=== PATIENT | male | born 1935 | race Caucasian/White ===

== ENCOUNTER 2017-05-25 14:15 | Outpatient (RCR) | payer MEDICARE, SELFPAY ==
[2017-04-05 12:20] VITALS: BMI 47.9
--- NOTE | 2017-05-25 09:14 | PCM.CR.ITP ---
Exercise - Initial Assessment - Stages of Change Stages of Change:: Action - Exercise Prescription Mode:: Treadmill, Airdyne, NuStep Angina with exercise?: No Target Heart Rate:: 98-112 - Hypertension Do any of the following apply?: Yes, Medication - Intervention Home Exercise/Activity Goal:: Moderate Exercise 30 min/day x 5 days/wk - Education Goals:: Warm-up, RPE EYAL Scale, S/S, Safe Exercise, Self-Monitoring - Exercise Program Goals Exercise Program Goals: Aerobic Activity >30 min Exercise - 30-day Assessment - Visit Date of Eval: 05/25/17 Session #:: 7 - Patient expressed only wanting to do 15 sessions of CR. - Stages of Change Stages of Change:: Action - Exercise Prescription Mode:: Treadmill, Airdyne, NuStep Frequency (x/week): 3 Duration:: 30 METs - Progression: 0.5-1 MET as tolerated: 3.5 Target Heart Rate:: 100-112 - Hypertension Resting Blood Pressure:: 180/80 - Report sent to physician. Peak Exercise Blood Pressure:: 200/80 Medication Changes:: No - Pending physician evaluation of elevated resting BPs - Intervention Home Exercise/Activity Goal:: Sitting Time <3 hrs/day - Education Goals:: Warm-up, RPE EYAL Scale, S/S, Safe Exercise, Self-Monitoring - Exercise Program Goals Exercise Program Goals: Aerobic Activity >30 min, B/P <140/90 Exercise - Final/Discharge - Hypertension Do any of the following apply?: Yes, Medication Nutrition - Initial Assessment - Program Goals Nutrition Program Goals: LDL <70. Total Cholesterol <200. HDL >45. Triglycerides <150. HgbA1C <7%. BMI <25 - Stages of Change Stages of Change:: Action - Diabetes Diabetes:: No Non-Insulin Dependent?: No Do you monitor your blood sugar at home?: No - Weight Management Body Fat %:: 22 Total Score:: 1 - Intervention Referral to dietitian:: No Referral to Diabetic Clinic:: No - Education Gave educational materials for:: Healthy eating Nutrition - 30-Day Assessment - Program Goals Nutrition Program Goals: LDL <70. Total Cholesterol <200. HDL >45. Triglycerides <150. HgbA1C <7%. BMI <25 - Visit Date of Eval: 05/25/17 - session # 7 - Stages of Change Stages of Change:: Action - Lipids Has the patient seen the dietitian?: No - Diabetes Diabetes:: No Insulin: No Non-Insulin Dependent?: No - Intervention Referral to dietitian:: No Referral to Diabetic Clinic:: No - Education Attended class for:: Healthy eating Nutrition - 60-Day Assessment - Program Goals Nutrition Program Goals: LDL <70. Total Cholesterol <200. HDL >45. Triglycerides <150. HgbA1C <7%. BMI <25 - Diabetes Diabetes:: No Insulin: No Non-Insulin Dependent?: No - Intervention Referral to dietitian:: No Referral to Diabetic Clinic:: No - Education Attended class for:: Healthy eating Nutrition - 90-Day Assessment - Program Goals Nutrition Program Goals: LDL <70. Total Cholesterol <200. HDL >45. Triglycerides <150. HgbA1C <7%. BMI <25 - Diabetes Diabetes:: No Insulin: No Non-Insulin Dependent?: No - Intervention Referral to dietitian:: No Referral to Diabetic Clinic:: No - Education Attended class for:: Healthy eating Nutrition - Final Assessment - Program Goals Nutrition Program Goals: LDL <70. Total Cholesterol <200. HDL >45. Triglycerides <150. HgbA1C <7%. BMI <25 - Diabetes Diabetes:: No Insulin: No Non-Insulin Dependent?: No - Weight Management Body Fat %:: 22 Total Score:: 1 - Intervention Referral to dietitian:: No Referral to Diabetic Clinic:: No Tobacco - Initial Assessment - Program Goals Tobacco Program Goals: Complete smoking cessation. Attend education classes. Improve Knowledge Test score - Stage of Change Stages of Change:: Action - Learning Barriers Learning Barriers: Vision, Ready to Learn Total Score:: 10 - Family Support Do you have family support?: Yes - Tobacco Use Tobacco Use: Non-smoker How long ago did you quit using tobacco products?: Greater than or equal to 6 months ago Do you use smokeless tobacco?: No - Intervention Smoking Cessation Referral:: No Individual Education/Counseling:: No Education Schedule Given:: Yes - Education Gave educational material for:: Coronary artery disease, Risk factors, Sexuality, Medical compliance, Cardiac A&P, Angina signs & symptoms Tobacco - 30-Day Assessment - Program Goals Tobacco Program Goals: Complete smoking cessation. Attend education classes. Improve Knowledge Test score - Stage of Change Stages of Change:: Action - Learning Barriers Learning Barriers: Participates in education - Family Support Do you have family support?: Yes - Tobacco Use Tobacco Use: Non-smoker Do you use smokeless tobacco?: No - Intervention Smoking Cessation Referral:: No Individual Education/Counseling:: No Education Schedule Given:: Yes - Education Attended class for:: Coronary artery disease, Risk factors, Sexuality, Medical compliance, Cardiac A&P, Angina signs & symptoms Tobacco - 60-Day Assessment - Program Goals Tobacco Program Goals: Complete smoking cessation. Attend education classes. Improve Knowledge Test score - Family Support Do you have family support?: Yes - Tobacco Use Do you use smokeless tobacco?: No - Intervention Smoking Cessation Referral:: No Individual Education/Counseling:: No Education Schedule Given:: Yes - Education Attended class for:: Coronary artery disease, Risk factors, Sexuality, Medical compliance, Cardiac A&P, Angina signs & symptoms Tobacco - 90-Day Assessment - Program Goals Tobacco Program Goals: Complete smoking cessation. Attend education classes. Improve Knowledge Test score - Family Support Do you have family support?: Yes - Tobacco Use Do you use smokeless tobacco?: No - Intervention Smoking Cessation Referral:: No Individual Education/Counseling:: No Education Schedule Given:: Yes - Education Attended class for:: Coronary artery disease, Risk factors, Sexuality, Medical compliance, Cardiac A&P, Angina signs & symptoms Tobacco - Final Assessment - Program Goals Tobacco Program Goals: Complete smoking cessation. Attend education classes. Improve Knowledge Test score - Learning Barriers Cardiac Knowledge Test Score:: 10 - Family Support Do you have family support?: Yes - Tobacco Use Do you use smokeless tobacco?: No - Intervention Smoking Cessation Referral:: No Individual Education/Counseling:: No Education Schedule Given:: Yes Psychosocial - Initial Assess - Target Goals Target Goals: Assess presence or absence of depression. Using a valid screening tool, maximizes coping skills. Positive support system - Stages of Change Stages of Change:: Action - Psychosocial Test Tool Used:: HANDS Depression Questionnaire Self-Efficacy Score:: 9 - Intervention PS - Interventions: Yes Attend Stress Management Classes, No Referral to Mental Health, No Referral to [facility] Case Management, No Referral to Physician, No Uses Stress Management Skills - Education Gave educational materials for:: Coping techniques, Signs & symptoms of depression, Stress management, Relaxation techniques - Patient/Program Goal Preventative Medication(s):: Aspirin, BEBE inhibitor, Clopidogrel, Beta margie, Statin/lipid - Assistive Devices Assistive Devices:: None Fall Risk Assessed:: Yes Psychosocial - 30-Day Assess - Target Goals Target Goals: Assess presence or absence of depression. Using a valid screening tool, maximizes coping skills. Positive support system - Stages of Change Stages of Change:: Action - Psychosocial Test Tool Used:: HANDS Depression Questionnaire Self-Efficacy Score:: 9 - Intervention PS - Interventions: Yes Attend Stress Management Classes, Yes Uses Stress Management Skills, No Referral to Mental Health, No Referral to [facility] Case Management, No Referral to Physician - Education Attended classes for:: Coping techniques, Signs & symptoms of depression, Stress management, Relaxation techniques - Patient/Program Goal Preventative Medication(s):: Aspirin, BEBE inhibitor, Clopidogrel, Beta margie, Statin/lipid - Assistive Devices Assistive Devices:: None Fall Risk Assessed:: Yes Psychosocial - 60-Day Assess - Target Goals Target Goals: Assess presence or absence of depression. Using a valid screening tool, maximizes coping skills. Positive support system - Psychosocial Test Tool Used:: HANDS Depression Questionnaire Self-Efficacy Score:: 9 - Education Attended classes for:: Coping techniques, Signs & symptoms of depression, Stress management, Relaxation techniques - Patient/Program Goal Preventative Medication(s):: Aspirin, BEBE inhibitor, Clopidogrel, Beta margie, Statin/lipid - Assistive Devices Assistive Devices:: None Fall Risk Assessed:: Yes Psychosocial - 90-Day Assess - Target Goals Target Goals: Assess presence or absence of depression. Using a valid screening tool, maximizes coping skills. Positive support system - Psychosocial Test Tool Used:: HANDS Depression Questionnaire Self-Efficacy Score:: 9 - Education Attended classes for:: Coping techniques, Signs & symptoms of depression, Stress management, Relaxation techniques - Patient/Program Goal Preventative Medication(s):: Aspirin, BEBE inhibitor, Clopidogrel, Beta margie, Statin/lipid - Assistive Devices Assistive Devices:: None Fall Risk Assessed:: Yes Psychosocial - Final Assessmen - Target Goals Target Goals: Assess presence or absence of depression. Using a valid screening tool, maximizes coping skills. Positive support system - Psychosocial Test Tool Used:: HANDS Depression Questionnaire Self-Efficacy Score:: 9 - Patient/Program Goal Preventative Medication(s):: Aspirin, BEBE inhibitor, Clopidogrel, Beta margie, Statin/lipid - Assistive Devices Assistive Devices:: None Fall Risk Assessed:: Yes Patient Health Questionnaire 30-Day Re-eval Assessment 1. Little interest or pleasure in doing things: Not at all 2. Feeling down, depressed, or hopeless: Not at all 3. Trouble falling or staying asleep, or sleeping too much: Not at all 4. Feeling tired or having little energy: Not at all 5. Poor appetite or overeating: Not at all 6. Feeling bad about yourself -- or that you are a failure or have let yourself or your family down: Not at all 7. Trouble concentrating on things, such as reading the newspaper or watching television: Not at all 8. Moving or speaking so slowly that other people could have noticed. Or the opposite - being so fidgety or restless that you have been moving around a lot more than usual: Not at all 9. Thoughts that you would be better off , or of hurting yourself in some way: Not at all Total Score: 0 Self-Efficacy 30-Day Re-eval Assessment We would like to know how confident you are in doing certain activities. Please select your confidence level for:: Select your confidence level for the following using the scale 1-10 where 1 is not at all confident and 10 is totally confident. Your score is the average of all 6 responses. Fatigue: How confident are you that you can keep the fatigue caused by your disease from interfering with the things you want to do? Select Number: 9 Physical Discomfort or Pain: How confident are you that you can keep the physical discomfort or pain of your disease from interfering with the things you want to do? Select Number: 9 Emotional Distress: How confident are you that you can keep the emotional distress caused by your disease from interfering with the things you want to do? Select Number: 10 Other Symptoms or Health Problems: How confident are you that you can keep other symptoms or health problems from interfering with the things you want to do? Select Number: 9 Different Tasks and Activities: How confident are you that you can do the different tasks and activities needed to manage your health condition so as to reduce your need to see a doctor? Select Number: 10 Medication: How confident are you that you can do things other than just taking medication to reduce how much your illness affects your everyday life? Select Number: 10 Total Score:: 9 Cardiac Rehabilitation Goals - Cardiac Rehab Goals Cardiac Rehabilitation Goals: 1. Maintain the individual as the primary focus of care. 2. To improve the patient's quality of life. 3. Identification of cardiac risk factors and provide cardiac risk factor management. 4. Enhance the psychosocial status of the patient. 5. Reconditioning enough to allow the patient to resume customary activities. 6. Control symptoms of cardiac disease - Scale Scale for measuring improvement of personal goals: Enter appropriate number in Comments. 2 = Unchanged. 3 = Slightly Better. 4 = Moderate Improvement. 5 = Met my Goal 30-Day Re-eval Assessment Personal Goals: 30-day Re-assessment: Improve management of stress and emotions - slight improvement, Participate in home exercise program - improvement, Improve muscle strength and endurance - improvement, Improve diet and eating habits (eat healthier) - slight improvement, Control risk factors (learn risk factor modification) - ongoing process of lifestyle change
[2017-05-25 09:20] VITALS: BP 180/80; BP 200/80
== END 2017-05-25 23:59 ==
LOC: CR 14:15
PROVIDERS: Family Provider Family Medicine; PCP Family Medicine; Visit Provider Internal Medicine Cardiovascular Disease
DX: I25.10 Atherosclerotic heart disease of native coronary artery without angina pectoris (principal); Z95.5 Presence of coronary angioplasty implant and graft
CPT/HCPCS: 93798

== ENCOUNTER 2017-06-10 14:15 | Outpatient (RCR) | payer MEDICARE, SELFPAY ==
[2017-04-05 12:20] VITALS: BMI 47.9
[2017-04-06 10:00] VITALS: BP 116/70
[2017-05-04 13:13] VITALS: BP 190/90; BMI 21.2
[2017-05-26 01:01] VITALS: BP 180/80; BP 200/80
== END 2017-06-10 14:37 | disposition home or self-care (01) ==
LOC: CR 14:15
PROVIDERS: Family Provider Family Medicine; PCP Family Medicine; Visit Provider Internal Medicine Cardiovascular Disease
DX: I25.10 Atherosclerotic heart disease of native coronary artery without angina pectoris (principal); Z95.5 Presence of coronary angioplasty implant and graft
CPT/HCPCS: 93798

== ENCOUNTER → 2018-08-10 07:47 | Outpatient (CLI) | payer MEDICARE, SELFPAY ==
[2017-04-05 12:20] VITALS: BMI 47.9
[2018-08-03 14:01] VITALS: BMI 21.2
[2018-08-10 10:01] LABS: AST(SGOT) 31 U/L (15-37); Alanine Aminotransfer ALT/SGPT 28 U/L (16-61); Alkaline Phosphatase 67 U/L (45-117); Bilirubin, Direct 0.17 mg/dL (0.00-0.30); Cholesterol 136 mg/dL (200); Globulin 3.7 g/dL (2.2-4.2); High Density Lipoprotein 38 mg/dL; Protein, Total 7.7 g/dL (6.4-8.2); Triglycerides 153 mg/dL; Very Low Density Lipoprotein 31 mg/dL (5-40)
== END ==
PROVIDERS: Family Provider Family Medicine; PCP Family Medicine; Referring Provider Internal Medicine Cardiovascular Disease; Visit Provider Internal Medicine Cardiovascular Disease
DX: E78.5 Hyperlipidemia, unspecified (principal); I25.10 Atherosclerotic heart disease of native coronary artery without angina pectoris
CPT/HCPCS: 36415; 80061; 80076

== ENCOUNTER → 2018-08-15 12:21 | Outpatient (CLI) | payer MEDICARE, SELFPAY ==
[2017-04-05 12:20] VITALS: BMI 47.9
[2018-08-03 14:01] VITALS: BMI 21.2
--- NOTE | 2018-08-15 12:23 | STE_ITS ---
Reason For Study: CAD Stress Results Protocol: Fito Protocol Maximum Predicted HR: 138 bpm Target HR: 117 bpm % Maximum Predicted HR: 80 % DurationHeart Rate Stage (mm:ss) (bpm) BP Comment Baseline 67 142/80No Chest Pain Fito Protocol Stage I 3:00 85 156/82No Chest Pain Fito Protocol Stage II 3:00 100 160/78No Chest Pain Fito Protocol Stage III 1:15 111 / Mild Left Sided Chest Pain Recovery 73 138/82No Chest Pain Stress Duration: 7:15 mm:ss Maximum Stress HR: 111 bpm METS: 10 Baseline Echocardiogram Findings The estimated ejection fraction is 65 %. Stress Echo Wall motion Data Resting WM Intermediate WM Stress WM Resting Wall Motion Wall Motion Stress No regional wall motion No regional wall motion abnormalities noted. abnormalities noted. EKG Data Normal intervals are noted. The patient exercised according to the regular Fito protocol for a total duration of 7:15. The maximum heart rate attained was 112 beats per minute. This was 81% of maximum predicted heart rate. The patient exercised into stage 3 of the Fito protocol. During stress, there were no ST or T wave changes noted to suggest ischemia. No arrhythmias noted. No clinical angina was noted. Interpretation Summary The estimated ejection fraction is 65 %. Normal, adequate, treadmill echocardiogram. Negative for ischemia by EKG and echocardiographic criteria. No anginal symptoms noted. No arrhythmias noted. Average exercise capacity for age. Appropriate blood pressure response to to exercise. Final LVEF of 75%. Test terminated due to attainment of target heart rate and fatigue. No complications. Ordering Physician: Federico Sewell Referring Physician: Juan Elias Performed By: Braden Clarke RCS
== END ==
PROVIDERS: Family Provider Family Medicine; PCP Family Medicine; Referring Provider Internal Medicine Cardiovascular Disease; Visit Provider Internal Medicine Cardiovascular Disease
DX: I25.10 Atherosclerotic heart disease of native coronary artery without angina pectoris (principal); Z95.1 Presence of aortocoronary bypass graft; Z95.5 Presence of coronary angioplasty implant and graft
CPT/HCPCS: 93017; 93350

== ENCOUNTER → 2019-10-17 | Outpatient (CLI) | payer MEDICARE, SELFPAY ==
[2017-04-05 12:20] VITALS: BMI 47.9
[2019-10-15 13:50] VITALS: BMI 20.5
[2019-10-17 09:47] LABS: AST(SGOT) 25 U/L (15-37); Alanine Aminotransfer ALT/SGPT 30 U/L (16-61); Albumin, Serum 3.8 g/dL (3.2-5.0); Alkaline Phosphatase 54 U/L (45-117); Bilirubin, Direct 0.13 mg/dL (0.00-0.30); Cholesterol 113 mg/dL (200); Globulin 3.3 g/dL (2.2-4.2); High Density Lipoprotein 42 mg/dL; Protein, Total 7.1 g/dL (6.4-8.2); Triglycerides 111 mg/dL; Very Low Density Lipoprotein 22 mg/dL (5-40)
== END | disposition home or self-care (01) ==
LOC: LAB 08:28
PROVIDERS: PCP Family Medicine; Referring Provider Internal Medicine Cardiovascular Disease; Visit Provider Internal Medicine Cardiovascular Disease
DX: E78.5 Hyperlipidemia, unspecified (principal); I25.10 Atherosclerotic heart disease of native coronary artery without angina pectoris
CPT/HCPCS: 36415; 80061; 80076

== ENCOUNTER 2020-05-30 15:19 | Outpatient (RCR) | payer MEDICARE, SELFPAY ==
[2017-04-05 12:20] VITALS: BMI 47.9
[2020-02-18 14:16] VITALS: BMI 19.8
== END 2020-05-30 23:59 ==
LOC: IMMUN 15:19
PROVIDERS: PCP Family Medicine; Visit Provider Family Medicine
DX: Z23 Encounter for immunization (principal)
CPT/HCPCS: 0011A; 0012A

== ENCOUNTER 2021-01-25 09:07 | Emergency (ER) | payer MEDICARE, SELFPAY ==
[2017-04-05 12:20] VITALS: BMI 47.9
--- NOTE | 2021-01-25 | RAD_ITS ---
STUDY: X-RAY CHEST REASON FOR EXAM: Male, 85 years old. Chest pain TECHNIQUE: Single AP portable view of the chest. COMPARISON: 04/08/2017. FINDINGS: No focal infiltrate is seen. There is no demonstrated pleural abnormality. Sternal cerclage wires and vascular clips are present from a prior sternotomy and coronary artery bypass graft procedure (CABG). Normal mediastinum and marybel. Normal visualized pulmonary arteries. There is atherosclerotic tortuosity of the aortic arch and descending thoracic aorta. Stable osseous structures. Normal visualized ribs, clavicles, and shoulders. Probable small hiatal hernia. RAD/Chest 1 View (Portable) IMPRESSION: No active pulmonary disease. Small hiatal hernia. Electronically Signed: Chapito Douglas MD at 10:15 EDT Tel , Service support ,
[2021-01-25 09:08] VITALS: PULSE 52; RESP 14; TEMP 36.4; O2SAT 97; BMI 21.2
[2021-01-25 09:11] VITALS: BP 160/67
[2021-01-25 09:15] VITALS: BP 160/67; BP 165/74; BP 172/72; PULSE 50; PULSE 52
--- NOTE | 2021-01-25 09:25 | EKG12_ITS ---
Test Reason : SYNCOPE Blood Pressure : / mmHG Vent. Rate : 051 BPM Atrial Rate : 051 BPM P-R Int : 188 ms QRS Dur : 088 ms QT Int : 448 ms P-R-T Axes : 029 042 078 degrees QTc Int : 412 ms Sinus bradycardia Otherwise normal ECG Confirmed by ROSA HALL, KARIS ([id number]), online editor JESSICA AGUILERA ([id number]) on 01/27/2021 8:00:40 AM Referred By: LETICIA Confirmed By:KARIS LEE MD
--- NOTE | 2021-01-25 09:25 | EX.ED.DYSGE1 ---
HPI History of Present Illness Chief Complaint: Syncope Informant: patient Narrative Narrative: Patient presents with a near syncopal episode at [facility]. He states he has been feeling fine recently. He felt fine this morning. He did eat some breakfast. He went to [facility]. He states he was wearing a very warm sweater. He was feeling warm throughout [facility]. His symptoms did not come on suddenly. He felt he should take his sweater off at some point. He states he started to get warmer and warmer and then he said people were standing around him. He must of been wobbling or moving. They laid him down on the pew. When EMS arrived, they stood him up and he felt a little bit wobbly but not as bad. He never had chest pain palpitations pressure nausea or vomiting. He has not had any black or bloody bowel movements. He is on Plavix. He has a history of heart disease with stents in and bypass in 2001. He has never had stroke. He has no recent travel surgery immobilization personal family history of DVT or PE. Patient exercises by walking about 3 miles every single day. He feels well doing this. He has not been having symptoms. He states his normal heart rate is about 50. That is not new or different. He feels really back to normal now. He thinks he just got too warm by wearing that sweater for almost an hour. [facility] Medical History (Updated 01/25/21 @ 09:[address] Dusty Reveles MD) Actinic keratitis Atherosclerosis of coronary artery of [place] heart without angina pectoris BPH (benign prostatic hyperplasia) Diverticulitis Encounter for long-term current use of high risk medication GI bleed Hyperlipidemia Hypersomnia, unspecified Hypertension Home Medications aspirin 81 mg tablet,delayed release 81 mg PO QDAY 03/30/17 [History Last Taken Unknown] multivitamin with folic acid 1 tab PO DAILY 04/04/17 [History Last Taken Unknown] clopidogrel 75 mg tablet 75 mg PO DAILY #90 tab 03/03/20 [Rx Last Taken Unknown] hydrochlorothiazide 12.5 mg capsule 12.5 mg PO DAILY #90 cap 03/04/20 [Rx Last Taken Unknown] atorvastatin 20 mg tablet 20 mg PO QHS #90 tab 03/26/20 [Rx Last Taken Unknown] ramipril 10 mg capsule 10 mg PO BID #180 cap 03/26/20 [Rx Last Taken Unknown] carvedilol 12.5 mg tablet 12.5 mg PO BID #180 tab 07/10/20 [Rx Last Taken Unknown] Allergy/AdvReac Type Severity Reaction Status Date / Time famotidine [From Pepcid] Allergy Unknown Verified 01/25/21 09:11 ranitidine Allergy Unknown Verified 01/25/21 09:11 Family History Father CAD (coronary artery disease) Sister CAD (coronary artery disease) Surgical History Cataract History of tonsillectomy Hx of appendectomy Hx of CABG (~03/29/02) S/P coronary artery stent placement (04/05/17) Social History Smoking Status: Never smoker alcohol intake: never substance use type: does not use caffeine: Yes Type: coffee and tea what type of physical activity do you participate in: walking, bicycling, weight training and other details: cardiac rehab frequency: daily duration: 30-45 minutes/day seatbelt use: always do you feel safe at home: Yes ROS ROS ED Constitutional Constitutional ED: Denies chills or fever(s) Eyes Eyes: Denies blurry vision, change in vision or diplopia ENT ENT ED: Denies rhinorrhea or sore throat Cardiovascular Cardiovascular: Denies chest pain, palpitations or racing heartbeat Respiratory/Chest Respiratory/Chest: Denies cough or dyspnea Gastrointestinal Gastrointestinal: Denies diarrhea, melena, nausea or vomiting Genitourinary Genitourinary ED: Denies dysuria or hematuria Musculoskeletal Musculoskeletal: Denies arthralgias or myalgias Integumentary Denies rash Neurologic Neurologic: Denies headache(s), paresthesias or weakness Endocrine Endocrinology: Denies polydipsia or polyuria Allergic/Immunologic Allergic/Immunologic ED: Denies urticaria EXAM Physical Exam Const Vital Signs: 01/25/21 09:08 01/25/21 09:11 01/25/21 09:13 Temperature 97.5 F L Temperature Source Oral Pulse Rate 52 L Pulse Rate [Lying] Pulse Rate [Sitting] Pulse Rate [Standing] Respiratory Rate 14 Respiratory Effort Normal Blood Pressure 160/67 H Blood Pressure [Lying] Blood Pressure [Sitting] Blood Pressure [Standing] Blood Pressure Mean 98 Blood Pressure Mean [Lying] Blood Pressure Mean [Sitting] Blood Pressure Mean [Standing] Pulse Ox 97 Oxygen Delivery Method Room Air 01/25/21 09:15 01/25/21 10:14 01/25/21 11:00 Temperature Temperature Source Pulse Rate 52 L 56 L Pulse Rate [Lying] 52 L Pulse Rate [Sitting] 50 L Pulse Rate [Standing] 50 L Respiratory Rate 14 14 Respiratory Effort Blood Pressure 173/68 H 169/75 H Blood Pressure [Lying] 160/67 H Blood Pressure [Sitting] 165/74 H Blood Pressure [Standing] 172/72 H Blood Pressure Mean 103 106 Blood Pressure Mean [Lying] 98 Blood Pressure Mean [Sitting] 104 Blood Pressure Mean [Standing] 105 Pulse Ox 98 98 Oxygen Delivery Method Room Air Room Air When I walk in the room, patient standing on the edge of the bed getting vitals taken. He is not orthostatic. His heart rate stays at about 55. His blood pressure is good. He feels back to normal now though. Positive well nourished and well developed General Appearance ED: well developed and NAD; Negative for pallor HEENT Reports moist mucous membranes Negative for trauma Eyes EOMs intact bilaterally General Eye ED: Negative for pale conjunctiva Neck No no JVD Chest Wall inspection of chest normal Cardio regular rhythm and no murmurs Rate: bradycardia GI normal to inspection, nondistended, normoactive bowel sounds and non-tender Palpation: soft Back/Spine no CVA tenderness Extremity normal to inspection Extremity Narrative: No cords or asymmetry. General Extremety ED: Negative for edema or tenderness General Extremity: Negative for edema Neuro oriented x3 Neuro Narrative: NIH is 0. Sensorium / Orientation: alert Psych mental status grossly normal Skin no rashes or lesions noted and no wounds Skin Narrative: No diaphoresis. General Skin Exam: Negative for jaundice or pallor MDM MDM MDM Narrative Medical decision making narrative: Patient's blood work shows no acute process. Electrolytes and troponin are negative. Glucose is minimally up at 125. Chest x-ray shows hiatal hernia but no acute process. Patient's been rechecked a couple times. His heart rate always stays about 55. He states this is normal. His blood pressure has been good. He is asymptomatic. His only complaint is that he needs to urinate. We will get him up and walk him again. As long as he feels good we will get him home. Lab Data Attestation: I reviewed the patient's lab results. Labs: Laboratory Results - last 24 hr 01/25/21 01/25/21 09:15 09:15 WBC 6.4 RBC 4.12 L Hgb 13.1 Hct 39.0 L MCV 94.7 H MCH 31.8 MCHC 33.6 RDW Std Deviation 42.5 RDW Coeff of Connie 12.2 Plt Count 197 MPV 10.0 Immature Gran % (Auto) 0.300 Neut % (Auto) 59.2 Lymph % (Auto) 27.5 [place] % (Auto) 8.2 Eos % (Auto) 4.5 Baso % (Auto) 0.3 Absolute Neuts (auto) 3.8 Absolute Lymphs (auto) 1.77 Nucleated RBC % 0 Sodium 139 Potassium 4.2 Chloride 105 Carbon Dioxide 29.0 Anion Gap 5 BUN 22 H Creatinine 1.06 Estim Creat Clear Calc 45.62 Est GFR (MDRD) Af Amer 85 Est GFR (MDRD) Non-Af 71 BUN/Creatinine Ratio 20.8 H Glucose 125 H Calcium 9.0 Magnesium 2.1 Troponin I High Sens 9 Radiography Diagnostic Testing: Radiology Impression Chest X-Ray 01/25/21 00:00 IMPRESSION: No active pulmonary disease. Small hiatal hernia. Electronically Signed: Chapito Douglas MD at 10:15 EDT Tel , Service support , EKG Initial EKG: Comments: EKG done for near syncope read by me shows sinus rhythm with bradycardic rate at 51. Patient swears this is normal for him. No ectopy. No acute ST elevation or depression consistent with infarct or ischemia. CT interval, QRS duration and QTc are all normal. Discharge Plan Triage Chief Complaint: Syncope ED Provider: Dusty Reveles Dx/Rx/DC Orders Clinical Impression: Near syncope Instructions: ED Near-Fainting, Uncertain Cause Prescriptions: No Action multivitamin with folic acid 1 TABLET tablet 1 tab PO DAILY RF: 0 aspirin [Adult Low Dose Aspirin] 81 mg tablet,delayed release (DR/EC) 81 mg PO QDAY RF: 0 clopidogrel 75 mg tablet 75 mg PO DAILY Qty: 90 RF: 3 hydrochlorothiazide 12.5 mg capsule 12.5 mg PO DAILY Qty: 90 RF: 3 atorvastatin 20 mg tablet 20 mg PO QHS Qty: 90 RF: 3 ramipril 10 mg capsule 10 mg PO BID Qty: 180 RF: 3 carvedilol 12.5 mg tablet 12.5 mg PO BID Qty: 180 RF: 3 Primary Care Provider: Juan Elias Referrals: Juan Elias MD [Primary Care Provider] - 1-2 Days if not improving Disposition Disposition: Home, Self Care
[2021-01-25 09:36] LABS: Absolute Lymphocyte Count 1.77 X10^3/uL (0.83-4.51); Absolute Neutrophil Count 3.8 X10^3/uL (2.0-7.7); Basophil# 0.02 X10^3/uL; Basophil% 0.3 % (0-1); Eosinophil# 0.29 X10^3/uL; Eosinophils% 4.5 % (0-5); Hemoglobin 13.1 g/dL (13.0-16.5); Lymphocyte # 1.77 X10^3/ul (0.83-4.51); Lymphocyte % 27.5 % (19-41); Mean Corp Hgb Conc 33.6 g/dL (32-36); Mean Corpuscular Hgb 31.8 pg (27.0-32.0); Mean Corpuscular Volume 94.7 fL (80-94); Monocyte# 0.53 X10^3/uL; Monocyte% 8.2 % (0-10); NRBC Flagged by Analyzer 0 % (0-5); Neutrophil # 3.81 X10^3/uL (2.7-7.7); Neutrophil % 59.2 % (47-70); Platelet Count 197 K/mm3 (150-450); RBC Distribution Width CV 12.2 % (11.6-14.6); RBC Distribution Width SD 42.5 fl (35.1-43.9); Red Blood Count 4.12 M/mm3 (4.6-6.2); White Blood Count 6.4 K/mm3 (4.4-11.0)
--- NOTE | 2021-01-25 09:44 | NURSING ---
Attempted to call report to [facility] ED; on hold 15min.
[2021-01-25 09:52] LABS: Anion Gap 5 (5-15); BUN 22 mg/dL (7-18); BUN/Creat Ratio 20.8 RATIO (10-20); Chloride 105 mmol/L (98-107); Creatinine, Serum 1.06 mg/dL (0.70-1.30); EST Glomerular Filtration Rate 71 mL/min (>60); Est Glom Filt Rate - Afr Amer 85 mL/min (>60); Estimated Creatinine Clearance 45.62 ml/min; Glucose 125 mg/dL (74-106); Magnesium 2.1 mg/dL (1.6-2.6); Potassium 4.2 mmol/L (3.5-5.1); Sodium Level 139 mmol/L (136-145); Troponin-I HS 9 pg/mL (3.0-78.0)
[2021-01-25 10:14] VITALS: BP 173/68; PULSE 52; RESP 14; O2SAT 98
[2021-01-25 11:00] VITALS: BP 169/75; PULSE 56; RESP 14; O2SAT 98
[2021-01-25 12:05] VITALS: BP 192/68; PULSE 52; RESP 16
== END 2021-01-25 12:18 | disposition home or self-care (01) ==
PROVIDERS: Emergency Provider Emergency Medicine; PCP Family Medicine
DX: R55 Syncope and collapse (principal); I25.10 Atherosclerotic heart disease of native coronary artery without angina pectoris; E78.5 Hyperlipidemia, unspecified; I10 Essential (primary) hypertension; Z79.82 Long term (current) use of aspirin; Z79.02 Long term (current) use of antithrombotics/antiplatelets; Z95.5 Presence of coronary angioplasty implant and graft; Z79.899 Other long term (current) drug therapy
CPT/HCPCS: 71045; 80048; 83735; 84484; 85025; 93005; 99285; A4216

== ENCOUNTER → 2021-01-26 13:42 | Outpatient (CLI) | payer MEDICARE, SELFPAY ==
[2017-04-05 12:20] VITALS: BMI 47.9
--- NOTE | 2021-01-26 13:44 | ECHOD_ITS ---
Reason For Study: ATHEROSCLEROTIC HEART DISEASE Procedure This was a 2D Doppler, Color Flow transthoracic echocardiogram. Exam performed in department. Left Ventricle Normal LV size. Left ventricular systolic function is normal. The estimated ejection fraction is 60 %. Stage 1 diastolic dysfunction. No regional wall motion abnormalities noted. Right Ventricle Normal RV size. Normal systolic function. Atria The left atrium is mildly enlarged. Normal right atrium. Mitral Valve Normal mitral valve. Tricuspid Valve Normal tricuspid valve. Mild (1+) tricuspid valve insufficiency. Pulmonary artery systolic pressure is 34 mmHg. Aortic Valve Trisinus/trileaflet aortic valve. Mild (1+) eccentric aortic valve insufficiency. Pulmonic Valve Normal pulmonic valve. Great Vessels Normal aortic root. The pulmonary artery is normal size. Normal inferior vena cava. Pericardium/Pleural No pericardial effusion. MMode/2D Measurements & Calculations LVIDd: 4.4 cm IVSd: 1.0 cm LVOT diam: 2.0 cm LVIDs: 2.6 cm LVPWd: 0.99 cm LVOT area: 3.2 cm2 RVDd: 3.6 cm FS: 39.6 % Ao root diam: 2.9 cm LAV(MOD-bp): 73.1 ml LA A4 area: 23.6 cm2 LAV(MOD-bp) Indexed: 43.1 ml/m2 LAV(MOD-sp2): 61.5 ml LAV(MOD-sp4): 79.0 ml LA dimension(2D): 4.4 cm RA A4 area: 19.5 cm2 Time Measurements MV dec time: 0.37 sec Doppler Measurements & Calculations MV E max king: 54.3 cm/sec Lat Peak E' King: 14.0 cm/sec Med Peak E' King: 7.9 cm/sec MV A max king: 81.0 cm/sec E/E' lat: 3.9 E/E' med: 6.9 MV E/A: 0.67 Ao V2 max: 173.4 cm/sec AI max king: 361.1 cm/sec LV V1 max: 150.3 cm/sec Ao max P.0 mmHg AI max P.2 mmHg LV V1 max P.0 mmHg Ao V2 mean: 116.3 cm/sec AI dec slope: 163.3 cm/sec2 LV V1 mean P.8 mmHg Ao mean P.9 mmHg AI P1/2t: 647.8 msec LV V1 mean: 91.4 cm/sec Ao V2 VTI: 36.9 cm LV V1 VTI: 31.4 cm JOSE LUIS(I,D): 2.7 cm2 JOSE LUIS(V,D): 2.7 cm2 SV(LVOT): 99.2 ml PA V2 max: 168.5 cm/sec TR max king: 264.7 cm/sec TR max P.0 mmHg ECHO/Echo Complete Interpretation Summary Normal LV size. Left ventricular systolic function is normal. The estimated ejection fraction is 60 %. Stage 1 diastolic dysfunction. Pulmonary artery systolic pressure is 34 mmHg. Ordering Physician: Lupis Robles Referring Physician: Juan Elias Performed By: Alize Aldana RDCS, RVT
== END ==
PROVIDERS: PCP Family Medicine; Referring Provider Physician Assistant Medical; Visit Provider Physician Assistant Medical
DX: R01.1 Cardiac murmur, unspecified (principal)
CPT/HCPCS: 93306

== ENCOUNTER 2021-06-11 09:42 | Outpatient (CLI) | payer MEDICARE, SELFPAY ==
[2017-04-05 12:20] VITALS: BMI 47.9
--- NOTE | 2021-06-11 09:51 | CDU_ITS ---
Reason For Study: stenosis Rt. Velocities/BP Lt. Velocities/BP Prox CCA 103.3/13.5 cm/sec. Prox CCA 101.4/16.8 cm/sec. Mid CCA 98.2/12.1 cm/sec. Mid CCA 89.3/15.7 cm/sec. Dist CCA 76.0/12.1 cm/sec. Dist CCA 79.4/16.8 cm/sec. Prox ICA 102.1/12.1 cm/sec. Prox ICA 144.8/27.9 cm/sec. Mid ICA 77.3/14.7 cm/sec. Mid ICA 93.7/20.6 cm/sec. Dist ICA 93.0/20.0 cm/sec. Dist ICA 112.0/20.6 cm/sec. Rt. ICA/CCA = 1.0. Lt. ICA/CCA = 1.6. Prox ECA 94.3/8.2 cm/sec. Prox ECA 148.5/17.0 cm/sec. Rt. Vert. 44.3/6.9 cm/sec. Lt. Vert. 62.6/15.2 cm/sec. Right Extracranial There is heterogeneous, irregular atherosclerotic plaque noted in the right common carotid artery. There is heterogeneous, irregular atherosclerotic plaque noted in the right internal carotid artery. There is heterogeneous, irregular atherosclerotic plaque noted in the right external carotid artery. Antegrade flow is noted in the right vertebral artery. Left Extracranial There is heterogeneous, irregular atherosclerotic plaque noted in the left common carotid artery. There is heterogeneous, irregular atherosclerotic plaque noted in the left internal carotid artery. There is heterogeneous, irregular atherosclerotic plaque noted in the left external carotid artery. Antegrade flow is noted in the left vertebral artery. Procedure Carotid Duplex 53025. This is a Carotid Duplex examination using B-mode, color flow and specral Doppler. The exam was diagnostic. Exam performed in department. VL/Carotid Duplex Ultrasound Interpretation Summary Mild (<50%) stenosis right extracranial internal carotid. Stenosis in the left internal carotid artery appears to be approximately 50%. Flow within the vertebral arteries is a ntegrade bilaterally. Ordering Physician: Jarek Patel Performed By: Kenroy Ibarra RVT
== END 2021-06-11 23:59 | disposition home or self-care (01) ==
LOC: CVS 09:48
PROVIDERS: PCP Family Medicine; Referring Provider Ophthalmology; Visit Provider Ophthalmology
DX: G45.3 Amaurosis fugax (principal)
CPT/HCPCS: 93880

== ENCOUNTER 2022-01-10 16:41 | Emergency (ER) | payer MEDICARE, SELFPAY ==
[2017-04-05 12:20] VITALS: BMI 47.9
[2022-01-10 16:41] VITALS: BP 202/122; PULSE 77; RESP 20; TEMP 37.1; O2SAT 98; BMI 20.5
--- NOTE | 2022-01-10 16:44 | EKG12_ITS ---
Test Reason : CP Blood Pressure : / mmHG Vent. Rate : 071 BPM Atrial Rate : 071 BPM P-R Int : 166 ms QRS Dur : 084 ms QT Int : 398 ms P-R-T Axes : 073 082 082 degrees QTc Int : 432 ms Normal sinus rhythm Nonspecific ST abnormality Abnormal ECG Confirmed by ROSA HALL, KARIS ([id number]), non linear editor JESSICA AGUILERA ([id number]) on 01/11/2022 10:53:48 AM Referred By: Confirmed By:KARIS LEE MD
--- NOTE | 2022-01-10 16:47 | RAD_ITS ---
STUDY: X-RAY CHEST REASON FOR EXAM: Male, 86 years old. chest pain TECHNIQUE: Single AP portable view of the chest. COMPARISON: 01/25/2021 FINDINGS: Status post median sternotomy. The lungs are clear and expanded. There is no demonstrated pleural abnormality. Normal size heart. Normal mediastinum and marybel. Normal visualized pulmonary arteries. Normal visualized aortic arch and descending thoracic aorta. Normal visualized thoracic spine. Normal visualized ribs, clavicles, and shoulders. There is no demonstrated abnormality of the visualized soft tissue structures of the upper abdomen. RAD/Chest 1 View (Portable) IMPRESSION: No active disease. Electronically Signed: Mihai Cuba MD at 17:01 EDT ,
[2022-01-10 17:02] LABS: Absolute Lymphocyte Count 1.06 X10^3/uL (0.83-4.51); Absolute Neutrophil Count 7.9 X10^3/uL (2.0-7.7); Basophil# 0.01 X10^3/uL; Basophil% 0.1 % (0-1); Eosinophil# 0.09 X10^3/uL; Eosinophils% 0.9 % (0-5); Hematocrit 41.4 % (40-54); Hemoglobin 13.8 g/dL (13.0-16.5); Lymphocyte # 1.06 X10^3/ul (0.83-4.51); Lymphocyte % 10.7 % (19-41); Mean Corp Hgb Conc 33.3 g/dL (32-36); Mean Corpuscular Hgb 32.2 pg (27.0-32.0); Mean Corpuscular Volume 96.5 fL (80-94); Mean Platelet Vol. 10.7 fl (6.2-12.0); Monocyte# 0.82 X10^3/uL; Monocyte% 8.3 % (0-10); NRBC Flagged by Analyzer 0 % (0-5); Neutrophil # 7.89 X10^3/uL (2.7-7.7); Neutrophil % 79.8 % (47-70); Platelet Count 148 K/mm3 (150-450); RBC Distribution Width CV 12.1 % (11.6-14.6); RBC Distribution Width SD 43.3 fl (35.1-43.9); Red Blood Count 4.29 M/mm3 (4.6-6.2); White Blood Count 9.9 K/mm3 (4.4-11.0)
[2022-01-10 17:05] VITALS: BP 201/79; PULSE 67; RESP 19; O2SAT 98
--- NOTE | 2022-01-10 17:15 | EDS_ITS ---
HPI <GERMAIN Rojo - Last Filed: 01/10/22 20:01> History of Present Illness Chief Complaint: Chest Pain Narrative Narrative: 86-year-old male with PMH of HTN, HLD, CABG in 2001, cardiac stent x1 in 2017 presents with chest pain. Since about 3 PM today he has had waxing waning midsternal chest pressure that started while sitting. There is no associated shortness of breath, nausea vomiting, or diaphoresis. No recent fever cough. He states he does not frequently get chest pain. Nothing seems to make it better or worse. He denies abdominal or back pain. PFSH <GERMAIN Rojo - Last Filed: 01/10/22 20:01> [facility] Medical History (Updated 01/10/22 @ 19:51 by GERMAIN Rojo) Actinic keratitis Atherosclerosis of coronary artery of [place] heart without angina pectoris BPH (benign prostatic hyperplasia) Diverticulitis Encounter for long-term current use of high risk medication GI bleed Hyperlipidemia Hypersomnia, unspecified Hypertension Home Medications aspirin 81 mg tablet,delayed release (Adult Low Dose Aspirin) 81 mg PO QDAY 03/30/17 [History Last Taken Unknown] multivitamin with folic acid 400 mcg tablet 1 tab PO DAILY #90 tabs 02/26/21 [Rx Last Taken Unknown] clopidogrel 75 mg tablet 75 mg PO DAILY #90 tabs 03/03/21 [Rx Last Taken Unknown] atorvastatin 20 mg tablet See Rx Instructions .Route .COMPLEX #90 tabs 03/23/21 [Rx Last Taken Unknown] ramipril 10 mg capsule See Rx Instructions .Route .COMPLEX #180 caps 03/24/21 [Rx Last Taken Unknown] carvedilol 12.5 mg tablet 12.5 mg PO BID #180 tabs 07/16/21 [Rx Last Taken Unknown] isosorbide mononitrate 30 mg tablet,extended release 24 hr 30 mg PO DAILY #90 tabs 12/16/21 [Rx Last Taken Unknown] Allergy/AdvReac Type Severity Reaction Status Date / Time famotidine [From Pepcid] Allergy Unknown Verified 01/10/22 17:06 ranitidine Allergy Unknown Verified 01/10/22 17:06 Family History Father CAD (coronary artery disease) Sister CAD (coronary artery disease) Surgical History Cataract History of tonsillectomy Hx of appendectomy Hx of CABG (~03/29/02) S/P coronary artery stent placement (04/05/17) Social History Smoking Status: Never smoker alcohol intake: never substance use type: does not use caffeine: Yes Type: coffee and tea what type of physical activity do you participate in: walking, bicycling, weight training and other details: cardiac rehab frequency: daily duration: 30-45 minutes/day seatbelt use: always do you feel safe at home: Yes ROS <GERMAIN Rojo - Last Filed: 01/10/22 20:01> ROS ED ROS Narrative Constitutional: Negative for fever, chills, malaise. Eyes: Negative for visual change. ENT: Negative for sore throat, ear pain, rhinorrhea. CVS: Positive for chest pain. Negative for palpitations, syncope. Respiratory: Negative for shortness of breath, cough, orthopnea. GI: Negative for abdominal pain, nausea, vomiting, diarrhea, constipation, melena, hematochezia. : Negative for dysuria, hematuria or frequency. Neuro: Negative for headache, motor/sensory dysfunction. Skin: Negative for rash, abscess, or wound. Musc: Negative for joint pain, swelling, trauma. Heme: Negative for easy bruising, bleeding, lymphadenopathy. EXAM <GERMAIN Rojo - Last Filed: 01/10/22 20:01> Physical Exam Narrative Exam Narrative: CONST: Patient sitting in no acute distress. EYES: Normal inspection. NECK: Normal inspection. RESP: No respiratory distress, CTAB. CVS: Regular rate and rhythm, no murmur, no gallop. ABD: Soft and nontender, no guarding or rebound, nondistended, no hepatosplenomegaly. SKIN: Color normal, no rash, warm, dry, intact. EXTREMITIES: Normal appearance, no calf tenderness, no pedal edema. NEURO: Oriented x4. PSYCH: Normal affect. Const Vital Signs: 01/10/22 16:41 01/10/22 17:03 01/10/22 17:05 Temperature 98.7 F Temperature Source Temporal Pulse Rate 77 Respiratory Rate 20 H Respiratory Effort Normal Non-Labored Respiratory Pattern Normal Blood Pressure 202/122 H Blood Pressure Mean 148 Pulse Ox 98 98 Oxygen Delivery Method Room Air Room Air 01/10/22 17:05 01/10/22 17:19 01/10/22 17:57 Temperature Temperature Source Pulse Rate 67 48 L Respiratory Rate 19 H 11 L Respiratory Effort Respiratory Pattern Blood Pressure 201/79 H 188/62 H 158/71 H Blood Pressure Mean 119 104 100 Pulse Ox 98 94 Oxygen Delivery Method Room Air Room Air 01/10/22 19:45 01/10/22 20:08 Temperature Temperature Source Pulse Rate 67 Respiratory Rate 18 Respiratory Effort Respiratory Pattern Blood Pressure 141/63 H 162/68 H Blood Pressure Mean 89 Pulse Ox 95 Oxygen Delivery Method Room Air <Dr. Buster Gore DO - Last Filed: 01/11/22 00:41> Physical Exam Const Vital Signs: 01/10/22 16:41 01/10/22 17:03 01/10/22 17:05 Temperature 98.7 F Temperature Source Temporal Pulse Rate 77 Respiratory Rate 20 H Respiratory Effort Normal Non-Labored Respiratory Pattern Normal Blood Pressure 202/122 H Blood Pressure Mean 148 Pulse Ox 98 98 Oxygen Delivery Method Room Air Room Air 01/10/22 17:05 01/10/22 17:19 01/10/22 17:57 Temperature Temperature Source Pulse Rate 67 48 L Respiratory Rate 19 H 11 L Respiratory Effort Respiratory Pattern Blood Pressure 201/79 H 188/62 H 158/71 H Blood Pressure Mean 119 104 100 Pulse Ox 98 94 Oxygen Delivery Method Room Air Room Air 01/10/22 19:45 01/10/22 20:08 Temperature Temperature Source Pulse Rate 67 Respiratory Rate 18 Respiratory Effort Respiratory Pattern Blood Pressure 141/63 H 162/68 H Blood Pressure Mean 89 Pulse Ox 95 Oxygen Delivery Method Room Air <GERMAIN Rojo - Last Filed: 01/10/22 20:01> Heart Score History: Slightly/Non-Suspicious ECG: Normal Age: >/= 65 years Risk Factors: >/= 3 Risk Factors or History of CAD Troponin: </= Normal Limit Score: 4 <Dr. Buster Gore DO - Last Filed: 01/11/22 00:41> Heart Score Score: 4 MDM <GERMAIN Rojo - Last Filed: 01/10/22 20:01> MDM MDM Narrative Medical decision making narrative: Patient was evaluated for chest pain. He appears well and nontoxic. Initially he was hypertensive but has come down to 146/71. He is on beta-blockers and his heart rate is running between 40-60s which is normal for him. EKG is normal sinus rhythm with nonspecific changes. There were some peaked T waves but potassium is within normal limits. Troponin x2 is within normal limits. Chest x-ray shows no acute process. On reevaluation he reports he still been having intermittent chest pains. He then relates that he has had worsening of his acid reflux over the last few days and started taking Nexium which he uses as needed. He was given a GI cocktail here with some improvement. I recommended continuing Nexium and following up with his PCP this week. Return to the ER if symptoms worsen. He was discharged in stable condition. Lab Data Attestation: I reviewed the patient's lab results. Labs: Laboratory Results - last 24 hr 01/10/22 01/10/22 01/10/22 16:55 16:55 18:47 WBC 9.9 RBC 4.29 L Hgb 13.8 Hct 41.4 MCV 96.5 H MCH 32.2 H MCHC 33.3 RDW Std Deviation 43.3 RDW Coeff of Connie 12.1 Plt Count 148 L MPV 10.7 Immature Gran % (Auto) 0.200 Neut % (Auto) 79.8 H Lymph % (Auto) 10.7 L [place] % (Auto) 8.3 Eos % (Auto) 0.9 Baso % (Auto) 0.1 Absolute Neuts (auto) 7.9 H Absolute Lymphs (auto) 1.06 Nucleated RBC % 0 Sodium 138 Potassium 4.5 Chloride 104 Carbon Dioxide 28.0 Anion Gap 6 BUN 20 H Creatinine 1.09 Estim Creat Clear Calc 42.13 Est GFR (MDRD) Af Amer 82 Est GFR (MDRD) Non-Af 68 BUN/Creatinine Ratio 18.3 Glucose 148 H Calcium 9.4 Troponin I High Sens 13 13 Radiography Diagnostic Testing: Clinical Impression(s) from Imaging Studies Chest X-Ray 01/10/22 16:47 IMPRESSION: No active disease. Electronically Signed: Mihai Cuba MD at 17:01 EDT , ED attending interpretation of 1 view chest shows normal heart size, no acute infiltrate, edema, or effusion. EKG Initial EKG: Attestation: I personally reviewed and interpreted this EKG as follows: Interpretation: Sinus Rhythm Comments: Normal sinus rhythm, normal intervals, no acute ischemia. 71 bpm <Dr. Buster Gore, DO - Last Filed: 01/11/22 00:41> [facility] Lab Data Labs: Laboratory Results - last 24 hr 01/10/22 01/10/22 01/10/22 16:55 16:55 18:47 WBC 9.9 RBC 4.29 L Hgb 13.8 Hct 41.4 MCV 96.5 H MCH 32.2 H MCHC 33.3 RDW Std Deviation 43.3 RDW Coeff of Connie 12.1 Plt Count 148 L MPV 10.7 Immature Gran % (Auto) 0.200 Neut % (Auto) 79.8 H Lymph % (Auto) 10.7 L [place] % (Auto) 8.3 Eos % (Auto) 0.9 Baso % (Auto) 0.1 Absolute Neuts (auto) 7.9 H Absolute Lymphs (auto) 1.06 Nucleated RBC % 0 Sodium 138 Potassium 4.5 Chloride 104 Carbon Dioxide 28.0 Anion Gap 6 BUN 20 H Creatinine 1.09 Estim Creat Clear Calc 42.13 Est GFR (MDRD) Af Amer 82 Est GFR (MDRD) Non-Af 68 BUN/Creatinine Ratio 18.3 Glucose 148 H Calcium 9.4 Troponin I High Sens 13 13 Radiography Diagnostic Testing: Clinical Impression(s) from Imaging Studies Chest X-Ray 01/10/22 16:47 IMPRESSION: No active disease. Electronically Signed: Mihai Cuba MD at 17:01 EDT , Treatment and Re-Evaluation Narrative: I have personally performed a face to face assessment of the patient and have reviewed the SUNIL Note. I performed a substantive portion of the visit including all aspects of the following. My watson findings include: History: Patient is an 86-year-old male who presents with chest pain that began today. Patient states it has been intermittent throughout the day. Patient states it is over the substernal area. Patient describes it as sharp. Patient states nothing makes it better and nothing makes it worse. Patient denies any nausea or vomiting. Patient states he did have some mild sweating initially but this resolved. Patient denies any shortness of breath. Patient denies any cough or fevers. Exam: Vital signs are stable. Patient is afebrile. Patient is in no acute distress. Oral mucosa is pink and moist. Neck is supple. Trachea is midline. There is no JVD. Heart was regular rate and rhythm. Lungs are clear and equal bilaterally. Abdomen is soft. Bowel sounds are normal. There is no tenderness. Cranial nerves II through XII are intact. There are no focal motor or sensory deficits. Medical Decision Making: EKG was obtained. On my interpretation, it shows a normal sinus rhythm. There are no acute ST or T wave changes noted. CBC was within normal limits. Basic metabolic profile was within normal limits. High- sensitivity troponin was normal. Patient was given a GI cocktail here. Patient felt better after this. Patient was advised that this is most likely from his gastroesophageal reflux disease. Patient was instructed to follow-up with his primary care physician in 5 to 7 days. Patient understood and was agreeable with the plan. All questions were answered. Discharge Plan Triage Chief Complaint: Chest Pain ED Midlevel Provider: Rosalee Gomez ED Provider: Buster Gore Dx/Rx/DC Orders Clinical Impression: Chest pain, History of gastroesophageal reflux (GERD) Instructions: ED Chest Pain, Uncertain Cause Prescriptions: No Action isosorbide mononitrate 30 mg tablet extended release 24 hr 30 mg PO DAILY Qty: 90 3RF aspirin [Adult Low Dose Aspirin] 81 mg tablet,delayed release (DR/EC) 81 mg PO QDAY multivitamin with folic acid 400 mcg tablet 1 tab PO DAILY Qty: 90 3RF clopidogrel 75 mg tablet 75 mg PO DAILY Qty: 90 3RF Rx Instructions: Take one tablet once a day atorvastatin 20 mg tablet See Rx Instructions .ROUTE .COMPLEX Qty: 90 3RF Dose Instruction: TAKE 1 TAB BY MOUTH DAILY AT BEDTIME Rx Instructions: TAKE 1 TAB BY MOUTH DAILY AT BEDTIME ramipril 10 mg capsule See Rx Instructions .ROUTE .COMPLEX Qty: 180 3RF Dose Instruction: TAKE 1 CAPSULE BY MOUTH TWICE A DAY Rx Instructions: TAKE 1 CAPSULE BY MOUTH TWICE A DAY carvedilol 12.5 mg tablet 12.5 mg PO BID Qty: 180 3RF Primary Care Provider: Juan Elias Referrals: Juan Elias MD [Primary Care Provider] - Activity Restrictions/Additional Instructions: Today the EKG and blood work looked normal with no signs of heart damage. Since you have a history of acid reflux this may be causing your pain. Continue Nexium. Avoid spicy or tomato-based foods. Follow-up with your primary care doctor this week. If your chest pain becomes worse return to the emergency room. Disposition Disposition: Home, Self Care Discharge Date/Time: 01/10/22 20:08
[2022-01-10 17:19] VITALS: BP 188/62
[2022-01-10 17:20] LABS: Anion Gap 6 (5-15); BUN 20 mg/dL (7-18); BUN/Creat Ratio 18.3 RATIO (10-20); Calcium,Total 9.4 mg/dL (8.5-10.1); Chloride 104 mmol/L (98-107); Creatinine, Serum 1.09 mg/dL (0.70-1.30); EST Glomerular Filtration Rate 68 mL/min (>60); Est Glom Filt Rate - Afr Amer 82 mL/min (>60); Estimated Creatinine Clearance 42.13 ml/min; Glucose 148 mg/dL (74-106); Potassium 4.5 mmol/L (3.5-5.1); Sodium Level 138 mmol/L (136-145); Troponin-I HS 13 pg/mL (3.0-78.0)
[2022-01-10 17:57] VITALS: BP 158/71; PULSE 48; RESP 11; O2SAT 94
[2022-01-10 19:24] LABS: Troponin-I HS 13 pg/mL (3.0-78.0)
[2022-01-10] MEDS: Mag Hydrox/Al Hydrox/Simeth 30 ML UDC PO (19:44)
[2022-01-10] MEDS: Acetaminophen 325 MG Tablet 650 MG PO (19:44)
[2022-01-10 19:45] VITALS: BP 141/63; PULSE 67; RESP 18; O2SAT 95
[2022-01-10 20:08] VITALS: BP 162/68
== END 2022-01-10 20:08 | disposition home or self-care (01) ==
PROVIDERS: Physician Assistant; Emergency Provider Emergency Medicine; PCP Family Medicine; Visit Provider Emergency Medicine
DX: R07.9 Chest pain, unspecified (principal); E78.5 Hyperlipidemia, unspecified; I25.10 Atherosclerotic heart disease of native coronary artery without angina pectoris; I10 Essential (primary) hypertension; Z95.1 Presence of aortocoronary bypass graft; Z95.5 Presence of coronary angioplasty implant and graft; Z79.82 Long term (current) use of aspirin; Z79.899 Other long term (current) drug therapy
CPT/HCPCS: 71045; 80048; 84484; 85025; 93005; 99284; A4216

== ENCOUNTER 2022-04-25 11:49 | Observation (INO) | payer MEDICARE, SELFPAY ==
[2017-04-05 12:20] VITALS: BMI 47.9
[2022-04-25] VITALS (14 sets, daily range): BP systolic 130–186; BP diastolic 51–75; PULSE 52–63; RESP 12–18; TEMP 35.6–36.6; O2SAT 94–99; BMI 21.5; BMI 19.8
--- NOTE | 2022-04-25 12:12 | CT_ITS ---
EXAM: CT HEAD WITHOUT INTRAVENOUS CONTRAST CLINICAL INDICATION: syncope, head injury TECHNIQUE: Multiple axial images were obtained of the head without intravenous contrast. This CT exam was performed using one or more of the following dose reduction techniques: automated exposure control, adjustment of the mA and/or kV according to patient size, and/or use of iterative reconstruction technique. This report was created using [employer] report generation technology. RADIATION DOSE: CTDIvol = 44.99 mGy, DLP = 796.11 mGy-cm COMPARISON: None. FINDINGS: BRAIN AND EXTRA-AXIAL SPACES: Unremarkable. No intra- or extra-axial hemorrhage. No evidence of acute infarct. No intracranial mass or mass effect. There is preservation of the multani/white matter interface. Posterior fossa structures are unremarkable. Ventricles are appropriate for age. No hydrocephalus. Basal cisterns are patent. BONES/JOINTS: Unremarkable. No discrete lytic or blastic abnormalities. VASCULATURE: Tubular calcifications in the cavernous segments of both internal carotid arteries and in the intradural segment of the left vertebral artery. SINUSES: Minimal mucosal thickening in the right maxillary sinus. MASTOID AIR CELLS: Unremarkable. Clear. ORBITS: Visualized globes, extraocular muscles, optic nerves and retrobulbar fat appear unremarkable. CT/Brain/Head without Contrast IMPRESSION: No acute findings in the head/brain. Electronically Signed: Isaac Mandel MD at 12:51 EST ,
--- NOTE | 2022-04-25 12:12 | EKG12_ITS ---
Test Reason : BRADYCARDIA Blood Pressure : / mmHG Vent. Rate : 055 BPM Atrial Rate : 055 BPM P-R Int : 160 ms QRS Dur : 082 ms QT Int : 460 ms P-R-T Axes : 026 057 082 degrees QTc Int : 440 ms Sinus bradycardia Otherwise normal ECG Confirmed by ERA HALL, CARA ([id number]), web editor JESSICA AGUILERA ([id number]) on 04/27/2022 1:11:25 PM Referred By: BEBA Confirmed By:CARA GIRARD MD
--- NOTE | 2022-04-25 12:18 | EDS_ITS ---
HPI History of Present Illness Chief Complaint: Syncope Detail of Chief Complaint: Syncope Informant: patient Narrative Narrative: Patient presents with a syncopal episode that occurred today while in restorationism. Patient states that he had been standing when he felt like he needed to go outside. Next thing he remembers he is on the ground and people around him. Patient denies chest pain or shortness of breath. He denies recent illness. Patient states that he had a similar episode about a year ago. Patient does have history of prior CABG and has a cardiac stent. Apparently EMS initially noted bradycardia with heart rate in the 30s and low blood pressure with a systolic of 78. Patient received 1 mg of atropine and heart rate went to the 50s. Patient states that he was very nauseated on the way to the hospital but that since has improved. He said no vomiting. He does not think he hurt himself when he fell. He denies neck pain. Prior similar symptoms: Yes [facility] Medical History (Updated 04/25/22 @ 12:[address] Silva Moura, DO) Actinic keratitis Atherosclerosis of coronary artery of [place] heart without angina pectoris BPH (benign prostatic hyperplasia) Diverticulitis Encounter for long-term current use of high risk medication GI bleed Hyperlipidemia Hypersomnia, unspecified Hypertension Home Medications aspirin 81 mg tablet,delayed release (Adult Low Dose Aspirin) 81 mg PO QDAY 03/30/17 [History Last Taken Unknown] multivitamin with folic acid 400 mcg tablet 1 tab PO DAILY #90 tabs 02/26/21 [Rx Last Taken Unknown] atorvastatin 20 mg tablet See Rx Instructions .Route .COMPLEX #90 tabs 03/23/21 [Rx Last Taken Unknown] ramipril 10 mg capsule See Rx Instructions .Route .COMPLEX #180 caps 03/24/21 [Rx Last Taken Unknown] carvedilol 12.5 mg tablet 12.5 mg PO BID #180 tabs 07/16/21 [Rx Last Taken Unknown] clopidogrel 75 mg tablet 75 mg PO DAILY #90 tabs 03/01/22 [Rx Last Taken Unknown] isosorbide mononitrate 30 mg tablet,extended release 24 hr See Rx Instructions .Route .COMPLEX #90 tabs 03/22/22 [Rx Last Taken Unknown] Allergy/AdvReac Type Severity Reaction Status Date / Time famotidine [From Pepcid] Allergy Unknown Verified 04/25/22 11:50 ranitidine Allergy Unknown Verified 04/25/22 11:50 Family History Father CAD (coronary artery disease) Sister CAD (coronary artery disease) Surgical History Cataract History of tonsillectomy Hx of appendectomy Hx of CABG (~03/29/02) S/P coronary artery stent placement (04/05/17) Social History Smoking Status: Never smoker alcohol intake: never substance use type: does not use caffeine: Yes Type: coffee and tea what type of physical activity do you participate in: walking, bicycling, weight training and other details: cardiac rehab frequency: daily duration: 30-45 minutes/day seatbelt use: always do you feel safe at home: Yes ROS ROS ED ROS Narrative Syncope Review of Systems ROS Unobtainable: other Constitutional Constitutional ED: Reports lethargy; Denies chills, fever(s), sweats or weight loss Eyes Eyes: Denies blurry vision, change in vision or diplopia ENT ENT ED: Denies rhinorrhea or sore throat Cardiovascular Cardiovascular: Denies chest pain, orthopnea or racing heartbeat Respiratory/Chest Respiratory/Chest: Denies cough, dyspnea, dyspnea on exertion, orthopnea or sputum Gastrointestinal Gastrointestinal: Denies abdominal pain, diarrhea, nausea or vomiting Genitourinary Genitourinary ED: Denies dysuria, hematuria or urinary frequency Musculoskeletal Musculoskeletal: Denies arthralgias, back pain, myalgias or neck pain Integumentary Denies abscess, Abrasions or rash Neurologic Neurologic: Denies headache(s) or weakness Psychiatric Psychiatric: Denies anxiety, depression or suicidal thoughts Endocrine Endocrinology: Denies polydipsia, polyphagia or polyuria Hematologic/Lymphatic Hematologic/Lymphatic: Denies easy bleeding, easy bruising or lymphadenopathy Allergic/Immunologic Allergic/Immunologic ED: Denies mouth swelling, tongue swelling or urticaria EXAM Physical Exam Const Vital Signs: 04/25/22 11:52 04/25/22 11:54 04/25/22 12:15 Temperature 96.1 F L Temperature Source Temporal Pulse Rate 54 L Pulse Rate [Lying] 53 L Pulse Rate [Sitting (for 1 minute prior to obtaining)] 58 L Pulse Rate [Standing (for 1 minute prior to obtaining)] 58 L Respiratory Rate 12 Respiratory Effort Normal Non-Labored Respiratory Pattern Normal Blood Pressure 146/59 H Blood Pressure [Lying] 175/70 H Blood Pressure [Sitting (for 1 minute prior to obtaining)] 180/65 H Blood Pressure [Standing (for 1 minute prior to obtaining)] 140/51 H Blood Pressure Mean 88 Blood Pressure Mean [Lying] 105 Blood Pressure Mean [Sitting (for 1 minute prior to obtaining)] 103 Blood Pressure Mean [Standing (for 1 minute prior to obtaining)] 80 Pulse Ox 98 Oxygen Delivery Method Room Air Positive well nourished and well developed General Appearance ED: well developed and NAD HEENT Reports TM's clear and moist mucous membranes normocephalic and atraumatic; Negative for trauma or tenderness Tympanic Membrane ED: Yes TM's clear Eyes PERRL and EOMs intact bilaterally General Eye ED: Negative for pale conjunctiva or scleral icterus Neck no lymphadenopathy, supple and no JVD General: Negative for tenderness Chest Wall inspection of chest normal and palpation of chest normal Chest: Negative for tenderness Resp normal respiratory effort and clear to auscultation bilaterally Effort and Inspection: Negative for respiratory distress or pain with movement Auscultation: Negative for rhonchi, wheezes or diminished lung sounds Cardio regular rate, regular rhythm, S1 normal heart sound, S2 normal heart sound and no murmurs Peripheral Pulses: pulses 2+ throughout GI normal to inspection, nondistended, normoactive bowel sounds, soft to palpation, non-tender, non-distended and no masses Back/Spine no CVA tenderness and no thoracic nor lumbar tenderness Extremity normal to inspection General Extremety ED: Negative for edema General Extremity: Negative for edema Neuro oriented x3, CN's II-XII intact bilaterally, no sensory deficits noted and gait normal Sensorium / Orientation: awake, alert, oriented to person, oriented to place and oriented to time Motor Exam: strength 5/5 throughout and strength abnormal Psych mental status grossly normal Skin no rashes or lesions noted and no wounds MDM MDM MDM Narrative Medical decision making narrative: IV line established on arrival. Patient placed on cardiac rehab nurse. Lab work-up unremarkable. Troponin was normal. EKG shows sinus bradycardia with a rate of 55 bpm otherwise no significant changes. Lab Data Attestation: I reviewed the patient's lab results. Labs: Laboratory Results - last 24 hr 04/25/22 04/25/22 11:55 11:55 WBC 6.3 RBC 4.29 L Hgb 13.4 Hct 40.5 MCV 94.4 H MCH 31.2 MCHC 33.1 RDW Std Deviation 44.8 H RDW Coeff of Connie 13.1 Plt Count 177 MPV 11.1 Immature Gran % (Auto) 0.200 Neut % (Auto) 62.7 Lymph % (Auto) 26.5 [place] % (Auto) 7.2 Eos % (Auto) 2.9 Baso % (Auto) 0.5 Absolute Neuts (auto) 3.9 Absolute Lymphs (auto) 1.66 Nucleated RBC % 0 Sodium 139 Potassium 4.2 Chloride 106 Carbon Dioxide 27.0 Anion Gap 6 BUN 19 H Creatinine 1.02 Estim Creat Clear Calc 47.28 Est GFR (MDRD) Af Amer 89 Est GFR (MDRD) Non-Af 74 BUN/Creatinine Ratio 18.6 Glucose 132 H Calcium 9.4 Troponin I High Sens 11 Radiography Chest X-Ray - ED: 1 View Diagnostic Testing: Clinical Impression(s) from Imaging Studies Brain CT 04/25/22 12:12 IMPRESSION: No acute findings in the head/brain. Electronically Signed: Isaac Mandel MD at 12:51 EST , Chest X-Ray 04/25/22 12:37 IMPRESSION: 1. No acute findings in the chest. 2. Small gastric hernia. 3. No interval change when compared to 01/10/2022. Electronically Signed: Isaac Mandel MD at 12:48 EST , 1 view chest x-ray obtained interpreted by myself as no acute disease process. Radiology felt there was a small gastric hernia otherwise no acute changes. EKG Initial EKG: Attestation: I personally reviewed and interpreted this EKG as follows: Comments: Sinus bradycardia with a rate of 55 bpm with no acute ST segment changes Discharge Plan Triage Chief Complaint: Syncope ED Provider: Silva Moura Dx/Rx/DC Orders Clinical Impression: Syncope, Bradycardia, History of coronary artery disease Prescriptions: No Action aspirin [Adult Low Dose Aspirin] 81 mg tablet,delayed release (DR/EC) 81 mg PO QDAY multivitamin with folic acid 400 mcg tablet 1 tab PO DAILY Qty: 90 3RF atorvastatin 20 mg tablet See Rx Instructions .ROUTE .COMPLEX Qty: 90 3RF Dose Instruction: TAKE 1 TAB BY MOUTH DAILY AT BEDTIME Rx Instructions: TAKE 1 TAB BY MOUTH DAILY AT BEDTIME ramipril 10 mg capsule See Rx Instructions .ROUTE .COMPLEX Qty: 180 3RF Dose Instruction: TAKE 1 CAPSULE BY MOUTH TWICE A DAY Rx Instructions: TAKE 1 CAPSULE BY MOUTH TWICE A DAY carvedilol 12.5 mg tablet 12.5 mg PO BID Qty: 180 3RF clopidogrel 75 mg tablet 75 mg PO DAILY Qty: 90 3RF Rx Instructions: Take one tablet once a day isosorbide mononitrate 30 mg tablet extended release 24 hr See Rx Instructions .ROUTE .COMPLEX Qty: 90 1RF Dose Instruction: TAKE 1 TABLET BY MOUTH EVERY DAY Rx Instructions: TAKE 1 TABLET BY MOUTH EVERY DAY Primary Care Provider: Jaun Elias Referrals: Juan Elias MD [Primary Care Provider] - Disposition Disposition: Acute Care Hospital [facility]
[2022-04-25 12:25] LABS: Absolute Lymphocyte Count 1.66 X10^3/uL (0.83-4.51); Absolute Neutrophil Count 3.9 X10^3/uL (2.0-7.7); Basophil# 0.03 X10^3/uL; Basophil% 0.5 % (0-1); Eosinophil# 0.18 X10^3/uL; Eosinophils% 2.9 % (0-5); Hematocrit 40.5 % (40-54); Hemoglobin 13.4 g/dL (13.0-16.5); Lymphocyte # 1.66 X10^3/ul (0.83-4.51); Lymphocyte % 26.5 % (19-41); Mean Corp Hgb Conc 33.1 g/dL (32-36); Mean Corpuscular Hgb 31.2 pg (27.0-32.0); Mean Corpuscular Volume 94.4 fL (80-94); Mean Platelet Vol. 11.1 fl (6.2-12.0); Monocyte# 0.45 X10^3/uL; Monocyte% 7.2 % (0-10); NRBC Flagged by Analyzer 0 % (0-5); Neutrophil # 3.93 X10^3/uL (2.7-7.7); Neutrophil % 62.7 % (47-70); Platelet Count 177 K/mm3 (150-450); RBC Distribution Width CV 13.1 % (11.6-14.6); RBC Distribution Width SD 44.8 fl (35.1-43.9); Red Blood Count 4.29 M/mm3 (4.6-6.2); White Blood Count 6.3 K/mm3 (4.4-11.0)
--- NOTE | 2022-04-25 12:37 | RAD_ITS ---
EXAM: XR CHEST, 1 VIEW CLINICAL INDICATION: Syncope. TECHNIQUE: Frontal view of the chest. This report was created using [email or web address] report generation technology. COMPARISON: 01/10/2022. FINDINGS: LUNGS AND PLEURAL SPACES: No suspicious infiltrates. No pneumothorax. No effusion. HEART: Intact sternal wires from CABG procedure. MEDIASTINUM: Central airways and mediastinal contour are unremarkable. BONES/JOINTS: Unremarkable. SOFT TISSUES: Unremarkable. UPPER ABDOMEN: Small gastric hernia. RAD/Chest 1 View (Portable) IMPRESSION: 1. No acute findings in the chest. 2. Small gastric hernia. 3. No interval change when compared to 01/10/2022. Electronically Signed: Isaac Mandel MD at 12:48 EST ,
[2022-04-25 12:43] LABS: Anion Gap 6 (5-15); BUN 19 mg/dL (7-18); BUN/Creat Ratio 18.6 RATIO (10-20); Calcium,Total 9.4 mg/dL (8.5-10.1); Chloride 106 mmol/L (98-107); Creatinine, Serum 1.02 mg/dL (0.70-1.30); EST Glomerular Filtration Rate 74 mL/min (>60); Est Glom Filt Rate - Afr Amer 89 mL/min (>60); Estimated Creatinine Clearance 47.28 ml/min; Glucose 132 mg/dL (74-106); Potassium 4.2 mmol/L (3.5-5.1); Sodium Level 139 mmol/L (136-145); Troponin-I HS 11 pg/mL (3.0-78.0)
[2022-04-25] MEDS: 0.9% Normal Saline 1,000 ML 150 ML IV (12:47)
--- NOTE | 2022-04-25 13:26 | HP.PCM.HOS_ITS ---
HPI - General General Date of Admission: 04/25/22 Date of Service: 04/25/22 Chief Complaint: Syncope/Bradycardia HPI Narrative JEANETTE TREJO, is a 86 M who presented to the emergency department at [facility] on 04/25/2022 after he had a syncopal episode at [facility]. Patient reported he had been standing for 2 to 3 minutes at [facility] at which time he started feeling a little bit hot and slightly abnormal and the next thing he knew he was surrounded by people lying on the ground. He did indicate that he thought himself he might try to walk outside and get some air prior to this happening but he did not make it to that point. Evidently when the squad arrived he was found to be bradycardic and hypotensive with a heart rate in the 30s and a pressure in the 60s. He was given atropine and brought to the emergency department. He reported that while he was in the squad he felt nauseated but once he got to the air that resolved. He had a similar episode prior approximately 2 to 3 years ago at which time a similar event happened to [facility] in the same circumstances. He was evaluated the emergency department at that time and discharged home. He is on carvedilol at baseline and states his heart rate typically runs low in the 50s anyway. He follows with cardiology as an outpatient. Vital signs at presentation showed a temperature of 96.1, heart rate was 54 and has been anywhere from 82-54 during his emergency department visit, blood pressure was 146/59, respiratory was 12, oxygen saturations were 98% on room air. Orthostatic vitals were obtained and were actually positive only from sitting to standing however the patient had no symptoms with this. His CBC was overall unremarkable. His chemistry panel was unremarkable other than a mildly elevated blood glucose at 132. His initial troponin was 11. His EKG shows sinus bradycardia with a heart rate of 54, normal intervals, and no ST-T wave changes consistent with acute ischemia. CT of his brain demonstrated no acute findings. Chest x-ray demonstrated a small hiatal hernia with no interval change from 01/10/2022. Emergency department requested we bring the patient in for observation with his bradycardia in the field to rule out any cardiac arrhythmia as a cause for syncopal episode. [facility] Medical History Actinic keratitis Atherosclerosis of coronary artery of [place] heart without angina pectoris BPH (benign prostatic hyperplasia) Diverticulitis Encounter for long-term current use of high risk medication GI bleed Hyperlipidemia Hypersomnia, unspecified Hypertension Home Medications aspirin 81 mg tablet,delayed release (Adult Low Dose Aspirin) 81 mg PO QDAY 03/30/17 [History Last Taken Unknown] multivitamin with folic acid 400 mcg tablet 1 tab PO DAILY #90 tabs 02/26/21 [Rx Last Taken Unknown] atorvastatin 20 mg tablet See Rx Instructions .Route .COMPLEX #90 tabs 03/23/21 [Rx Last Taken Unknown] ramipril 10 mg capsule See Rx Instructions .Route .COMPLEX #180 caps 03/24/21 [Rx Last Taken Unknown] carvedilol 12.5 mg tablet 12.5 mg PO BID #180 tabs 07/16/21 [Rx Last Taken Unknown] clopidogrel 75 mg tablet 75 mg PO DAILY #90 tabs 03/01/22 [Rx Last Taken Unknown] isosorbide mononitrate 30 mg tablet,extended release 24 hr See Rx Instructions .Route .COMPLEX #90 tabs 03/22/22 [Rx Last Taken Unknown] Allergy/AdvReac Type Severity Reaction Status Date / Time famotidine [From Pepcid] Allergy Unknown Verified 04/25/22 11:50 ranitidine Allergy Unknown Verified 04/25/22 11:50 Family History Father CAD (coronary artery disease) Sister CAD (coronary artery disease) Surgical History Cataract History of tonsillectomy Hx of appendectomy Hx of CABG (~03/29/02) S/P coronary artery stent placement (04/05/17) Social History Smoking Status: Never smoker alcohol intake: never substance use type: does not use caffeine: Yes Type: coffee and tea what type of physical activity do you participate in: walking, bicycling, weight training and other details: cardiac rehab frequency: daily duration: 30-45 minutes/day seatbelt use: always do you feel safe at home: Yes ROS Constitutional Constitutional: Denies anorexia, change in weight, chills, fatigue, fever(s), malaise, night sweats, weakness or other Eyes Eyes: Denies blurry vision, change in eye color, change in vision, discharge from eye(s), double vision, erythema, eye pain, loss of vision or other ENT HEENT: Denies abnormal hearing, dysphagia, ear pain, epistaxis, headache(s), hearing loss, nasal congestion, nasal discharge, post nasal drip, sinus pressure, sore throat or other Cardiovascular Cardiovascular: Denies chest pain, claudication, dyspnea on exertion, edema, lightheadedness, orthopnea, palpitations, paroxysmal nocturnal dyspnea, rapid heart rate, syncope or other Respiratory/Chest Respiratory/Chest: Denies cough, dyspnea, excessive phlegm production, hemoptysis, productive cough, shortness of breath at rest, shortness of breath with exertion, wheezing or other Gastrointestinal Gastrointestinal: Reports nausea; Denies abdominal pain, coffee ground emesis, constipation, diarrhea, dyspepsia, hematemesis, hematochezia, loose stools, melena, vomiting or other Genitourinary Genitourinary: Denies burning urination, difficulty urinating, dysuria, ezra turia, nocturia, urinary frequency, urinary hesitancy, urinary incontinence, urinary urgency or other Musculoskeletal Musculoskeletal: Reports joint stiffness; Denies arthralgias, back pain, joint pain, joint swelling, myalgias, neck pain or other Neurologic Neurologic: Reports syncope; Denies abnormal gait, abnormal speech, confusion, disequilibrium, dizziness, focal weakness, headache(s), numbness, paresthesias, seizure-like activity, seizures, tingling, tremor(s) or other Psychiatric Psychiatric: Denies anxiety, depression, homicidal ideation, suicidal ideation or other Endocrine Endocrinology: Denies change in body appearance, cold intolerance, excessive sweating, heat intolerance, polydipsia, polyuria or other Hematologic/Lymphatic Hematologic/Lymphatic: Denies anemia, easy bleeding, easy bruising, lymphadenopathy or other Allergic/Immunologic Allergic/Immunologic: Denies rhinitis, hives, eczemia, asthma or other Vital Signs Vital Signs Vital Signs: 04/25/22 11:52 04/25/22 11:54 04/25/22 12:15 Temperature 96.1 F L Temperature Source Temporal Pulse Rate 54 L Pulse Rate [Lying] 53 L Pulse Rate [Sitting (for 1 minute prior to obtaining)] 58 L Pulse Rate [Standing (for 1 minute prior to obtaining)] 58 L Respiratory Rate 12 Respiratory Effort Normal Non-Labored Respiratory Pattern Normal Blood Pressure 146/59 H Blood Pressure [Lying] 175/70 H Blood Pressure [Sitting (for 1 minute prior to obtaining)] 180/65 H Blood Pressure [Standing (for 1 minute prior to obtaining)] 140/51 H Blood Pressure Mean 88 Blood Pressure Mean [Lying] 105 Blood Pressure Mean [Sitting (for 1 minute prior to obtaining)] 103 Blood Pressure Mean [Standing (for 1 minute prior to obtaining)] 80 Pulse Ox 98 Oxygen Delivery Method Room Air Weight Weight: 64.3 kg Body Mass Index (BMI) 21.5 Physical Exam Const alert, oriented x3, no apparent distress, average body habitus, healthy appearing and well nourished Constitutional Narrative: Very pleasant elderly white male sitting up in bed, appears comfortable nontoxic General Appearance: cooperative HEENT normocephalic, head/scalp atraumatic and moist oral mucous membranes HEENT Narrative: Mild hearing impairment, dentition is good for age, Mallampati is 2 Eyes PERRL, EOMs intact bilaterally and conjunctivae normal Eyes Narrative: No scleral icterus Neck no lymphadenopathy, supple, no JVD and no carotid bruits Resp normal respiratory effort, no retractions and no use of accessory muscles Auscultation: Negative for crackles, rhonchi or wheezes Cardio regular rhythm, S1 normal heart sound, S2 normal heart sound, no murmurs, no rub, no gallops, no clicks and no JVD Cardio Narrative: Bradycardic GI normal to inspection, nondistended, normoactive bowel sounds, soft to palpation and non-tender Extremity no clubbing, cyanosis or edema Extremity Narrative: 2+ pedal pulses Skin no rashes or lesions noted, no wounds, skin turgor normal, no jaundice, no petechiae and no mottling Neuro oriented x3, CN's II-XII intact bilaterally, moves all extremities and no focal motor deficits Speech: speech normal Psych Psych Narrative: Affect is somewhat flat however eye contact is good and patient does not appear to be depressed Results Lab / Micro Data Result Diagrams: 04/25/22 11:55 04/25/22 11:55 Labs: Laboratory Results - last 24 hr 04/25/22 11:55: WBC 6.3, RBC 4.29 L, Hgb 13.4, Hct 40.5, MCV 94.4 H, MCH 31.2, MCHC 33.1, RDW Std Deviation 44.8 H, RDW Coeff of Connie 13.1, Plt Count 177, MPV 11.1, Immature Gran % (Auto) 0.200, Neut % (Auto) 62.7, Lymph % (Auto) 26.5, [place] % (Auto) 7.2, Eos % (Auto) 2.9, Baso % (Auto) 0.5, Absolute Neuts (auto) 3.9, Absolute Lymphs (auto) 1.66, Nucleated RBC % 0 04/25/22 11:55: Sodium 139, Potassium 4.2, Chloride 106, Carbon Dioxide 27.0, Anion Gap 6, BUN 19 H, Creatinine 1.02, Estim Creat Clear Calc 47.28, Est GFR (MDRD) Af Amer 89, Est GFR (MDRD) Non-Af 74, BUN/Creatinine Ratio 18.6, Glucose 132 H, Calcium 9.4, Troponin I High Sens [address] 04/25/22 12:12 IMPRESSION: No acute findings in the head/brain. Electronically Signed: Isaac Mandel MD at 12:51 EST , Chest X-Ray 04/25/22 12:37 IMPRESSION: 1. No acute findings in the chest. 2. Small gastric hernia. 3. No interval change when compared to 01/10/2022. Electronically Signed: Isaac Mandel MD at 12:48 EST , Assessment & Plan Assessment/Plan (1) Syncope: (2) Bradycardia: PLAN: Plan Syncope -Event occurred while standing at [facility] today -Fell on when outside and was found down -Similar event at [facility] 2 years ago at which time he presented to the ED and was discharged home -Upon EMS arrival was bradycardic and hypotensive -Suspect vasovagal event however will rule out other organic etiologies -Monitor on telemetry -CT head negative -Check echocardiogram--> last one was just over a year ago -Echo at that time showed an EF of 65% with stage I diastolic dysfunction and a right ventricular systolic pressure of 34 mmHg -Orthostatics were negative in the sense that the patient was not symptomatic however he did have a drop in his blood pressure from sitting to standing -Recommend compression hose as I suspect return is compromised with his age and comorbidities -Place KYRA hose -Cycle cardiac enzymes Bradycardia -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 per review of his heart rates previously and in the ER at this time -Was found to be bradycardic upon the arrival of EMS in the 30s -Suspect this was vasovagal he mediated -Monitor on telemetry -We will continue Coreg for now but if patient has any further bradycardia with heart rates that dropped below 45 would recommend either reduction or discontinuation -Check TSH CAD/HTN/HPL -CABG [place] to LAD and D1, SVG to lateral LCX 03/29/2002; PCI to Prox LAD 01/19/2002; PCI to LAD and D1 03/15/2002, PCI to RCA 03/2017 -Continue home aspirin -Continue home atorvastatin -Continue home carvedilol -Continue on Plavix -Continue home isosorbide mononitrate-continue home ramipril BPH -Patient is currently on no medication -Avoid Soriano if able History of cataracts -No current issues DVT prophylaxis -Lovenox 30 mg daily CODE STATUS -DNR CCA no intubation per discussion with the patient at the time of my evaluation in the emergency department Charges/Coding Visit Charges OBSV E&M: 94256 Observ/hosp same date L3
--- NOTE | 2022-04-25 13:33 | NURSING ---
123 OBS NENITA SYNCOPE, BRADYCARDIA
--- NOTE | 2022-04-25 14:04 | ECHOD_ITS ---
Reason For Study: Syncope Procedure This was a 2D Doppler, Color Flow transthoracic echocardiogram. The exam was of adequate technical quality. Exam performed portable in patient room. Left Ventricle Normal LV size. Apical false tendon noted. Left ventricular systolic function is normal. The estimated ejection fraction is 65 %. Stage 2 diastolic dysfunction. No regional wall motion abnormalities noted. Right Ventricle Normal RV size. Normal systolic function. Atria The left atrium is mildly enlarged. Normal right atrium. No doppler evidence for ASD. Mitral Valve There is no mitral annular calcification. Mild diffuse mitral valve thickening. Mild (1+) mitral valve insufficiency. Tricuspid Valve Normal tricuspid valve. Moderate (2+) eccentric tricuspid valve insufficiency. Right ventricular systolic pressure estimated to be 50 mmHg. Aortic Valve Trisinus/trileaflet aortic valve. Mild diffuse aortic valve thickening. Mild diffuse aortic valve calcification. Mild (1+) aortic valve insufficiency. Pulmonic Valve The pulmonic valve is not well visualized. Great Vessels Normal sized aortic root. Pericardium/Pleural No pericardial effusion. MMode/2D Measurements & Calculations LVIDd: 4.2 cm IVSd: 1.1 cm Ao root diam: 3.3 cm LVIDs: 2.5 cm LVPWd: 1.2 cm RVDd: 3.4 cm FS: 39.7 % LAV(MOD-bp): 48.4 ml LVAd ap4: 26.7 cm2 SV(MOD-sp4): 45.0 ml LAV(MOD-bp) Indexed: 28.4 ml/m2 LVLd ap4: 8.1 cm LAV(MOD-sp2): 53.6 ml EDV(MOD-sp4): 71.9 ml LAV(MOD-sp4): 41.1 ml EDV(sp4-el): 75.1 ml LVAs ap4: 14.7 cm2 LVLs ap4: 6.9 cm ESV(MOD-sp4): 26.9 ml ESV(sp4-el): 26.7 ml EF(MOD-sp4): 62.6 % EF(sp4-el): 64.4 % SV(sp4-el): 48.3 ml LA A4 area: 16.8 cm2 LA dimension(2D): 4.4 cm RA A4 area: 19.6 cm2 Time Measurements MV dec time: 0.18 sec Doppler Measurements & Calculations MV E max king: 81.1 cm/sec Lat Peak E' King: 11.2 cm/sec Med Peak E' King: 5.3 cm/sec MV A max king: 60.4 cm/sec E/E' lat: 7.2 E/E' med: 15.4 MV E/A: 1.3 Ao V2 max: 161.5 cm/sec AI max king: 377.4 cm/sec LV V1 max: 119.8 cm/sec Ao max P.4 mmHg AI max P.0 mmHg LV V1 max P.7 mmHg Ao V2 mean: 97.7 cm/sec Ao mean P.4 mmHg AI dec slope: 189.0 cm/sec2 Ao V2 VTI: 36.2 cm AI P1/2t: 584.8 msec PA V2 max: 157.1 cm/sec TR max king: 322.7 cm/sec TR max P.7 mmHg ECHO/Echo Complete Interpretation Summary Left ventricular systolic function is normal. The estimated ejection fraction is 65 %. Apical false tendon noted. The left atrium is mildly enlarged. Mild diffuse mitral valve thickening. Mild (1+) mitral valve insufficiency. Moderate (2+) eccentric tricuspid valve insufficiency. Mild diffuse aortic valve thickening. Mild diffuse aortic valve calcification. Right ventricular systolic pressure estimated to be 50 mmHg. Stage 2 diastolic dysfunction. Ordering Physician: Brandi Quijano Referring Physician: Juan Elias Performed By: Alessandra Stoner RDCS, RVT
--- NOTE | 2022-04-25 14:20 | NURSING ---
EMERGENCY DOCUMENTATION STARTED AT THIS TIME.
[2022-04-25 15:28] LABS: Troponin-I HS 10 pg/mL (3.0-78.0)
[2022-04-25] MEDS: hydrALAZINE 20 MG/ML Vial 10 MG IV (17:12)
[2022-04-25 19:02] LABS: Troponin-I HS 12 pg/mL (3.0-78.0)
[2022-04-25] MEDS: Atorvastatin Calcium 20 MG Tablet PO (21:04)
[2022-04-25] MEDS: Carvedilol 12.5 MG Tablet PO (21:04)
[2022-04-25] MEDS: Calcium Carbonate 500 MG Tablet PO (22:01)
[2022-04-26] VITALS (11 sets, daily range): BP systolic 156–184; BP diastolic 65–86; PULSE 55–75; RESP 16; TEMP 36.5–36.8; O2SAT 94–96
[2022-04-26] MEDS: Multivitamins,Therapeutic Tablet 1 TABLET PO (08:29)
[2022-04-26] MEDS: Aspirin E.C. 81 MG Tablet PO (08:29)
[2022-04-26 08:34] LABS: Absolute Lymphocyte Count 1.58 X10^3/uL (0.83-4.51); Absolute Neutrophil Count 6.8 X10^3/uL (2.0-7.7); Basophil# 0.02 X10^3/uL; Basophil% 0.2 % (0-1); Eosinophil# 0.07 X10^3/uL; Eosinophils% 0.8 % (0-5); Hematocrit 43.5 % (40-54); Hemoglobin 14.5 g/dL (13.0-16.5); Lymphocyte # 1.58 X10^3/ul (0.83-4.51); Lymphocyte % 17.4 % (19-41); Mean Corp Hgb Conc 33.3 g/dL (32-36); Mean Corpuscular Hgb 31.6 pg (27.0-32.0); Mean Corpuscular Volume 94.8 fL (80-94); Mean Platelet Vol. 10.7 fl (6.2-12.0); Monocyte# 0.62 X10^3/uL; Monocyte% 6.8 % (0-10); NRBC Flagged by Analyzer 0 % (0-5); Neutrophil # 6.79 X10^3/uL (2.7-7.7); Neutrophil % 74.6 % (47-70); Platelet Count 183 K/mm3 (150-450); RBC Distribution Width CV 13.3 % (11.6-14.6); RBC Distribution Width SD 46.3 fl (35.1-43.9); Red Blood Count 4.59 M/mm3 (4.6-6.2); White Blood Count 9.1 K/mm3 (4.4-11.0)
[2022-04-26 09:14] LABS: AST(SGOT) 25 U/L (15-37); Alanine Aminotransfer ALT/SGPT 23 U/L (16-61); Albumin, Serum 3.6 g/dL (3.2-5.0); Alkaline Phosphatase 53 U/L (45-117); Anion Gap 6 (5-15); BUN 18 mg/dL (7-18); BUN/Creat Ratio 19.4 RATIO (10-20); Calcium,Total 9.5 mg/dL (8.5-10.1); Chloride 107 mmol/L (98-107); Creatinine, Serum 0.93 mg/dL (0.70-1.30); EST Glomerular Filtration Rate 82 mL/min (>60); Est Glom Filt Rate - Afr Amer 99 mL/min (>60); Estimated Creatinine Clearance 47.74 ml/min; Globulin 3.7 g/dL (2.2-4.2); Glucose 104 mg/dL (74-106); Magnesium 2.1 mg/dL (1.6-2.6); Phosphorus 3.1 mg/dL (2.5-4.9); Potassium 3.9 mmol/L (3.5-5.1); Protein, Total 7.3 g/dL (6.4-8.2); Sodium Level 139 mmol/L (136-145)
[2022-04-26] MEDS: Clopidogrel Bisulfate 75 MG Tablet PO (09:52)
[2022-04-26] MEDS: Carvedilol 12.5 MG Tablet PO (09:52)
[2022-04-26] MEDS: Ramipril 10 MG Capsule PO (09:52)
[2022-04-26] MEDS: Isosorbide Mononitrate 30 MG Tablet PO (09:53)
[2022-04-26 10:15] LABS: Bacteria 0 SEEN /hpf (None Seen); Mucous, Urine 0 SEEN /hpf (<or=2+); Red Blood Cells-Urine 0 SEEN /hpf (0-5); Squamous Epithelial Cells - UA 0 SEEN /hpf (0-5); White Blood Cells 0 SEEN /hpf (0-5)
[2022-04-26 10:16] LABS: Glucose, Dipstick Normal (Normal); Ketone-Dipstick Negative (Negative); Leukocyte Esterase-Dipstick Negative /ul (Negative); Nitrite-Dipstick Negative (Negative); Occult Blood-Urine Negative /ul (Negative); Protein-Dipstick Negative (Negative); Urine Bilirubin Dipstick Negative (Negative); Urine Urobilinogen Normal (Normal)
[2022-04-26 10:33] LABS: Color, Urine Yellow (Yellow); Urine Clarity Clear (Clear)
--- NOTE | 2022-04-26 17:37 | PCM.CONS.C ---
Assessment & Plan Assessment/Plan (1) Syncope: PLAN: The patient experienced a syncopal event. Based upon the patient's description of his previous syncopal events there would be concern as to whether these events are vasovagal mediated/neurocardiogenic mediated with a combination of cardioinhibitory and vasodepressive events. At the present time the patient is being monitored for any obvious cardiac dysrhythmias that would explain his event. There has been concern about his underlying bradycardia and whether this is a contributing factor. His cardiac enzymes have been negative. His ECG is demonstrated no acute changes. His echocardiogram is as noted. His previous noninvasive and invasive studies are noted. At the present time from a cardiac standpoint, based upon the concerns of bradycardia, it would be reasonable to consider decreasing his carvedilol dose and following his heart rate and rhythm and blood pressure. This would be decreasing his dose from 12.5 mg p.o. twice daily to 6.25 mg p.o. twice daily. The patient may also require an outpatient 30-day ambulatory event monitor and attempt to correlate symptoms with his underlying rate and rhythm. (2) Bradycardia: PLAN: The patient was noted to be bradycardic. Again its unclear as to whether this was the sole contributing factor to his event or a coincidental finding and his event being related to a nonrate limiting/rhythm related event such as a vasovagal event noted above. At the present time based upon the concerns of the underlying bradycardia it would be recommended that he decrease his beta-margie dose from carvedilol to 12.5 mg p.o. twice daily to 6.25 mg p.o. twice daily. Again he will continue to be monitored in the hospital. As an outpatient he can undergo evaluation with a 30-day outpatient ambulatory event monitor. (3) Atherosclerosis of coronary artery of [place] heart without angina pectoris: QUALIFIERS: Coronary Disease-Associated Artery/Lesion type: [place] artery Qualified Code(s): I25.10 - Atherosclerotic heart disease of [place] coronary artery without angina pectoris; I25.10 - Atherosclerotic heart disease of [place] coronary artery without angina pectoris; I25.10 - Atherosclerotic heart disease of [place] coronary artery without angina pectoris PLAN: The patient has a history of underlying CAD. He is undergone revascularization therapy in the past. At the moment he appears to be without acute coronary syndrome symptoms. His cardiac enzymes are negative. His ECG is demonstrated no acute changes. He will continue to be monitored. He will continue medical management with agent such as aspirin, clopidogrel/Plavix, isosorbide mononitrate, beta-blockers with adjusted dose, BEBE inhibitor's with his Altace, and lipid-lowering therapy with his atorvastatin. It does not appear at the moment he requires additional noninvasive or invasive valuation of his CAD status. (4) S/P coronary artery stent placement: PLAN: The patient has undergone PCI. His most recent PCI is as noted. He will continue to be monitored. He will continue medical therapy as noted above. (5) Hx of CABG: PLAN: The patient's official CABG report is unavailable for review. However based upon cardiovascular visit notes it appears he received a CARRINGTON to the LAD/diagonal branch and an SVG to the lateral circumflex. At the moment he is without acute coronary syndrome symptoms. He will continue medical management and follow-up. (6) Hyperlipidemia: QUALIFIERS: Hyperlipidemia type: mixed hyperlipidemia Qualified Code(s): E78.2 - Mixed hyperlipidemia; E78.2 - Mixed hyperlipidemia; E78.2 - Mixed hyperlipidemia PLAN: He should continue risk factor modification medical therapy with his atorvastatin therapy. His current dose is 20 mg p.o. daily. (7) Hypertension: QUALIFIERS: Hypertension type: essential hypertension Qualified Code(s): I10 - Essential (primary) hypertension; I10 - Essential (primary) hypertension; I10 - Essential (primary) hypertension PLAN: His blood pressure will need to be monitored. If his blood pressure requires additional medical management then consideration will be given to doing this with nonrate limiting medications. (8) Pulmonary HTN: PLAN: It is noted that the patient has had a previous echocardiogram performed on 01-26-2021. At that time his estimated RV systolic pressure was 34 mmHg. His current echocardiogram suggests his estimated RV systolic pressure be somewhat higher. He appears to be without any acute cardiopulmonary symptoms at this time or evidence of cor pulmonale and right heart failure. There has been no report of any any pulmonary related issues either in the way of a primary pulmonary disease process or secondary process such as a thromboembolic disease process that would explain the patient's symptoms and/or objective findings. This may be something that requires continued future outpatient monitoring and reassessment as deemed appropriate. Addt'l Comments The patient's case was discussed and reviewed with the patient and Dr. Vargas. Comment: Time spent in the patient's evaluation and care: 60 minutes. HPI Consult Data Date of Consult: 04/26/22 HPI Narrative HPI Narrative: JEANETTE TREJO, is a 86 year old white male who presents for cardiovascular consultation based upon concerns of sinus bradycardia and syncope superimposed upon a history of underlying CAD, PCI, CABG, hyperlipidemia, hypertension, diverticulosis/diverticulitis, and a gastrointestinal bleeding process. He states that he was in latter-day yesterday, he was standing for period of time, became lightheaded, felt as if he needed to leave latter-day, go outside, get some fresh air, and subsequently found himself on the floor surrounded by other members of the cheondoism. He notes the EMS was contacted. He states after they arrived he was told his heart rate was low and his blood pressure was low. He states he was given medication (atropine) to assist with his heart rate. He was then brought to the [facility] for further evaluation and care. He does not recall having any associated nausea, emesis, or diaphoresis. He does not recall any obvious palpitations. He states since being at the hospital he has felt as if he has returned to his normal self. He comments that he had a previous episode similar to this. This also occurred in latter-day. He states at that time he was wearing a sweater and felt warm and became diaphoretic. He lost consciousness then as well. At that time he states he was evaluated in the emergency department and released home for continued outpatient follow-up. He states he remains active. He lifts light weights at least 3 times per week. He states he walks 2 to 3 miles a day. He states that he feels good doing these activities. He is not complaining of ongoing symptoms at this time of angina pectoris and there is been no evidence of acute CHF or pulmonary edema. His evaluation has demonstrated negative troponin I levels. His ECG demonstrated sinus rhythm/sinus bradycardia. There were no acute ECG changes. A chest x-ray was performed. It was reviewed. It appeared to demonstrate good inspiratory effort and post open heart surgery changes with sternotomy wires. There did not appear to be any acute cardiovascular abnormalities. He has remained on cardiac telemetry. He has been noted to have sinus rhythm/sinus bradycardia. [facility] Medical History (Updated 04/26/22 @ 17:[address] Eron Tubbs MD) Actinic keratitis Atherosclerosis of coronary artery of [place] heart without angina pectoris BPH (benign prostatic hyperplasia) Diverticulitis Encounter for long-term current use of high risk medication GI bleed Hyperlipidemia Hypersomnia, unspecified Hypertension Home Medications aspirin 81 mg tablet,delayed release (Adult Low Dose Aspirin) 81 mg PO QDAY 03/30/17 [History Last Taken Unknown] multivitamin with folic acid 400 mcg tablet 1 tab PO DAILY #90 tabs 02/26/21 [Rx Last Taken Unknown] atorvastatin 20 mg tablet See Rx Instructions .Route .COMPLEX #90 tabs 03/23/21 [Rx Last Taken Unknown] ramipril 10 mg capsule See Rx Instructions .Route .COMPLEX #180 caps 03/24/21 [Rx Last Taken Unknown] carvedilol 12.5 mg tablet 12.5 mg PO BID #180 tabs 07/16/21 [Rx Last Taken Unknown] clopidogrel 75 mg tablet 75 mg PO DAILY #90 tabs 03/01/22 [Rx Last Taken Unknown] isosorbide mononitrate 30 mg tablet,extended release 24 hr See Rx Instructions .Route .COMPLEX #90 tabs 03/22/22 [Rx Last Taken Unknown] Allergy/AdvReac Type Severity Reaction Status Date / Time famotidine [From Pepcid] Allergy Unknown Verified 04/25/22 11:50 ranitidine Allergy Unknown Verified 04/25/22 11:50 Family History Father CAD (coronary artery disease) Sister CAD (coronary artery disease) Surgical History Cataract History of tonsillectomy Hx of appendectomy Hx of CABG (~03/29/02) S/P coronary artery stent placement (04/05/17) Social History Smoking Status: Never smoker alcohol intake: never substance use type: does not use caffeine: Yes Type: coffee and tea what type of physical activity do you participate in: walking, bicycling, weight training and other details: cardiac rehab frequency: daily duration: 30-45 minutes/day seatbelt use: always do you feel safe at home: Yes ROS Constitutional Constitutional: Reports as per HPI Eyes Eyes: Reports as per HPI ENT HEENT: Reports as per HPI Cardiovascular Cardiovascular: Reports lightheadedness and syncope Respiratory/Chest Respiratory/Chest: Reports as per HPI Gastrointestinal Gastrointestinal: Reports as per HPI Genitourinary Genitourinary: Reports as per HPI Musculoskeletal Musculoskeletal: Reports as per HPI Integumentary Integumentary: Reports as per HPI Neurologic Neurologic: Reports as per HPI Physical Exam Const alert, oriented x3 and no apparent distress Orientation / Consciousness: awake HEENT normocephalic, head/scalp atraumatic and hearing grossly normal bilaterally Eyes PERRL, EOMs intact bilaterally, conjunctivae normal and no scleral icterus Neck full ROM, supple and no JVD Carotids: normal carotid upstroke Chest Chest: midline sternotomy incision Resp normal respiratory effort and clear to auscultation bilaterally Cardio regular rhythm, S1 normal heart sound and S2 normal heart sound Rate: bradycardia GI normal to inspection, nondistended, normoactive bowel sounds Extremity no pedal edema Skin no rashes or lesions noted Psych mental status grossly normal Risk Stratification Risk Stratification Applicable: Yes Age >/= 65: Yes >/= 3 CAD Risk Factors (HTN, HLD, DM, family hx of CAD, or current smoker): Yes Aspirin Use in the Past 7 Days: Yes Severe Angina (>/= episodes in 24 hours): No EKG ST Changes >/= 0.5mm: No Positive Cardiac Marker: No HEBER Risk Stratification Score: 3 HEBER % Risk: 13% Risk Procedure Criteria Type of Procedure Procedure Type: Elective Elective Risks - COVID COVID Risk Discussion: The surgeon/proceduralist and patient have discussed in detail the risk of exposure to and/or potential harm posed by the COVID-19 virus with having a surgery/procedure at this time versus the risk of delaying the surgery/procedure. It is not possible to know either the risk of delaying the surgery or procedure or chance of getting an infection with perfect accuracy, but a joint decision was made between the patient and the surgeon/proceduralist to proceed at this time with the scheduled surgery/procedure as indicated on the consent form. Objective Data Vital Signs: Vital Signs Temp Pulse Resp BP Pulse Ox O2 Del Method 98.1 F 55 L 16 168/76 H 95 Room Air 04/26/22 14:00 04/26/22 16:00 04/26/22 14:00 04/26/22 14:00 04/26/22 14:00 04/26/22 14:00 Oxygen Delivery Method Room Air Weight: 130 lb 8 oz Body Mass Index (BMI) 19.8 Intake & Output: Intake and Output for Last 24 Hours 04/24/22 04/25/22 04/26/22 23:59 23:59 23:59 Intake Total 672.5 / 672.5 Balance 672.5 / 672.5 Lab / Micro Data Result Diagrams: 04/26/22 07:47 04/26/22 07:47 Labs: Laboratory Results - last 24 hr 04/25/22 18:00: Troponin I High Sens 12 04/26/22 07:47: WBC 9.1, RBC 4.59 L, Hgb 14.5, Hct 43.5, MCV 94.8 H, MCH 31.6, MCHC 33.3, RDW Std Deviation 46.3 H, RDW Coeff of Connie 13.3, Plt Count 183, MPV 10.7, Immature Gran % (Auto) 0.200, Neut % (Auto) 74.6 H, Lymph % (Auto) 17.4 L, [place] % (Auto) 6.8, Eos % (Auto) 0.8, Baso % (Auto) 0.2, Absolute Neuts (auto) 6.8, Absolute Lymphs (auto) 1.58, Nucleated RBC % 0 04/26/22 07:47: Sodium 139, Potassium 3.9, Chloride 107, Carbon Dioxide 26.0, Anion Gap 6, BUN 18, Creatinine 0.93, Estim Creat Clear Calc 47.74, Est GFR (MDRD) Af Amer 99, Est GFR (MDRD) Non-Af 82, BUN/Creatinine Ratio 19.4, Glucose 104, Calcium 9.5, Phosphorus 3.1, Magnesium 2.1, Total Bilirubin 0.90, AST 25, ALT 23, Alkaline Phosphatase 53, Total Protein 7.3, Albumin 3.6, Globulin 3.7, Albumin/Globulin Ratio 1.0, TSH 2.00 04/26/22 09:45: Urine Color Yellow, Urine Clarity Clear, Urine pH 7.0, Ur Specific [place] 1.010, Urine Protein Negative, Urine Glucose (UA) Normal, Urine Ketones Negative, Urine Occult Blood Negative, Urine Nitrite Negative, Urine Bilirubin Negative, Urine Urobilinogen Normal, Ur Leukocyte Esterase Negative, Urine RBC 0 SEEN, Urine WBC 0 SEEN, Ur Squamous Epith Cells 0 SEEN, Urine Bacteria 0 SEEN, Urine Mucus 0 SEEN Cardiology Labs/Tests 04/26/22 07:47: WBC 9.1, RBC 4.59 L, Hgb 14.5, Hct 43.5, MCV 94.8 H, MCH 31.6, MCHC 33.3, Plt Count 183, MPV 10.7, Immature Gran % (Auto) 0.200, Neut % (Auto) 74.6 H, Lymph % (Auto) 17.4 L, [place] % (Auto) 6.8, Eos % (Auto) 0.8, Baso % (Auto) 0.2, Absolute Neuts (auto) 6.8, Nucleated RBC % 0 04/26/22 07:47: Sodium 139, Potassium 3.9, Chloride 107, Carbon Dioxide 26.0, Anion Gap 6, BUN 18, Creatinine 0.93, Est GFR (MDRD) Af Amer 99, Est GFR (MDRD) Non-Af 82, BUN/Creatinine Ratio 19.4, Glucose 104, Calcium 9.5, Phosphorus 3.1, Magnesium 2.1, Total Bilirubin 0.90 04/26/22 09:45: Urine Color Yellow, Urine Clarity Clear, Urine pH 7.0, Ur Specific [place] 1.010, Urine Protein Negative, Urine Glucose (UA) Normal, Urine Ketones Negative, Urine Occult Blood Negative, Urine Nitrite Negative, Urine Bilirubin Negative, Urine Urobilinogen Normal, Ur Leukocyte Esterase Negative, Urine RBC 0 SEEN, Urine WBC 0 SEEN Rhythm: Sinus bradycardia EKG: Sinus bradycardia ECHO: 04-26-2022 Interpretation Summary Left ventricular systolic function is normal. The estimated ejection fraction is 65 %. Apical false tendon noted. The left atrium is mildly enlarged. Mild diffuse mitral valve thickening. Mild (1+) mitral valve insufficiency. Moderate (2+) eccentric tricuspid valve insufficiency. Mild diffuse aortic valve thickening. Mild diffuse aortic valve calcification. Right ventricular systolic pressure estimated to be 50 mmHg. Stage 2 diastolic dysfunction. Stress Test: 08-15-2018 Stress echocardiogram: Interpretation Summary The estimated ejection fraction is 65 %. Normal, adequate, treadmill echocardiogram. Negative for ischemia by EKG and echocardiographic criteria. No anginal symptoms noted. No arrhythmias noted. Average exercise capacity for age. Appropriate blood pressure response to to exercise. Final LVEF of 75%. Test terminated due to attainment of target heart rate and fatigue. No complications. Cardiac Cath/PCI: 04-05-2017 Left ventricle: Normal with an LVEF 65% Left main: Mild luminal irregularities less than 30% LAD: Proximal: Occluded LCx: Occluded RCA: Proximal: Mild calcification-85% stenosis; mid RCA-mild luminal irregularities less than 30% CARRINGTON to the LAD patent SVG to the second OM patent PTCA/KOLTON to the proximal RCA: 2.5x18 Promus Synergy stent Open heart surgery: March: 2001: Per previous outpatient cardiovascular visit note: CARRINGTON to the LAD and diagonal #1 SVG to the lateral circumflex Radiography Diagnostic Testing: Radiology Impression Echocardiogram 04/25/22 14:04 Interpretation Summary Left ventricular systolic function is normal. The estimated ejection fraction is 65 %. Apical false tendon noted. The left atrium is mildly enlarged. Mild diffuse mitral valve thickening. Mild (1+) mitral valve insufficiency. Moderate (2+) eccentric tricuspid valve insufficiency. Mild diffuse aortic valve thickening. Mild diffuse aortic valve calcification. Right ventricular systolic pressure estimated to be 50 mmHg. Stage 2 diastolic dysfunction. Ordering Physician: Brandi Quijano Referring Physician: Juan Elias Performed By: Alessandra Stoner, CAROLINE, RVT
--- NOTE | 2022-04-26 17:53 | PCM.PN.HOSP ---
Subjective Subjective Follow-up on syncope/bradycardia: Patient was seen and examined. Denied any new complaints. Telemetry shows sinus bradycardia with heart rate between 48-60. 2D echo reviewed, EF of 70%, stage II diastolic dysfunction. Objective Data Objective Data Vital Signs: Vital Signs Temp Pulse Resp BP Pulse Ox O2 Del Method 98.1 F 55 L 16 168/76 H 95 Room Air 04/26/22 14:00 04/26/22 16:00 04/26/22 14:00 04/26/22 14:00 04/26/22 14:00 04/26/22 14:00 Oxygen Delivery Method Room Air Weight: 59.194 kg Body Mass Index (BMI) 19.8 Intake & Output: Intake and Output for Last 24 Hours 04/24/22 04/25/22 04/26/22 23:59 23:59 23:59 Intake Total 672.5 / 672.5 Balance 672.5 / 672.5 Lab / Micro Data Result Diagrams: 04/26/22 07:47 04/26/22 07:47 Labs: Laboratory Results - last 24 hr 04/25/22 18:00: Troponin I High Sens 12 04/26/22 07:47: WBC 9.1, RBC 4.59 L, Hgb 14.5, Hct 43.5, MCV 94.8 H, MCH 31.6, MCHC 33.3, RDW Std Deviation 46.3 H, RDW Coeff of Connie 13.3, Plt Count 183, MPV 10.7, Immature Gran % (Auto) 0.200, Neut % (Auto) 74.6 H, Lymph % (Auto) 17.4 L, [place] % (Auto) 6.8, Eos % (Auto) 0.8, Baso % (Auto) 0.2, Absolute Neuts (auto) 6.8, Absolute Lymphs (auto) 1.58, Nucleated RBC % 0 04/26/22 07:47: Sodium 139, Potassium 3.9, Chloride 107, Carbon Dioxide 26.0, Anion Gap 6, BUN 18, Creatinine 0.93, Estim Creat Clear Calc 47.74, Est GFR (MDRD) Af Amer 99, Est GFR (MDRD) Non-Af 82, BUN/Creatinine Ratio 19.4, Glucose 104, Calcium 9.5, Phosphorus 3.1, Magnesium 2.1, Total Bilirubin 0.90, AST 25, ALT 23, Alkaline Phosphatase 53, Total Protein 7.3, Albumin 3.6, Globulin 3.7, Albumin/Globulin Ratio 1.0, TSH 2.00 04/26/22 09:45: Urine Color Yellow, Urine Clarity Clear, Urine pH 7.0, Ur Specific [place] 1.010, Urine Protein Negative, Urine Glucose (UA) Normal, Urine Ketones Negative, Urine Occult Blood Negative, Urine Nitrite Negative, Urine Bilirubin Negative, Urine Urobilinogen Normal, Ur Leukocyte Esterase Negative, Urine RBC 0 SEEN, Urine WBC 0 SEEN, Ur Squamous Epith Cells 0 SEEN, Urine Bacteria 0 SEEN, Urine Mucus 0 SEEN Radiography Diagnostic Testing: Radiology Impression Echocardiogram 04/25/22 14:04 Interpretation Summary Left ventricular systolic function is normal. The estimated ejection fraction is 65 %. Apical false tendon noted. The left atrium is mildly enlarged. Mild diffuse mitral valve thickening. Mild (1+) mitral valve insufficiency. Moderate (2+) eccentric tricuspid valve insufficiency. Mild diffuse aortic valve thickening. Mild diffuse aortic valve calcification. Right ventricular systolic pressure estimated to be 50 mmHg. Stage 2 diastolic dysfunction. Ordering Physician: Brandi Quijano Referring Physician: Juan Elias Performed By: Alessandra Stoner, CAROLINE, RVT Physical Exam Narrative Physical exam: General: Alert, Oriented x3, Cooperative HEENT: Atraumatic Oral: Moist Mucosa Neck: Supple Lungs: Clear to auscultation Cardiovascular: HS I+II, regular, no murmurs Abdomen: Bowel Sounds Present, Soft, Non Tender Extremities: No edema Skin: No rashes, No breakdown Neurological: Grossly intact Psych/Mental Status: Appropriate Assessment & Plan Assessment/Plan (1) Syncope: (2) Bradycardia: PLAN: Plan 1. Syncope, likely vasovagal, no acute event on telemetry except for bradycardia Orthostatic vitals were negative on admission CT of the head was unremarkable, 2D echo with unremarkable 2. Bradycardia, likely related to beta-margie effect, decrease Coreg to 6.25 mg twice daily We will continue to trend 3. Hypertension, uncontrolled, increase ramipril to 20mg daily 4. CAD status post CABG/hyperlipidemia, continue on aspirin, statin, Coreg, Plavix, isosorbide 5. DVT prophylaxis?Lovenox SC Charges/Coding Visit Charges Inpatient E&M: 35044 Subs Hosp L2
[2022-04-26] MEDS: Atorvastatin Calcium 20 MG Tablet PO (23:25)
[2022-04-26] MEDS: Carvedilol 6.25 MG Tablet PO (23:27)
[2022-04-27] VITALS (8 sets, daily range): BP systolic 132–199; BP diastolic 68–87; PULSE 55–90; RESP 16–18; TEMP 36.3–36.8; O2SAT 93–97
[2022-04-27] MEDS: hydrALAZINE 20 MG/ML Vial 10 MG IV (06:05)
[2022-04-27 06:29] LABS: Absolute Lymphocyte Count 1.65 X10^3/uL (0.83-4.51); Absolute Neutrophil Count 6.6 X10^3/uL (2.0-7.7); Basophil# 0.03 X10^3/uL; Basophil% 0.3 % (0-1); Eosinophil# 0.17 X10^3/uL; Eosinophils% 1.9 % (0-5); Hematocrit 45.4 % (40-54); Lymphocyte # 1.65 X10^3/ul (0.83-4.51); Mean Corpuscular Hgb 31.3 pg (27.0-32.0); Mean Corpuscular Volume 94.6 fL (80-94); Mean Platelet Vol. 10.6 fl (6.2-12.0); Monocyte# 0.69 X10^3/uL; Monocyte% 7.5 % (0-10); NRBC Flagged by Analyzer 0 % (0-5); Platelet Count 183 K/mm3 (150-450); RBC Distribution Width CV 13.1 % (11.6-14.6); RBC Distribution Width SD 45.5 fl (35.1-43.9); White Blood Count 9.2 K/mm3 (4.4-11.0)
[2022-04-27 07:02] LABS: AST(SGOT) 30 U/L (15-37); Alanine Aminotransfer ALT/SGPT 25 U/L (16-61); Albumin, Serum 3.6 g/dL (3.2-5.0); Alkaline Phosphatase 55 U/L (45-117); Anion Gap 7 (5-15); BUN 21 mg/dL (7-18); BUN/Creat Ratio 23.9 RATIO (10-20); Calcium,Total 9.1 mg/dL (8.5-10.1); Chloride 104 mmol/L (98-107); Creatinine, Serum 0.88 mg/dL (0.70-1.30); EST Glomerular Filtration Rate 87 mL/min (>60); Est Glom Filt Rate - Afr Amer 106 mL/min (>60); Estimated Creatinine Clearance 50.45 ml/min; Globulin 3.7 g/dL (2.2-4.2); Glucose 101 mg/dL (74-106); Potassium 4.1 mmol/L (3.5-5.1); Protein, Total 7.3 g/dL (6.4-8.2); Sodium Level 136 mmol/L (136-145)
--- NOTE | 2022-04-27 08:57 | DCINST_ITS ---
Discharge Instructions Diet Discharge Diet: 2000 mg Sodium Diet Activity Discharge Activity: Return to Normal Activity Follow Up Care Test Results: Test results from this visit will be discussed in further detail at your follow- up appointment, if applicable. Discharge Plan Admission Admit Date/Time: 04/25/22 13:16 Primary Reason for Your Visit: Syncope Attending Provider: Jackie Vargas Primary Care Provider: Juan Elias Consulting Providers: Brandi Quijano ; Eron Tubbs Instructions Additional Instructions / Restrictions: Take note of changes to your medications. Follow-up with your primary care doctor within 1 week Follow-up with cardiology within 2 weeks Continue to keep yourself hydrated Discharge Orders/Prescriptions Prescriptions: New carvedilol 6.25 mg Tablet 6.25 mg PO BID 30 Days Qty: 60 0RF ramipril 10 mg Capsule 20 mg PO DAILY 30 Days Qty: 60 0RF Continued aspirin [Adult Low Dose Aspirin] 81 mg tablet,delayed release (DR/EC) 81 mg PO QDAY multivitamin with folic acid 400 mcg tablet 1 tab PO DAILY Qty: 90 3RF atorvastatin 20 mg tablet See Rx Instructions .ROUTE .COMPLEX Qty: 90 3RF Dose Instruction: TAKE 1 TAB BY MOUTH DAILY AT BEDTIME Rx Instructions: TAKE 1 TAB BY MOUTH DAILY AT BEDTIME clopidogrel 75 mg tablet 75 mg PO DAILY Qty: 90 3RF Rx Instructions: Take one tablet once a day isosorbide mononitrate 30 mg tablet extended release 24 hr See Rx Instructions .ROUTE .COMPLEX Qty: 90 1RF Dose Instruction: TAKE 1 TABLET BY MOUTH EVERY DAY Rx Instructions: TAKE 1 TABLET BY MOUTH EVERY DAY Discontinued ramipril 10 mg capsule See Rx Instructions .ROUTE .COMPLEX Qty: 180 3RF Dose Instruction: TAKE 1 CAPSULE BY MOUTH TWICE A DAY Rx Instructions: TAKE 1 CAPSULE BY MOUTH TWICE A DAY carvedilol 12.5 mg tablet 12.5 mg PO BID Qty: 180 3RF Referrals / Follow Up: Juan Elias MD [Primary Care Provider] - Disposition Disposition (needs filled in before D/C Order can be placed): Home, Self Care
--- NOTE | 2022-04-27 09:06 | PCM.DC.SUM ---
Providers Date of Admission: 04/25/22 Date of Discharge: 04/27/22 Primary Care Physician: Dr. Juan Elias MD Consultations 04/26/22 16:18 Consult: Cardiology Routine Consulting Provider: Eron Tubbs Reason for Consult: syncope, bradycrdia EMERGENT Consult: No MD Notified: Yes Date Notified: 04/26/22 Time Notified: 16:23 Method of Notification: Verbal Reason For Visit: SYNCOPE WITH BRADYCARDIA Diagnosis Discharge Diagnosis (1) Syncope: Status: Acute Code(s): R55 - Syncope and collapse (2) Bradycardia: Status: Acute Code(s): R00.1 - Bradycardia, unspecified Plan 1. Syncope, likely vasovagal 2. Bradycardia, likely related to beta-margie effect 3. Hypertension 4. CAD status post CABG 5. Hyperlipidemia Medications at Discharge Home Medications aspirin 81 mg tablet,delayed release (Adult Low Dose Aspirin) 81 mg PO QDAY 03/30/17 multivitamin with folic acid 400 mcg tablet 1 tab PO DAILY #90 tabs 02/26/21 atorvastatin 20 mg tablet See Rx Instructions .Route .COMPLEX #90 tabs 03/23/21 clopidogrel 75 mg tablet 75 mg PO DAILY #90 tabs 03/01/22 isosorbide mononitrate 30 mg tablet,extended release 24 hr See Rx Instructions .Route .COMPLEX #90 tabs 03/22/22 carvedilol 6.25 mg tablet 6.25 mg PO BID 30 days #60 tabs 04/27/22 ramipril 10 mg capsule 20 mg PO DAILY 30 days #60 caps 04/27/22 Hospital Course Operations None Procedures 2-D Echocardiogram Summary of Care Provided Minutes Spent on Discharge: 35 Hospital Course: 86-year-old male with past medical history of CAD status post CABG, tension who follows with cardiology in the outpatient comes in after syncopal episode [facility]. Yesterday that he was standing in a chair for 2 to 3 minutes when he started feeling rapid heart and he had a syncopal episode. The EMS was called and he was found to be bradycardic and hypotensive with heart rate in the 30s and blood pressures in the 60s. He did receive atropine. He admits to having a presyncopal episode 2 to 3 years ago. Patient was monitored on telemetry progressive care unit. His TSH was normal. He remains slightly bradycardic. Patient is on Coreg 12.5 mg twice daily. This was cut back to 6.25 mg twice daily. He did have elevated blood pressure. His ramipril was increased to 20 mg daily. There were no other events on telemetry. He is to follow-up with cardiology within a week. Physical Exam Narrative Physical exam: General: Alert, Oriented x3, Cooperative HEENT: Atraumatic Oral: Moist Mucosa Neck: Supple Lungs: Clear to auscultation Cardiovascular: HS I+II, regular, no murmurs Abdomen: Bowel Sounds Present, Soft, Non Tender Extremities: No edema Skin: No rashes, No breakdown Neurological: Grossly intact Psych/Mental Status: Appropriate Weight / BMI Weight Weight: 59.194 kg Body Mass Index (BMI) 19.8 ABG / Lab / Microbiology Data Result Diagrams: 04/27/22 06:18 04/27/22 06:18 Laboratory: Laboratory Results - last 24 hr 04/26/22 07:47: Sodium 139, Potassium 3.9, Chloride 107, Carbon Dioxide 26.0, Anion Gap 6, BUN 18, Creatinine 0.93, Estim Creat Clear Calc 47.74, Est GFR (MDRD) Af Amer 99, Est GFR (MDRD) Non-Af 82, BUN/Creatinine Ratio 19.4, Glucose 104, Calcium 9.5, Phosphorus 3.1, Magnesium 2.1, Total Bilirubin 0.90, AST 25, ALT 23, Alkaline Phosphatase 53, Total Protein 7.3, Albumin 3.6, Globulin 3.7, Albumin/Globulin Ratio 1.0, TSH 2.00 04/26/22 09:45: Urine Color Yellow, Urine Clarity Clear, Urine pH 7.0, Ur Specific [place] 1.010, Urine Protein Negative, Urine Glucose (UA) Normal, Urine Ketones Negative, Urine Occult Blood Negative, Urine Nitrite Negative, Urine Bilirubin Negative, Urine Urobilinogen Normal, Ur Leukocyte Esterase Negative, Urine RBC 0 SEEN, Urine WBC 0 SEEN, Ur Squamous Epith Cells 0 SEEN, Urine Bacteria 0 SEEN, Urine Mucus 0 SEEN 04/27/22 06:18: WBC 9.2, RBC 4.80, Hgb 15.0, Hct 45.4, MCV 94.6 H, MCH 31.3, MCHC 33.0, RDW Std Deviation 45.5 H, RDW Coeff of Connie 13.1, Plt Count 183, MPV 10.6, Immature Gran % (Auto) 0.300, Neut % (Auto) 72.0 H, Lymph % (Auto) 18.0 L, [place] % (Auto) 7.5, Eos % (Auto) 1.9, Baso % (Auto) 0.3, Absolute Neuts (auto) 6.6, Absolute Lymphs (auto) 1.65, Nucleated RBC % 0 04/27/22 06:18: Sodium 136, Potassium 4.1, Chloride 104, Carbon Dioxide 25.0, Anion Gap 7, BUN 21 H, Creatinine 0.88, Estim Creat Clear Calc 50.45, Est GFR (MDRD) Af Amer 106, Est GFR (MDRD) Non-Af 87, BUN/Creatinine Ratio 23.9 H, Glucose 101, Calcium 9.1, Total Bilirubin 0.90, AST 30, ALT 25, Alkaline Phosphatase 55, Total Protein 7.3, Albumin 3.6, Globulin 3.7, Albumin/Globulin Ratio 1.0 Radiography Diagnostic Testing: Radiology Impression Echocardiogram 04/25/22 14:04 Interpretation Summary Left ventricular systolic function is normal. The estimated ejection fraction is 65 %. Apical false tendon noted. The left atrium is mildly enlarged. Mild diffuse mitral valve thickening. Mild (1+) mitral valve insufficiency. Moderate (2+) eccentric tricuspid valve insufficiency. Mild diffuse aortic valve thickening. Mild diffuse aortic valve calcification. Right ventricular systolic pressure estimated to be 50 mmHg. Stage 2 diastolic dysfunction. Ordering Physician: Brandi Quijano Referring Physician: Juan Elias Performed By: Alessandra Stoner RDCS, RVT D/C Instructions Discharge Diet: 2000 mg Sodium Diet Meaningful Use Info Meaningful Use Diagnoses (Choose all that apply): None applicable Discharge Plan Admission Admit Date/Time: 04/25/22 13:16 Primary Reason for Your Visit: Syncope Attending Provider: [place] Primary Care Provider: Juan Elias Consulting Providers: Brandi Quijano ; Eron Tubbs Instructions Additional Instructions / Restrictions: Take note of changes to your medications. Follow-up with your primary care doctor within 1 week Follow-up with cardiology within 2 weeks Continue to keep yourself hydrated Discharge Orders/Prescriptions Prescriptions: New carvedilol 6.25 mg Tablet 6.25 mg PO BID 30 Days Qty: 60 0RF ramipril 10 mg Capsule 20 mg PO DAILY 30 Days Qty: 60 0RF Continued aspirin [Adult Low Dose Aspirin] 81 mg tablet,delayed release (DR/EC) 81 mg PO QDAY multivitamin with folic acid 400 mcg tablet 1 tab PO DAILY Qty: 90 3RF atorvastatin 20 mg tablet See Rx Instructions .ROUTE .COMPLEX Qty: 90 3RF Dose Instruction: TAKE 1 TAB BY MOUTH DAILY AT BEDTIME Rx Instructions: TAKE 1 TAB BY MOUTH DAILY AT BEDTIME clopidogrel 75 mg tablet 75 mg PO DAILY Qty: 90 3RF Rx Instructions: Take one tablet once a day isosorbide mononitrate 30 mg tablet extended release 24 hr See Rx Instructions .ROUTE .COMPLEX Qty: 90 1RF Dose Instruction: TAKE 1 TABLET BY MOUTH EVERY DAY Rx Instructions: TAKE 1 TABLET BY MOUTH EVERY DAY Discontinued ramipril 10 mg capsule See Rx Instructions .ROUTE .COMPLEX Qty: 180 3RF Dose Instruction: TAKE 1 CAPSULE BY MOUTH TWICE A DAY Rx Instructions: TAKE 1 CAPSULE BY MOUTH TWICE A DAY carvedilol 12.5 mg tablet 12.5 mg PO BID Qty: 180 3RF Referrals / Follow Up: Juan Elias MD [Primary Care Provider] - Lupis Robles PA [Med Staff - [facility] Practice [facility]] - 05/07/22 3:00 pm Disposition Disposition (needs filled in before D/C Order can be placed): Home, Self Care Charges/Coding Visit Charges Inpatient E&M: 92500 Disch Hosp >30min
[2022-04-27] MEDS: Ramipril 10 MG Capsule 20 MG PO (09:16)
[2022-04-27] MEDS: Multivitamins,Therapeutic Tablet 1 TABLET PO (09:16)
[2022-04-27] MEDS: Aspirin E.C. 81 MG Tablet PO (09:16)
[2022-04-27] MEDS: Clopidogrel Bisulfate 75 MG Tablet PO (09:17)
[2022-04-27] MEDS: Carvedilol 6.25 MG Tablet PO (09:17)
[2022-04-27] MEDS: Isosorbide Mononitrate 30 MG Tablet PO (09:17)
--- NOTE | 2022-04-27 09:30 | CASEMGMT ---
ARMANDO ACEVEDO in to complete RUSH with patient. ARMANDO ACEVEDO explained RUSH form to patient, patient voiced understanding. Patient signed RUSH form and filed in chart. Patient provided with copy of signed RUSH form. Patient had no further questions or concern at this time. Patient voices he feels safe to return home and denied needs at this time.
--- NOTE | 2022-04-27 09:58 | PHA.DC.MR ---
Pharmacy Service has performed discharge medication reconciliation for this patient. The patient's discharge medication list was reviewed for discrepancies and discrepancies were resolved. Home Medications aspirin 81 mg tablet,delayed release (Adult Low Dose Aspirin) 81 mg PO QDAY 03/30/17 multivitamin with folic acid 400 mcg tablet 1 tab PO DAILY #90 tabs 02/26/21 atorvastatin 20 mg tablet See Rx Instructions .Route .COMPLEX #90 tabs 03/23/21 clopidogrel 75 mg tablet 75 mg PO DAILY #90 tabs 03/01/22 isosorbide mononitrate 30 mg tablet,extended release 24 hr See Rx Instructions .Route .COMPLEX #90 tabs 03/22/22 carvedilol 6.25 mg tablet 6.25 mg PO BID 30 days #60 tabs 04/27/22 ramipril 10 mg capsule 20 mg PO DAILY 30 days #60 caps 04/27/22
== END 2022-04-27 08:56 | disposition home or self-care (01) ==
LOC: ED 12:57 → PCU 13:28
PROVIDERS: Admitting Provider Internal Medicine; Emergency Provider Emergency Medicine; PCP Family Medicine; Visit Provider Internal Medicine
DX: R55 Syncope and collapse (principal); I27.20 Pulmonary hypertension, unspecified; E78.2 Mixed hyperlipidemia; Z79.82 Long term (current) use of aspirin; I25.10 Atherosclerotic heart disease of native coronary artery without angina pectoris; I95.9 Hypotension, unspecified; I10 Essential (primary) hypertension; Z95.1 Presence of aortocoronary bypass graft; Z79.899 Other long term (current) drug therapy; Z79.02 Long term (current) use of antithrombotics/antiplatelets; R00.1 Bradycardia, unspecified; N40.0 Benign prostatic hyperplasia without lower urinary tract symptoms
CPT/HCPCS: 36415; 70450; 71045; 80048; 80053; 81001; 83735; 84100; 84443; 84484; 85025; 93005; 93306; 96361; 96374; 96376; 99221; 99252; 99285; G0378; G0463

== ENCOUNTER 2023-06-26 11:57 | Emergency (ER) | payer MEDICARE, SELFPAY ==
[2017-04-05 12:20] VITALS: BMI 47.9
[2023-06-26 11:57] VITALS: BP 230/88; PULSE 71; RESP 14; TEMP 36.2; O2SAT 99; BMI 18.9
[2023-06-26] MEDS: cloNIDine HCl 0.1 MG Tablet 0.100000000000000006 MG PO (12:24)
--- OUTSIDE RECORDS SUMMARY | 2023-06-26 12:24 | XMS RPT_ITS | CCD ---
Author Name Unknown Address [address] [facility] [address] [place] [address] Organization [facility] Care Team Providers Care Edge [employer] Name Role Phone ARMANDO Guerra, Jaci Mobley Unavailable UnavailPreethi Kaufman Unavailable Unavailable Preethi Cardona Unavailable Unavailable ARMANDO Guerra, Jaci Mobley Unavailable UnavailLuan Peterson MD Primary Care Provider [phone] Luan Mckeon MD Primary Care Provider Luan Mckeon MD Primary Care Provider LUAN MCKEON Referring Unavailable LUAN MCKEON Primary Care Unavailable LUAN MCKEON Referring Unavailable LUAN MCKEON Attending Unavailable LUAN MCKEON Primary Care Unavailable LUAN MCKEON Primary Care Unavailable LUAN MCKEON Referring Unavailable LUAN MCKEON Primary Care Unavailable LUAN MCKEON Primary Care Unavailable LUAN MCKEON Attending Unavailable LUAN MCKEON Primary Care Unavailable Allergies Allergy Classification Reported Allergen(s) Allergy Type Date of Onset Reaction(s) Facility (4 sources) famotidine Drug Allergy 03-07-2017 headaches [facility] Work Phone: (15 sources) raNITIdine; Translations: [RANITIDINE] Drug Allergy 12-30-2009 Intolerance [facility] Work Phone: (11 sources) Famotidine; Translations: [FAMOTIDINE] Drug Allergy 02-27-2015 Other: See Comments [facility] Work Phone: Medications Completed/Discontinued Medications Medication Drug Class(es) Dates Sig (Normalized) Sig (Original) aspirin 81 mg delayed release oral tablet (14 sources) Nonsteroidal Anti-inflammatory Drug Start: 03-07-2017 take 1 tablet by mouth once daily ASPIRIN EC 81 MG TBEC One tablet by mouth daily ASPIRIN [id number] Jaci Guerra RN Problems Active Problems Problem Classification Problem Date Documented Da te Episodic/Chronic Coronary atherosclerosis and other heart disease (19 sources) Atherosclerotic heart disease of [place] coronary artery without angina pectoris; Translations: [Lipid-rich atherosclerosis of coronary artery] Onset: 5 03-07-2017 Chronic Disorders of lipid metabolism (18 sources) Hyperlipidemia; Translations: [Mixed hyperlipidemia] Onset: 5 03-07-2017 Chronic Diverticulosis and diverticulitis (10 sources) Diverticulum of large intestine without hemorrhage; Translations: [Diverticulosis of large intestine without perforation or abscess without bleeding] Onset: 5 02-27-2015 Chronic Esophageal disorders (14 sources) Gastroesophageal reflux disease without esophagitis; Translations: [Gastro-esophageal reflux disease without esophagitis] Onset: 1 Chronic Essential hypertension (18 sources) Hypertensive disorder; Translations: [Essential hypertension] Onset: 6 03-07-2017 Chronic Hemorrhoids (10 sources) Hemorrhoids; Translations: [Unspecified hemorrhoids] 05-10-2019 Episodic Hyperplasia of prostate (11 sources) Benign prostatic hyperplasia; Translations: [Benign prostatic hyperplasia without lower urinary tract symptoms] Onset: 6 03-01-2018 Chronic Hypertension with complications and secondary hypertension (14 sources) Hypertensive heart disease; Translations: [Hypertensive heart disease without heart failure] Onset: 5 Chronic Immunizations and screening for infectious disease (1 source) Vaccination needed; Translations: [Encounter for immunization] 02-01-2023 Episodic Occlusion or stenosis of precerebral arteries (14 sources) Bilateral stenosis of carotid arteries; Translations: [Occlusion and stenosis of bilateral carotid arteries] Onset: 2 Chronic Other gastrointestinal disorders (11 sources) Irritable bowel syndrome; Translations: [Irritable bowel syndrome without diarrhea] Onset: 5 08-30-2014 Chronic Jeannie-; endo-; and myocarditis; cardiomyopathy (except that caused by tuberculosis or sexually transmitted disease) (5 sources) Heart valve disorder; Translations: [Endocarditis, valve unspecified] Onset: 3 01-06-2023 Chronic Pulmonary heart disease (1 source) Other secondary pulmonary hypertension; Translations: [Other secondary pulmonary hypertension] Onset: 7 03-24-2017 Chronic Unclassified (4 sources) Placement of stent in coronary artery ; Translations: [Presence of coronary angioplasty implant and graft] Onset: 7 03-07-2017 Unclassified (4 sources) Long-term drug therapy; Translations: [Other alf (current) drug therapy] Onset: 7 03-07-2017 Viral infection (1 source) Disease caused by 2019-nCoV; Translations: [COVID-19] Episodic Past or Other Problems Problem Classification Problem Date Documented Da te Episodic/Chronic Administrative/social admission (8 sources) Advance directive discussed with patient; Translations: [Other specified counseling] Onset: 3 Episodic Allergic reactions (10 sources) Eczema; Translations: [Dermatitis, unspecified] Onset: 0 03-02-2017 Episodic Complication of device; implant or graft (10 sources) Significant coronary bypass graft disease; Translations: [Other mechanical complication of coronary artery bypass graft, initial encounter] Onset: 5 08-30-2016 Episodic Coronary atherosclerosis and other heart disease (14 sources) Presence of aortocoronary bypass graft; Translations: [Stented coronary artery] Onset: 7 03-07-2017 Episodic Diabetes mellitus without complication (14 sources) Hyperglycemia; Translations: [Impaired fasting glucose] Onset: 6 Episodic Genitourinary symptoms and ill-defined conditions (10 sources) Proteinuria; Translations: [Proteinuria, unspecified] Onset: 6 08-30-2016 Episodic Other aftercare (12 sources) Patient encounter status; Translations: [Other alf (current) drug therapy] Onset: 0 Episodic Other aftercare (1 source) Other alf (current) drug therapy; Translations: [Medication management] Onset: 0 Episodic Other gastrointestinal disorders (10 sources) History of lower gastrointestinal bleed; Translations: [Personal history of other diseases of the digestive system] Onset: 3 05-10-2019 Episodic Other non-epithelial cancer of skin (10 sources) History of malignant neoplasm of skin; Translations: [Personal history of other malignant neoplasm of skin] Onset: 4 03-02-2017 Episodic Other skin disorders (10 sources) Actinic keratosis; Translations: [Actinic keratosis] Onset: 8 03-02-2017 Episodic Residual codes; unclassified (10 sources) Active living will ; Translations: [Other specified health status] Onset: 2 06-25-2021 Episodic Results Test Name Value Interpretation Reference Range Facil ity Vital Signs Date Time Vital Sign Value Performing Clinician Faci lity 01-06-2023 14:09-0400 Body weight 57.15 kg Luan Mckeon MD Work Phone: [facility] 01-06-2023 14:09-0400 Diastolic blood pressure 74 mm[Hg] Luan Mckeon MD Work Phone: [facility] 01-06-2023 14:09-0400 Heart rate 58 /min Luan Mckeon MD Work Phone: [facility] 01-06-2023 14:09-0400 Respiratory rate 16 /min Luan Mckeon MD Work Phone: [facility] 01-06-2023 14:09-0400 Systolic blood pressure 138 mm[Hg] Luan Mckeon MD Work Phone: [facility] 07-08-2022 13:14-0400 Diastolic blood pressure 64 mm[Hg] Luan Mckeon MD Work Phone: [facility] 07-08-2022 13:14-0400 Systolic blood pressure 127 mm[Hg] Luan Mckeon MD Work Phone: [facility] 07-08-2022 12:53-0400 Body height 167.6 cm Luan Mckeon MD Work Phone: [facility] 07-08-2022 12:53-0400 Body temperature 96.1 [degF] Luan Mckeon MD Work Phone: [facility] 07-08-2022 12:53-0400 Body weight 58.33 kg Luan Mckeon MD Work Phone: [facility] 07-08-2022 12:53-0400 Heart rate 64 /min Luan Mckeon MD Work Phone: [facility] 07-08-2022 12:53-0400 Respiratory rate 16 /min Luan Mckeon MD Work Phone: [facility] 01-01-2022 12:41-0400 Diastolic blood pressure 54 mm[Hg] Luan Mckeon MD Work Phone: [facility] 01-01-2022 12:41-0400 Systolic blood pressure 118 mm[Hg] Luan Mckeon MD Work Phone: [facility] 01-01-2022 12:13-0400 Body weight 58.06 kg Luan Mckeon MD Work Phone: [facility] 01-01-2022 12:13-0400 Heart rate 56 /min Luan Mckeon MD Work Phone: [facility] 01-01-2022 12:13-0400 Respiratory rate 14 /min Luan Mckeon MD Work Phone: [facility] 03-08-2017 12:53-0500 BMI (Body Mass Index) 21.13 kg/m2 [facility] Work Phone: 03-08-2017 12:53-0500 BP Diastolic 80 mm[Hg] Preethies Cardona [facility] Work Phone: 03-08-2017 12:53-0500 BP Systolic 190 mm[Hg] Preethi Cardona [facility] Work Phone: 03-08-2017 12:53-0500 Height 172.72 cm Preethi Cardona [facility] Work Phone: 03-08-2017 12:53-0500 Pulse (Heart Rate) 58 /min Preethi Cardona [facility] Work Phone: 03-08-2017 12:53-0500 Respiratory Rate 16 /min Preethies Cardona [facility] Work Phone: 03-08-2017 12:53-0500 Weight 63.05 kg Preethi Cardona [facility] Work Phone: Encounters Encounter Date Encounter Type Care Provider Facility Start: 03-02-2023 ambulatory Preethi Jones RN Work Phone: [facility] Start: 02-01-2023 End: 02-01-2023 ambulatory LUAN MCKEON Facility:[facility] Start: 02-01-2023 End: 02-01-2023 Nursing evaluation of patient and report [place] Nurse Work Phone: [facility] Procedures Date Procedure Procedure Detail Performing Clinician Start: 02-01-2023 Fuel ([email or web address])-Hachiko COVI D-19 VACCINE ( SEASON) AGE 12+ YR Luan Mckeon MD Work Phone: Start: 01-22-2023 INFLUENZA VACCINE, P RSV FREE, AGE 65+ YR, HIGH DOSE, QUADRIVALENT (FLUZONE HIGH-DOSE) Tal Tyler MD Work Phone: Start: 01-22-2022 INFLUENZA SEASONAL QUADRIVALENT HIGH DOSE AGE 65+ Luan Mckeon MD Work Phone: Start: 03-08-2017 End: 03-08-2017 DJN Federico Sewell MD Work Phone: Start: 03-08-2017 End: 03-08-2017 Ecg routine ecg w/least 12 lds w/i&r Federico Sewell MD Work Phone: Start: 03-08-2017 End: 03-24-2017 Echocardiography Federico Sewell MD Work Phone: Start: 03-08-2017 End: 03-08-2017 Follow Up Appt 6 months Federico Sewell MD Work Phone: Start: 07-15-2015 History of coronary artery bypass grafting S/P CABG x 3 Luan Mckeon MD Work Phone: Plan of Treatment Date Care Activity Detail Author Start: 01-03-2026 Diabetes Screening Diabetes Screenin g [facility] Start: 07-05-2025 DIABETES SCREEN DIABETES SCREEN [facility] Start: 12-29-2024 DIABETES SCREEN DIABETES SCREEN [facility] Start: 01-04-2024 Hepatitis B surface antibody level LDL Cholesterol [facility] Start: 07-09-2023 SHINGRIX VACCINE (1 of 2) SHINGRIX VACCINE (1 of 2) [facility] Immunizations Immunization Date Immunization Notes Care Provider David carrillo 02-01-2023 COVID-19 vaccine, ag e 12+ yr, season (PFIZER-BIONTECH) [place] [facility] Work Phone: [facility] Work Phone: 01-22-2023 influenza (HD-IIV4) vaccine, age 65+ yr, high dose, quadrivalent, PF (FLUZONE HIGH-DOSE) Immunization [place] Work Phone: [facility] 01-22-2022 influenza, high-dose , quadrivalent vaccine (FLUZONE HIGH DOSE QUADRIVALENT) [place] Nurse Work Phone: [facility] Work Phone: 01-22-2022 influenza virus vaccine, unspecified formulation Luan Mckeon MD Work Phone: [facility] 08-07-2021 COVID-19 vaccine, booster dose (MODERNA) Luan Mckeon MD Work Phone: [facility] 01-16-2021 influenza, high-dose , quadrivalent vaccine (FLUZONE HIGH DOSE QUADRIVALENT) Luan Mckeon MD Work Phone: [facility] Work Phone: 05-30-2020 COVID-19 vaccine, fu ll dose (MODERNA) Luan Mckeon MD Work Phone: [facility] Work Phone: 01-26-2020 influenza, high-dose , quadrivalent vaccine (FLUZONE HIGH DOSE QUADRIVALENT) Luan Mckeon MD Work Phone: [facility] 01-30-2019 influenza, high dose seasonal, preservative-free Luan Mckeon MD Work Phone: [facility] 01-13-2018 influenza, high dose seasonal, preservative-free Luan Mckeon MD Work Phone: [facility] Work Phone: 01-24-2017 influenza, high dose seasonal, preservative-free Luan Mckeon MD Work Phone: [facility] 01-16-2016 influenza, high dose seasonal, preservative-free Luan Mckeon MD Work Phone: [facility] 08-29-2015 pneumococcal polysaccharide vaccine, 23 valent Luan Mckeon MD Work Phone: [facility] 01-23-2015 influenza, high dose seasonal, preservative-free Luan Mckeon MD Work Phone: [facility] 08-30-2014 pneumococcal conjuga te vaccine, 13 valent Luan Mckeon MD Work Phone: [facility] Work Phone: 01-30-2014 influenza, seasonal, injectable Luan Mckeon MD Work Phone: [facility] 02-03-2013 influenza virus vaccine, unspecified formulation Luan Mckeon MD Work Phone: [facility] 03-04-2012 influenza virus vaccine, unspecified formulation Luan Mckeon MD Work Phone: [facility] 02-02-2011 influenza virus vaccine, unspecified formulation Luan Mckeon MD Work Phone: [facility] Work Phone: 02-13-2010 influenza virus vaccine, unspecified formulation Luan Mckeon MD Work Phone: [facility] Work Phone: 02-15-2008 influenza virus vaccine, unspecified formulation Luan Mckeon MD Work Phone: [facility] Work Phone: 02-21-2006 influenza virus vaccine, unspecified formulation Luan Mckeon MD Work Phone: [facility] Work Phone: 03-25-2002 pneumococcal polysaccharide vaccine, 23 valent Luan Mckeon MD Work Phone: [facility] Work Phone: Payers Date Payer Category Payer Medicare AETNA MEDICARE A ETNA MEDICARE PPO [id number] 2021-Present [phone] [address] [place] [address] PPO [id number] 2021 Medicare [id number] Social History Date Type Detail Facility [facility]: [facility] Work Phone: Start: 02-16-2011 Tobacco use and exposure Smoke less tobacco non-user [facility] Work Phone: Start: 01-01-2022 End: 01-06-2023 Alcohol intake Current drinker of alcohol (finding) [facility] Start: 11-13-2019 End: 03-03-2022 History SDOH Alcohol Frequency 1 [facility] Start: 11-09-2019 End: 11-13-2019 History SDOH Alcohol Std Drinks 98 [facility] Start: 02-05-2010 History SDOH Alcohol Comment rarely [facility] Start: 11-09-2019 End: 03-03-2022 History SDOH Social Connections Phone 4 [facility] Start: 11-09-2019 End: 03-03-2022 History SDOH Social Connections Get Together 2 [facility] Start: 11-09-2019 End: 03-03-2022 History SDOH Social Connections Living 3 [facility] Start: 11-09-2019 End: 03-03-2022 History SDOH Physical Activity DPW 7 [facility] Start: 11-09-2019 End: 03-03-2022 History SDOH Physical Activity MPS 5 [facility] Start: 11-09-2019 Education 17 [facility] Start: 1935 Sex Assigned At Male C [facility] Start: 12-22-2021 End: 01-01-2022 Exposure to SARS-CoV-2 (event) Not sure [facility] Start: 03-03-2022 History SDOH Alcohol Std Drinks 0 [facility] Start: 03-03-2022 History SDOH Physica l Activity MPS 6 [facility] Start: 03-03-2022 End: 01-06-2023 History of Social function [facility] Start: 03-03-2022 End: 01-06-2023 Social connection and isolation panel [facility] Do you belong to any clubs or organizations such as congregational groups, unions, fraternal or athletic groups, or school groups? Yes [facility] Are you now , , , , never or living with a partner? [facility] How often to you hav e a drink containing alcohol? Never [facility] How many standard dr inks containing alcohol do you have on a typical day? Patient does not drink [facility] Do you feel stress - tense, restless, nervous, or anxious, or unable to sleep at night because your mind is troubled all the time - these days [OSQ] Only a little [facility] (I/We) worried gus er (my/our) food would run out before (I/we) got money to buy more. Never true [facility] In the past 12 month s, was there a time when you were not able to pay the mortgage or rent on time? No [facility] Start: 01-24-2020 Gender identity Identifies as male gender (finding) [facility] Start: 01-24-2020 Sexual orientation Choose not to dis close [facility] Clinical Notes 05-05-2013 to 03-02-2023 Preethi Jones RN - 03/02/2023 10:53 AM Tereza Rogers LPN - 02/01/2023 12:25 PM EDTPatient Luan Muniz MD - 01/06/2023 2:06 PM Brandi London Ma - 12/30/2022 3:35 PM EDT Note Date & Type Note Facility 03-02-2023 Note Patient Outreach ([facility] JEANETTE TREJO JR. ([id number]) 1935 M Date Time Provider Department 03/02/23 PREETHI JONES [facility] During your visit today, we recorded the following information about you: Preethi Jones RN 03/02/2023 10:55 AM Signed [facility] NURSE - CHART REVIEW Provider [facility] Action Chart review 04/25-04/27/2022 ED/ADM chest pain, bradycardia, syncope [facility] identified by name and . Reason for Review: Payor request Patient Attributed To: QAE Payer: [place] Chart Review For: Utilization: ED Admission Total Patient High CostTotal Patient High Cost {HIGH COST:296071) Quality measure review Payor request for assistance Action Taken: No action needed Preethi Jones RN March 02, 2023 10:54 AM Allergies As of Date: 03/02/2023 Noted Allergy Reaction PEPCID (FAMOTIDINE) 02/27/2015 14 - Other: See Comments Comments: headache RANITIDINE 12/30/2009 5 - Intolerance Comments: fatigue Date Reviewed: 01/06/2023 Reviewed by: Luan Mckeon MD - Fully Assessed Prescriptions as of 03/02/2023 - isosorbide mononitrate ER (IMDUR) 30 mg 24 hr tablet Take 30 mg by mouth once daily. Take one tablet daily (per [facility]) - omeprazole (PRILOSEC) 20 mg capsule Take 1 capsule by mouth as needed. - ramipril (ALTACE) 10 mg capsule Take 20 mg by mouth once daily. - carvedilol (COREG) 6.25 mg tablet Take 6.25 mg by mouth twice daily with meals. - clopidogrel (PLAVIX) 75 mg tablet Take 75 mg by mouth once daily. - atorvastatin (LIPITOR) 20 mg tablet TAKE ONE TABLET BY MOUTH EVERY DAY - MULTIVITAMIN TAB Take one(1) tablet daily. - ASPIRIN 81 MG TAB Take one(1) tablet daily. Problem List As Of Date 03/02/2023 Noted Resolved Benign prostatic hyperplasia without lower urin*05/31/2005 Hemorrhoids [K64.9] Unspecified disease of sebaceous glands [L73.9] 03/07/2008 05/03/2013 Benign neoplasm of skin of other and unspecifie*03/07/2008 05/03/2013 SOLAR LENTIGINES///DYSCHROMIA OTHER [L81.9] 03/07/2008 05/03/2013 ACTINIC DAMAGE///CHR SOLAR SKIN DAMAGE NOS [L57*03/07/2008 05/03/2013 ACTINIC KERATOSES (Premalignant AK's) [L57.0] 03/07/2008 NEVUS BACK///BENIGN AIDA SKIN TRUNK [D23.5] 09/19/2008 05/03/2013 Neoplasm of Uncertain Behavior (NUB) of Skin of*03/03/2009 05/03/2013 Eczematous dermatitis [L30.9] 09/07/2009 Xerosis cutis [L85.3] 09/07/2009 08/30/2014 History of lower GI bleeding [Z87.19] 08/23/2012 Neoplasm of uncertain behavior(NUB) of skin rig*05/05/2013 10/29/2013 Hx of SCC skin cancer at [facility] [place] o*10/30/2013 Mixed hyperlipidemia [E78.2] 08/30/2014 IBS (irritable bowel syndrome) [K58.9] 08/30/2014 Coronary atherosclerosis due to lipid rich plaq*02/27/2015 Diverticulosis of large intestine without hemor*02/27/2015 Failed CABG (coronary artery bypass graft) [T82*03/05/2015 Hypertensive heart disease without heart failur*03/05/2015 Proteinuria [R80.9] 05/23/2015 Elevated fasting blood sugar [R73.01] 05/23/2015 S/P CABG x 3 [Z95.1] 07/15/2015 Essential hypertension with goal blood pressure*08/29/2015 Medicare annual wellness visit, subsequent [Z00*08/30/2016 Stented coronary artery [Z95.5] 04/07/2017 Medication management [Z79.899] 05/10/2019 GERD without esophagitis [K21.9] 12/16/2020 Bilateral carotid artery stenosis [I65.23] 06/18/[address] [Z78.9] 06/25/2021 Advance directive discussed with patient [Z71.8*07/08/2022 Valvular heart disease [I38] 01/06/2023 Encounter Status:Closed by PREETHI JONES on 03/02/23 [facility] 03-02-2023 Note HNO ID: [id number] Author: Preethi Jones RN Service: ? Author Type: Registered Nurse Type: Progress Notes Filed: 03/02/2023 10:55 AM Note Text: [facility] NURSE - CHART REVIEW Provider [facility] Action Chart review 04/25-04/27/2022 ED/ADM chest pain, bradycardia, syncope [facility] Pt identified by name and . Reason for Review: Payor request Patient Attributed To: QAE Payer: AETNA Chart Review For: Utilization: ED Admission Total Patient High CostTotal Patient High Cost {HIGH COST:601799) Quality measure review Payor request for assistance Action Taken: No action needed Preethi Jones RN March 02, 2023 10:54 AM [facility] 03-02-2023 History of Presen t illness Narrative [facility] NURSE - CHART REVIEW Provider [facility] Action Chart review 04/25-04/27/2022 ED/ADM chest pain, bradycardia, syncope [facility] Pt identified by name and . Reason for Review: Payor request Patient Attributed To: QAE Payer: AET[employer] Chart Review For: Utilization: ED Admission Total Patient High CostTotal Patient High Cost {HIGH COST:010723) Quality measure review Payor request for assistance Action Taken: No action needed Preethi Jones RN March 02, 2023 10:54 AM documented in this encounter [facility] 02-01-2023 Note HNO ID: [id number] Author: Tereza Talley LPN Service: ? Author Type: ? Type: Progress Notes Filed: 02/01/2023 12:27 PM Note Text: Patient presents for COVID vaccine. Denies any problems at this time. Tolerated injection well. Tereza Talley LPN [facility] 02-01-2023 History of Presen t illness Narrative Patient presents for COVID vaccine. Denies any problems at this time. Tolerated injection well. Tereza Talley LPN documented in this encounter [facility] 01-06-2023 Note HNO ID: [id number] Author: Luan Mckeon MD Service: ? Author Type: Physician Type: Progress Notes Filed: 01/06/2023 4:17 PM Note Text: Chief Complaint Patient presents with: F/U 6 months HPI Jeanette Trejo Jr. is a 87 year old male who presents here today for 6 month follow up. Patient with Hx of BPH, CAD, elevated fasting blood sugar, HTN, past Hx of CABG, IBS, hyperlipidemia as well as those reviewed and addressed below and in ROS. List of current specialists seen: [facility] 12/29/2022 and [facility] A1C 6.0 Home BP's 117/63 52 121/63 56 119/68 55 Patient has bene doing well. No new issues or concerns. Set to get his flu vaccine at the end of the month. Wants to get a COVID booster as well. No longer taking Coreg Past medical history, appointments, medications, allergies reviewed. Previous Medical History PAST MEDICAL HISTORY Diagnosis Date ACTINIC KERATOSES (Premalignant AK's) 03/07/2008 Advance directive discussed with patient 07/08/2022 Discussed 06/2022: Needs to bring in copies Benign prostatic hyperplasia without lower urinary tract symptoms 05/31/2005 Bilateral carotid artery stenosis 06/18/2021 US 05/2021: Rt <50%, Left at 50% Bilateral carotid artery stenosis 06/18/2021 Per Cardiology US 05/2021: Rt <50%, Left at 50% [facility] angioma 03/31/2012 Coronary atherosclerosis due to lipid rich plaque 02/27/[address] 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 Sewell Xerosis cutis 09/07/2009 Previous Surgical History PAST SURGICAL HISTORY Procedure Laterality Date 2D ECHO (EXEP) 03/23/2017 EF=65%, stage 1 diastolic Dysf, mild pulm HTN 2D ECHO (EXEP) 01/26/2021 EF=60%, mild diastoloic dysf ADENOIDECTOMY PRIMARY Adenoidectomy APPENDECTOMY 193 COLONOSCOPY FLX DX W/COLLJ SPEC WHEN PFRMD 2012 CORONARY ARTERY BYP W/VEIN AND ARTERY GRAFT 3 VEIN 03/2002 CABG, three grafts PAST SURGICAL HISTORY OF 04/2006 cataract surgery this year by Dr. Angel PAST SURGICAL HISTORY OF 12/2001 PTCA./Stent PAST SURGICAL HISTORY OF hemorrhoid STENT - CORONARY 04/05/[address] Sewell STRESS ECHO 08/15/2018 EF=65%, neg for ischemia TONSILLECTOMY PRIMARY/SECONDARY Tonsillectomy Family History FAMILY HISTORY Problem Relation Age of Onset Breast Cancer Mother age 74 Diabetes Mother Cancer Father age 72 of lung cancer, previous AL age 57 Coronary Artery Disease Father Diabetes Brother age 67 of DM, also history of prostate cancer Heart Sister Alive age 68, history of AL age 66 Patient Allergies ALLERGIES Allergen Reactions Pepcid [Famotidine] Other: See Comments headache Ranitidine Intolerance fatigue Current Medications Current Outpatient Medications on File Prior to Visit Medication Sig isosorbide mononitrate ER (IMDUR) 30 mg 24 hr tablet Take 30 mg by mouth once daily. Take one tablet daily (per [facility]) omeprazole (PRILOSEC) 20 mg capsule Take 1 capsule by mouth as needed. ramipril (ALTACE) 10 mg capsule Take 20 mg by mouth once daily. carvedilol (COREG) 6.25 mg tablet Take 6.25 mg by mouth twice daily with meals. clopidogrel (PLAVIX) 75 mg tablet Take 75 mg by mouth once daily. atorvastatin (LIPITOR) 20 mg tablet TAKE ONE TABLET BY MOUTH EVERY DAY MULTIVITAMIN TAB Take one(1) tablet daily. ASPIRIN 81 MG TAB Take one(1) tablet daily. carvedilol (COREG) 12.5 mg tablet Take 1 tablet by mouth twice daily. (Patient not taking: Reported on 07/08/2022) No current facility-administered medications on file prior to visit. Social History Social History Tobacco Use Smoking status: Never Smokeless tobacco: Never Substance Use Topics Alcohol use: Yes Comment: rarely Review of Symptoms REVIEW OF SYSTEMS GENERAL: No weight loss, malaise or fevers NECK: Negative for lumps, goiter, pain and significant neck swelling RESPIRATORY: Negative for cough, hemoptysis, wheezing, COPD, dyspnea or shortness of breath CARDIOVASCULAR: Negative for chest pain, leg swelling, hypertension, (more content not included)... [facility] 01-06-2023 Instructions Luan Mckeon MD - 01/06/2023 3:00 PM EDT Please get labs and urine test done on or after 06/24/2023 prior to your next visit. documented in this encounter [facility] 01-06-2023 History of Presen t illness Narrative Chief Complaint Patient presents with: F/U 6 months HPI Jeanette Trejo Jr. is a 87 year old male who presents here today for 6 month follow up. Patient with Hx of BPH, CAD, elevated fasting blood sugar, HTN, past Hx of CABG, IBS, hyperlipidemia as well as those reviewed and addressed below and in ROS. List of current specialists seen: [facility] 12/29/2022 and [facility] A1C 6.0 Home BP's 117/63 52 121/63 56 119/68 55 Patient has bene doing well. No new issues or concerns. Set to get his flu vaccine at the end of the month. Wants to get a COVID booster as well. No longer taking Coreg Past medical history, appointments, medications, allergies reviewed. Previous Medical History PAST MEDICAL HISTORY Diagnosis Date ACTINIC KERATOSES (Premalignant AK's) 03/07/2008 Advance directive discussed with patient 07/08/2022 Discussed 06/2022: Needs to bring in copies Benign prostatic hyperplasia without lower urinary tract symptoms 05/31/2005 Bilateral carotid artery stenosis 06/18/2021 US 05/2021: Rt <50%, Left at 50% Bilateral carotid artery stenosis 06/18/2021 Per Cardiology US 05/2021: Rt <50%, Left at 50% Weaver angioma 03/31/2012 Coronary atherosclerosis due to lipid rich plaque 02/27/[address] 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 Sewell Xerosis cutis 09/07/2009 Previous Surgical History PAST SURGICAL HISTORY Procedure Laterality Date 2D ECHO (EXEP) 03/23/2017 EF=65%, stage 1 diastolic Dysf, mild pulm HTN 2D ECHO (EXEP) 01/26/2021 EF=60%, mild diastoloic dysf ADENOIDECTOMY PRIMARY <AGE 12 Adenoidectomy APPENDECTOMY 1939 COLONOSCOPY FLX DX W/COLLJ SPEC WHEN PFRMD 2012 CORONARY ARTERY BYP W/VEIN & ARTERY GRAFT 3 VEIN 03/2002 CABG, three grafts PAST SURGICAL HISTORY OF 04/2006 cataract surgery this year by Dr. Angel PAST SURGICAL HISTORY OF 12/2001 PTCA./Stent PAST SURGICAL HISTORY OF hemorrhoid STENT - CORONARY 04/05/[address] Sewell STRESS ECHO 08/15/2018 EF=65%, neg for ischemia TONSILLECTOMY PRIMARY/SECONDARY <AGE 12 Tonsillectomy Family History FAMILY HISTORY Problem Relation Age of Onset Breast Cancer Mother age 74 Diabetes Mother Cancer Father age 72 of lung cancer, previous AL age 57 Coronary Artery Disease Father Diabetes Brother age 67 of DM, also history of prostate cancer Heart Sister Alive age 68, history of AL age 66 Patient Allergies ALLERGIES Allergen Reactions Pepcid [Famotidine] Other: See Comments headache Ranitidine Intolerance fatigue Current Medications Current Outpatient Medications on File Prior to Visit Medication Sig isosorbide mononitrate ER (IMDUR) 30 mg 24 hr tablet Take 30 mg by mouth once daily. Take one tablet daily (per [facility]) omeprazole (PRILOSEC) 20 mg capsule Take 1 capsule by mouth as needed. ramipril (ALTACE) 10 mg capsule Take 20 mg by mouth once daily. carvedilol (COREG) 6.25 mg tablet Take 6.25 mg by mouth twice daily with meals. clopidogrel (PLAVIX) 75 mg tablet Take 75 mg by mouth once daily. atorvastatin (LIPITOR) 20 mg tablet TAKE ONE TABLET BY MOUTH EVERY DAY MULTIVITAMIN TAB Take one(1) tablet daily. ASPIRIN 81 MG TAB Take one(1) tablet daily. carvedilol (COREG) 12.5 mg tablet Take 1 tablet by mouth twice daily. (Patient not taking: Reported on 07/08/2022) No current facility-administered medications on file prior to visit. Social History Social History Tobacco Use Smoking status: Never Smokeless tobacco: Never Substance Use Topics Alcohol use: Yes Comment: rarely Review of Symptoms REVIEW OF SYSTEMS GENERAL: No weight loss, malaise or fevers NECK: Negative for lumps, goiter, pain and significant neck swelling RESPIRATORY: Negative for cough, hemoptysis, wheezing, COPD, dyspnea or shortness of breath CARDIOVASCULAR: Negative for chest pain, leg swelling, hypertension, CHF or palpitations GI: No nausea, vomiting, or diarrhea and No heartburn or reflux symptoms : No history of dysuria, blood ENDOCRINE: Negative for cold or heat intolerance, polyuria, polydipsia and goiter NEURO: No history of headaches, syncope, paralysis, seizures or tremors and no dizziness. EXAM: BP 138/74 (BP Site: Left Arm, BP Position: Sitting, BP Cuff Size: Regular Adult) Pulse (!) 58 Resp 16 Wt 57.2 kg (126 lb) BMI 20.34 kg/m Last 5 Encounter Wt Readings: Date: Wt: 01/06/2023 57.2 kg (126 lb) 07/08/2022 58.3 kg (128 lb 9.6 oz) 01/01/2022 58.1 kg (128 lb) 06/25/2021 61.7 kg (136 lb) 12/16/2020 58.5 kg (129 lb) General Appearance: Well appearing, alert, in no acute distress, well-hydrated, well nourished.. Neck: Supple, no adenopathy; thyroid symmetric, normal size, no bruits. Lungs: Lungs clear to auscultation. No wheezing, rhonchi, rales.. Heart: RRR without gallop, or rubs. No ectopy. Soft 2/6 JOSE Abdomen: Normal abdominal exam, Abdomen soft, non-tender. Bowel sounds normal. No masses, organomegaly. Extremities: No deformities, edema, skin discoloration, Good capillary refill. . Peripheral Pulses: Normal. Neurologic: Gait normal. Sensation grossly intact.. Health Maintenance List Covid-19 Vaccine(6 - Moderna series) due on 06/05/2022 Influenza Vaccine(1) due on 12/24/2022 DTaP,Tdap,Td Vaccine(1 - Tdap) due on 07/09/2023 Shingrix Vaccine(1 of 2) due on 07/09/2023 LDL Cholesterol due on 01/04/2024 Diabetes Screening due on 01/03/2026 Advance Directive Discussion Completed Depression Assessment Completed Pneumococcal Vaccine: 65+ Completed Data reviewed Component Latest Ref Rng & Units 07/05/2022 01/03/2023 Total Cholesterol, Nonfasting <200 mg/dL 134 120 Triglycerides, Nonfasting <150 mg/dL 135 99 HDL Cholesterol, Nonfasting >39 mg/dL 45 38 (L) LDL Cholesterol, Nonfasting <100 mg/dL 62 62 Non HDL Cholesterol, Nonfasting <130 mg/dL 89 82 VLDL Cholesterol, Nonfasting <30 mg/dL 27 20 Total Chol/HDL Ratio, Nonfasting <5.10 mg/dL 2.98 3.16 LDL/HDL Ratio, Nonfasting <2.54 mg/dL 1.38 1.63 Hemoglobin A1C 4.3 - 5.6 % 6.0 (H) 6.0 (H) Estimated Average Glucose mg/dL 126 126 A/P ASSESSMENT/PLAN: 1. Essential hypertension with goal blood pressure less than 140/90 - ICD9: 401.9, ICD10: I10 (primary diagnosis) - Controlled - Continue current medications - Recommend home blood pressure monitoring, to bring results to next visit - Encouraged sodium restriction, DASH or Mediterranean diet - Recommend regular aerobic exercise 2. Hypertensive heart disease without heart failure - ICD9: 402.90, ICD10: I11.9 - Controlled - Continue current medications - Recommend home blood pressure monitoring, to bring results to next visit - Encouraged sodium restriction, DASH or Mediterranean diet - Recommend regular aerobic exercise - follows with cardio 3. Mixed hyperlipidemia - ICD9: 272.2, ICD10: E78.2 - Controlled - Continue current medications - Counseled on healthy diet and regular exercise 4. Elevated fasting blood sugar - ICD9: 790.21, ICD10: R73.01 - stable with diet. 5. Coronary atherosclerosis due to lipid rich plaque - ICD9: 414.3, ICD10: I25.10, I25.83 - clinically stable and monitored by cardio 6. GERD without esophagitis - ICD9: 530.81, ICD10: K21.9 - Continue treatment with Prilosec 20 mg QD 7. Bilateral carotid artery stenosis - ICD9: 433.10, 433.30, ICD10: I65.23 - cont current [place]. 8. Advance directive discussed with patient - ICD9: V65.49, ICD10: Z71.89 - patient brought in packets today 9. Valvular heart disease - ICD9: 424.90, ICD10: I38 - stable and monitored by cardio. F/u in 6 months extensive check CMP, lipid, UA, A1c, CBC, B12 and Mg prior. Luan Mckeon MD documented in this encounter [facility] 12-30-2022 Note HNO ID: [id number] Author: Brandi Ng Ma Service: ? Author Type: ? Type: Progress Notes Filed: 01/02/2023 1:34 PM Note Text: Scan on 12/29/2022 10:31 PM by Provider, ALFONZO Knapp: Consultation - Cardiology [facility] 12-30-2022 History of Presen t illness Narrative Scan on 12/29/2022 10:31 PM by Provider, Aria PAHerman: Consultation - Cardiology documented in this encounter [facility] 07-08-2022 Note HNO ID: [id number] Author: Luan Mckeon MD Service: ? Author Type: Physician Type: Progress Notes Filed: 07/08/2022 1:35 PM Note Text: Medicare Yearly Visit Medical B eligibilty date Not able to find Date of last exam 06/25/2021 PAST MEDICAL HISTORY PAST MEDICAL HISTORY Diagnosis Date ACTINIC KERATOSES (Premalignant AK's) 03/07/2008 Actinic skin damage 03/31/2012 Weaver angioma 03/31/2012 Coronary atherosclerosis of unspecified type of vessel, ely shoshone or graft 05/31/[address] Drew Diverticulosis of colon (without mention of hemorrhage) 05/31/2005 Dystrophia unguis mediana canaliformis 09/09/2011 HTN (hypertension) 08/30/2014 Hyperlipaemia 08/30/2014 Hyperplasia of prostate Hypertrophy of prostate without urinary obstruction and other lower urinary tract symptoms (LUTS) 05/31/2005 LGI bleed 08/23/2012 Nail dystrophy 09/09/2011 Unspecified hemorrhoids without mention of complication Hemorrhoids Xerosis cutis 09/07/2009 PAST SURGICAL HISTORY PAST SURGICAL HISTORY Procedure Laterality Date 2D ECHO (EXEP) 03/23/2017 EF=65%, stage 1 diastolic Dysf, mild pulm HTN APPENDECTOMY 193 CABG, ARTERY-VEIN, THREE 03/26 CABG, three grafts COLONOSCOP W/ OR W/O [facility] SPEC 2012 PAST SURGICAL HISTORY OF 05/01 cataract surgery this year by Dr. Angel PAST SURGICAL HISTORY OF 12/25 PTCA./Stent PAST SURGICAL HISTORY OF hemorrhoid REMOVAL ADENOIDS,PRIMARY,<12 Y/O Adenoidectomy REMOVAL OF TONSILS,<12 Y/O Tonsillectomy STENT - CORONARY 04/05/[address] Donato Bradshaw [Famotidine]; Ranitidine Medications reviewed: Yes FAMILY HISTORY FAMILY HISTORY Problem Relation Age of Onset Cancer Father age 72 of lung cancer, previous AL age 57 Diabetes Brother age 67 of DM, also history of prostate cancer Heart Sister Alive age 68, history of AL age 66 Breast Cancer Mother age 74 Coronary Artery Disease Father Diabetes Mother SOCIAL HISTORY: Social History Marital status: Spouse name: Mi Years of education: Number of children: 1 Occupational History Occupation Employer Comment [employer] Social History Main Topics Smoking status: Never Smoker Smokeless tobacco: Never Used Alcohol use: Yes Comment: rarely Jeanette works out regularly 7 times per week with walking and stationary bicycling. He watches his diet for sodium, low fat and low cholesterol all of the time. List of current specialists seen: [facility] and [facility] Planning discussed including patients advanced directive wishes: Yes I am willing to follow Jeanette's advanced directives. Depression screen Depression Screening 11/03/2018 06/03/2020 07/08/2022 07/08/2022 PHQ-2 Score 0 0 0 0 Depression screening tool completed and reviewed. Based on score and interview, patient is not at risk for depression. Screening tool discussed with patient, and I recommended no further intervention at this time. Functional Ability/Safety Screen 1. Was the patient's timed Up and Go test unsteady or longer than 30 seconds? No 2. Does the patient need help with the phone, transportation, shopping,preparing meals, housework, laundry, medications or managing money? No 3. Does your home have rugs in the hallway, lack of grab bars in the bathroom, lack of handrails on the stairs or have poor lighting? No Hearing Evaluation: normal PHYSICAL EXAM BP 144/88 Pulse 64 Temp (!) 35.6 ?C (96.1 ?F) (Left Tympanic) Resp 16 Ht 167.6 cm (5' 6 ) Wt 58.3 kg (128 lb 9.6 oz) BMI 20.76 kg/m? Alert and oriented X 3: YES Body mass index is 20.76 kg/m?. seeing optho See below ASSESSMENT/PLAN: 86 year old male The following prevention plan was discussed during the office visit and provided to the patient: See below Luan Mckeon Chief Complaint Patient presents with: Medicare Wellness Exam HPI Jeanette Trejo Jr. is a 86 year old male who presents here today for Above Complaints. and Chronic Medical Conditions.. Patient with Hx of BPH, CAD, elevated fasting blood sugar, HTN, past Hx of CABG, IBS, hyperlipidemia as well as those reviewed and addressed below and in ROS. Patient has been doing ok Had a [facility] related to a syncopal episode. He was in the hospital for 3 days with neg w/u and then had a halter monitor placed by cardio and wore for a month and it ws ok. He has not had another episode since. Past medical history, appointments, medications, allergies reviewed. Previous Medical History PAST MEDICAL HISTORY Diagnosis Date ACTINIC KERATOSES (Premalignant AK's) 03/07/2008 Benign prostatic hyperplasia without lower urinary tract symptoms 05/31/2005 Bilateral carotid artery stenosis 06/18/2021 US 05/2021: Rt <50%, Left at 50% Bilateral carotid artery stenosis 06/18/2021 Per Cardiology US 05/2021: Rt <50%, Left at 50% Weaver angioma 03/31/2012 Coronary athero (more content not included)... [facility] 07-08-2022 Instructions Luan Mckoen MD - 07/08/2022 1:10 PM EDT Please bring in copies of your power of estate attorney for health care and living will. Consider getting the shingrix vaccine for the prevention of shingles from a local pharmacy I would also advise getting a Tdap at the health dept to update your tetanus. Please get labs done on or after 12/24/2022 prior to your next visit. documented in this encounter [facility] 07-08-2022 History of Presen t illness Narrative Medicare Yearly Visit Medical B eligibilty date Not able to find Date of last exam 06/25/2021 PAST MEDICAL HISTORY PAST MEDICAL HISTORY Diagnosis Date ACTINIC KERATOSES (Premalignant AK's) 03/07/2008 Actinic skin damage 03/31/2012 Weaver angioma 03/31/2012 Coronary atherosclerosis of unspecified type of vessel, ely shoshone or graft 05/31/[address] Drew Diverticulosis of colon (without mention of hemorrhage) 05/31/2005 Dystrophia unguis mediana canaliformis 09/09/2011 HTN (hypertension) 08/30/2014 Hyperlipaemia 08/30/2014 Hyperplasia of prostate Hypertrophy of prostate without urinary obstruction and other lower urinary tract symptoms (LUTS) 05/31/2005 LGI bleed 08/23/2012 Nail dystrophy 09/09/2011 Unspecified hemorrhoids without mention of complication Hemorrhoids Xerosis cutis 09/07/2009 PAST SURGICAL HISTORY PAST SURGICAL HISTORY Procedure Laterality Date 2D ECHO (EXEP) 03/23/2017 EF=65%, stage 1 diastolic Dysf, mild pulm HTN APPENDECTOMY 193 CABG, ARTERY-VEIN, THREE 03/26 CABG, three grafts COLONOSCOP W/ OR W/O [facility] SPEC 2012 PAST SURGICAL HISTORY OF 05/01 cataract surgery this year by Dr. Angel PAST SURGICAL HISTORY OF 12/25 PTCA./Stent PAST SURGICAL HISTORY OF hemorrhoid REMOVAL ADENOIDS,PRIMARY,<12 Y/O Adenoidectomy REMOVAL OF TONSILS,<12 Y/O Tonsillectomy STENT - CORONARY 04/05/[address] Donato Bradshaw [Famotidine]; Ranitidine Medications reviewed: Yes FAMILY HISTORY FAMILY HISTORY Problem Relation Age of Onset Cancer Father age 72 of lung cancer, previous AL age 57 Diabetes Brother age 67 of DM, also history of prostate cancer Heart Sister Alive age 68, history of AL age 66 Breast Cancer Mother age 74 Coronary Artery Disease Father Diabetes Mother SOCIAL HISTORY: Social History Marital status: Spouse name: Mi Years of education: Number of children: 1 Occupational History Occupation Employer Comment [employer] Social History Main Topics Smoking status: Never Smoker Smokeless tobacco: Never Used Alcohol use: Yes Comment: rarely Jeanette works out regularly 7 times per week with walking and stationary bicycling. He watches his diet for sodium, low fat and low cholesterol all of the time. List of current specialists seen: [facility] and [facility] Planning discussed including patients advanced directive wishes: Yes I am willing to follow Jeanette's advanced directives. Depression screen Depression Screening 11/03/2018 06/03/2020 07/08/2022 07/08/2022 PHQ-2 Score 0 0 0 0 Depression screening tool completed and reviewed. Based on score and interview, patient is not at risk for depression. Screening tool discussed with patient, and I recommended no further intervention at this time. Functional Ability/Safety Screen 1. Was the patient's timed Up and Go test unsteady or longer than 30 seconds? No 2. Does the patient need help with the phone, transportation, shopping,preparing meals, housework, laundry, medications or managing money? No 3. Does your home have rugs in the hallway, lack of grab bars in the bathroom, lack of handrails on the stairs or have poor lighting? No Hearing Evaluation: normal PHYSICAL EXAM BP 144/88 Pulse 64 Temp (!) 35.6 C (96.1 F) (Left Tympanic) Resp 16 Ht 167.6 cm (5' 6 ) Wt 58.3 kg (128 lb 9.6 oz) BMI 20.76 kg/m Alert and oriented X 3: YES Body mass index is 20.76 kg/m . seeing optho See below ASSESSMENT/PLAN: 86 year old male The following prevention plan was discussed during the office visit and provided to the patient: See below Luan Mckeon Chief Complaint Patient presents with: Medicare Wellness Exam HPI Jeanette Sainzrejirhonda Ho is a 86 year old male who presents here today for Above Complaints. and Chronic Medical Conditions.. Patient with Hx of BPH, CAD, elevated fasting blood sugar, HTN, past Hx of CABG, IBS, hyperlipidemia as well as those reviewed and addressed below and in ROS. Patient has been doing ok [facility] to a syncopal episode. He was in the hospital for 3 days with neg w/u and then had a halter monitor placed by cardio and wore for a month and it ws ok. He has not had another episode since. Past medical history, appointments, medications, allergies reviewed. Previous Medical History PAST MEDICAL HISTORY Diagnosis Date ACTINIC KERATOSES (Premalignant AK's) 03/07/2008 Benign prostatic hyperplasia without lower urinary tract symptoms 05/31/2005 Bilateral carotid artery stenosis 06/18/2021 US 05/2021: Rt <50%, Left at 50% Bilateral carotid artery stenosis 06/18/2021 Per Cardiology US 05/2021: Rt <50%, Left at 50% Weaver angioma 03/31/2012 Coronary atherosclerosis due to lipid rich plaque 02/27/[address] 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 Sewell Xerosis cutis 09/07/2009 Previous Surgical History PAST SURGICAL HISTORY Procedure Laterality Date 2D ECHO (EXEP) 03/23/2017 EF=65%, stage 1 diastolic Dysf, mild pulm HTN 2D ECHO (EXEP) 01/26/2021 EF=60%, mild diastoloic dysf ADENOIDECTOMY PRIMARY <AGE 12 Adenoidectomy APPENDECTOMY 1939 COLONOSCOPY FLX DX W/COLLJ SPEC WHEN PFRMD 2012 CORONARY ARTERY BYP W/VEIN & ARTERY GRAFT 3 VEIN 03/2002 CABG, three grafts PAST SURGICAL HISTORY OF 04/2006 cataract surgery this year by Dr. Angel PAST SURGICAL HISTORY OF 12/2001 PTCA./Stent PAST SURGICAL HISTORY OF hemorrhoid STENT - CORONARY 04/05/[address] Sewell STRESS ECHO 08/15/2018 EF=65%, neg for ischemia TONSILLECTOMY PRIMARY/SECONDARY <AGE 12 Tonsillectomy Family History FAMILY HISTORY Problem Relation Age of Onset Breast Cancer Mother age 74 Diabetes Mother Cancer Father age 72 of lung cancer, previous AL age 57 Coronary Artery Disease Father Diabetes Brother age 67 of DM, also history of prostate cancer Heart Sister Alive age 68, history of AL age 66 Patient Allergies ALLERGIES Allergen Reactions Pepcid [Famotidine] Other: See Comments headache Ranitidine Intolerance fatigue Current Medications Current Outpatient Medications on File Prior to Visit Medication Sig isosorbide mononitrate ER (IMDUR) 30 mg 24 hr tablet Take 30 mg by mouth once daily. Take one tablet daily (per [facility]) omeprazole (PRILOSEC) 20 mg capsule Take 1 capsule by mouth as needed. ramipril (ALTACE) 10 mg capsule Take 20 mg by mouth once daily. carvedilol (COREG) 6.25 mg tablet Take 6.25 mg by mouth twice daily with meals. clopidogrel (PLAVIX) 75 mg tablet Take 75 mg by mouth once daily. atorvastatin (LIPITOR) 20 mg tablet TAKE ONE TABLET BY MOUTH EVERY DAY MULTIVITAMIN TAB Take one(1) tablet daily. ASPIRIN 81 MG TAB Take one(1) tablet daily. carvedilol (COREG) 12.5 mg tablet Take 1 tablet by mouth twice daily. (Patient not taking: Reported on 07/08/2022) No current facility-administered medications on file prior to visit. Social History Social History Tobacco Use Smoking status: Never Smokeless tobacco: Never Substance Use Topics Alcohol use: Yes Comment: rarely Review of Symptoms REVIEW OF SYSTEMS GENERAL: No weight loss, malaise or fevers HEENT: Negative for frequent or significant headaches, No changes in hearing or vision, no nose bleeds or other nasal problems NECK: Negative for lumps, goiter, pain and significant neck swelling RESPIRATORY: Negative for cough, hemoptysis, wheezing, COPD, dyspnea or shortness of breath CARDIOVASCULAR: Negative for chest pain, leg swelling, hypertension, CHF or palpitations GI: No nausea, vomiting, or diarrhea, No frequent heartburn or reflux symptoms, and no blood : No history of dysuria, blood MUSCULOSKELETAL: Negative for joint pain or swelling, back pain or muscle pain SKIN: Negative for lesions, rash, and itching PSYCH: Negative for sleep disturbance, mood disorder and recent psychosocial stressors HEMATOLOGY/LYMPHOLOGY: Negative for prolonged bleeding, bruising easily or swollen nodes ENDOCRINE: Negative for cold or heat intolerance, polyuria, polydipsia and goiter NEURO: No history of headaches, paralysis, seizures or tremors. See HPI EXAM: BP 144/88 Pulse 64 Temp (!) 35.6 C (96.1 F) (Left Tympanic) Resp 16 Ht 167.6 cm (5' 6 ) Wt 58.3 kg (128 lb 9.6 oz) BMI 20.76 kg/m BP 127/64 Pulse 64 Temp (!) 35.6 C (96.1 F) (Left Tympanic) Resp 16 Ht 167.6 cm (5' 6 ) Wt 58.3 kg (128 lb 9.6 oz) BMI 20.76 kg/m Last 5 Encounter Wt Readings: Date: Wt: 07/08/2022 58.3 kg (128 lb 9.6 oz) 01/01/2022 58.1 kg (128 lb) 06/25/2021 61.7 kg (136 lb) 12/16/2020 58.5 kg (129 lb) 06/05/2020 59.9 kg (132 lb) General Appearance: Well appearing, alert, in no acute distress, well-hydrated, well nourished. and Thin. Skin: Skin color, texture, turgor normal, no suspicious rashes or lesions. Head: Normocephalic, no masses, lesions, tenderness or abnormalities. Eyes: Anicteric sclera. Pupils are equally round and reactive to light. Extraocular movements are intact. . Ears: External ears, TM's normal, canals clear. Neck: Supple, no adenopathy; thyroid symmetric, normal size, no bruits. Lungs: Lungs clear to auscultation. No wheezing, rhonchi, rales.. Heart: RRR without murmur, gallop, or rubs. No ectopy. Abdomen: Normal abdominal exam, Abdomen soft, non-tender. Bowel sounds normal. No masses, organomegaly. Extremities: No deformities, edema, skin discoloration, Good capillary refill. . Musculoskeletal: Spine range of motion normal for age. Muscular strength intact, No joint swelling, deformity, or tenderness. Peripheral Pulses: Normal. Neurologic: Gait normal. Reflexes normal and symmetric. Sensation to light touch and crainal nerves 2-21 intact.. Health Maintenance List DTAP,TDAP,TD(1 - Tdap) Never done SHINGRIX VACCINE(1 of 2) Never done ADVANCE DIRECTIVE DISCUSSION Never done DEPRESSION ASSESSMENT Never done LDL CHOLESTEROL due on 07/06/2023 DIABETES SCREEN due on 07/05/2025 INFLUENZA Completed COVID-19 VACCINE Completed PNEUMOCOCCAL: 65+ Completed Data reviewed Component Latest Ref Rng & Units 06/17/2021 12/29/2021 07/05/2022 WBC 3.70 - 11.00 k/uL 6.13 7.10 RBC 4.20 - 6.00 m/uL 4.37 4.59 Hemoglobin 13.0 - 17.0 g/dL 14.2 14.6 Hematocrit 39.0 - 51.0 % 41.2 42.6 MCV 80.0 - 100.0 fL 94.3 92.8 MCH 26.0 - 34.0 pg 32.5 31.8 MCHC 30.5 - 36.0 g/dL 34.5 34.3 RDW-CV 11.5 - 15.0 % 12.3 12.6 Platelet Count 150 - 400 k/uL 179 161 MPV 9.0 - 12.7 fL 10.0 9.8 Neut% % 63.5 61.7 Abs Neut (ANC) 1.45 - 7.50 k/uL 3.88 4.38 Lymph% % 25.1 26.5 Abs Lymph 1.00 - 4.00 k/uL 1.54 1.88 [place]% % 8.0 8.2 Abs [place] <0.87 k/uL 0.49 0.58 Eosin% % 3.1 3.2 Abs Eosin <0.46 k/uL 0.19 0.23 Baso% % 0.3 0.3 Abs Baso <0.11 k/uL <0.03 <0.03 Immature Gran % % 0.1 IMMATURE GRANS (ABS) <0.10 k/uL <0.03 NRBC /100 WBC 0.0 Absolute nRBC <0.01 k/uL <0.01 <0.01 DTYPE Auto Nucleated Reds 0 /100 WBC 0.0 Diff Type Auto Diff Protein, Total 6.3 - 8.0 g/dL 6.6 6.9 Albumin 3.9 - 4.9 g/dL 4.1 4.5 Calcium 8.5 - 10.2 mg/dL 9.3 9.4 Bilirubin, Total 0.2 - 1.3 mg/dL 0.6 0.5 Alkaline Phosphatase 38 - 113 U/L 58 51 AST 14 - 40 U/L 30 26 Glucose 74 - 99 mg/dL 114 (H) 108 (H) BUN 9 - 24 mg/dL 27 (H) 15 Creatinine 0.73 - 1.22 mg/dL 1.10 0.99 Sodium 136 - 144 mmol/L 138 140 Potassium 3.7 - 5.1 mmol/L 4.2 4.3 Chloride 97 - 105 mmol/L 100 104 CO2 22 - 30 mmol/L 29 27 Anion Gap 9 - 18 mmol/L 9 9 ALT 10 - 54 U/L 19 14 eGFR- >60 eGFR-All Other Races . >60 eGFR >=60 mL/min/1.73m 74 Color Yellow Light Yellow Clarity Clear Clear Glucose, Urine Trace, Negative Negative Bilirubin, Urine Negative Negative Ketones, Urine Trace, Negative Negative Specific Sulphur, Ur 1.005 - 1.030 1.012 Hemoglobin/Blood,Ur Negative, Trace Negative pH, Urine 5.0 - 8.0 6.5 Protein, Urine Trace, Negative Trace Urobilinogen Negative Negative Nitrites Negative Negative Leukest Negative, 25 Tang/uL Negative WBC, Urine 0-5 /HPF 0-5 /HPF RBC, Urine 0-3 /HPF 0-3 /HPF Total Cholesterol, Nonfasting <200 mg/dL 136 108 134 Triglycerides, Nonfasting <150 mg/dL 159 (H) 104 135 HDL Cholesterol, Nonfasting >39 mg/dL 37 (L) 37 (L) 45 LDL Cholesterol, Nonfasting <100 mg/dL 67 50 62 Non HDL Cholesterol, Nonfasting <130 mg/dL 99 71 89 VLDL Cholesterol, Nonfasting <30 mg/dL 32 (H) 21 27 Total Chol/HDL Ratio, Nonfasting <5.10 mg/dL 3.68 2.92 2.98 LDL/HDL Ratio, Nonfasting <2.54 mg/dL 1.81 1.35 1.38 Hemoglobin A1C 4.3 - 5.6 % 6.1 (H) 5.5 6.0 (H) Estimated Average Glucose mg/dL 128 111 126 Magnesium 1.7 - 2.3 mg/dL 2.1 2.1 Vitamin B12 232 - 1,245 pg/mL 442 512 A/P ASSESSMENT/PLAN: 1. Medicare annual wellness visit, subsequent - ICD9: V70.0, ICD10: Z00.00 (primary diagnosis) - Counseled on healthy diet and regular exercise - Follow up for annual exam in one year 2. Essential hypertension with goal blood pressure less than 140/90 - ICD9: 401.9, ICD10: I10 - good control - Continue current medication(s) - Recommended regular aerobic exercise. - Recommend home blood pressure monitoring, to bring results in on next visit - Goal of BP <130/80 3. Mixed hyperlipidemia - ICD9: 272.2, ICD10: E78.2 - good control and - improved control - Encouraged following a low fat, low cholesterol diet. - Discussed the benefits of regular aerobic exercise and weight loss. - Encouraged following a low carbohydrate, healthy oil intake diet. - Continue current therapy. 4. Elevated fasting blood sugar - ICD9: 790.21, ICD10: R73.01 - improved with life style changes. 5. GERD without esophagitis - ICD9: 530.81, ICD10: K21.9 - Continue treatment with Prilosec 20 mg QD 6. Bilateral carotid artery stenosis - ICD9: 433.10, 433.30, ICD10: I65.23 - monitored per cardio 7. Coronary atherosclerosis due to lipid rich plaque - ICD9: 414.3, ICD10: I25.10, I25.83 - clinically stable no changes and cont f/u with cardio. 8. Hypertensive heart disease without heart failure - ICD9: 402.90, ICD10: I11.9 - good control - Continue current medication(s) - Recommended regular aerobic exercise. - Recommend home blood pressure monitoring, to bring results in on next visit - Goal of BP <130/80 9. Irritable bowel syndrome, unspecified type - ICD9: 564.1, ICD10: K58.9 - no active issues. 10. Benign prostatic hyperplasia without lower urinary tract symptoms - ICD9: 600.00, ICD10: N40.0 - clinically stable 11. Advance directive discussed with patient - ICD9: V65.49, ICD10: Z71.89 Patient to bring in copies. F/u in 6 months routine check Lipid and A1c prior. I spent a total of 40 minutes on the date of the service which included preparing to see the patient, [id number] patient care, completing clinical documentation, performing a medically appropriate examination, counseling and educating the patient/family/caregiver and ordering medications, tests, or procedures. Luan Mckeon MD documented in this encounter [facility] 03-03-2022 Instructions Ana Petersen APRN.[employer] R INSTRUCTOR - 03/03/2022 2:09 PM EST Beginning Home Isolation Isolation is used to separate people infected with SARS-CoV-2, the virus that causes COVID-19, from people who are not infected. People who are in isolation should stay home until it s safe for them to be around others. In the home, anyone sick or infected should separate themselves from others by staying in a specific sick room or area and using a separate bathroom (if available). Isolation or Quarantine: What's the difference? Quarantine keeps someone who might have been exposed to the virus away from others. Isolation keeps someone who is infected with the virus away from others, even in their home. Who needs to isolate People who have COVID-19 People who have symptoms of COVID-19 and are able to recover at home People who have no symptoms (are asymptomatic) but have tested positive for infection with SARS-CoV-2 Steps to take Stay home except to get medical care Monitor your symptoms. Stay in a separate room from other household members, if possible Use a separate bathroom, if possible Avoid contact with other members of the household and pets Don t share personal household items, like cups, towels, and utensils Wear a mask when around other people, if you are able to When to seek emergency medical attention Look for emergency warning signs* for COVID-19. If someone is showing any of these signs, seek emergency medical care immediately: Trouble breathing Persistent pain or pressure in the chest New confusion Inability to wake or stay awake Bluish lips or face *This list is not all possible symptoms. Please call your medical provider for any other symptoms that are severe or concerning to you. Call 911 or call ahead to your local emergency facility: Notify the asphalt paver operator that you are seeking care for someone who has or may have COVID-19. Ending Home Isolation - When you can be around others after you had or likely had COVID-19 When you can be around others after you had or likely had COVID-19 If You Test Positive for COVID-19 (Isolation) Everyone, regardless of vaccination status: Stay home for 5 days. Note: Day 0 is your first day of symptoms or the date of collection of a positive viral test if no symptoms. Day 1 is the first full day after symptoms developed or test specimen was collected. If you have no symptoms or your symptoms are resolving after 5 days, you can leave your house. Continue to wear a mask around others for 5 additional days. If you have a fever, continue to stay home until your fever resolves, even if it is longer than 5 days. If You Were Exposed to Someone with COVID-19 (Quarantine) If you: 1. Have been boosted OR 2. Completed the primary series of Pfizer or Moderna vaccine within the last 6 months OR 3. Completed the primary series of J&J vaccine within the last 2 months THEN: 1. Wear a mask around others for 10 days. 2. Test on day 5, if possible. If you develop symptoms get a test and stay home. If You Were Exposed to Someone with COVID-19 (Quarantine) If you: 1. Completed the primary series of Pfizer or Moderna vaccine over 6 months ago and are not boosted OR 2. Completed the primary series of J&J over 2 months ago and are not boosted OR 3. Are unvaccinated THEN: 1. Stay home for 5 days. After that continue to wear a mask around others for 5 additional days. 2. If you can't quarantine you must wear a mask for 10 days. 3. Test on day 5 if possible. If you develop symptoms get a test and stay home. I had COVID-19 or I tested positive for COVID-19 and I have a weakened immune system If you have a weakened immune system (immunocompromised) due to a health condition or medication, you might need to stay home and isolate longer than 10 days. Talk to your healthcare provider for more information. Your doctor may work with an infectious disease expert at your local health department to determine when you can be around others. documented in this encounter [facility] 03-03-2022 History of Presen t illness Narrative VIRTUAL VISIT PROGRESS NOTE This is a virtual visit using [employer] video visit. It required patient-provider interaction for the medical decision making as documented below. Patient could not get sound to work so he was contacted by phone and video was left on in MyChart video. Jeanette Trejo Jr. is a 86 year old male seen for Positive covid test at [facility]. Patient reports symptoms started Tuesday night with a cough and congestion and Tuesday patient had diarrhea which has resolved. Patient reports that symptoms have improved and that he generally does not feel ill. Patient went to [facility] 03/02/2022 and initial rapid was negative however they did a second test for send out which was positive. Denies fever, chills, shortness of breath, chest pain. HISTORY REVIEWED (electronic chart updated): PAST MEDICAL HISTORY Diagnosis Date ACTINIC KERATOSES (Premalignant AK's) 03/07/2008 Benign prostatic hyperplasia without lower urinary tract symptoms 05/31/2005 Bilateral carotid artery stenosis 06/18/2021 US 05/2021: Rt <50%, Left at 50% Bilateral carotid artery stenosis 06/18/2021 Per Cardiology US 05/2021: Rt <50%, Left at 50% Weaver angioma 03/31/2012 Coronary atherosclerosis due to lipid rich plaque 02/27/[address] 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 Sewell Xerosis cutis 09/07/2009 PAST SURGICAL HISTORY Procedure Laterality Date 2D ECHO (EXEP) 03/23/2017 EF=65%, stage 1 diastolic Dysf, mild pulm HTN 2D ECHO (EXEP) 01/26/2021 EF=60%, mild diastoloic dysf ADENOIDECTOMY PRIMARY <AGE 12 Adenoidectomy APPENDECTOMY 193 COLONOSCOPY FLX DX W/COLLJ SPEC WHEN PFRMD 2012 CORONARY ARTERY BYP W/VEIN & ARTERY GRAFT 3 VEIN 03/2002 CABG, three grafts PAST SURGICAL HISTORY OF 04/2006 cataract surgery this year by Dr. Angel PAST SURGICAL HISTORY OF 12/2001 PTCA./Stent PAST SURGICAL HISTORY OF hemorrhoid STENT - CORONARY 04/05/[address] Sewell STRESS ECHO 08/15/2018 EF=65%, neg for ischemia TONSILLECTOMY PRIMARY/SECONDARY <AGE 12 Tonsillectomy FAMILY HISTORY Problem Relation Age of Onset Breast Cancer Mother age 74 Diabetes Mother Cancer Father age 72 of lung cancer, previous AL age 57 Coronary Artery Disease Father Diabetes Brother age 67 of DM, also history of prostate cancer Heart Sister Alive age 68, history of AL age 66 Social History Tobacco Use Smoking status: Never Smokeless tobacco: Never Substance Use Topics Alcohol use: Yes Comment: rarely Current Outpatient Medications Medication Sig isosorbide mononitrate ER (IMDUR) 30 mg 24 hr tablet Take 30 mg by mouth once daily. Take one tablet daily (per [facility]) omeprazole (PRILOSEC) 20 mg capsule Take 1 capsule by mouth as needed. ramipril (ALTACE) 10 mg capsule Take 1 capsule by mouth twice daily. carvedilol (COREG) 12.5 mg tablet Take 12.5 mg by mouth twice daily with meals. clopidogrel (PLAVIX) 75 mg tablet Take 75 mg by mouth once daily. atorvastatin (LIPITOR) 20 mg tablet TAKE ONE TABLET BY MOUTH EVERY DAY MULTIVITAMIN TAB Take one(1) tablet daily. ASPIRIN 81 MG TAB Take one(1) tablet daily. No current facility-administered medications for this visit. ALLERGIES Allergen Reactions Pepcid [Famotidine] Other: See Comments headache Ranitidine Intolerance fatigue REVIEW OF SYSTEMS: See HPI PHYSICAL EXAMINATION: VIDEO EXAM: (if completed, performed via video enabled technology) GENERAL: alert and appropriate, in no distress, well-hydrated, well nourished, and happy, smiling, interactive NOSE: external nose normal without rhinorrhea OROPHARYNX: moist mucus membranes RESPIRATORY: breathing non-labored ASSESSMENT/PLAN: 1. COVID-19 - ICD9: 079.89, ICD10: U07.1 -Discussed with patient treatment options including paxlovid and monoclonal antibodies. Patient has multiple medication interactions with paxlovid and does not want to proceed at this time. -Discussed with patient that since he has minor symptoms which seem to improving he can continue with OTC symptom management. - Educated patient that it is important to let us know if symptom change or worsen so that other treatment options can be discussed, patient verbalized understanding. I spent a total of 20 minutes on the date of the service which included preparing to see the patient, [id number] patient care, completing clinical documentation, counseling and educating the patient/family/caregiver, and care coordination (not separately reported) Ana Petersen APRN.[employer]CHO[employer] R INSTRUCTOR documented in this encounter [facility] 01-01-2022 Instructions Luan Mckeon MD - 01/01/2022 12:46 PM EDT Please get labs and urine test done on or after 06/18/2022 prior to your next visit. documented in this encounter [facility] 01-01-2022 History of Presen t illness Narrative Chief Complaint Patient presents with: F/U 6 months HPI Jeanette Sainzmilind Lyons. is a 86 year old male who presents here today for 6 month follow up. Patient with Hx of BPH, CAD, elevated fasting blood sugar, HTN, past Hx of CABG, IBS, hyperlipidemia as well as those reviewed and addressed below and in ROS. Patient has been doing ok. No ER visits since last being in the office. Past medical history, appointments, medications, allergies reviewed. Previous Medical History PAST MEDICAL HISTORY Diagnosis Date ACTINIC KERATOSES (Premalignant AK's) 03/07/2008 Benign prostatic hyperplasia without lower urinary tract symptoms 05/31/2005 Bilateral carotid artery stenosis 06/18/2021 US 05/2021: Rt <50%, Left at 50% Bilateral carotid artery stenosis 06/18/2021 Per Cardiology US 05/2021: Rt <50%, Left at 50% Weaver angioma 03/31/2012 Coronary atherosclerosis due to lipid rich plaque 02/27/[address] 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 History of lower GI bleeding 08/23/2012 Hx of SCC skin cancer at R [place] area of R central face: bx'd 05/2013 and tx'd by [facility] 07/30/2013 10/30/2013 Hypertensive heart disease without heart failure 03/05/2015 IBS (irritable bowel syndrome) 08/30/[address] 06/25/2021 DPA: Valeria (Daughter) Mixed hyperlipidemia 08/30/2014 Proteinuria 05/23/2015 Repeat 01/2016 was neg S/P CABG x 3 07/15/2015 Seborrheic Keratoses 09/02/2008 Status post Mohs surgery for squamous cell carcinoma of skin 10/30/2013 Stented coronary artery 04/07/201703/2017, proximal RCA by Dr. Sewell Xerosis cutis 09/07/2009 Previous Surgical History PAST SURGICAL HISTORY Procedure Laterality Date 2D ECHO (EXEP) 03/23/2017 EF=65%, stage 1 diastolic Dysf, mild pulm HTN 2D ECHO (EXEP) 01/26/2021 EF=60%, mild diastoloic dysf ADENOIDECTOMY PRIMARY <AGE 12 Adenoidectomy APPENDECTOMY 1939 COLONOSCOPY FLX DX W/COLLJ SPEC WHEN PFRMD 2012 CORONARY ARTERY BYP W/VEIN & ARTERY GRAFT 3 VEIN 03/2002 CABG, three grafts PAST SURGICAL HISTORY OF 04/2006 cataract surgery this year by Dr. Angel PAST SURGICAL HISTORY OF 12/2001 PTCA./Stent PAST SURGICAL HISTORY OF hemorrhoid STENT - CORONARY 04/05/[address] Sewell STRESS ECHO 08/15/2018 EF=65%, neg for ischemia TONSILLECTOMY PRIMARY/SECONDARY <AGE 12 Tonsillectomy Family History FAMILY HISTORY Problem Relation Age of Onset Breast Cancer Mother age 74 Diabetes Mother Cancer Father age 72 of lung cancer, previous AL age 57 Coronary Artery Disease Father Diabetes Brother age 67 of DM, also history of prostate cancer Heart Sister Alive age 68, history of AL age 66 Patient Allergies ALLERGIES Allergen Reactions Pepcid [Famotidine] Other: See Comments headache Ranitidine Intolerance fatigue Current Medications Current Outpatient Medications on File Prior to Visit Medication Sig omeprazole (PRILOSEC) 20 mg capsule Take 1 capsule by mouth as needed. ramipril (ALTACE) 10 mg capsule Take 1 capsule by mouth twice daily. carvedilol (COREG) 12.5 mg tablet Take 12.5 mg by mouth twice daily with meals. clopidogrel (PLAVIX) 75 mg tablet Take 75 mg by mouth once daily. atorvastatin (LIPITOR) 20 mg tablet TAKE ONE TABLET BY MOUTH EVERY DAY MULTIVITAMIN TAB Take one(1) tablet daily. ASPIRIN 81 MG TAB Take one(1) tablet daily. isosorbide mononitrate ER (IMDUR) 30 mg 24 hr tablet Take 30 mg by mouth once daily. Take one tablet daily (per [facility]) Hydrochlorothiazide 12.5 mg capsule Take 1 capsule by mouth once daily. (Patient not taking: Reported on 01/01/2022) No current facility-administered medications on file prior to visit. Social History Social History Tobacco Use Smoking status: Never Smokeless tobacco: Never Substance Use Topics Alcohol use: Yes Comment: rarely Review of Symptoms REVIEW OF SYSTEMS GENERAL: No weight loss, malaise or fevers NECK: Negative for lumps, goiter, pain and significant neck swelling RESPIRATORY: Negative for cough, hemoptysis, wheezing, COPD, dyspnea or shortness of breath CARDIOVASCULAR: Negative for chest pain, leg swelling, hypertension, CHF or palpitations NEURO: No history of headaches, syncope, paralysis, seizures or tremors EXAM: BP 118/54 Pulse (!) 56 Resp 14 Wt 58.1 kg (128 lb) BMI 19.86 kg/m General Appearance: Well appearing, alert, in no acute distress, well-hydrated, well nourished.. Neck: Supple, no adenopathy; thyroid symmetric, normal size, no bruits. Lungs: Lungs clear to auscultation. No wheezing, rhonchi, rales.. Heart: RRR without murmur, gallop, or rubs. No ectopy. Abdomen: Normal abdominal exam, Abdomen soft, non-tender. Bowel sounds normal. No masses, organomegaly. Extremities: No deformities, edema, skin discoloration, Peripheral Pulses: Normal. Neurologic: Gait normal. Sensation to light touch intact.. Health Maintenance List ADVANCE DIRECTIVE DISCUSSION Never done INFLUENZA(1) due on 12/24/2021 DTAP,TDAP,TD(1 - Tdap) due on 06/25/2022 SHINGRIX VACCINE(1 of 2) due on 06/25/2022 LDL CHOLESTEROL due on 12/29/2022 DIABETES SCREEN due on 12/29/2024 COVID-19 VACCINE Completed PNEUMOCOCCAL: 65+ Completed Data reviewed A/P ASSESSMENT/PLAN: 1. Essential hypertension with goal blood pressure less than 140/90 - ICD9: 401.9, ICD10: I10 (primary diagnosis) - good control - Continue current medication(s) - Recommended regular aerobic exercise. - Recommend home blood pressure monitoring, to bring results in on next visit - Goal of BP <130/80 2. Mixed hyperlipidemia - ICD9: 272.2, ICD10: E78.2 - good control - Continue current medication. - Encouraged following a low fat, low cholesterol diet. - Discussed the benefits of regular aerobic exercise and weight loss. - Encouraged following a low carbohydrate, healthy oil intake diet. 3. Hypertensive heart disease without heart failure - ICD9: 402.90, ICD10: I11.9 - good control - Continue current medication(s) - Recommended regular aerobic exercise. - Recommend home blood pressure monitoring, to bring results in on next visit - Goal of BP <130/80 4. Coronary atherosclerosis due to lipid rich plaque - ICD9: 414.3, ICD10: I25.10, I25.83 - clinically stable no changes. Cont f/u with Cardio. 5. GERD without esophagitis - ICD9: 530.81, ICD10: K21.9 - Continue treatment with Prilosec 20 mg QD 6. Elevated fasting blood sugar - ICD9: 790.21, ICD10: R73.01 - improved with life style changes. 7. Bilateral carotid artery stenosis - ICD9: 433.10, 433.30, ICD10: I65.23 - cont current Tx. F/u 6 months extensive check CMP, Lipid, UA, A1c, B12, Mg and CBC prior Luan Mckeon MD documented in this encounter [facility] documented as of this encounter (statuses as of 01/03/2022) [facility] History of Past illness Narrative* Problem Noted Date Resolved Date 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 05/05/2013 10/29/2013 Xerosis cutis 09/07/2009 08/30/2014 Neoplasm of Uncertain Behavior (NUB) of Skin of Scalp 03/03/2009 05/03/2013 NEVUS BACK///BENIGN AIDA SKIN TRUNK 09/19/2008 05/03/2013 Unspecified disease of sebaceous glands 03/07/20 08 05/03/2013 Benign neoplasm of skin of o ther and unspecified parts of face 03/07/2008 05/03/2013 SOLAR LENTIGINES///DYSCHROMIA OTHER 03/07/2008 05/03/2013 ACTINIC DAMAGE///CHR SOLAR SKIN DAMAGE NOS 03/0705/03/2013 documented as of this encounter (statuses as of 01/12/2022) [facility] of Past illness Narrative* Problem Noted Date Resolved Date 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 05/05/2013 10/29/2013 Xerosis cutis 09/07/2009 08/30/2014 Neoplasm of Uncertain Behavior (NUB) of Skin of Scalp 03/03/2009 05/03/2013 NEVUS BACK///BENIGN AIDA SKIN TRUNK 09/19/2008 05/03/2013 Unspecified disease of sebaceous glands 03/07/20 08 05/03/2013 Benign neoplasm of skin of o ther and unspecified parts of face 03/07/2008 05/03/2013 SOLAR LENTIGINES///DYSCHROMIA OTHER 03/07/2008 05/03/2013 ACTINIC DAMAGE///CHR SOLAR SKIN DAMAGE NOS 03/0705/03/2013 documented as of this encounter (statuses as of 01/22/2022) [facility] of Past illness Narrative* Problem Noted Date Resolved Date 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 05/05/2013 10/29/2013 Xerosis cutis 09/07/2009 08/30/2014 Neoplasm of Uncertain Behavior (NUB) of Skin of Scalp 03/03/2009 05/03/2013 NEVUS BACK///BENIGN AIDA SKIN TRUNK 09/19/2008 05/03/2013 Unspecified disease of sebaceous glands 03/07/20 08 05/03/2013 Benign neoplasm of skin of o ther and unspecified parts of face 03/07/2008 05/03/2013 SOLAR LENTIGINES///DYSCHROMIA OTHER 03/07/2008 05/03/2013 ACTINIC DAMAGE///CHR SOLAR SKIN DAMAGE NOS 03/0705/03/2013 documented as of this encounter (statuses as of 03/03/2022) [facility] of Past illness Narrative* Problem Noted Date Resolved Date 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 05/05/2013 10/29/2013 Xerosis cutis 09/07/2009 08/30/2014 Neoplasm of Uncertain Behavior (NUB) of Skin of Scalp 03/03/2009 05/03/2013 NEVUS BACK///BENIGN AIDA SKIN TRUNK 09/19/2008 05/03/2013 Unspecified disease of sebaceous glands 03/07/20 08 05/03/2013 Benign neoplasm of skin of o ther and unspecified parts of face 03/07/2008 05/03/2013 SOLAR LENTIGINES///DYSCHROMIA OTHER 03/07/2008 05/03/2013 ACTINIC DAMAGE///CHR SOLAR SKIN DAMAGE NOS 03/0705/03/2013 documented as of this encounter (statuses as of 07/08/2022) [facility] of Past illness Narrative* Problem Noted Date Diagnosed Date Resolved Date 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 05/05/2013 0710/2013 Xerosis cutis 09/07/2009 08/30/2014 Neoplasm of Uncertain Behavi or (NUB) of Skin of Scalp 03/03/2009 05/03/2013 NEVUS BACK///BENIGN AIDA SKIN TRUNK 09/19/2008 05/03/2013 Unspecified disease of sebaceous glands 03/07/2008 05/03/2013 Benign neoplasm of skin of o ther and unspecified parts of face 03/07/2008 05/03/2013 SOLAR LENTIGINES///DYSCHROMIA OTHER 03/07/2008 05/03/2013 ACTINIC DAMAGE///CHR SOLAR SKIN DAMAGE NOS 03/07/2008 05/03/2013 documented as of this encounter (statuses as of 01/02/2023) [facility] of Past illness Narrative* Problem Noted Date Diagnosed Date Resolved Date 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 05/05/20130 10/2013 Xerosis cutis 09/07/2009 08/30/2014 Neoplasm of Uncertain Behavi or (NUB) of Skin of Scalp 03/03/2009 05/03/2013 NEVUS BACK///BENIGN AIDA SKIN TRUNK 09/19/2008 05/03/2013 Unspecified disease of sebaceous glands 03/07/2008 05/03/2013 Benign neoplasm of skin of o ther and unspecified parts of face 03/07/2008 05/03/2013 SOLAR LENTIGINES///DYSCHROMIA OTHER 03/07/2008 05/03/2013 ACTINIC DAMAGE///CHR SOLAR SKIN DAMAGE NOS 03/07/2008 05/03/2013 documented as of this encounter (statuses as of 01/07/2023) [facility] of Past illness Narrative* Problem Noted Date Diagnosed Date Resolved Date 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 05/05/20130 10/2013 Xerosis cutis 09/07/2009 08/30/2014 Neoplasm of Uncertain Behavi or (NUB) of Skin of Scalp 03/03/2009 05/03/2013 NEVUS BACK///BENIGN AIDA SKIN TRUNK 09/19/2008 05/03/2013 Unspecified disease of sebaceous glands 03/07/2008 05/03/2013 Benign neoplasm of skin of o ther and unspecified parts of face 03/07/2008 05/03/2013 SOLAR LENTIGINES///DYSCHROMIA OTHER 03/07/2008 05/03/2013 ACTINIC DAMAGE///CHR SOLAR SKIN DAMAGE NOS 03/07/2008 05/03/2013 documented as of this encounter (statuses as of 01/22/2023) [facility] of Past illness Narrative* Problem Noted Date Diagnosed Date Resolved Date 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 05/05/20130 10/2013 Xerosis cutis 09/07/2009 08/30/2014 Neoplasm of Uncertain Behavi or (NUB) of Skin of Scalp 03/03/2009 05/03/2013 NEVUS BACK///BENIGN AIDA SKIN TRUNK 09/19/2008 05/03/2013 Unspecified disease of sebaceous glands 03/07/2008 05/03/2013 Benign neoplasm of skin of o ther and unspecified parts of face 03/07/2008 05/03/2013 SOLAR LENTIGINES///DYSCHROMIA OTHER 03/07/2008 05/03/2013 ACTINIC DAMAGE///CHR SOLAR SKIN DAMAGE NOS 03/07/2008 05/03/2013 documented as of this encounter (statuses as of 02/01/2023) [facility] of Past illness Narrative* Problem Noted Date Diagnosed Date Resolved Date 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 05/05/20130 10/2013 Xerosis cutis 09/07/2009 08/30/2014 Neoplasm of Uncertain Behavi or (NUB) of Skin of Scalp 03/03/2009 05/03/2013 NEVUS BACK///BENIGN AIDA SKIN TRUNK 09/19/2008 05/03/2013 Unspecified disease of sebaceous glands 03/07/2008 05/03/2013 Benign neoplasm of skin of o ther and unspecified parts of face 03/07/2008 05/03/2013 SOLAR LENTIGINES///DYSCHROMIA OTHER 03/07/2008 05/03/2013 ACTINIC DAMAGE///CHR SOLAR SKIN DAMAGE NOS 03/07/2008 05/03/2013 documented as of this encounter (statuses as of 03/03/2023) [facility] Essential hypertension with goal blood pressure less than 140/90- Primary Mixed hyperlipidemia Hypertensive heart disease without heart failure Unspecified hypertensive heart disease without heart failure Coronary atherosclerosis due to lipid rich plaque GERD without esophagitis Esophageal reflux Elevated fasting blood sugar Impaired fasting glucose Bilateral carotid artery stenosis Occlusion and stenosis of carotid artery without mention of cerebral infarction Medication management Encounter for long-term (current) use of other medications [facility] [place] [facility] Diagnosis COVID-19- Primary documented in this encounter [facility] note* Diagnosis Medicare annual wellness visit, subsequent- Primary Routine general medical examination at a health care facility Essential hypertension with goal blood pressure less than 140/90 Mixed hyperlipidemia Elevated fasting blood sugar Impaired fasting glucose GERD without esophagitis Esophageal reflux Bilateral carotid artery stenosis Occlusion and stenosis of carotid artery without mention of cerebral infarction Coronary atherosclerosis due to lipid rich plaque Hypertensive heart disease without heart failure Unspecified hypertensive heart disease without heart failure Irritable bowel syndrome, unspecified type Benign prostatic hyperplasia without lower urinary tract symptoms Advance directive discussed with patient Other specified counseling documented in this encounter [facility] note* Diagnosis Essential hypertension with goal blood pressure less than 140/90- Primary Hypertensive heart disease without heart failure Unspecified hypertensive heart disease without heart failure Mixed hyperlipidemia Elevated fasting blood sugar Impaired fasting glucose Coronary atherosclerosis due to lipid rich plaque GERD without esophagitis Esophageal reflux Bilateral carotid artery stenosis Occlusion and stenosis of carotid artery without mention of cerebral infarction Advance directive discussed with patient Other specified counseling Valvular heart disease Endocarditis, valve unspecified, unspecified cause Medication management Encounter for long-term (current) use of other medications documented in this encounter [facility] note* Diagnosis Need for vaccination- Primary Need for prophylactic vaccination and inoculation against unspecified single disease documented in this encounter [facility] Advance Directives No Advanced Directives Records FoundDocuments on File Type Date Recorded Patient Insole Taper Expl anation Advance Directive(s) 01/11/2023 10:55 AM Summary Purpose Family History No Family History Records Found Additional Source Comments Source Comments (unrecognize d section and content) In the event this informatio n is protected by the Federal Confidentiality of Alcohol and Drug Abuse Patient Records regulations: The Federal rules restrict any use of the information to criminally investigate or prosecute any alcohol or drug abuse patient.[facility] the event this information is protected by the Federal Confidentiality of Alcohol and Drug Abuse Patient Records regulations: The Federal rules restrict any use of the information to criminally investigate or prosecute any alcohol or drug abuse patient.[facility] the event this information is protected by the Federal Confidentiality of Alcohol and Drug Abuse Patient Records regulations: The Federal rules restrict any use of the information to criminally investigate or prosecute any alcohol or drug abuse patient.[facility] the event this information is protected by the Federal Confidentiality of Alcohol and Drug Abuse Patient Records regulations: The Federal rules restrict any use of the information to criminally investigate or prosecute any alcohol or drug abuse patient.[facility] the event this information is protected by the Federal Confidentiality of Alcohol and Drug Abuse Patient Records regulations: The Federal rules restrict any use of the information to criminally investigate or prosecute any alcohol or drug abuse patient.[facility] the event this information is protected by the Federal Confidentiality of Alcohol and Drug Abuse Patient Records regulations: The Federal rules restrict any use of the information to criminally investigate or prosecute any alcohol or drug abuse patient.[facility] the event this information is protected by the Federal Confidentiality of Alcohol and Drug Abuse Patient Records regulations: The Federal rules restrict any use of the information to criminally investigate or prosecute any alcohol or drug abuse patient.[facility] the event this information is protected by the Federal Confidentiality of Alcohol and Drug Abuse Patient Records regulations: The Federal rules restrict any use of the information to criminally investigate or prosecute any alcohol or drug abuse patient.[facility] the event this information is protected by the Federal Confidentiality of Alcohol and Drug Abuse Patient Records regulations: The Federal rules restrict any use of the information to criminally investigate or prosecute any alcohol or drug abuse patient.[facility] the event this information is protected by the Federal Confidentiality of Alcohol and Drug Abuse Patient Records regulations: The Federal rules restrict any use of the information to criminally investigate or prosecute any alcohol or drug abuse patient.[facility] Reason for Visit (unrecogniz ed section and content) Reason Comments Cough Reason Comments Medicare Wellness Exam Reason Comments ext results Cardio OV Reason Comments Imm/Inj Care Teams (unrecognized sec tion and content) [employer] Relationship Specialty Start Date End Date Luan Mckeon MD [address] [place] [address] PCP - General Family Medicine 08/30/14 [employer] Relationship Specialty Start Date End Date Luan Mckeon MD [address] [place] [address] PCP - General Family Medicine 08/30/14 [employer] Relationship Specialty Start Date End Date Luan Mckeon MD [address] [place] [address] PCP - General Family Medicine 08/30/14 [employer] Relationship Specialty Start Date End Date Luan Mckeon MD [address] [place] [address] PCP - General Family Medicine 08/30/14 [employer] Relationship Specialty Start Date End Date Luan Mckeon MD [address] [place] [address] PCP - General Family Medicine 08/30/14 [employer] Relationship Specialty Start Date End Date Luan Mckeon MD [address] [place], [place] [address] PCP - General Family Medicine 08/30/14 [employer] Relationship Specialty Start Date End Date Luan Mckeon MD [address] [place], [place] [id number] PCP - General [facility] 08/30/14 [employer] Relationship Specialty Start Date End Date Luan Mckeon MD [address] [place], [place] [id number] PCP - General Family Medicine 08/30/14 (unrecognized sect ion and content) No Status Records Found INFORMATION SOURCE (unrecogn ized section and content) FOR RECORDS PERTAINING TO PATIENTS WHO ARE OR HAVE BEEN ENROLLED IN A CHEMICAL DEPENDENCY/SUBSTANCEABUSE PROGRAM, SOME INFORMATION MAY BE OMITTED. This clinical summary was aggregated from multiple sources. Caution should be exercised in using it in the provision of clinical care. This summary normalizes information from multiple sources, and as a consequence, information in this document may materially change the coding, format and clinical context of patient data. In addition, data may be omitted in some cases. CLINICAL DECISIONS SHOULD BE BASED ON THE PRIMARY CLINICAL RECORDS. [facility]. provides no warranty or guarantee of the accuracy or completeness of information in this document.
[2023-06-26 12:31] VITALS: BP 178/73
--- NOTE | 2023-06-26 12:37 | EX.ED.DYSGE1 ---
HPI History of Present Illness Chief Complaint: Hypertension Detail of Chief Complaint: Did not feel normal at [facility]anda[facility] this morning Informant: patient Onset/Context/Timing Onset: Weeks (Elevated blood pressure for the past 2 weeks) Context: Gradual Onset Timing: Continuous Quality: Elevated blood pressure and not feeling normal Location: Cardiovascular and generalized Current Severity: Mild Maximum Severity: Moderate Worsened by: Presumed due to elevated blood pressure Relieved by: Nothing Associated Symptoms Associated Symptoms: No other symptoms Narrative Narrative: Patient is an 87-year-old gentleman who presents because he does not feel well and had an elevated blood pressure. He had problems with his blood pressure last 2 weeks. He states his blood pressure prior to the past 2 weeks would run in the 130 range. He recently was started on amlodipine by the [facility] group. He discontinued this on Tuesday. He states he discontinue it because it is not helping. Patient denies headache, double vision, blurred vision or loss of vision. Patient denies ringing in ears or decreased hearing. Patient denies trouble with speech or swallowing. Patient denies numbness or tingling his arms or legs. Patient is not noted any weakness in his arms or legs. Patient states he had no difficulty walking. He denied chest discomfort of any type. He denies dyspnea, dyspnea on exertion, orthopnea or PND. He denies back pain. He denies abdominal pain. He denies dysuria, urgency or hematuria. He states he may have had slight increase in urination. He denies decreased urination. Prior similar symptoms: Yes Recent Illness/Hospitalization: Yes [facility] Medical History (Updated 06/26/23 @ 13:[address] Aman Barr MD) Actinic keratitis Atherosclerosis of coronary artery of [place] heart without angina pectoris BPH (benign prostatic hyperplasia) Diverticulitis Encounter for long-term current use of high risk medication GI bleed Hyperlipidemia Hypersomnia, unspecified Hypertension Home Medications aspirin 81 mg tablet,delayed release (Adult Low Dose Aspirin) 81 mg PO QDAY 03/30/17 [History Last Taken Unknown] multivitamin with folic acid 400 mcg tablet 1 tab PO DAILY #90 tabs 02/26/21 [Rx Last Taken Unknown] isosorbide mononitrate 30 mg tablet,extended release 24 hr See Rx Instructions .Route .COMPLEX #90 tabs 09/21/22 [Rx Last Taken Unknown] clopidogrel 75 mg tablet 75 mg PO DAILY #90 tabs 03/02/23 [Rx Last Taken Unknown] atorvastatin 20 mg tablet See Rx Instructions .Route .COMPLEX #90 tabs 06/01/23 [Rx Last Taken Unknown] carvedilol 6.25 mg tablet See Rx Instructions .Route .COMPLEX #180 tabs 06/02/23 [Rx Last Taken Unknown] amlodipine 2.5 mg tablet 2.5 mg PO QDAY #30 tabs 06/16/23 [Rx Last Taken Unknown] ramipril 10 mg capsule 20 mg (2 x 10 mg) PO DAILY 30 days #60 caps 06/17/23 [Rx Last Taken Unknown] clonidine 0.1 mg/24 hr weekly transdermal patch 1 patch transdermal QWEEK #4 ea 06/26/23 [Rx Last Taken Unknown] Allergy/AdvReac Type Severity Reaction Status Date / Time famotidine [From Pepcid] Allergy Unknown Verified 06/26/23 11:59 ranitidine Allergy Unknown Verified 06/26/23 11:59 Family History Father CAD (coronary artery disease) Sister CAD (coronary artery disease) Surgical History Cataract History of tonsillectomy Hx of appendectomy Hx of CABG (~03/29/02) S/P coronary artery stent placement (04/05/17) Social History Smoking Status: Never smoker alcohol intake: never substance use type: does not use caffeine: Yes Type: coffee and tea what type of physical activity do you participate in: walking, bicycling, weight training and other details: cardiac rehab frequency: daily duration: 30-45 minutes/day seatbelt use: always do you feel safe at home: Yes ROS ROS ED Constitutional Constitutional ED: Denies chills, fever(s), subjective or sweats Eyes Eyes: Denies blurry vision, change in vision or diplopia ENT ENT ED: Reports other Details: And further detailed HPI narrative ; Denies ear pain or sore throat Cardiovascular Cardiovascular: Denies chest pain, orthopnea, palpitations, paroxysmal nocturnal dyspnea or racing heartbeat Respiratory/Chest Respiratory/Chest: Denies cough, dyspnea, dyspnea on exertion, orthopnea or paroxysmal nocturnal dyspnea Gastrointestinal Gastrointestinal: Denies abdominal pain, nausea or vomiting Genitourinary Genitourinary ED: Reports urinary frequency; Denies dysuria or hematuria Musculoskeletal Musculoskeletal: Denies arthralgias, back pain, myalgias or neck pain Integumentary Denies rash Neurologic Neurologic: Denies headache(s), paresthesias or weakness Psychiatric Psychiatric: Denies anxiety Endocrine Endocrinology: Denies cold intolerance or heat intolerance Hematologic/Lymphatic Hematologic/Lymphatic: Reports systems reviewed and no addt'l complaints, except as documented EXAM Physical Exam Const Vital Signs: 06/26/23 11:57 06/26/23 12:31 06/26/23 13:12 Temperature 97.2 F L Temperature Source Temporal Pulse Rate 71 56 L Respiratory Rate 14 Blood Pressure 230/88 H 178/73 H 109/65 Blood Pressure Mean 135 108 79 Pulse Ox 99 Oxygen Delivery Method Room Air Positive well nourished and well developed General Appearance ED: well developed and NAD; Negative for cyanotic, diaphoretic or pallor HEENT Reports moist mucous membranes HEENT Narrative: Ears are normal. Nares are patent. Posterior pharynx is normal. Uvula is midline. There is no deviation of the tongue with protrusion. Eyes PERRL and EOMs intact bilaterally Eyes Narrative: There is no nystagmus. Funduscopic exam reveals normal cup-to-disc ratio. There is no papilledema noted. There appears to be AV nicking and copper wiring. Eye pupils were not dilated. General Eye ED: Negative for pale conjunctiva or scleral icterus Neck no lymphadenopathy, supple and no JVD Chest Wall inspection of chest normal and palpation of chest normal Resp normal respiratory effort and clear to auscultation bilaterally Cardio regular rate, regular rhythm, S1 normal heart sound, S2 normal heart sound and no murmurs GI normal to inspection, nondistended, normoactive bowel sounds, non-tender, non-distended and no masses; Negative for hepatosplenomegaly GI Narrative: There is no pulsatile or palpable mass. There is no abdominal bruit. Palpation: soft Back/Spine no CVA tenderness Extremity normal to inspection General Extremety ED: Negative for edema or tenderness General Extremity: Negative for edema Neuro oriented x3, CN's II-XII intact bilaterally and no sensory deficits noted Neuro Narrative: Gait was observed and normal. There is no dysmetria. Sensorium / Orientation: alert Motor Exam: strength 5/5 throughout Psych mental status grossly normal Skin no rashes or lesions noted, no wounds and No skin turgor normal General Skin Exam: Negative for jaundice or pallor MDM MDM MDM Narrative Medical decision making narrative: Patient with hypertension. Suspect this is due to noncompliance since he discontinued his amlodipine. Since he has not had recent blood work BMP and UA was obtained to determine if there are any evidence of endorgan dysfunction with a scar to the kidneys. And she is not having chest pain back pain EKG and cardiac markers were not obtained. Did review office notes from [facility]. Patient was started on amlodipine approximately 1 to 2 weeks ago. Patient was close treated with clonidine 0.1 mg/kg. Goal is a 15 to 20% reduction since he is asymptomatic and if his laboratory studies returned normal. History & Record Review Additional record(s) reviewed:: Prior outpatient record, Prior ED visit and Prior labs Lab Data Attestation: I reviewed the patient's lab results. Lab results narrative: Patient metabolic panel is unremarkable. Urine reveals mild proteinuria. Labs: Laboratory Results - last 24 hr 06/26/23 06/26/23 12:30 12:38 Sodium 139 Potassium 4.3 Chloride 108 H Carbon Dioxide 29.0 Anion Gap 2 L BUN 23 H Creatinine 1.03 Estim Creat Clear Calc 39.29 Est GFR (MDRD) Af Amer 88 Est GFR (MDRD) Non-Af 73 BUN/Creatinine Ratio 22.3 H Glucose 119 H Calcium 9.0 Urine Color Yellow Urine Clarity Clear Urine pH 7.0 Ur Specific [place] 1.005 Urine Protein 30 H Urine Glucose (UA) Normal Urine Ketones Negative Urine Occult Blood Negative Urine Nitrite Negative Urine Bilirubin Negative Urine Urobilinogen Normal Ur Leukocyte Esterase Negative Urine RBC 0 SEEN Urine WBC 0 SEEN Ur Squamous Epith Cells 0 SEEN Urine Bacteria 0 SEEN Urine Mucus 0 SEEN Treatment and Re-Evaluation :: Blood pressure has decreased markedly. Will place on low-dose of clonidine. He is to call the [facility] group for follow-up. He states his next scheduled appointment is January. Discharge Plan Triage Chief Complaint: Hypertension ED Provider: Aman Barr Dx/Rx/DC Orders Clinical Impression: Accelerated essential hypertension, History of coronary artery disease, Hyperlipidemia, Proteinuria Instructions: ED Hypertension, Established Prescriptions: New clonidine 0.1 mg/24 hr patch weekly 1 patch transdermal QWEEK Qty: 4 0RF No Action aspirin [Adult Low Dose Aspirin] 81 mg tablet,delayed release (DR/EC) 81 mg PO QDAY multivitamin with folic acid 400 mcg tablet 1 tab PO DAILY Qty: 90 3RF isosorbide mononitrate 30 mg tablet extended release 24 hr See Rx Instructions .ROUTE .COMPLEX Qty: 90 3RF Dose Instruction: TAKE 1 TABLET BY MOUTH EVERY DAY Rx Instructions: TAKE 1 TABLET BY MOUTH EVERY DAY clopidogrel 75 mg tablet 75 mg PO DAILY Qty: 90 3RF Rx Instructions: Take one tablet once a day atorvastatin 20 mg tablet See Rx Instructions .ROUTE .COMPLEX Qty: 90 3RF Dose Instruction: TAKE 1 TAB BY MOUTH DAILY AT BEDTIME Rx Instructions: TAKE 1 TAB BY MOUTH DAILY AT BEDTIME carvedilol 6.25 mg tablet See Rx Instructions .ROUTE .COMPLEX Qty: 180 3RF Dose Instruction: TAKE ONE TABLET BY MOUTH TWICE A DAY MUST ADMINISTER WITH A MEAL/FOOD Rx Instructions: TAKE ONE TABLET BY MOUTH TWICE A DAY MUST ADMINISTER WITH A MEAL/FOOD amlodipine 2.5 mg tablet 2.5 mg PO QDAY Qty: 30 6RF ramipril 10 mg capsule 20 mg PO DAILY 30 Days Qty: 60 12RF Primary Care Provider: Juan Elias Referrals: Britton Horan MD [Med Staff - Active Staff] - 1-2 Weeks (Patient presented because of blood pressure of 238/88. He was treated with clonidine 0.1 mg. He was given a prescription for clonidine.) Juan Elias MD [Primary Care Provider] - Disposition Disposition: Home, Self Care
[2023-06-26 12:46] LABS: Bacteria 0 SEEN /hpf (None Seen); Mucous, Urine 0 SEEN /hpf (<or=2+); Red Blood Cells-Urine 0 SEEN /hpf (0-5); Squamous Epithelial Cells - UA 0 SEEN /hpf (0-5); White Blood Cells 0 SEEN /hpf (0-5)
[2023-06-26 12:52] LABS: Anion Gap 2 (5-15); BUN 23 mg/dL (7-18); BUN/Creat Ratio 22.3 RATIO (10-20); Chloride 108 mmol/L (98-107); Creatinine, Serum 1.03 mg/dL (0.70-1.30); EST Glomerular Filtration Rate 73 mL/min (>60); Est Glom Filt Rate - Afr Amer 88 mL/min (>60); Estimated Creatinine Clearance 39.29 ml/min; Glucose 119 mg/dL (74-106); Potassium 4.3 mmol/L (3.5-5.1); Sodium Level 139 mmol/L (136-145)
[2023-06-26 12:53] LABS: Color, Urine Yellow (Yellow); Glucose, Dipstick Normal (Normal); Ketone-Dipstick Negative (Negative); Leukocyte Esterase-Dipstick Negative /ul (Negative); Nitrite-Dipstick Negative (Negative); Occult Blood-Urine Negative /ul (Negative); Protein-Dipstick 30 mg/dl (Negative); Specific Gravity, Urine 1.005 (1.002-1.030); Urine Bilirubin Dipstick Negative (Negative); Urine Clarity Clear (Clear); Urine Urobilinogen Normal (Normal)
[2023-06-26 13:12] VITALS: BP 109/65; PULSE 56
[2023-06-26 13:23] VITALS: BP 140/63; PULSE 60; RESP 15; TEMP 36.6; O2SAT 96
== END 2023-06-26 13:31 | disposition home or self-care (01) ==
PROVIDERS: Emergency Provider Emergency Medicine; PCP Family Medicine; Visit Provider Emergency Medicine
DX: I10 Essential (primary) hypertension (principal); I25.10 Atherosclerotic heart disease of native coronary artery without angina pectoris; E78.5 Hyperlipidemia, unspecified; R80.9 Proteinuria, unspecified; Z95.5 Presence of coronary angioplasty implant and graft
CPT/HCPCS: 80048; 81001; 99283

== ENCOUNTER 2023-07-02 02:16 | Emergency (ER) | payer MEDICARE, SELFPAY ==
[2017-04-05 12:20] VITALS: BMI 47.9
[2023-07-02 02:17] VITALS: BP 200/84; PULSE 72; RESP 16; TEMP 36.6; O2SAT 98; BMI 21.7
[2023-07-02 02:39] VITALS: BP 191/90; PULSE 62; RESP 14; O2SAT 97
[2023-07-02] MEDS: cloNIDine HCl 0.1 MG Tablet 0.100000000000000006 MG PO (02:39)
--- OUTSIDE RECORDS SUMMARY | 2023-07-02 03:06 | XMS RPT_ITS | CCD ---
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 Name Role Phone ARMANDO Guerra, Jaci Mobley Unavailable UnavailPreethi Kaufman Unavailable Unavailable Preethi Cardona Unavailable Unavailable ARMANDO Guerra, Jaci Mobley Unavailable UnavailLuan Peterson MD Primary Care Provider Luan Mckeon MD Primary Care Provider Luan Mckeon MD Primary Care Provider LUAN MCKEON Primary Care Unavailable LUAN MCKEON Referring Unavailable LUAN MCKEON Referring Unavailable LUAN MCKEON Primary Care Unavailable LUAN MCKEON Attending Unavailable LUAN MCKEON Referring Unavailable LUAN MCKEON Primary Care Unavailable LUAN MCKEON Primary Care Unavailable LUAN MCKEON Referring Unavailable LUAN MCKEON Primary Care Unavailable LUAN MCKEON Primary Care Unavailable LUAN MCKEON Primary Care Unavailable LUAN MCKEON Attending Unavailable Allergies Allergy Classification Reported Allergen(s) Allergy Type Date of Onset Reaction(s) Facility (4 sources) famotidine Drug Allergy 03-07-2017 headaches [facility] Work Phone: (15 sources) raNITIdine; Translations: [RANITIDINE] Drug Allergy 12-30-2009 Intolerance [facility] Work Phone: (11 sources) Famotidine; Translations: [FAMOTIDINE] Drug Allergy 02-27-2015 Other: See Comments [facility] Work Phone: Medications Completed/Discontinued Medications Medication Drug Class(es) Dates Sig (Normalized) Sig (Original) aspirin 81 mg delayed release oral tablet (14 sources) Nonsteroidal Anti-inflammatory Drug Start: 03-07-2017 take 1 tablet by mouth once daily ASPIRIN EC 81 MG TBEC One tablet by mouth daily ASPIRIN [id number] Jaci Guerra RN Problems Active Problems Problem Classification Problem Date Documented Da te Episodic/Chronic Coronary atherosclerosis and other heart disease (19 sources) Atherosclerotic heart disease of [place] coronary artery without angina pectoris; Translations: [Lipid-rich [...] (4 sources) Long-term drug therapy; Translations: [Other longterm (current) drug therapy] Onset: 7 03-07-2017 Viral [...] (12 sources) Patient encounter status; Translations: [Other longterm (current) drug therapy] Onset: 0 Episodic Other aftercare (1 source) Other roasterman (current) drug therapy; Translations: [Medication management] Onset: [...] 57.15 kg Luan Mckeon MD Work Phone: [facility] 01-06-2023 14:09-0400 Diastolic blood pressure 74 mm[Hg] Luan Mckeon MD Work Phone: [facility] 01-06-2023 14:09-0400 Heart rate 58 /min Luan Mckeon MD Work Phone: [facility] 01-06-2023 14:09-0400 Respiratory rate 16 /min Luan Mckeon MD Work Phone: [facility] 01-06-2023 14:09-0400 Systolic blood pressure 138 mm[Hg] Luan Mckeon MD Work Phone: [facility] 07-08-2022 13:14-0400 Diastolic blood pressure 64 mm[Hg] Luan Mckeon MD Work Phone: [facility] 07-08-2022 13:14-0400 Systolic blood pressure 127 mm[Hg] Luan Mckeon MD Work Phone: [facility] 07-08-2022 12:53-0400 Body height 167.6 cm Luan Mckeon MD Work Phone: [facility] 07-08-2022 12:53-0400 Body temperature 96.1 [degF] Luan Mckeon MD Work Phone: [facility] 07-08-2022 12:53-0400 Body weight 58.33 kg Luan Mckeon MD Work Phone: [facility] 07-08-2022 12:53-0400 Heart rate 64 /min Luan Mckeon MD Work Phone: [facility] 07-08-2022 12:53-0400 Respiratory rate 16 /min Luan Mckeon MD Work Phone: [facility] 01-01-2022 12:41-0400 Diastolic blood pressure 54 mm[Hg] Luan Mckeon MD Work Phone: [facility] 01-01-2022 12:41-0400 Systolic blood pressure 118 mm[Hg] Luan Mckeon MD Work Phone: [facility] 01-01-2022 12:13-0400 Body weight 58.06 kg Luan Mckeon MD Work Phone: [facility] 01-01-2022 12:13-0400 Heart rate 56 /min Luan Mckeon MD Work Phone: [facility] 01-01-2022 12:13-0400 Respiratory rate 14 /min Luan Mckeon MD Work Phone: [facility] 03-08-2017 12:53-0500 BMI (Body Mass Index) 21.13 kg/m2 [facility] Work Phone: 03-08-2017 12:53-0500 BP Diastolic 80 mm[Hg] [facility] Work Phone: 03-08-2017 12:53-0500 BP Systolic 190 mm[Hg] [facility]i Brendan [facility] Work Phone: 03-08-2017 12:53-0500 Height 172.72 cm Preethies Cardona [facility] Work Phone: 03-08-2017 12:53-0500 Pulse (Heart Rate) 58 /min [facility] Work Phone: 03-08-2017 12:53-0500 Respiratory Rate 16 /min [facility] Work Phone: 11-14-2017 12:53-0500 Weight 63.05 kg Preethi Cardona [facility] Work Phone: Encounters Encounter Date Encounter Type Care Provider Facility Start: 06-30-2023 End: 07-01-[address] [facility] Facility:[facility] Start: 03-02-2023 ambulatory Preethi Jones RN Work Phone: [employer] Start: 02-01-2023 End: 02-01-2023 ambulatory LUAN Wally MCKEON Facility:[facility] Start: 02-01-2023 End: 02-01-2023 Nursing evaluation of patient and report [place] Nurse Work Phone: [facility] [place] Procedures Date Procedure Procedure Detail Performing Clinician Start: 02-01-2023 [employer] COVI D-19 VACCINE ( SEASON) AGE 12+ [...] Start: 01-03-2026 Diabetes Screening Diabetes Screenin g [facility] Start: 07-05-2025 DIABETES SCREEN DIABETES SCREEN [facility] Start: 12-29-2024 DIABETES SCREEN DIABETES SCREEN [facility] Start: 01-04-2024 Hepatitis B surface antibody level LDL Cholesterol [facility] Start: 07-09-2023 SHINGRIX VACCINE (1 of 2) SHINGRIX VACCINE (1 of 2) [facility] Immunizations Immunization Date Immunization Notes Care Provider David carrillo 02-01-2023 COVID-19 vaccine, ag e 12+ yr, season ([employer]) [place] Nurse Work Phone: [facility] Work Phone: 01-22-2023 influenza (HD-IIV4) vaccine, age 65+ yr, high dose, quadrivalent, PF (FLUZONE HIGH-DOSE) Immunization [facility] Work Phone: [facility] 01-22-2022 influenza, high-dose , quadrivalent vaccine (FLUZONE HIGH DOSE QUADRIVALENT) [place] Nurse Work Phone: [facility] Work Phone: 01-22-2022 influenza virus vaccine, unspecified formulation Luan Mckeon MD Work Phone: [facility] 08-07-2021 COVID-19 vaccine, booster dose (MODERNA) Luan Mckeon MD Work Phone: [facility] 01-16-2021 influenza, high-dose , quadrivalent vaccine (FLUZONE HIGH DOSE QUADRIVALENT) Luan Mckeon MD Work Phone: [facility] Work Phone: 05-30-2020 COVID-19 vaccine, fu ll dose (MODERNA) Luan Mckeon MD Work Phone: [facility] Work Phone: 01-26-2020 influenza, high-dose , quadrivalent vaccine (FLUZONE HIGH DOSE QUADRIVALENT) Luan Mckeon MD Work Phone: [facility] 01-30-2019 influenza, high dose seasonal, preservative-free Luan Mckeon MD Work Phone: [facility] 01-13-2018 influenza, high dose seasonal, preservative-free Luan Mckeon MD Work Phone: [facility] Work Phone: 01-24-2017 influenza, high dose seasonal, preservative-free Luan Mckeon MD Work Phone: [facility] 01-16-2016 influenza, high dose seasonal, preservative-free Luan Mckeon MD Work Phone: [facility] 08-29-2015 pneumococcal polysaccharide vaccine, 23 valent Luan Mckeon MD Work Phone: [facility] 01-23-2015 influenza, high dose seasonal, preservative-free Luan Mckeon MD Work Phone: [facility] 08-30-2014 pneumococcal conjuga te vaccine, 13 valent Luan Mckeon MD Work Phone: [facility] Work Phone: 01-30-2014 influenza, seasonal, injectable Luan Mckeon MD Work Phone: [facility] 02-03-2013 influenza virus vaccine, unspecified formulation Luan Mckeon MD Work Phone: [facility] 03-04-2012 influenza virus vaccine, unspecified formulation Luan Mckeon MD Work Phone: [facility] 02-02-2011 influenza virus vaccine, unspecified formulation Luan Mckeon MD Work Phone: [facility] Work Phone: 02-13-2010 influenza virus vaccine, unspecified formulation Luan Mckeon MD Work Phone: [facility] Work Phone: 02-15-2008 influenza virus vaccine, unspecified formulation Luan Mckeon MD Work Phone: [facility] Work Phone: 02-21-2006 influenza virus vaccine, unspecified formulation Luan Mckeon MD Work Phone: [facility] Work Phone: 03-25-2002 pneumococcal polysaccharide vaccine, 23 valent Luan Mckeon MD Work Phone: [facility] Work Phone: Payers Date Payer Category Payer Medicare AETNA MEDICARE A ETNA MEDICARE PPO [id number] 2021-Present [phone] [address] [place] [address] PPO [id number] 2021 Medicare [id number] Social History Date Type Detail Facility Start: 02-16-2011 Tobacco smoking stat us [facility] Never smoked tobacco [facility] Work Phone: Start: 02-16-2011 Tobacco use and exposure Smoke less tobacco non-user [facility] Work Phone: Start: 01-01-2022 End: 01-06-2023 Alcohol intake Current drinker of alcohol (finding) [facility] Start: 11-13-2019 End: 03-03-2022 History SDOH Alcohol Frequency 1 [facility] Start: 11-09-2019 End: 11-13-2019 History SDOH Alcohol Std Drinks 98 [facility] Start: 02-05-2010 History SDOH Alcohol Comment rarely [facility] Start: 11-09-2019 End: 03-03-2022 History SDOH Social Connections Phone 4 [facility] Start: 11-09-2019 End: 03-03-2022 History SDOH Social Connections Get Together 2 [facility] Start: 11-09-2019 End: 03-03-2022 History SDOH Social Connections Living 3 [facility] Start: 11-09-2019 End: 03-03-2022 History SDOH Physical Activity DPW 7 [facility] Start: 11-09-2019 End: 03-03-2022 History SDOH Physical Activity MPS 5 [facility] Start: 11-09-2019 Education 17 [facility] Start: 1935 Sex Assigned At Male C [facility] Start: 12-22-2021 End: 01-01-2022 Exposure to SARS-CoV-2 (event) Not sure [facility] Start: 03-03-2022 History SDOH Alcohol Std Drinks 0 [facility] Start: 03-03-2022 History SDOH Physica l Activity MPS 6 [facility] Start: 03-03-2022 End: 01-06-2023 History of Social function [facility] Start: 03-03-2022 End: 01-06-2023 Social connection and isolation panel [facility] Do you belong to any clubs or organizations such as mormon groups, unions, fraternal or athletic groups, or school groups? Yes [facility] Are you now , , , , never or living with a partner? [facility] How often to you hav e a drink containing alcohol? Never [facility] How many standard dr inks containing alcohol do you have on a typical day? Patient does not drink [facility] Do you feel stress - tense, restless, nervous, or anxious, or unable to sleep at night because your mind is troubled all the time - these days [OSQ] Only a little [facility] (I/We) worried gus er (my/our) food would run out before (I/we) got money to buy more. Never true [facility] In the past 12 month s, was there a time when you were not able to pay the mortgage or rent on time? No [facility] Start: 01-24-2020 Gender identity Identifies as male gender (finding) [facility] Start: 01-24-2020 Sexual orientation Choose not to dis close [facility] Clinical Notes 05-05-2013 to 03-02-2023 Preethi Jones RN - 03/02/2023 10:53 AM Tereza Rogers LPN - 02/01/2023 12:25 PM EDTPatient Luan Muniz MD - 01/06/2023 2:06 PM Brandi London Ma - 12/30/2022 3:35 PM EDT Note Date & Type Note Facility 03-02-2023 Note Patient Outreach ([facility] [place] [place] JEANETTE TREJO ([id number]) 1935 M Date Time Provider Department 03/02/23 PREETHI JONES During your visit today, we recorded the following information about you: Preethi Jones RN 03/02/2023 10:55 AM Signed [facility] NURSE - CHART REVIEW Provider [facility] Action Chart review 04/25-04/27/2022 ED/ADM chest pain, bradycardia, syncope [facility] [place] Pt identified by name and . Reason for Review: Payor request Patient Attributed To: QAE Payer: AEMERRY Chart Review For: Utilization: ED Admission Total Patient High CostTotal Patient High Cost {HIGH COST:863151) Quality measure review Payor request for assistance [...] once daily. Take one tablet daily (per [facility]) - omeprazole (PRILOSEC) 20 mg [...] Hx of SCC skin cancer at [facility] area o*10/30/2013 Mixed hyperlipidemia [E78.2] 08/30/2014 IBS [...] Encounter Status:Closed by PREETHI JONES on 03/02/23 [facility] 03-02-2023 Note HNO ID: [id number] Author: Preethi Jones RN Service: ? Author Type: Registered Nurse Type: Progress Notes Filed: 03/02/2023 10:55 AM Note Text: [facility] - [facility]ART REVIEW Provider [facility] Action Chart review 04/25-04/27/2022 ED/ADM chest pain, bradycardia, syncope [facility] identified by name and . Reason for Review: Payor request Patient Attributed To: QAE Payer: AETNA Chart Review For: Utilization: ED Admission Total Patient High CostTotal Patient High Cost {HIGH COST:701785) Quality measure review Payor request for assistance Action Taken: No action needed Preethi Jones RN March 02, 2023 10:54 AM [facility] 03-02-2023 History of Presen t illness Narrative [facility] - [facility]ART REVIEW Provider [facility] Action Chart review 04/25-04/27/2022 ED/ADM chest pain, bradycardia, syncope [facility] identified by name and . Reason for Review: Payor request Patient Attributed To: QAE Payer: AETNA Chart Review For: Utilization: ED Admission Total Patient High CostTotal Patient High Cost {HIGH COST:621760) Quality measure review Payor request for assistance Action Taken: No action needed Preethi Jones RN March 02, 2023 10:54 AM documented in this encounter [facility] 02-01-2023 Note HNO ID: [id number] Author: Tereza Talley LPN Service: ? Author Type: ? Type: Progress Notes Filed: 02/01/2023 12:27 PM Note Text: Patient presents for COVID vaccine. Denies any problems at this time. Tolerated injection well. Tereza Talley LPN [facility] 02-01-2023 History of Presen t illness Narrative Patient presents for COVID vaccine. Denies any problems at this time. Tolerated injection well. Tereza Talley LPN documented in this encounter [facility] 01-06-2023 Note HNO ID: [id number] Author: Luan Mckeon MD Service: ? Author [...] in ROS. List of current specialists seen: [facility] Home BP's 117/63 52 121/63 [...] Father age 72 of lung cancer, previous OR age 57 Coronary Artery Disease Father Diabetes Brother age 67 of DM, also history of prostate cancer Heart Sister Alive age 68, history of OR age 66 Patient Allergies ALLERGIES Allergen Reactions [...] leg swelling, hypertension, (more content not included)... [facility] 01-06-2023 Instructions Luan Mckeon MD - 01/06/2023 3:00 PM EDT Please get labs and urine test done on or after 06/24/2023 prior to your next visit. documented in this encounter [facility] 01-06-2023 History of Presen t illness Narrative Chief Complaint Patient presents with: F/U 6 months HPI Jeanette Trejo . is a 87 year old male who presents here today for 6 month follow up. Patient with Hx of BPH, CAD, elevated fasting blood sugar, HTN, past Hx of CABG, IBS, hyperlipidemia as well as those reviewed and addressed below and in ROS. List of current specialists seen: [facility] 12/29/2022 and [facility] A1C 6.0 Home BP's 117/63 52 121/63 [...] COLONOSCOPY FLX DX W/COLLJ SPEC WHEN PFRMD 2013 CORONARY ARTERY BYP W/VEIN & ARTERY GRAFT [...] Father age 72 of lung cancer, previous OR age 57 Coronary Artery Disease Father Diabetes Brother age 67 of DM, also history of prostate cancer Heart Sister Alive age 68, history of OR age 66 Patient Allergies ALLERGIES Allergen Reactions Pepcid [Famotidine] Other: See Comments headache Ranitidine Intolerance fatigue Current Medications Current Outpatient Medications on File Prior to Visit Medication Sig isosorbide mononitrate ER (IMDUR) 30 mg 24 hr tablet Take 30 mg by mouth once daily. Take one tablet daily (per [facility]) omeprazole (PRILOSEC) 20 mg capsule [...] Luan Mckeon MD documented in this encounter [facility] 12-30-2022 Note HNO ID: [id number] Author: Brandi Ng Ma Service: ? Author Type: ? Type: Progress Notes Filed: 01/02/2023 1:34 PM Note Text: Scan on 12/29/2022 10:31 PM by ProviderAria PA-C: Consultation - Cardiology [facility] 12-30-2022 History of Presen t illness Narrative Scan on 12/29/2022 10:31 PM by Provider, ALFONZO Knapp: Consultation - Cardiology documented in this encounter [facility] 07-08-2022 Note HNO ID: [id number] Author: Luan Mckeon MD Service: ? 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 Drew Diverticulosis [...] CABG, three grafts COLONOSCOP W/ OR W/O [facility] SPEC 2012 PAST SURGICAL HISTORY OF [...] Father age 72 of lung cancer, previous OR age 57 Diabetes Brother age 67 of DM, also history of prostate cancer Heart Sister Alive age 68, history of OR age 66 Breast Cancer Mother age 74 Coronary Artery Disease Father Diabetes Mother SOCIAL HISTORY: Social History Marital status: Spouse name: Mi Years of education: Number of children: 1 Occupational History Occupation Employer Comment [employer] Social History Main Topics Smoking status: Never Smoker Smokeless tobacco: Never Used Alcohol use: Yes Comment: rarely Jeanette works out regularly 7 times per week with walking and stationary bicycling. He watches his diet for sodium, low fat and low cholesterol all of the time. List of current specialists seen: [facility] and [facility] End of [...] ok Had a fall on [facility]/2022 [facility] related to a syncopal episode. He was [...] 03/31/2012 Coronary athero (more content not included)... [facility] 07-08-2022 Instructions Luan Mckeon MD - 07/08/2022 1:10 PM EDT Please bring in copies of your power of defense attorney for health care and living will. Consider getting the shingrix vaccine for the prevention of shingles from a local pharmacy I would also advise getting a Tdap at the health dept to update your tetanus. Please get labs done on or after 12/24/2022 prior to your next visit. 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 Drew Diverticulosis [...] CABG, three grafts COLONOSCOP W/ OR W/O [facility] SPEC 2012 PAST SURGICAL HISTORY OF [...] Father age 72 of lung cancer, previous OR age 57 Diabetes Brother age 67 of DM, also history of prostate cancer Heart Sister Alive age 68, history of OR age 66 Breast Cancer Mother age 74 Coronary Artery Disease Father Diabetes Mother SOCIAL HISTORY: Social History Marital status: Spouse name: Mi Years of education: Number of children: 1 Occupational History Occupation Employer Comment [employer] Social History Main Topics Smoking status: Never Smoker Smokeless tobacco: Never Used Alcohol use: Yes Comment: rarely Jeanette works out regularly 7 times per week with walking and stationary bicycling. He watches his diet for sodium, low fat and low cholesterol all of the time. List of current specialists seen: [facility] and [facility] End of Live Planning discussed including patients [...] ok Had a fall on 04/25/2022 at [facility] related to a syncopal episode. He was [...] central face: bx'd 05/2013 and tx'd by [facility] 07/30/2013 10/30/2013 Hypertensive heart disease without [...] Father age 72 of lung cancer, previous OR age 57 Coronary Artery Disease Father Diabetes Brother age 67 of DM, also history of prostate cancer Heart Sister Alive age 68, history of OR age 66 Patient Allergies ALLERGIES Allergen Reactions Pepcid [Famotidine] Other: See Comments headache Ranitidine Intolerance fatigue Current Medications Current Outpatient Medications on File Prior to Visit Medication Sig isosorbide mononitrate ER (IMDUR) 30 mg 24 hr tablet Take 30 mg by mouth once daily. Take one tablet daily (per [facility]) omeprazole (PRILOSEC) 20 mg capsule [...] Lymph 1.00 - 4.00 k/uL 1.54 1.88 Furnas% % 8.0 8.2 Abs Furnas <0.87 k/uL 0.49 0.58 Eosin% % 3.1 [...] Negative Ketones, Urine Trace, Negative Negative Specific Allen, Ur 1.005 - 1.030 1.012 Hemoglobin/Blood,Ur Negative, [...] which included preparing to see the patient, [id number] patient care, completing clinical documentation, performing a medically appropriate examination, counseling and educating the patient/family/caregiver and ordering medications, tests, or procedures. Luan Mckeon MD documented in this encounter [facility] 03-03-2022 Instructions Ana Petersen APRN.[facility] - 03/03/2022 2:09 PM EST Beginning Home [...] to your local emergency facility: Notify the grain elevator operator that you are seeking care for [...] be around others. documented in this encounter [facility] 11-09-2022 History of Presen t illness Narrative VIRTUAL VISIT PROGRESS NOTE This is a virtual visit using Osmopurehart video visit. It required patient-provider interaction for the medical decision making as documented below. Patient could not get sound to work so he was contacted by phone and video was left on in MyChart video. Jeanette Trejo Jr. is a 86 year old male seen for Positive covid test at [facility]. Patient reports symptoms started Tuesday night with a cough and congestion and Tuesday patient had diarrhea which has resolved. Patient reports that symptoms have improved and that he generally does not feel ill. Patient went to [facility] 03/02/2022 and initial rapid was negative however [...] Father age 72 of lung cancer, previous OR age 57 Coronary Artery Disease Father Diabetes Brother age 67 of DM, also history of prostate cancer Heart Sister Alive age 68, history of OR age 66 Social History Tobacco Use Smoking [...] which included preparing to see the patient, [id number] patient care, completing clinical documentation, counseling and educating the patient/family/caregiver, and care coordination (not separately reported) Ana Petersen APRN.PRESCHOOL PRINCIPAL documented in this encounter [facility] 01-01-2022 Instructions Luan Mckeon MD - 01/01/2022 12:46 PM EDT Please get labs and urine test done on or after 06/18/2022 prior to your next visit. documented in this encounter [facility] 01-01-2022 History of Presen t illness Narrative Chief Complaint Patient presents with: F/U 6 months HPI Jeanette Trejo . is a 86 year old male who [...] Father age 72 of lung cancer, previous OR age 57 Coronary Artery Disease Father Diabetes Brother age 67 of DM, also history of prostate cancer Heart Sister Alive age 68, history of OR age 66 Patient Allergies ALLERGIES Allergen Reactions [...] once daily. Take one tablet daily (per [facility]) Hydrochlorothiazide 12.5 mg capsule Take [...] Luan Mckeon MD documented in this encounter [facility] documented as of this encounter (statuses as of 01/03/2022) [facility] History of Past illness Narrative* Problem Noted Date Resolved Date 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 05/05/2013 10/29/2013 Xerosis cutis 09/07/2009 08/30/2014 Neoplasm of Uncertain Behavior (NUB) of Skin of Scalp 03/03/2009 05/03/2013 NEVUS BACK///BENIGN AIDA SKIN TRUNK 09/19/2008 05/03/2013 Unspecified disease of sebaceous glands 03/07/2005/03/2013 Benign neoplasm of skin of o ther and unspecified parts of face 03/07/2008 05/03/2013 SOLAR LENTIGINES///DYSCHROMIA OTHER 03/07/2008 05/03/2013 ACTINIC DAMAGE///CHR SOLAR SKIN DAMAGE NOS 03/0705/03/2013 documented as of this encounter (statuses as of 01/12/2022) [facility] of Past illness Narrative* Problem Noted Date Resolved Date 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 05/05/2013 10/29/2013 Xerosis cutis 09/07/2009 08/30/2014 Neoplasm of Uncertain Behavior (NUB) of Skin of Scalp 03/03/2009 05/03/2013 NEVUS BACK///BENIGN AIDA SKIN TRUNK 09/19/2008 05/03/2013 Unspecified disease of sebaceous glands 03/07/2005/03/2013 Benign neoplasm of skin of o ther and unspecified parts of face 03/07/2008 05/03/2013 SOLAR LENTIGINES///DYSCHROMIA OTHER 03/07/2008 05/03/2013 ACTINIC DAMAGE///CHR SOLAR SKIN DAMAGE NOS 03/0705/03/2013 documented as of this encounter (statuses as of 01/22/2022) [facility] of Past illness Narrative* [...] of this encounter (statuses as of 03/03/2022) [facility] of Past illness Narrative* [...] of this encounter (statuses as of 07/08/2022) [facility] History of Past illness Narrative* [...] of this encounter (statuses as of 01/02/2023) [facility] History of Past illness Narrative* Problem Noted Date Diagnosed Date Resolved Date 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 05/05/201310/2013 Xerosis cutis 09/07/2009 08/30/2014 Neoplasm of Uncertain [...] of this encounter (statuses as of 01/07/2023) [facility] of Past illness Narrative* [...] of this encounter (statuses as of 01/22/2023) [facility] of Past illness Narrative* Problem Noted Date Diagnosed Date Resolved Date 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 05/05/201310/2013 Xerosis cutis 09/07/2009 08/30/2014 Neoplasm of Uncertain [...] of this encounter (statuses as of 02/01/2023) [facility] of Past illness Narrative* [...] of this encounter (statuses as of 03/03/2023) [facility] Essential hypertension with [...] of other medications [facility] this encounter [facility]* Diagnosis COVID-19- Primary documented in this encounter [facility] note* Diagnosis Medicare annual wellness visit, subsequent- [...] Other specified counseling documented in this encounter [facility] note* Diagnosis Essential hypertension with goal blood [...] of other medications documented in this encounter [facility] note* Diagnosis Need for vaccination- Primary Need for prophylactic vaccination and inoculation against unspecified single disease documented in this encounter [facility] Advance Directives No Advanced Directives Records FoundDocuments on File Type Date Recorded 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 Expl anation Advance Directive(s) 01/11/2023 10:55 AM [...] or prosecute any alcohol or drug abuse patient.[facility] the event this information is protected by the Federal Confidentiality of Alcohol and Drug Abuse Patient Records regulations: The Federal rules restrict any use of the information to criminally investigate or prosecute any alcohol or drug abuse patient.[facility] the event this information is protected by the Federal Confidentiality of Alcohol and Drug Abuse Patient Records regulations: The Federal rules restrict any use of the information to criminally investigate or prosecute any alcohol or drug abuse patient.[facility] the event this information is protected by the Federal Confidentiality of Alcohol and Drug Abuse Patient Records regulations: The Federal rules restrict any use of the information to criminally investigate or prosecute any alcohol or drug abuse patient.[facility] the event this information is protected by the Federal Confidentiality of Alcohol and Drug Abuse Patient Records regulations: The Federal rules restrict any use of the information to criminally investigate or prosecute any alcohol or drug abuse patient.[facility] the event this information is protected by the Federal Confidentiality of Alcohol and Drug Abuse Patient Records regulations: The Federal rules restrict any use of the information to criminally investigate or prosecute any alcohol or drug abuse patient.[facility] the event this information is protected by the Federal Confidentiality of Alcohol and Drug Abuse Patient Records regulations: The Federal rules restrict any use of the information to criminally investigate or prosecute any alcohol or drug abuse patient.[facility] the event this information is protected by the Federal Confidentiality of Alcohol and Drug Abuse Patient Records regulations: The Federal rules restrict any use of the information to criminally investigate or prosecute any alcohol or drug abuse patient.[facility] the event this information is protected by the Federal Confidentiality of Alcohol and Drug Abuse Patient Records regulations: The Federal rules restrict any use of the information to criminally investigate or prosecute any alcohol or drug abuse patient.[facility] Center[facility] the event this information is protected by the Federal Confidentiality of Alcohol and Drug Abuse Patient Records regulations: The Federal rules restrict any use of the information to criminally investigate or prosecute any alcohol or drug abuse patient.[facility] Reason for Visit (unrecogniz ed section and content) Reason Comments Cough Reason Comments Medicare Wellness Exam Reason Comments ext results Cardio OV Reason Comments Imm/Inj Care Teams (unrecognized sec tion and content) 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 Relationship Specialty Start Date End Date Luan Mckeon MD [address] [place], [place] [id number] PCP - General Family Medicine 08/30/14 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 Relationship Specialty Start Date End Date Luan Mckeon MD [facility] [place] [address] PCP - General Family Medicine 08/30/14 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 Relationship Specialty Start Date End Date Luan Mckeon MD [address] [place] [address] PCP - General Family Medicine 08/30/14 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 Relationship Specialty Start Date End Date Luan Mckeon MD [facility] [place] [address] PCP - General Family Medicine 08/30/14 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 Relationship Specialty Start Date End Date Luan Mckeon MD [address] [place] [id number] PCP - General Family Medicine 08/30/14 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 [facility] [employer] provides no warranty or guarantee of the accuracy or completeness of information in this document.
[2023-07-02 03:16] VITALS: BP 160/90; PULSE 64; RESP 12; O2SAT 100
--- NOTE | 2023-07-02 03:32 | EX.ED.DYSGE1 ---
HPI History of Present Illness Chief Complaint: Hypertension Detail of Chief Complaint: Elevated blood pressure and not feeling well Informant: patient Onset/Context/Timing Onset: Hours Context: Gradual Onset Timing: Continuous Quality: Not feeling well Location: Cannot specify Current Severity: Mild Maximum Severity: Mild Worsened by: Nothing Relieved by: Nothing Associated Symptoms Associated Symptoms: Nothing Narrative Narrative: Patient is a 87-year-old male. He was seen by me on June 25 for hypertension. He was treated with clonidine and discharged with prescription for clonidine patches. He was seen by nurse practitioner Mookie Hurtado and was instructed to discontinue the clonidine patches and was prescribed clonidine tablets. He is uncertain whether they are long-acting or not. He states he is on 0.1 mg. He took his dose at 8 PM. He states he got up to use restroom. Did not feel his normal self. He checked his blood pressure and it was elevated. He denied headache. I double vision blurred vision loss of vision. Eyes cantu ears decreased hearing. No trouble speech or swallowing. Denies neck pain or neck stiffness. He denies paresthesia, anesthesia or motor weakness. He denies chest discomfort or shortness of breath. Denies orthopnea or PND. He denies black or maroon-colored stool. He denies urologic symptoms. He denies problems with balance or coordination. Prior similar symptoms: Yes Recent Illness/Hospitalization: Yes [facility] Medical History (Updated 07/02/23 @ 03:[address] Aman Barr MD) Actinic keratitis Atherosclerosis of coronary artery of [place] without angina pectoris BPH (benign prostatic hyperplasia) Diverticulitis Encounter for long-term current use of high risk medication GI bleed Hyperlipidemia Hypersomnia, unspecified Hypertension Home Medications aspirin 81 mg tablet,delayed release (Adult Low Dose Aspirin) 81 mg PO QDAY 03/30/17 [History Last Taken Unknown] multivitamin with folic acid 400 mcg tablet 1 tab PO DAILY #90 tabs 02/26/21 [Rx Last Taken Unknown] clopidogrel 75 mg tablet 75 mg PO DAILY #90 tabs 03/02/23 [Rx Last Taken Unknown] ramipril 10 mg capsule 20 mg (2 x 10 mg) PO DAILY 30 days #60 caps 06/17/23 [Rx Last Taken Unknown] atorvastatin 20 mg tablet 20 mg PO QHS 07/01/23 [History Last Taken Unknown] carvedilol 6.25 mg tablet 6.25 mg PO BID 07/01/23 [History Last Taken Unknown] clonidine HCl 0.1 mg tablet 0.1 mg PO QHS #30 tabs 07/01/23 [Rx Last Taken Unknown] isosorbide mononitrate 30 mg tablet,extended release 24 hr 30 mg PO DAILY 07/01/23 [History Last Taken Unknown] Allergy/AdvReac Type Severity Reaction Status Date / Time famotidine [From Pepcid] Allergy Unknown Verified 07/02/23 02:20 ranitidine Allergy Unknown Verified 07/02/23 02:20 Family History Father CAD (coronary artery disease) Sister CAD (coronary artery disease) Surgical History Cataract History of tonsillectomy Hx of appendectomy Hx of CABG (~03/29/02) S/P coronary artery stent placement (04/05/17) Social History Smoking Status: Never smoker alcohol intake: never substance use type: does not use caffeine: Yes Type: coffee and tea what type of physical activity do you participate in: walking, bicycling, weight training and other details: cardiac rehab frequency: daily duration: 30-45 minutes/day seatbelt use: always do you feel safe at home: Yes ROS ROS ED Constitutional Constitutional ED: Denies chills, fever(s), subjective, sweats or weight loss Eyes Eyes: Denies blurry vision, change in vision or diplopia ENT ENT ED: Denies ear pain or rhinorrhea Cardiovascular Cardiovascular: Denies chest pain, orthopnea, palpitations, paroxysmal nocturnal dyspnea or racing heartbeat Respiratory/Chest Respiratory/Chest: Denies cough, dyspnea, dyspnea on exertion, orthopnea or paroxysmal nocturnal dyspnea Gastrointestinal Gastrointestinal: Denies abdominal pain, nausea or vomiting Genitourinary Genitourinary ED: Denies dysuria or hematuria Musculoskeletal Musculoskeletal: Denies back pain or neck pain Integumentary Denies rash Neurologic Neurologic: Reports weakness; Denies headache(s) or paresthesias Endocrine Endocrinology: Denies cold intolerance or heat intolerance EXAM Physical Exam Const Vital Signs: 07/02/23 02:17 07/02/23 02:19 07/02/23 02:39 Temperature 97.8 F Temperature Source Temporal Pulse Rate 72 62 Respiratory Rate 16 14 Respiratory Effort Normal Non-Labored Respiratory Pattern Normal Blood Pressure 200/84 H 191/90 H Blood Pressure Mean 122 123 Pulse Ox 98 97 Oxygen Delivery Method Room Air Room Air 07/02/23 03:16 Temperature Temperature Source Pulse Rate 64 Respiratory Rate 12 Respiratory Effort Respiratory Pattern Blood Pressure 160/90 H Blood Pressure Mean 113 Pulse Ox 100 Oxygen Delivery Method Room Air Positive well nourished and well developed General Appearance ED: well developed, NAD and pallor; Negative for cyanotic or diaphoretic HEENT Reports moist mucous membranes HEENT Narrative: Head is atraumatic and normocephalic. Ears normal. Nares patent. Uvula midline. There is no deviation tongue with protrusion. Eyes PERRL and EOMs intact bilaterally General Eye ED: Negative for pale conjunctiva or scleral icterus Neck no lymphadenopathy, supple and no JVD Chest Wall inspection of chest normal and palpation of chest normal Resp normal respiratory effort and clear to auscultation bilaterally Cardio regular rate, regular rhythm, S1 normal heart sound, S2 normal heart sound and no murmurs GI normal to inspection, nondistended, normoactive bowel sounds, non-tender, non-distended and no masses; Negative for hepatosplenomegaly Auscultation: normoactive bowel sounds Palpation: soft Back/Spine no CVA tenderness Extremity normal to inspection General Extremety ED: Negative for edema or tenderness General Extremity: Negative for edema Neuro oriented x3, CN's II-XII intact bilaterally and no sensory deficits noted Sensorium / Orientation: alert Psych Psych Narrative: Slow psychomotor skills. Mood & Affect: depressed Skin no rashes or lesions noted and no wounds General Skin Exam: pallor; Negative for jaundice MDM MDM MDM Narrative Medical decision making narrative: This patient was seen less than 5 days ago blood work was not repeated. He was treated with clonidine. His blood pressure has improved markedly and had a satisfactory decline. He will need to contact the [facility] on Tuesday regarding treatment of his blood pressure. When he was seen on the he acknowledged that he has had trouble regulated and has been following with the [facility] to regulate his blood pressure. History & Record Review Additional record(s) reviewed:: Prior ED visit (Seen June 25 for hypertension. Seen by Srinivasa el follow-up visit to June visit. Was seen April 25, 2022 for syncope.) and Prior labs Lab Data Lab results narrative: Recently performed and were unremarkable and reason they were not repeated. Discharge Plan Triage Chief Complaint: Hypertension ED Provider: Aman Barr Dx/Rx/DC Orders Clinical Impression: Accelerated essential hypertension, History of coronary artery disease, Pulmonary HTN, Hyperlipidemia Instructions: ED High Blood Pressure Hypertension Prescriptions: No Action atorvastatin 20 mg tablet 20 mg PO QHS carvedilol 6.25 mg tablet 6.25 mg PO BID isosorbide mononitrate 30 mg tablet extended release 24 hr 30 mg PO DAILY clonidine HCl 0.1 mg tablet 0.1 mg PO QHS Qty: 30 6RF aspirin [Adult Low Dose Aspirin] 81 mg tablet,delayed release (DR/EC) 81 mg PO QDAY multivitamin with folic acid 400 mcg tablet 1 tab PO DAILY Qty: 90 3RF clopidogrel 75 mg tablet 75 mg PO DAILY Qty: 90 3RF Rx Instructions: Take one tablet once a day ramipril 10 mg capsule 20 mg PO DAILY 30 Days Qty: 60 12RF Primary Care Provider: Juan Elias Referrals: Britton Horan MD [Med Staff - Active Staff] - 2 Days Juan Elias MD [Primary Care Provider] - Disposition Disposition: Home, Self Care
[2023-07-02 05:00] VITALS: BP 155/68; PULSE 61; RESP 11; O2SAT 97
[2023-07-02 05:43] VITALS: BP 169/71; PULSE 60; RESP 15; TEMP 36.6; O2SAT 98
== END 2023-07-02 05:44 | disposition home or self-care (01) ==
PROVIDERS: Emergency Provider Emergency Medicine; PCP Family Medicine; Visit Provider Emergency Medicine
DX: I10 Essential (primary) hypertension (principal); I27.20 Pulmonary hypertension, unspecified; I25.10 Atherosclerotic heart disease of native coronary artery without angina pectoris; E78.5 Hyperlipidemia, unspecified; Z95.5 Presence of coronary angioplasty implant and graft; Z95.1 Presence of aortocoronary bypass graft
CPT/HCPCS: 99284

== ENCOUNTER 2025-03-12 23:58 | Emergency (ER) | payer MEDICARE, SELFPAY ==
[2017-04-05 12:20] VITALS: BMI 47.9
[2025-03-12 23:59] VITALS: BP 196/69; PULSE 75; RESP 16; TEMP 36.6; O2SAT 97; BMI 20.7
--- OUTSIDE RECORDS SUMMARY | 2025-03-13 00:35 | XMS RPT_ITS | CCD ---
Author Organization [facility] CliniSyfl Care Team Providers Care Perch Machine Inspector Name Role Phone ARMANDO Guerra, Jaci Mobley Unavailable Preethi Castillo Unavailable Unavailable Preethi Cardona Unavailable Unavailable ARMANDO Guerra, Jaci Mobley Unavailable Juan Saeed MD Primary Care Provider Dr. Juan Mckeon Primary Care Provider Dr. Juan Mckeon Referring Provider Margaret GROVES, PA Lupis Mobley Attending Provider Juan Mckeon MD Primary Care Provider Dr. Juan Mckeon Primary Care Provider Dr. Silav Moura Emergency Provider Dr. Brandi Quijano Admit Provider Dr. Brandi Quijano Attending Provider Dr. Brandi Quijano Other Provider Dr. Eron Tubbs Attending Provider Dr. Jackie Vargas Attending Provider Dr. Jackie Vargas Other Provider Dr. Eron Tubbs Other Provider 1([facility])[phone] Juan Mckeon MD Primary Care Provider Dr. Juan Mckeon Primary Care Provider Dr. Juan Mckeon Referring Provider Roof PRICE ANALYST, PRICE ANALYST-C Srinivasa Alejandro Attending Provider Juan Mckeon MD Primary Care Provider Juan Mckeon MD Primary Care Provider Trinity KARDEX CLERK.Ana NIETO Unavailable Génesis Lazo PA-C Unavailable Geno Garcia RN Unavailable Unavailable Trinity KARDEX CLERK.Ana NIETO Unavailable Génesis Lazo PA-C Unavailable Geno Garcia RN Unavailable Unavailable JUAN MCKEON A Attending Unavailable LINDA, JUAN A Primary Care Unavailable LINDA, JUAN A Referring Unavailable LINDA, JUAN A Primary Care Unavailable LINDA, JUAN A Referring Unavailable LINDA, JUAN A Primary Care Unavailable LINDA, JUAN A Attending Unavailable SELF Referring Unavailable LINDA, JUAN A Primary Care Unavailable LINDA, JUAN A Primary Care Unavailable LINDA, JUAN A Primary Care Unavailable LINDA, JUAN A Referring Unavailable LINDA, JUAN A Primary Care Unavailable Britton Horan Attending Unavailable Curt Mckeonrey Referring Unavailable Linda, Juan Primary Care Unavailable Linda Juan Primary Care Unavailable Srinivasa El NP Attending Unavailable Juan Mckeon Referring Unavailable Juan Mckeon Primary Care Unavailable Srinivasa El NP Attending Unavailable Juan Mckeon Referring Unavailable Linda HALL, Dr. Martinez Primary Care Physician Dr. Juan Mckeon MD Referring Provider Srinivasa Hough Attending Physician Allergies Allergy Classification Reported Allergen(s) Allergy Type Date of Onset Reaction(s) Facility (4 sources) famotidine Drug Allergy 7 headaches [facility] Work Phone: (20 sources) raNITIdine; Translations: [RANITIDINE] Drug Allergy 0 Intolerance [facility] Work Phone: (20 sources) Famotidine; Translations: [FAMOTIDINE] Drug Allergy 5 Other: See Comments [facility] Work Phone: (1 source) Famotidine Drug Allergy 5 [facility] Repository Medications Current Medications Medication Drug Class(es) Dates Sig (Normalized) Sig (Original) aspirin 81 mg delayed release oral tablet (20 sources) Nonsteroidal Anti-inflammatory Drug Start: 03-30-2017 Aspirin (Adult Low Dose Aspirin) 81 mg tablet,delayed release (DR/EC) Active 81 mg PO daily March 30, 2017 12:00am Complies with drug therapy Start: 03-07-2017 take 1 tablet by cory th once daily ASPIRIN EC 81 MG TBEC One tablet by mouth daily ASPIRIN [id number] Jaci Guerra RN Start: 05-31-2005 ASPIRIN 81 MG TAB Take one(1) tablet daily. 0 05/31/2005 Active Comment on above: Take one(1) tablet d aily. atorvastatin 20 mg oral tablet (20 sources) HMG-CoA Reductase Inhibitor Start: 7 End: take 1 tablet by mouth at bedtime Atorvastatin 20 mg tablet Active 20 mg PO AT BEDTIME 90 February 11, 2025 12:28pm Complies with drug therapy Comment on above: TAKE ONE TABLET BY M OUT EVERY DAY carvedilol 6.25 mg oral tablet (20 sources) alpha-Adrenergic Johnathan, beta-Adrenergic Johnathan Start: 5 End: 5 take 1 tablet by mouth twice daily Carvedilol 6.25 mg tablet Active 6.25 mg PO TWICE A DAY 180 February 11, 2025 12:28pm Complies with drug therapy Start: 08-08-2024 End: 01-02-2025 take 1 tablet by mouth once daily in the morning Carvedilol 6.25 mg tablet Discontinued 6.25 mg PO EVERY MORNING 90 August 31, 2024 11:04am January 02, 2025 3:38pm Start: 07-20-2024 carvedilol (CO REG) 12.5 mg tablet 6.25 mg AM and 12.5 mg evening Per [facility] 07/20/2024 Active Start: 03-06-2024 End: 07-18-2024 Carvedilol 12.5 mg tablet Discontinued 12.5 mg PO .COMPLEX 60 3 March 06, 2024 4:36pm July 18, 2024 8:29am 12.5 mg orally; 6.25mg in AM and 12.5 in PM Start: 02-21-2024 End: 01-02-2025 take 1 tablet by mouth at bedtime Carvedilol 12.5 mg tablet Discontinued 12.5 mg PO AT BEDTIME August 08, 2024 12:00pm January 02, 2025 3:38pm Start: 05-04-2017 End: 01-06-2023 take 1 tablet by mouth twice daily Carvedilol 12.5 mg tablet Discontinued 0 .ROUTE .COMPLEX 180 July 26, 2022 10:10am August 04, 2022 3:07pm TAKE 1 TABLET BY MOUTH TWICE A DAY Start: 04-06-2017 End: 02-21-2024 take 1 tablet by mouth twice daily at mealtime Carvedilol 6.25 mg tablet Discontinued 0 .ROUTE .COMPLEX 180 June 02, 2023 10:28am July 01, 2023 10:47am TAKE ONE TABLET BY MOUTH TWICE A DAY MUST ADMINISTER WITH A MEAL/FOOD Comment on above: Take 12.5 mg by mout h twice daily with meals. Take 6.25 mg by mout h twice daily with meals. Take 1 tablet by cory th twice daily. clopidogrel 75 mg oral tablet (20 sources) [id number] Platelet Inhibitor Start: 7 End: take 1 tablet by mouth once daily Clopidogrel 75 mg tablet Active 75 mg PO DAILY 90 December 04, 2024 10:14am Take one tablet once a day Complies with drug therapy Comment on above: Take 75 mg by mouth once daily. doxazosin 2 mg oral tablet (20 sources) alpha-Adrenergic Johnathan Start: End: 4 take 1 tablet by mouth once daily at bedtime doxazosin (CARDURA) 2 mg tablet Take 1 tablet by mouth daily at bedtime. Per [facility] 02/21/2024 Active Start: 08-07-2023 End: 02-21-2024 take 1 tablet by mouth twice daily Doxazosin 2 mg tablet Discontinued 2 mg PO TWICE A DAY 180 December 02, 2023 11:08am February 21, 2024 12:47pm Start: 07-20-2023 End: 08-07-2023 take 2 tablets by mouth once daily Doxazosin 2 mg tablet Discontinued 4 mg PO DAILY 30 6 July 28, 2023 7:31pm August 07, 2023 9:05am MULTIVITAMIN TAB (20 sources) Start: 11-26-2009 MULTIVITAMIN T AB Take one(1) tablet daily. 0 11/26/2009 Active Comment on above: Take one(1) tablet d aily. Multivitamin With Folic Acid (10 sources) Start: 02-26-2021 take 1 tablet by mouth once daily Multivitamin With Folic Acid Active 1 TABLET PO DAILY February 26, 2021 3:24pm Start: 02-26-2021 take 1 tablet by cory th once daily Multivitamin With Folic Acid Active 1 TABLET PO DAILY February 26, 2021 4:24pm Start: 04-04-2017 End: 02-26-2021 take 1 tablet by mouth once daily Multivitamin With Folic Acid Discontinued 1 TABLET PO DAILY April 04, 2017 12:00am February 26, 2021 3:24pm Start: 04-04-2017 End: 02-26-2021 take 1 tablet by mouth once daily Multivitamin With Folic Acid Discontinued 1 TABLET PO DAILY April 04, 2017 1:00am February 26, 2021 4:24pm Multivitamin With Folic Acid 400 mcg tablet (1 source) Start: 02-26-2021 Multivitamin W ith Folic Acid 400 mcg tablet Active 1 {tbl} PO DAILY February 26, 2021 3:24pm Complies with drug therapy omeprazole 20 mg delayed release oral capsule (20 sources) Proton Pump Inhibitor Start: 06-25-2021 End: 07-20-2024 omeprazole (PRILOSEC) 20 mg capsule Take 1 capsule by mouth as needed. 07/20/2024 Active Start: 04-10-2019 End: 08-14-2020 take 1 capsule by mouth once daily Omeprazole 20 mg capsule,delayed release(DR/EC) Discontinued 20 mg PO DAILY April 10, 2019 12:00am August 14, 2020 12:50pm Start: 04-04-2017 End: 12-05-2018 take 1 capsule by mouth once daily Omeprazole 20 MG capsule Discontinued 20 mg PO DAILY April 04, 2017 12:00am December 05, 2018 1:42pm Start: 03-08-2017 take 1 tablet by cory th once daily OMEPRAZOLE 20 MG CPDR One tablet by mouth daily OMEPRAZOLE [id number] Federico Sewell MD Comment on above: Take 1 capsule by [facility] as needed. ramipril 10 mg oral capsule (20 sources) Angiotensin Converting Enzyme Inhibitor Start: 07-08-2023 End: 07-11-2024 take 1 capsule by mouth twice daily Ramipril 10 mg capsule Active 10 mg PO TWICE A DAY 60 30 July 11, 2024 2:21pm Complies with drug therapy Start: 04-27-2022 End: 06-17-2023 take 20 mg by mouth once daily Ramipril Discontinued 2 0 MG PO DAILY 60 30 July 20, 2022 11:58am June 17, 2023 8:27am Start: 11-13-2019 End: 07-13-2023 take 2 capsules by mouth once daily Ramipril 10 mg capsule Discontinued 20 mg PO DAILY 60 30 June 17, 2023 8:27am July 08, 2023 8:37am Start: 05-04-2017 End: 04-27-2022 take 1 capsule by mouth twice daily Ramipril 10 mg capsule Discontinued 0 .ROUTE .COMPLEX 180 3 March 24, 2021 4:50pm April 27, 2022 9:04am TAKE 1 CAPSULE BY MOUTH TWICE A DAY Start: 03-30-2017 End: 05-04-2017 take 2 capsules by mouth once daily Ramipril 10 mg capsule Discontinued 20 mg PO daily 180 3 March 30, 2017 12:00am May 04, 2017 1:46pm Start: 03-30-2017 End: 05-04-2017 take 20 mg by mouth once daily Ramipril Discontinued 2 0 MG PO daily 180 March 30, 2017 12:00am May 04, 2017 1:46pm Start: 03-07-2017 take [address] tablet [address] [facility] once daily ALTACE 10 MG CAPS One tablet by mouth daily RAMIPRIL [id number] Jaci Guerra RN Comment on above: Take 1 capsule by [facility] twice daily. Take 20 mg by mouth once daily. Take 1 capsule by [facility] two times a day. Per [facility] Take 20 mg by mouth two times a day. Per [facility] Completed/Discontinued Medications Medication Drug Class(es) Dates Sig (Normalized) Sig (Original) amLODIPine 2.5 mg oral tablet (20 sources) Dihydropyridine Calcium Channel Johnathan Start: 06-16-2023 End: 07-01-2023 take 1 tablet by mouth once daily Amlodipine 2.5 mg tablet Discontinued 2.5 mg PO daily 30 June 16, 2023 2:42pm July 01, 2023 10:47am Start: 05-30-2017 End: 08-14-2020 take 1 tablet by mouth once daily Amlodipine 2.5 mg tablet Discontinued 2.5 mg PO daily 90 September 27, 2019 1:46pm August 14, 2020 12:51pm On Hold: Lower BP at home 02/18/2020 Start: 05-23-2017 End: 05-30-2017 take 1 tablet by mouth once daily Amlodipine 5 mg tablet Discontinued 5 mg PO daily 30 May 23, 2017 12:00am May 30, 2017 12:59pm cloNIDine hydrochloride 0.1 mg oral tablet (12 sources) Central alpha-2 Adrenergic Agonist Start: 07-01-2023 End: 07-18-2023 take 1 tablet by mouth at bedtime Clonidine Hcl 0.1 mg tablet Discontinued 0.1 mg PO AT BEDTIME 30 July 08, 2023 8:37am July 18, 2023 11:44am Start: 06-26-2023 End: 07-01-2023 Clonidine 0.1 mg/24 hr patch weekly Discontinued 1 NMA TD EVERY WEEK 4 June 26, 2023 12:00am July 01, 2023 11:14am Start: 06-26-2023 End: 07-01-2023 apply 1 dose transdermal route every week Clonidine Discontinued 1 PATCH TD EVERY WEEK June 26, 2023 12:00am July 01, 2023 11:14am End: 01-18-2024 take 1 tablet by mouth once cloNIDine HCl (CATAPRES) 0 .1 mg tablet Take 0.1 mg by mouth once daily. Per [facility] 01/18/2024 Discontinued (Discontinued by another Health Care Provider) Comment on above: Take 0.1 mg by mouth once daily. Per [facility] dicyclomine hydrochloride 20 mg oral tablet (7 sources) Anticholinergic Start : 03-07 End: 03-08 take 1 tablet by mouth twice daily as needed BENTYL 20 MG TABS One tablet by mouth twice daily as needed DICYCLOMINE HCL [id number] Jaci Guerra RN hydroCHLOROthiazide 12.5 mg oral capsule (20 sources) Thiazide Diuretic Start : 04-04 End: 01-01 take 1 capsule by mouth once daily Hydrochlorothiazide 12.5 mg capsule Discontinued 12.5 mg PO DAILY 90 3 March 03, 2021 7:49am December 16, 2021 2:31pm Start: 03-07-2017 take 1 tablet by cory once daily HYDROCHLOROTHIAZIDE 12.5 MG TABS One tablet by mouth daily HYDROCHLOROTHIAZIDE [id number] Jaci Guerra RN Comment on above: Take 1 capsule by [facility] once daily. 24 hr isosorbide mononitrate 30 mg extended release oral tablet (20 sources) Nitrate Vasodilator Start: 2 End: 4 take 1 tablet by mouth once daily Isosorbide Mononitrate 30 mg tablet extended release 24 hr Discontinued 0 .ROUTE .COMPLEX 90 September 21, 2022 12:44pm July 01, 2023 10:47am TAKE 1 TABLET BY MOUTH EVERY DAY End: 01-18-2024 take 1 tablet by mouth every hour isosorbide mononitrate ER (IMDUR) 30 mg 24 hr tablet Take 30 mg by mouth once daily. Take one tablet daily (per [facility]) 01/18/2024 Discontinued (Discontinued by another Health Care Provider) Comment on above: Take 30 mg by mouth once daily. Take one tablet daily (per [facility]) 24 hr metoprolol succinate 50 mg extended release oral tablet (19 sources) beta-Adrenergic Johnathan Start: 08-09-2017 End: 08-15-2017 take 0.5 tablet by mouth once daily in the evening Metoprolol Succinate 50 mg tablet extended release 24 hr Discontinued 0 PO daily August 08, 2017 11:00pm August 15, 2017 12:11pm 50 MG, 1 Tab in AM, 1/2 Tab in PM PO QDAY Start: 08-09-2017 End: 08-15-2017 take 0.5 tablet by mouth once daily in the evening Metoprolol Succinate Discontinued 0 PO daily August 08, 2017 11:00pm August 15, 2017 12:11pm 50 MG, 1 Tab in AM, 1/2 Tab in PM PO QDAY Start: 04-04-2017 End: 04-06-2017 take 1 tablet by mouth twice daily Metoprolol Succinate 50 MG Tab.Er.24h Discontinued 50 mg PO TWICE A DAY April 04, 2017 12:00am April 06, 2017 9:11am Start: 03-07-2017 take 1 tablet by cory th in the morning, then take 1 tablet by mouth in the evening METOPROLOL SUCCINATE ER 50 MG [id number] One tablet by mouth in the morning and one half tablet in the evening METOPROLOL SUCCINATE [id number] Federico Sewell MD Start: 03-07-2017 take 1 tablet by cory th once daily METOPROLOL SUCCINATE ER 50 MG [id number] One tablet by mouth daily METOPROLOL SUCCINATE [id number] Jaci Guerra RN MULTIPLE VITAMIN (4 sources) Start: 03-07-2017 take 1 tablet by mouth every twenty-four hours MULTIVITAMINS TABS One tablet by mouth daily MULTIPLE VITAMIN Jaci Guerra RN Multivitamin With Folic Acid 1 TABLET tablet (1 source) Start: 04-04-2017 End: 02-26-2021 take 1 tablet by mouth once daily Multivitamin With Folic Acid 1 TABLET tablet Discontinued 1 {tbl} PO DAILY April 04, 2017 12:00am February 26, 2021 3:24pm spironolactone 25 mg oral tablet (3 sources) Aldosterone Antagonist Start: 06-13-2023 End: 06-16-2023 take 1 tablet by mouth once daily Spironolactone 25 mg tablet Discontinued 25 mg PO DAILY 22 10June 13, 2023 12:00am June 16, 2023 2:42pm Problems Active Problems Problem Classification Problem Date Documented Da te Episodic/Chronic Cardiac dysrhythmias (7 sources) Bradycardia; Translations: [Bradycardia, unspecified] Episodic Cataract (6 sources) Cataract; Translations: [Unspecified cataract] 08-08-2017 Chronic Coronary atherosclerosis and other heart disease (20 sources) Atherosclerotic heart disease of [place] coronary artery without angina pectoris; Translations: [Lipid-rich atherosclerosis of coronary artery] Onset: 03-07-2017 Chronic Comment on above: CABG CARRINGTON to LAD and D1, SVG to lateral LCX 03/29/2002; PCI to Prox LAD 01/19/2002; PCI to LAD and D1 03/15/2002, PCI to RCA 03/2017 Deficiency and other anemia (1 source) Anemia; Translations: [Anemia, unspecified] 08-15-2023 Episodic Disorders of lipid metabolism (20 sources) Hyperlipidemia; Translations: [Mixed hyperlipidemia] Onset: 5 03-07-2017 Chronic Diverticulosis and diverticulitis (20 sources) Diverticulum of large intestine without hemorrhage; Translations: [Diverticulosis of large intestine without perforation or abscess without bleeding] Onset: 5 02-27-2015 Chronic Esophageal disorders (20 sources) Gastroesophageal reflux disease without esophagitis; Translations: [Gastro-esophageal reflux disease without esophagitis] Onset: 1 Chronic Essential hypertension (20 sources) Hypertensive disorder; Translations: [Essential hypertension] Onset: 6 03-07-2017 Chronic Gastrointestinal hemorrhage (6 sources) Gastrointestinal hemorrhage; Translations: [Gastrointestinal hemorrhage, unspecified] 05-04-2017 Episodic Genitourinary symptoms and ill-defined conditions (18 sources) Proteinuria; Translations: [Proteinuria, unspecified] Onset: 6 08-30-2016 Episodic Heart valve disorders (6 sources) Heart murmur; Translations: [Cardiac murmur, unspecified] 01-21-2021 Episodic Hemorrhoids (20 sources) Hemorrhoids; Translations: [Unspecified hemorrhoids] 05-10-2019 Episodic Hyperplasia of prostate (20 sources) Benign prostatic hyperplasia; Translations: [Benign prostatic hyperplasia without lower urinary tract symptoms] Onset: 6 03-01-2018 Chronic Hypertension with complications and secondary hypertension (20 sources) Hypertensive heart disease; Translations: [Hypertensive heart disease without heart failure] Onset: 5 Chronic Inflammation; infection of eye (except that caused by tuberculosis or sexually transmitteddisease) (6 sources) Keratitis; Translations: [Photokeratitis, unspecified eye] 05-04-2017 Episodic Nonspecific chest pain (6 sources) Chest pain; Translations: [Chest pain, unspecified] 01-18-2022 Episodic Occlusion or stenosis of precerebral arteries (20 sources) Bilateral stenosis of carotid arteries; Translations: [Occlusion and stenosis of bilateral carotid arteries] Onset: 2 Chronic Other aftercare (20 sources) Patient encounter status; Translations: [Other nursing home (current) drug therapy] Onset: 0 Episodic Other aftercare (1 source) Long-term current use of drug therapy; Translations: [Other plant clerk (current) drug therapy] 08-15-2017 Episodic Other circulatory disease (5 sources) H/O: heart disorder; Translations: [Personal history of other diseases of the circulatory system] 06-26-2023 Episodic Other gastrointestinal disorders (20 sources) Irritable bowel syndrome; Translations: [Irritable bowel syndrome without diarrhea] Onset: 5 08-30-2014 Chronic Other gastrointestinal disorders (6 sources) History of gastroesophageal reflux disease; Translations: [Personal history of other diseases of the digestive system] 01-18-2022 Episodic Jeannie-; endo-; and myocarditis; cardiomyopathy (except that caused by tuberculosis or sexually transmitted disease) (20 sources) Heart valve disorder; Translations: [Endocarditis, valve unspecified] Onset: 3 01-06-2023 Chronic Pulmonary heart disease (6 sources) Other secondary pulmonary hypertension; Translations: [Pulmonary hypertension] Onset: 7 03-24-2017 Chronic Residual codes; unclassified (6 sources) Hypersomnia; Translations: [Hypersomnia, unspecified] 08-15-2017 Chronic Syncope (15 sources) Near syncope; Translations: [Syncope and collapse] Episodic Unclassified (4 sources) Placement of stent in coronary artery ; Translations: [Presence of coronary angioplasty implant and graft] Onset: 7 03-07-2017 Unclassified (4 sources) Long-term drug therapy; Translations: [Other plant clerk (current) drug therapy] Onset: 7 03-07-2017 Viral infection (1 source) Disease caused by 2019-nCoV; Translations: [COVID-19] Episodic Past or Other Problems Problem Classification Problem Date Documented Da te Episodic/Chronic Administrative/social admission (20 sources) Advance directive discussed with patient; Translations: [Other specified counseling] Onset: 3 Episodic Allergic reactions (20 sources) Eczema; Translations: [Dermatitis, unspecified] Onset: 8 Resolved: 4 03-02-2017 Episodic Coagulation and hemorrhagic disorders (18 sources) Platelet disorder; 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] Onset: 4 Resolved: 5 07-13-2023 Chronic Complication of device; implant or graft (20 sources) Significant coronary bypass graft disease; Translations: [Other mechanical complication of coronary artery bypass graft, initial encounter] Onset: 5 08-30-2016 Episodic Coronary atherosclerosis and other heart disease (20 sources) Presence of aortocoronary bypass graft; Translations: [Stented coronary artery] Onset: 2 03-07-2017 Episodic Diabetes mellitus without complication (20 sources) Hyperglycemia; Translations: [Impaired fasting glucose] Onset: 6 Episodic Immunizations and screening for infectious disease (4 sources) Vaccination needed; Translations: [Encounter for immunization] Onset: 5 02-01-2023 Episodic Neoplasms of unspecified nature or uncertain behavior (20 sources) Neoplasm of uncertain behavior of skin; Translations: [Neoplasm of uncertain behavior of skin] Onset: 9 Resolved: 4 05-03-2013 Episodic Other aftercare (1 source) Other plant clerk (current) drug therapy; Translations: [Medication management] Onset: 0 Episodic Other and unspecified benign neoplasm (16 sources) Benign neoplasm of skin of face; Translations: [Other benign neoplasm of skin of unspecified part of face] Onset: 8 Resolved: 4 05-03-2013 Episodic Other and unspecified benign neoplasm (16 sources) Benign neoplasm of skin of trunk; Translations: [Other benign neoplasm of skin of trunk] Onset: 9 Resolved: 4 05-03-2013 Episodic Other circulatory disease (3 sources) Personal history of other diseases of the circulatory system; Translations: [Personal history of other diseases of circulatory system] Onset: 4 Episodic Other gastrointestinal disorders (20 sources) History of lower gastrointestinal bleed; Translations: [Personal history of other diseases of the digestive system] Onset: 3 05-10-2019 Episodic Other non-epithelial cancer of skin (20 sources) History of malignant neoplasm of skin; Translations: [Personal history of other malignant neoplasm of skin] Onset: 4 03-02-2017 Episodic Other skin disorders (20 sources) Actinic keratosis; Translations: [Actinic keratosis] Onset: 8 03-02-2017 Episodic Other skin disorders (16 sources) Disorder of sebaceous gland; Translations: [Follicular disorder, unspecified] Onset: 8 Resolved: 4 05-03-2013 Episodic Other skin disorders (16 sources) Disorder of skin pigmentation; Translations: [Disorder of pigmentation, unspecified] Onset: 8 Resolved: 4 05-03-2013 Episodic Other skin disorders (16 sources) Asteatosis cutis; Translations: [Xerosis cutis] Onset: 0 Resolved: 5 08-30-2014 Episodic Residual codes; unclassified (20 sources) Active living will ; Translations: [Other specified health status] Onset: 2 06-25-2021 Episodic Screening and history of mental health and substance abuse codes (1 source) Encounter for screening for depression; Translations: [Screening for depression] Onset: 5 Episodic Results Test Name Value Interpretation Reference Range Facility Cardiology Visit Reporton Cardiology Visit Report [facility] [address] [place] [address] OFFICE VISIT Date of Service: 02/11/25 MR#: [id number] Acct: [id number] Name: GERMAN TREJO Rep #: [id number] : 1935 Provider: KELLEE goss Age/Sex: 89/M [place] [facility] [place] Status: Signed HPI HPI History of Present Illness Details: GERMAN TREJO, is a 89 M who presents to the office today for a cardiovascular follow-up. He has a history of coronary artery disease status post PCI to LAD and diagonal with BMS in 02/2002 and KOLTON to RCA in 03/2017. 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 He also has a history of hypertension, hyperlipidemia, diverticulitis, GI bleed, and BPH. He has had some recent changes to his blood pressure medications but he says that it still uncontrolled. He denies chest, arm, jaw, or neck discomfort. He states a dull sensation intermittent with and without activity. He denies palpitations. He denies bilateral lower extremity edema. He denies claudication. He denies shortness of breath with activity, shortness of breath at rest, orthopnea, or PND. He denies chronic cough. He denies significant, sudden weight gain. He denies lightheadedness, dizziness, near-syncope, or syncope. He denies blood in urine, blood in stool, or epistaxis. He denies fever with chills. He denies myalgia. He denies fatigue. His exercise level has remained stable with regular walking upwards to 1.5 miles. 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: No Is patient in pain?: No Allergies famotidine (From Pepcid) Allergy (Verified 02/11/25 12:55) Unknown ranitidine Allergy (Verified 02/11/25 12:55) Unknown Medications ???Medication ???Instructions ???Recorded ???Confirmed ???Type aspirin 81 mg tablet,delayed 81 mg PO QDAY 03/30/17 02/11/25 Hi story release (Adult Low Dose Aspirin) multivitamin with folic acid 400 1 tab PO DAILY #90 tabs 02/26/21 1 Rx mcg tablet doxazosin 2 mg tablet 2 mg PO QDAY #180 tabs 02/21/24 Rx ramipril 10 mg capsule 10 mg PO BID 30 days #60 caps 06/2302/11/25 Rx clopidogrel 75 mg tablet 75 mg PO DAILY #90 tabs 12/04/24 1 Rx atorvastatin 20 mg tablet 20 mg PO QHS #90 TABLETS 02/11/25 02/11/25 Rx carvedilol 6.25 mg tablet 6.25 mg PO BID #180 tabs 02/11/25 02/11/25 Rx Ejection fraction %: 65 Have you fallen in the past year?: No COUNT INCLUDES THE [facility] Medical History Encounter for long-term current use of high risk medication Hypersomnia, unspecified Hypertension Actinic keratitis GI bleed BPH (benign prostatic hyperplasia) Diverticulitis Hyperlipidemia Atherosclerosis of coronary artery of [place] heart without angina pectoris Surgical History Cataract Hx of appendectomy History of tonsillectomy Hx of CABG ( 03/29/02) S/P coronary artery stent placement (04/05/17) Family History Father CAD (coronary artery disease) Sister CAD (coronary artery disease) Social History Smoking Status: Never smoker alcohol intake: never substance use type: does not use caffeine: Yes Type: coffee and tea what type of physical activity do you participate in: walking, bicycling, weight training and other details: cardiac rehab frequency: daily duration: 30-45 minutes/day seatbelt use: always do you feel safe at home: Yes ROS Const Const: Negative for fatigue, weakness, headache(s) or frequent falls Eyes Eyes: Negative for blurry vision ENT ENT: Negative for headache(s), dizziness or Nosebleed/epistaxis Cardio Chest Pain: No Palpitations: No Edema: None Muscle aches with walking: None Resp Respiratory: Negative for SOB with activity, SOB at rest or SOB orthopnea SOB lying down GI GI: Positive for heartburn; Negative nausea, vomiting, bright, red blood in stools or black,tarry stools : Negative for hematuria Neuro Neuro: Negative for dizziness, lightheadedness, near syncope, syncope, frequent falls, headache(s), weakness or blurry vision Endo Endo: Negative for fatigue Cardiology Exam Const Appearance: cooperative, healthy appearing, comfortable and no acute distress Nutritional Appearance: average body habitus and we (more content not included)... [facility] -- GERMAN TREJO JR. ([id number]) 1935 M Date Time Provider Department 01/01/25 1:40 PM JUAN MCKEON During your visit today, we recorded the following information about you: Pulse Respiration Blood pressure Weight 64/minute 16/minute 132/70 58.1 kg Juan Mckeon MD 01/01/2025 3:37 PM Signed Chief Complaint Patient presents with: F/U 6 Month HPI German Terjo Jr. is a 89 year old male who presents here today for a routine follow up. Patient with Hx of BPH, CAD, elevated fasting blood sugar, HTN, past Hx of CABG, IBS, hyperlipidemia as well as those reviewed and addressed below and in ROS Patient has been doing ok. No new issues or concerns. German reports no recent fevers, lumps or swelling in the neck, wheezing, dyspnea, hemoptysis, chest pain, or palpitations. He notes chronic, mild lower extremity edema, which has been stable for years. He denies frequent nausea, emesis, or diarrhea, and experiences occasional heartburn, but not more than 2 times per week. He reports no changes in heat or cold tolerance, increased thirst, frequent cephalalgia, syncope, seizures, or tremors. German is scheduled to receive a flu shot on the of this month and is inquiring about the availability of the COVID-19 vaccine. He continues to be followed by the [facility]. Recent lab results show an improvement in lipid profile and HbA1c. Triglycerides are 74 mg/dL (previously 105 mg/dL), HDL is 43 mg/dL (previously 39 mg/dL), LDL is 54 mg/dL (previously 61 mg/dL), and HbA1c is 5.7% (previously 6.0%). He monitors his blood pressure at home, with readings typically ranging from 120-130/75 mmHg. Past medical history, appointments, medications, allergies reviewed. [...] artery 04/07/201703/2017, proximal RCA by Dr. Sewell Valvular heart disease 01/06/2023 Seeing cardio Xerosis cutis 09/07/2009 Previous Surgical History PAST [...] Father age 72 of lung cancer, previous AR age 57 Coronary Artery Disease Father Diabetes Brother age 67 of DM, also history of prostate cancer Heart Sister Alive age 68, history of AR age 66 Patient Allergies ALLERGIES Allergen Reactions Pepcid [Famotidine] Other: See Comments headache Ranitidine Intolerance fatigue Current Medications Current Outpatient Medications on File Prior to Visit Medication Sig carvedilol (COREG) 12.5 mg tablet 6.25 mg AM and 12.5 mg evening Per [facility] omeprazole (PRILOSEC) 20 mg capsule Take 1 capsule by mouth as needed. doxazosin (CARDURA) 2 mg tablet Take 1 tablet by (more content not included)... Normal [facility] HbA1c (Bld)on 12-26-2024 Average glucose Estimated from glycated hemoglobin (Bld) [Mass/Vol] 117 mg/dL Normal [facility] Comment on above: Order Comment: Speci men Type: BLOOD SPECIMENOrdering Facility: [facility] Address: [address] [place] [address] Result Comment: eAG: (Estimated average glucose) is a calculated value from HgbA1c and is product support sales representative of the average blood glucose level in the last 2-3 month period. Performed By: #### 5 5454-3 ####[facility] LABCLIA [id number] [place] [address] [place] HbA1c (Bld) [Mass fraction] 5.7 % High 4.3-5.6 [facility] Comment on above: Order Comment: Speci men Type: BLOOD SPECIMENOrdering Facility: [facility] Address: [address] [place] [address] Result Comment: [place] Diabetes Association guidelines indicate that patients with HgbA1c in the range 5.7-6.4% are at increased risk for development of diabetes, and intervention by lifestyle modification may be beneficial. HgbA1c greater or equal to 6.5% is considered diagnostic of diabetes. Performed By: #### 5 5454-3 ####[facility] LABCLIA [id number] [place] [address] [place] [facility] [place] LIPID PANEL, NONFASTINGon Cholesterol [Mass/Vol] 112 mg/dL Normal <200 [facility] Comment on above: Order Comment: Speci men Type: BLOOD SPECIMENOrdering Facility: [facility] Address: [address] [place] [address] Result Comment: <200 mg/dL, Desirable 200-239 mg/dL, Borderline high >239 mg/dL, High Performed By: #### L IPNF ####[facility] LABCLIA [id number] [address] STATES OF [facility] HDL CHOLESTEROL, NF 43 mg/dL Normal >39 [facility] Comment on above: Order Comment: Speci men Type: BLOOD SPECIMENOrdering Facility: [facility] Address: [address] [place] [address] Result Comment: 40-5 9 mg/dL, Acceptable >59 mg/dL, High: Negative risk factor for coronary heart disease <40 mg/dL, Low: Positive risk factor for coronary heart disease Performed By: #### L IPNF ####[facility] LABCLIA [id number] [address] LDL CHOLESTEROL CALCULATED, NF 54 mg/dL Normal <100 [facility] Comment on above: Order Comment: Speci men Type: BLOOD SPECIMENOrdering Facility: [facility] Address: [address] [place] [address] Result Comment: <100 mg/dL, Optimal 100-129 mg/dL, Near optimal/above optimal 130-159 mg/dL, Borderline high 160-189 mg/dL, High >189 mg/dL, Very high Secondary prevention optimal LDL Cholesterol levels are recommended to be <70 mg/dL LDL cholesterol is calculated using the Perez-NIH equation. Performed By: #### L IPNF ####[facility] LABCLIA [id number] [place] [address] [place] LDL/HDL RATIO, NF 1.26 mg/dL Normal <2.54 [facility] Comment on above: Order Comment: Rainai men Type: BLOOD SPECIMENOrdering Facility: [facility] Address: [address] [place] [address] Result Comment: Lucia henry: 1. National Cholesterol Education Program ATP III Guideline At-A-Glance Quick Desk Reference: National Heart, Lung, and Blood [place]. National Institutes of Health. 2001: NIH Publication No. 01-3305. 2. An International Atherosclerosis Society position paper: global recommendations for the management of dyslipidemia: executive summary, Atherosclerosis. 2014: 232(2):410-413. Performed By: #### L IPNF ####[facility] LABCLIA [id number] [address] NON HDL CHOL, NF 69 mg/dL Normal <130 [facility] Comment on above: Order Comment: Rainai men Type: BLOOD SPECIMENOrdering Facility: [facility] Address: [address] [place] [address] Result Comment: <130 mg/dL, Optimal 130-159 mg/dL, Near optimal/above optimal 160-189 mg/dL, Borderline high 190-219 mg/dL, High >219 mg/dL, Very high Secondary prevention optimal non HDL Cholesterol levels are recommended to be <100 mg/dL Performed By: #### L IPNF ####[facility] LABCLIA [id number] [address] [place] T CHOL/HDL RATIO NF 2.60 mg/dL Normal <5.10 [facility] Comment on above: Order Comment: Speci men Type: BLOOD SPECIMENOrdering Facility: [facility] Address: [address] [place] [address] Performed By: #### L IPNF ####[facility] LABCLIA [id number] [place] [id number] [place] TRIGLYCERIDES, NF 74 mg/dL Normal <150 [facility] Comment on above: Order Comment: Speci men Type: BLOOD SPECIMENOrdering Facility: [facility] Address: [address] [place] [address] Result Comment: <150 mg/dL, Normal 150-199 mg/dL, Borderline high 200-499 mg/dL, High >499 mg/dL, Very high Performed By: #### L IPNF ####[facility] LABCLIA [id number] [place] [address] [place] VLDL CHOLESTEROL, NF 11 mg/dL Normal <30 [facility] Comment on above: Order Comment: Rainaes gilbert Type: BLOOD SPECIMENOrdering Facility: [facility] Address: [address] [place] [address] Performed By: #### L IPNF ####[facility] LABCLIA [id number] [place] [address] [place] US CAROTID ARTERIES [facility]on 08-29-2024 CAROTID ARTERIES [facility] Non-Invasive Vascular Laboratory [facility] Carotid Duplex Bilateral/Complete Date of service/time: 08/29/2024 2:26:40 PM Name: MR. GERMAN TREJO Ho Date of : 1935 Age: 88 years Gender: M Clinical Indication Follow-up study on a patient with known carotid disease. TECHNIQUE -------- A carotid duplex ultrasound examination was performed, including grayscale imaging and color Doppler and spectral Doppler examination of the below mentioned arteries. FINDINGS -------- RIGHT SIDE Common carotid artery: Origin: PSV: 131 cm/s. EDV: 0 cm/s. Proximal: PSV: 122 cm/s. EDV: 0 cm/s. Mid: PSV: 168 cm/s. EDV: 0 cm/s. Distal: PSV: 115 cm/s. EDV: 0 cm/s. Mild heterogeneous plaque from mid to distal. Internal carotid artery: Origin: PSV: 121 cm/s. EDV: 9 cm/s. Proximal: PSV: 83 cm/s. EDV: 14 cm/s. Mid: PSV: 87 cm/s. EDV: 19 cm/s. Distal: PSV: 64 cm/s. EDV: 8 cm/s. Mild heterogeneous plaque from origin to proximal. ICA/CCA Ratio: 1.1 External carotid artery: Origin: PSV: 150 cm/s. EDV: 0 cm/s. Proximal: PSV: 187 cm/s. EDV: 0 cm/s. Mild heterogeneous plaque at origin. Subclavian artery: Origin: PSV: 114 cm/s. EDV: 0 cm/s. Proximal: PSV: 306 cm/s. EDV: 0 cm/s. Mild heterogeneous plaque from origin to proximal. Innominate artery: PSV: 127 cm/s. EDV: 0 cm/s. Vertebral artery: PSV: 68 cm/s. EDV: 0 cm/s. LEFT SIDE Common carotid artery: Proximal: PSV: 136 cm/s. EDV: 5 cm/s. Mid: PSV: 122 cm/s. EDV: 11 cm/s. Distal: PSV: 117 cm/s. EDV: 15 cm/s. Mild heterogeneous plaque from mid to distal. Internal carotid artery: Origin: PSV: 183 cm/s. EDV: 27 cm/s. Proximal: PSV: 163 cm/s. EDV: 25 cm/s. Mid: PSV: 93 cm/s. EDV: 21 cm/s. Distal: PSV: 65 cm/s. EDV: 11 cm/s. Moderate heterogeneous plaque from origin to proximal. ICA/CCA Ratio: 1.6 External carotid artery: Origin: PSV: 237 cm/s. EDV: 0 cm/s. Proximal: PSV: 180 cm/s. EDV: 0 cm/s. Mild heterogeneous plaque at origin. Subclavian artery: Proximal: PSV: 173 cm/s. EDV: 0 cm/s. Vertebral artery: PSV: 59 cm/s. EDV: 10 cm/s. IMPRESSION Please note: the new carotid interpretation criteria are used as recommended by [employer]ters[employer] Commission. When compared with the prior study, of 08/18/2023 no significant change is noted on the right side and no significant change is noted on the left side. 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 RIGHT SIDE Common carotid artery: Plaque visualized without evidence of hemodynamically significant stenosis. Internal carotid artery: <50% stenosis consistent with mild carotid artery disease. Vertebral artery: Patent and antegrade flow noted. High resistive signal suggests non-dominant vessel or more distal disease; clinical correlation is suggested. Subclavian artery: 50-99% stenosis. LEFT SIDE Common carotid artery: Plaque visualized without evidence of hemodynamically significant stenosis. Internal carotid artery: 50-69% stenosis consistent with moderate carotid artery disease. Consider referral to a vascular specialist unless already implemented. ICA/CCA ratio may be inaccurate due to elevlated CCA velocities. Plaque burden and ICA velocities consistent with 50-69% stenosis. External carotid artery: Elevated velocities and plaque noted. Vertebral artery: Patent and antegrade flow noted. Subclavian artery: Patent. Technologist: Danette Cárdenas T Ordering physician: JUAN MCKEON Interpreting physician: Gustavo Zarco MD, RPVI Final CC [employer] Medical Image : [id number] See Link below for Image Normal [facility] Cardiology Visit Reporton Cardiology Visit Report [facility] [address] [place] [address] OFFICE VISIT Date of Service: 08/08/24 MR#: [id number] Acct: [id number] Name: GERMAN TREJO Rep #: [id number] : 1935 Provider: KELLEE goss Age/Sex: 88/M Location: [facility] Status: Signed HPI HPI History of Present Illness Details: GERMAN TREJO, is a 88 M who presents to the office today for a cardiovascular follow-up. He has a history of coronary artery disease status post PCI to LAD and diagonal with BMS in 02/2002 and KOL[place] to RCA in 03/2017. 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 He also has a history of hypertension, hyperlipidemia, diverticulitis, GI bleed, and BPH. He has had some recent changes to his blood pressure medications but he says that it still uncontrolled. He denies chest, arm, jaw, or neck discomfort. He denies palpitations. He denies bilateral lower extremity edema. He denies claudication. He denies shortness of breath with activity, shortness of breath at rest, orthopnea, or PND. He denies chronic cough. He denies significant, sudden weight gain. He denies lightheadedness, dizziness, near-syncope, or syncope. He denies blood in urine, blood in stool, or epistaxis. He denies fever with chills. He denies myalgia. He denies fatigue. His exercise level has remained stable. 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 Is patient in pain?: No Allergies famotidine (From Pepcid) Allergy (Verified 08/08/24 13:00) Unknown ranitidine Allergy (Verified 08/08/24 13:00) Unknown Medications ???Medication ???Instructions ???Recorded ???Confirmed ???Type aspirin 81 mg tablet,delayed 81 mg PO QDAY 03/30/17 08/08/24 Hi story release (Adult Low Dose Aspirin) multivitamin with folic acid 400 1 tab PO DAILY #90 tabs 02/26/21 0 08/08/24 Rx mcg tablet clopidogrel 75 mg tablet 75 mg PO DAILY #90 tabs 12/07/23 0 08/08/24 Rx atorvastatin 20 mg tablet 20 mg PO QHS #90 TABLETS 02/17/24 08/08/24 Rx doxazosin 2 mg tablet 2 mg PO QDAY #180 tabs 02/21/24 Rx ramipril 10 mg capsule 10 mg PO BID 30 days #60 caps 06/2308/08/24 Rx carvedilol 12.5 mg tablet 12.5 mg PO QHS 08/08/24 History carvedilol 6.25 mg tablet 6.25 mg PO QAM 08/08/24 08/08/24 H istory Ejection fraction %: 65 Have you fallen in the past year?: No PFSH Medical History Encounter for long-term current use of high risk medication Hypersomnia, unspecified Hypertension Actinic keratitis GI bleed BPH (benign prostatic hyperplasia) Diverticulitis Hyperlipidemia Atherosclerosis of coronary artery of [place] heart without angina pectoris Surgical History Cataract Hx of appendectomy History of tonsillectomy Hx of CABG ( 03/29/02) S/P coronary artery stent placement (04/05/17) Family History Father CAD (coronary artery disease) Sister CAD (coronary artery disease) Social History Smoking Status: Never smoker alcohol intake: never substance use type: does not use caffeine: Yes Type: coffee and tea what type of physical activity do you participate in: walking, bicycling, weight training and other details: cardiac rehab frequency: daily duration: 30-45 minutes/day seatbelt use: always do you feel safe at home: Yes ROS Const Const: Negative for fatigue or weakness Eyes Eyes: Negative for change in vision ENT ENT: Negative for dizziness or balance problems Cardio Chest Pain: No Palpitations: No Edema: None Muscle aches with walking: None Resp Respiratory: Negative for SOB with activity, SOB at rest or SOB orthopnea SOB lying down GI GI: Negative nausea or heartburn : Negative for hematuria or frequent nighttime urination/ nocturia Musc Musc: Negative for balance problems Skin Skin: Negative non-healing lesions or rash Neuro Neuro: Negative for dizziness, lightheadedness, near syncope, syncope or weakness Endo Endo: Negative for fatigue Allergy Allergy/Immunology: Negative for rash Cardiology Exam Const Appearance: cooperative, healthy appearing, comfortable and no acute distress Nutritional Appearance: average body habitus and well nourished Orientation: alert, awake and oriented (more content not included)... Normal [facility] CNOVon 07-20-2024 CNOV Office Visit (FAMPWS ) -- GERMAN TREJO JR. ([id number]) 1935 M Date Time Provider Department 07/20/24 1:40 PM [facility] your visit today, we recorded the following information about you: Pulse Respiration Blood pressure Weight 58/minute 18/minute 142/74 60.3 kg Height 1.676 m Juan Mckeon MD 07/20/2024 10:34 PM Signed German Trejo Jr. is a 88 year old male here for a Medicare wellness visit. Medicare Health Risk Assessment General Health Very good Exercise: Minutes/Day 50 min Exercise: Days/Week On average, how many days per week do you engage in moderate to strenuous exercise (like a brisk walk)?: 7 days (walking/lifting weight) Alcohol: Daily Use Never Alcohol: Drinks/Day Patient does not drink Alcohol: 6 or more drinks Never Feel off balance No Concerns: Teeth/Dentures No Concerns: Sexual function No Troubled by feelings None of the above Frequency: Eating healthy diet Nearly every day ADLs requiring help None of the above Safety precautions in home/vehicle No Smoke, vape, chews tobacco No Difficulty hearing No Difficulty seeing No Current Providers Specialists: I have reviewed specialist-related care of the patient in the medical record. Current care team: Patient Care Team: Juan Mckeon MD as PCP - General (Family Medicine) Ana Petersen APRN.GERSON as Live In Companion (Family Medicine) Génesis Lazo PA-C as Live In Companion (Family Medicine) [facility]. Optho Medical/Family history review Reviewed and updated problem list, medical/surgical/family/so cial history, medications, and allergies. Opioid use review Opioid Medications (last 90 days) No data to display Anxiety/Depression screening PHQ-2 Score: 0 (Lower risk for depression) Recommendation: no further intervention at this time Cognitive screening Score: 5 Cognitive screening reviewed and No further action needed (score 3-5). Functional Observation Was the patient's Timed Up AND Go test unsteady or >= 12 seconds? No Advance Care Planning Surrogate decision maker documented and/or advance directives scanned in chart Measurements BP 142/74 Pulse (!) 58 Resp 18 Ht 167.6 cm (5' 6) Wt 60.3 kg (133 lb) BMI 21.47 kg/m? Vision Screening: Follows with optometry/ophthalmology Assessment/Plan Medicare annual wellness visit, subsequent (Z00.00) See below Chief Complaint Patient presents with: Medicare Wellness Exam HPI German Trejo Jr. is a 88 year old male who presents here today for Chronic Medical Conditions. and Medicare Annual Visit. Patient with Hx of BPH, CAD, elevated fasting blood sugar, HTN, past Hx of CABG, IBS, hyperlipidemia as well as those reviewed and addressed below and in ROS Patient has been doing ok. No new issues or concerns. Past medical history, appointments, medications, allergies reviewed. [...] artery 04/07/201703/2017, proximal RCA by Dr. Sewell Valvular heart disease 01/06/2023 Seeing cardio Xerosis cutis 09/07/2009 Previous Surgical History PAST SURGICAL HISTORY Procedure Laterality Date 2D ECHO (EXEP) 03/23/2017 EF=65%, stage 1 diastolic Dysf, mild pulm HTN 2D ECHO (EXEP) 01/26/2021 EF=60%, mild diastoloic dysf ADENOIDECTOMY PRIMARY Adenoidectomy APPENDECTOMY 193 COLONOSCOPY FLX DX W/COLLJ SPEC WHEN PFRMD 2012 CORONARY ARTERY BYP W/VEIN AND ARTERY GRAFT 3 VEIN 03/2002 CABG, th (more content not included)... Normal [facility] CBC W Auto Differential pane l (Bld)on 07-13-2024 Basophils (Bld) [#/Vol] 0.03 10*3/uL Normal <0.11 [facility] Comment on above: Order Comment: Speci men Type: BLOOD SPECIMENOrdering Facility: [facility] Address: [address] [place] [address] Performed By: #### 5 7021-8 ####[facility] [id number] [place] [address] [place] Basophils/100 WBC (Bld) 0.5 % Normal [facility] Comment on above: Order Comment: Speci men Type: BLOOD SPECIMENOrdering Facility: [facility] Address: [address] [place] [address] Performed By: #### 5 7021-8 ####[facility] [id number] [place] [address] [place] Differential cell count method Nom (Bld) Auto Normal [facility] Comment on above: Order Comment: Speci men Type: BLOOD SPECIMENOrdering Facility: [facility] Address: [address] [place] [address] Performed By: #### 5 7021-8 ####[facility] [id number] [place] [address] [place] Eosinophils (Bld) [#/Vol] 0.26 10*3/uL Normal <0.46 [facility] Comment on above: Order Comment: Speci men Type: BLOOD SPECIMENOrdering Facility: [facility] Address: [address] [place] [address] Performed By: #### 5 7021-8 ####[facility] [id number] [place] [address] [place] Eosinophils/100 WBC (Bld) 4.0 % Normal [facility] Comment on above: Order Comment: Speci men Type: BLOOD SPECIMENOrdering Facility: [facility] Address: [address] [place] [address] Performed By: #### 5 7021-8 ####[facility] [id number] [place] [address] [place] Erythrocyte distribution width (RBC) [Ratio] 13.2 % Normal 11.5-15.0 [facility] Comment on above: Order Comment: Speci men Type: BLOOD SPECIMENOrdering Facility: [facility] Address: [address] [place] [address] Performed By: #### 5 7021-8 ####[facility] [id number] [place] [address] [place] Hematocrit (Bld) [Volume fraction] 39.7 % Normal 39.0-51.0 [facility] Comment on above: Order Comment: Speci men Type: BLOOD SPECIMENOrdering Facility: [facility] Address: [address] [place], [place] [address] Performed By: #### 5 7021-8 ####[facility] HOSPITALDEVORA [id number] [place] [address] [place] Hemoglobin (Bld) [Mass/Vol] 13.3 g/dL Normal 13.0-17.0 [facility] Comment on above: Order Comment: Speci men Type: BLOOD SPECIMENOrdering Facility: [facility] Address: [address] [place] [address] Performed By: #### 5 7021-8 ####[facility] [id number] [place] [address] [place] Immature granulocytes (Bld) [#/Vol] 10*3/uL Normal <0.10 [facility] Comment on above: Order Comment: Speci men Type: BLOOD SPECIMENOrdering Facility: [facility] Address: [address] [place] [address] Performed By: #### 5 7021-8 ####[facility] [id number] [place] [address] [place] Immature granulocytes/100 WBC (Bld) 0.3 % Normal [facility] Comment on above: Order Comment: Speci men Type: BLOOD SPECIMENOrdering Facility: [facility] Address: [address] [place] [address] Performed By: #### 5 7021-8 ####[facility] CENTERLIA [id number] [place] [address] [place] Lymphocytes (Bld) [#/Vol] 1.46 10*3/uL Normal 1.00-4.00 [facility] Comment on above: Order Comment: Speci men Type: BLOOD SPECIMENOrdering Facility: [facility] Address: [address] [place] [address] Performed By: #### 5 7021-8 ####[facility] GHAZALPELHAMKELLYLIA [id number] [place] [address] [place] Lymphocytes/100 WBC (Bld) 22.4 % Normal [facility] Comment on above: Order Comment: Speci men Type: BLOOD SPECIMENOrdering Facility: [facility] Address: [address] [place] [address] Performed By: #### 5 7021-8 ####[facility] HOSPITALMYKEL [id number] [place] [address] [place] MCH (RBC) [Entitic mass] 32.0 pg Normal 26.0-34.0 [facility] Comment on above: Order Comment: Speci men Type: BLOOD SPECIMENOrdering Facility: [facility] Address: [address] [place] [address] Performed By: #### 5 7021-8 ####[facility] [id number] [address] [place] MCHC (RBC) [Mass/Vol] 33.5 g/dL Normal 30.5-36.0 [facility] Comment on above: Order Comment: Speci men Type: BLOOD SPECIMENOrdering Facility: [facility] Address: [address] [place] [address] Performed By: #### 5 7021-8 ####[facility] [id number] [place] [address] [place] MCV (RBC) [Entitic vol] 95.4 fL Normal 80.0-100.0 [facility] Comment on above: Order Comment: Speci men Type: BLOOD SPECIMENOrdering Facility: [facility] Address: [address] [place] [address] Performed By: #### 5 7021-8 ####[facility] HOSPITALNCBRIGHAM [facility] [id number] [place] [address] [place] Monocytes (Bld) [#/Vol] 0.51 10*3/uL Normal <0.87 [facility] Comment on above: Order Comment: Speci men Type: BLOOD SPECIMENOrdering Facility: [facility] Address: [address] [place] [address] Performed By: #### 5 7021-8 ####[facility] CENTERLIA [id number] [place] [address] [place] Monocytes/100 WBC (Bld) 7.8 % Normal [facility] Comment on above: Order Comment: Speci men Type: BLOOD SPECIMENOrdering Facility: [facility] Address: [address] [place] [address] Performed By: #### 5 7021-8 ####[facility] [id number] [place] [address] [place] Neutrophils (Bld) [#/Vol] 4.24 10*3/uL Normal 1.45-7.50 [facility] Comment on above: Order Comment: Speci men Type: BLOOD SPECIMENOrdering Facility: [facility] Address: [address] [place] [address] Performed By: #### 5 7021-8 ####[facility] [id number] [place] [address] [place] Neutrophils/100 WBC (Bld) 65.0 % Normal [facility] Comment on above: Order Comment: Speci men Type: BLOOD SPECIMENOrdering Facility: [facility] Address: [address] [place] [address] Performed By: #### 5 7021-8 ####[facility]A [id number] [place] [address] [place] Nucleated RBC (Bld) [#/Vol] 10*3/uL Normal <0.01 [facility] Comment on above: Order Comment: Speci men Type: BLOOD SPECIMENOrdering Facility: [facility] Address: [address] [place] [address] Performed By: #### 5 7021-8 ####[facility] SHABANA [id number] [place] [address] [place] Nucleated RBC/100 WBC (Bld) [Ratio] 0.0 /100 WBC Normal [facility] Comment on above: Order Comment: Speci men Type: BLOOD SPECIMENOrdering Facility: [facility] Address: [address] [place] [address] Performed By: #### 5 7021-8 ####[facility] HOSPITALNCJAVI [id number] [place] [address] [place] Platelet mean volume (Bld) [Entitic vol] 9.9 fL Normal 9.0-12.7 [facility] Comment on above: Order Comment: Speci men Type: BLOOD SPECIMENOrdering Facility: [facility] Address: [address] [place] [address] Performed By: #### 5 7021-8 ####[facility] HOSPITALWally [id number] [place] [address] [place] Platelets (Bld) [#/Vol] 176 10*3/uL Normal 150-400 [facility] Comment on above: Order Comment: Speci men Type: BLOOD SPECIMENOrdering Facility: [facility] Address: [address] [place] [address] Performed By: #### 5 7021-8 ####[facility] CENTERLIA [id number] [place] [address] [place] RBC (Bld) [#/Vol] 4.16 10*6/uL Low 4.20-6.00 [facility] Comment on above: Order Comment: Speci men Type: BLOOD SPECIMENOrdering Facility: [facility] Address: [address] [place] [address] Performed By: #### 5 7021-8 ####[facility] MILLTOWNCLIA [id number] [place] [address] [place] WBC (Bld) [#/Vol] 6.52 10*3/uL Normal 3.70-11.00 [facility] Comment on above: Order Comment: Speci men Type: BLOOD SPECIMENOrdering Facility: [facility] Address: [address] [place] [address] Performed By: #### 5 7021-8 ####[facility] MILLTOWKELLYLIA [id number] [place] [address] [place] [facility] [place] Comprehensive metabolic 2000 panelon 07-13-2024 Albumin [Mass/Vol] 4.2 g/dL Normal 3.9-4.9 [facility] Comment on above: Order Comment: Speci men Type: BLOOD SPECIMENOrdering Facility: [facility] Address: [address] [place] [address] Performed By: #### 1 9123-9, 48967-8 ####[facility] GHAZALDANIELLAWNCLIA [id number] [place] [address] [place] ALP [Catalytic activity/Vol] 63 U/L Normal 38-113 [facility] Comment on above: Order Comment: Speci men Type: BLOOD SPECIMENOrdering Facility: [facility] Address: [address] [place], [place] [address] Performed By: #### 1 9123-9, 83647-3 ####[facility] MILLTOWNCLIA [id number] [place] [address] [place] ALT [Catalytic activity/Vol] 16 U/L Normal 10-54 [facility] Comment on above: Order Comment: Speci men Type: BLOOD SPECIMENOrdering Facility: [facility] Address: [address] [place] [address] Performed By: #### 1 9123-9, 12663-9 ####[facility] MILLTOWNCLIA [id number] [place] [address] [place] Anion gap [Moles/Vol] 10 mmol/L Normal 8-15 [facility] Comment on above: Order Comment: Speci men Type: BLOOD SPECIMENOrdering Facility: [facility] Address: [address] [place] [address] Performed By: #### 1 9123-9, 62857-2 ####[facility] MILLTOWNCLIA [id number] [place] [address] [place] AST [Catalytic activity/Vol] 24 U/L Normal 14-40 [facility] Comment on above: Order Comment: Speci men Type: BLOOD SPECIMENOrdering Facility: [facility] Address: [address] [place] [address] Performed By: #### 1 9123-9, 60952-5 ####[facility] MILLWNCLIA [id number] [place] [address] [place] Bilirubin [Mass/Vol] 0.3 mg/dL Normal 0.2-1.3 [facility] Comment on above: Order Comment: Speci men Type: BLOOD SPECIMENOrdering Facility: [facility] Address: [address] [place] [address] Performed By: #### 1 9123-9, 40340-7 ####[facility] MILLTOWNCLIA [id number] [place] [address] [place] Calcium [Mass/Vol] 9.8 mg/dL Normal 8.5-10.2 [facility] Comment on above: Order Comment: Speci men Type: BLOOD SPECIMENOrdering Facility: [facility] Address: [address] [place] [address] Performed By: #### 1 9123-9, 59564-2 ####[facility] MILLTOWNCLIA [id number] [place] [address] [place] Chloride [Moles/Vol] 103 mmol/L Normal 98-107 [facility] Comment on above: Order Comment: Speci men Type: BLOOD SPECIMENOrdering Facility: [facility] Address: [address] [place] [address] Performed By: #### 1 9123-9, 62072-8 ####[facility] [id number] [place] [address] [place] CO2 [Moles/Vol] 27 mmol/L Normal 22-30 [facility] Comment on above: Order Comment: Speci men Type: BLOOD SPECIMENOrdering Facility: [facility] Address: [address] [place] [address] Performed By: #### 1 9123-9, 34785-3 ####[facility] [id number] [place] [address] [place] Creatinine [Mass/Vol] 1.02 mg/dL Normal 0.73-1.22 [facility] Comment on above: Order Comment: Speci men Type: BLOOD SPECIMENOrdering Facility: [facility] Address: [address] [place] [address] Performed By: #### 1 9123-9, 08244-6 ####[facility] CENTERLIA [id number] [address] [facility] Creatinine and Glomerular filtration rate.predicted panel (S/P/Bld) 71 mL/min/1.73m??? Normal >=60 [facility] Comment on above: Order Comment: Speci men Type: BLOOD SPECIMENOrdering Facility: [facility] Address: [address] [place] [address] Result Comment: Lela mated Glomerular Filtration Rate (eGFR) is calculated using the 2020 CKD-EPI creatinine equation. This equation utilizes serum creatinine, sex, and age as parameters. The creatinine assay has traceable calibration to isotope dilution-mass spectrometry. Refer to KDIGO guidelines for clinical interpretation. In patients with unstable renal function, e.g. those with acute kidney injury, the eGFR may not accurately reflect actual GFR. Performed By: #### 1 9123-9, 65509-9 ####[facility] HOSPITALKELLYLIWally [id number] [place] [address] [place] Glucose [Mass/Vol] 110 mg/dL High 74-99 [facility] Comment on above: Order Comment: Speci men Type: BLOOD SPECIMENOrdering Facility: [facility] Address: [address] [place] [address] Result Comment: The [place] Diabetes Association (ADA) provides guidance for cutoff values for fasting glucose and random glucose. The ADA defines fasting as no caloric intake for at least 8 hours. Fasting plasma glucose results between 100 to 125 mg/dL indicate increased risk for diabetes (prediabetes). Fasting plasma glucose results greater than or equal to 126 mg/dL meet the criteria for diagnosis of diabetes. In the absence of unequivocal hyperglycemia, results should be confirmed by repeat testing. In a patient with classic symptoms of hyperglycemia or hyperglycemic crisis, random plasma glucose results greater than or equal to 200 mg/dL meet the criteria for diagnosis of diabetes. Reference: Standards of Medical Care in Diabetes 2016, [place] [employer] Association. Diabetes Care. 2016.39(Suppl 1). Performed By: #### 1 9123-9, ####[facility] [id number] [place] [address] [place] Potassium [Moles/Vol] 4.4 mmol/L Normal 3.7-5.1 [facility] Comment on above: Order Comment: Rainai men Type: BLOOD SPECIMENOrdering Facility: [facility] Address: [address] [place] [id number] Performed By: #### 1 9123-9, ####[facility]ITALA [id number] [place] [address] [place] Protein [Mass/Vol] 7.0 g/dL Normal 6.3-8.0 [facility] Comment on above: Order Comment: Speci men Type: BLOOD SPECIMENOrdering Facility: [facility] Address: [address] [place] [address] Performed By: #### 1 9123-9, 17800-5 ####[facility] HOSPITALDEVORA [id number] [place] [address] [place] Sodium [Moles/Vol] 140 mmol/L Normal 136-144 [facility] Comment on above: Order Comment: Speci men Type: BLOOD SPECIMENOrdering Facility: [facility] Address: [address] [place] [address] Performed By: #### 1 9123-9, 09110-4 ####[facility] [id number] [place] [address] [place] Urea nitrogen [Mass/Vol] 24 mg/dL Normal 9-24 [facility] Comment on above: Order Comment: Speci men Type: BLOOD SPECIMENOrdering Facility: [facility] Address: [address] [place] [address] Performed By: #### 1 9123-9, 22782-9 ####[facility] [id number] [place] [address] [place] HbA1c (Bld)on 07-13-2024 Average glucose Estimated from glycated hemoglobin (Bld) [Mass/Vol] 120 mg/dL Normal [facility] Comment on above: Order Comment: Speci men Type: BLOOD SPECIMENOrdering Facility: [facility] Address: [address] [place] [address] Result Comment: eAG: (Estimated average glucose) is a calculated value from HgbA1c and is product support sales representative of the average blood glucose level in the last 2-3 month period. Performed By: #### 5 5454-3 ####[facility] LABCLIA [id number] [place] [address] [place] HbA1c (Bld) [Mass fraction] 5.8 % High 4.3-5.6 [facility] Comment on above: Order Comment: Speci men Type: BLOOD SPECIMENOrdering Facility: [facility] Address: [address] [place] [address] Result Comment: [place] Diabetes Association guidelines indicate that patients with HgbA1c in the range 5.7-6.4% are at increased risk for development of diabetes, and intervention by lifestyle modification may be beneficial. HgbA1c greater or equal to 6.5% is considered diagnostic of diabetes. Performed By: #### 5 5454-3 ####[facility] LABCLIA [id number] [address] [place] LIPID PANEL, NONFASTINGon Cholesterol [Mass/Vol] 134 mg/dL Normal <200 [facility] Comment on above: Order Comment: Emily gilbert Type: BLOOD SPECIMENOrdering Facility: [facility] Address: [address] [place] [address] Result Comment: <200 mg/dL, Desirable 200-239 mg/dL, Borderline high >239 mg/dL, High Performed By: #### 2 132-9, LIPNF ####[facility] LABCLIA [id number] [address] [place] HDL CHOLESTEROL, NF 42 mg/dL Normal >39 [facility] Comment on above: Order Comment: Rainai men Type: BLOOD SPECIMENOrdering Facility: [facility] Address: [address] [place] [address] Result Comment: 40-5 9 mg/dL, Acceptable >59 mg/dL, High: Negative risk factor for coronary heart disease <40 mg/dL, Low: Positive risk factor for coronary heart disease Performed By: #### 2 132-9, LIPNF ####[facility] LABCLIA [id number] [place] [id number] [place] LDL CHOLESTEROL, NF 67 mg/dL Normal <100 [facility] Comment on above: Order Comment: Speci men Type: BLOOD SPECIMENOrdering Facility: [facility] Address: [address] [place] [address] Result Comment: <100 mg/dL, Optimal 100-129 mg/dL, Near optimal/above optimal 130-159 mg/dL, Borderline high 160-189 mg/dL, High >189 mg/dL, Very high Secondary prevention optimal LDL Cholesterol levels are recommended to be < 70 mg/dL Performed By: #### 2 132-9, LIPNF ####[facility] LABCLIA [id number] [address] LDL/HDL RATIO, NF 1.60 mg/dL Normal <2.54 [facility] Comment on above: Order Comment: Speci men Type: BLOOD SPECIMENOrdering Facility: [facility] Address: [address] [place] [address] Result Comment: Refe rence: 1. National Cholesterol Education Program ATP III Guideline At-A-Glance Quick Desk Reference: National Heart, Lung, and Blood [place]. National Institutes of Health. 2001: NIH Publication No. 01-3305. 2. An International Atherosclerosis Society position paper: global recommendations for the management of dyslipidemia: executive summary, Atherosclerosis. 2014: 232(2):410-413. Performed By: #### 2 132-9, LIPNF ####[facility] LABCLIA [id number] [address] NON HDL CHOL, NF 92 mg/dL Normal <130 [facility] Comment on above: Order Comment: Emily gilbert Type: BLOOD SPECIMENOrdering Facility: [facility] Address: [address] [place] [address] Result Comment: <130 mg/dL, Optimal 130-159 mg/dL, Near optimal/above optimal 160-189 mg/dL, Borderline high 190-219 mg/dL, High >219 mg/dL, Very high Secondary prevention optimal non HDL Cholesterol levels are recommended to be <100 mg/dL Performed By: #### 2 132-9, LIPNF ####[facility] LABCLIA [id number] [address] [place] T CHOL/HDL RATIO NF 3.19 mg/dL Normal <5.10 [facility] Comment on above: Order Comment: Speci men Type: BLOOD SPECIMENOrdering Facility: [facility] Address: [address] [place] [address] Performed By: #### 2 132-9, LIPNF ####[facility] LABCLIA [id number] [place] [address] [place] TRIGLYCERIDES, NF 125 mg/dL Normal <150 [facility] Comment on above: Order Comment: Speci men Type: BLOOD SPECIMENOrdering Facility: [facility] Address: [address] [place] [address] Result Comment: <150 mg/dL, Normal 150-199 mg/dL, Borderline high 200-499 mg/dL, High >499 mg/dL, Very high Performed By: #### 2 132-9, LIPNF ####[facility] LABCLIA [id number] [place] [address] [place] VLDL CHOLESTEROL, NF 25 mg/dL Normal <30 [facility] Comment on above: Order Comment: Speci men Type: BLOOD SPECIMENOrdering Facility: [facility] Address: [address] [place] [address] Performed By: #### 2 132-9, LIPNF ####[facility] LABCLIA [id number] [place] [address] [place] Magnesium SerPl-mCncon 07-13 Magnesium [Mass/Vol] 2.2 mg/dL Normal 1.7-2.3 [facility] Comment on above: Order Comment: Speci men Type: BLOOD SPECIMENOrdering Facility: [facility] Address: [address] [place] [address] Performed By: #### 1 9123-9, 67604-0 ####[facility] HOSPITALDEVORA [id number] [place] [address] [place] Urinalysis complete panel (U )on 07-13-2024 Bacteria LM.HPF (Urine sed) [#/Area] Negative Normal Negative [facility] Comment on above: Order Comment: Speci men Type: URINE SPECIMENOrdering Facility: [facility] Address: [address] [place] [address] Performed By: #### 2 4356-8 ####[facility] LABCLIA [id number] [place] [address] [place] Bilirubin Ql (U) Negative Normal Negative [facility] Comment on above: Order Comment: Speci men Type: URINE SPECIMENOrdering Facility: [facility] Address: [address] [place] [address] Performed By: #### 2 4356-8 ####[facility] LABCLIA [id number] [place] [address] [place] Clarity (Unsp spec) Clear Normal Clear [facility] Comment on above: Order Comment: Speci men Type: URINE SPECIMENOrdering Facility: [facility] Address: [address] [place] [address] Performed By: #### 2 4356-8 ####[facility] LABCLIA [id number] [place] [address] [place] Color (U) Yellow Normal Yellow [facility] Comment on above: Order Comment: Speci men Type: URINE SPECIMENOrdering Facility: [facility] Address: [address] [place] [address] Performed By: #### 2 4356-8 ####[facility] LABCLIA [id number] [place] [id number] [place] Epithelial cells LM.HPF (Urine sed) [#/Area] None Seen Normal [facility] Comment on above: Order Comment: Speci men Type: URINE SPECIMENOrdering Facility: [facility] Address: [address] [place] [address] Performed By: #### 2 4356-8 ####[facility] LABCLIA [id number] [address] [place] [address] [place] Glucose Test strip (U) [Mass/Vol] Negative Normal Negative [facility] Comment on above: Order Comment: Speci men Type: URINE SPECIMENOrdering Facility: [facility] [facility] Address: [address] [place] [address] Performed By: #### 2 4356-8 ####[facility] LABCLIA [id number] [address], [facility]95 [place] Hemoglobin Ql (U) Negative Normal Negative [facility] Comment on above: Order Comment: Speci men Type: URINE SPECIMENOrdering Facility: [facility] Address: [address] [place] [address] Performed By: #### 2 4356-8 ####[facility] LABCLIA [id number] [address], [facility] [place] Hyaline casts (Urine sed) [#/Area] 0 /[LPF] Normal 0 /LPF [facility] Comment on above: Order Comment: Speci men Type: URINE SPECIMENOrdering Facility: [facility] Address: [address] [place] [address] Performed By: #### 2 4356-8 ####[facility] LABCLIA [id number] [address], [facility] [place] Ketones Ql (U) Negative Normal Negative [facility] Comment on above: Order Comment: Speci men Type: URINE SPECIMENOrdering Facility: [facility] Address: [address] [place] [address] Performed By: #### 2 4356-8 ####[facility] LABCLIA [id number] [address], [facility]95 [place] Leukocyte esterase Test strip Ql (U) Negative Normal Negative [facility] Comment on above: Order Comment: Speci men Type: URINE SPECIMENOrdering Facility: [facility] Address: [address] [place] [address] Performed By: #### 2 4356-8 ####[facility] LABCLIA [id number] [place] [address] [place] Nitrite Ql (U) Negative Normal Negative [facility] Comment on above: Order Comment: Speci men Type: URINE SPECIMENOrdering Facility: [facility] Address: [address] [place] [address] Performed By: #### 2 4356-8 ####[facility] LABCLIA [id number] [place] [address] [place] pH (U) 6.5 [pH] Normal <8.5 [facility] Comment on above: Order Comment: Speci men Type: URINE SPECIMENOrdering Facility: [facility] Address: [address] [place] [address] Performed By: #### 2 4356-8 ####[facility] LABIA [id number] [place] [address] [place] Protein (U) [Mass/Vol] Negative Normal Negative [facility] Comment on above: Order Comment: Speci men Type: URINE SPECIMENOrdering Facility: [facility] Address: [address] [place] [address] Performed By: #### 2 4356-8 ####[facility] LABIA [id number] [place] [address] [place] LM.HPF (Urine sed) [#/Area] 0-2 /HPF Normal 0-2 /HPF [facility] Comment on above: Order Comment: Speci men Type: URINE SPECIMENOrdering Facility: [facility] Address: [address] [place] [address] Performed By: #### 2 4356-8 ####[facility] LABIA [id number] [place] [address] [place] Specific gravity (U) [Rel density] 1.016 Normal 1.005-1.030 [facility] Comment on above: Order Comment: Speci men Type: URINE SPECIMENOrdering Facility: [facility] Address: [address] [place] [address] Performed By: #### 2 4356-8 ####[facility] LABIA [id number] [place] [address] [place] Urobilinogen Ql (U) 0.2 EU/dL Normal 0.2-1.0 EU/dL [facility] Comment on above: Order Comment: Speci men Type: URINE SPECIMENOrdering Facility: [facility] Address: [address] [place] [address] Performed By: #### 2 4356-8 ####[facility] [id number] [place] [address] [place] WBC LM.HPF (Urine sed) [#/Area] 0-5 /HPF Normal 0-5 /HPF [facility] Comment on above: Order Comment: Speci men Type: URINE SPECIMENOrdering Facility: [facility] Address: [address] [place] [address] Performed By: #### 2 4356-8 ####[facility] [id number] [place] [address] [place] Vit B12 [facility] 03-21-2 025 Cobalamin (Vitamin B12) [Mass/Vol] 580 pg/mL Normal 232-1245 [facility] Comment on above: Order Comment: Speci men Type: BLOOD SPECIMENOrdering Facility: [facility] Address: [address] [place] [address] Performed By: #### 2 132-9, LIPNF ####[facility] [id number] [place] [id number] [place] 12 Lead EKG performed by [facility] on 02-21-2024 12 Lead EKG performed by [facility] [address] [place] [address] 12 Lead EKG performed by [facility] 02/21/241344 MR#: [id number] Acct: [id number] Name: GERMAN TREJO Rep #: [id number] : 1935 88 From: Britton Horan MD Attending Dr: Dr. Britton Horan MD Status: DEP A MB Ordering Dr: Britton Horan MD Date: 02/21/24 Location: [facility] Sex: M C Admitted: [facility]/12 Lead EKG performed by [facility] ECG Report Interpretation Sinus Rhythm Voltage criteria for LVH (R(V6) exceeds 2.26 mV) -Voltage criteria w/o ST/T abnormality may be normal. BORDERLINEElectronically signed on 02/21/2024 at 14:32 by Britton Horan [employer] Version [id number] 02/21/24 1435 Date Britton Horan MD CC: Dr. 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 [place], [place] [address] OFFICE VISIT Date of Service: 02/21/24 MR#: [id number] Acct: [id number] Name: GERMAN TREJO Rep #: [id number] : 1935 Provider: Dr. Britton Horan MD Age/Sex: 88/M Location: [facility] Status: Signed [facility] History of Present Illness Details: GERMAN TREJO, is a 88 M who presents to the office today for a cardiovascular follow-up. He has a history of coronary artery disease status post PCI to LAD and diagonal with BMS in 02/2002 and KOLTON to RCA in 03/2017. 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 He also has a history of hypertension, hyperlipidemia, diverticulitis, GI bleed, and BPH. He has had some recent changes to his blood pressure medications but he says that it still uncontrolled. He denies chest, arm, jaw, or neck discomfort. He has had occasional chest pressure though with some activity but he says it is very occasional. He denies palpitations. He denies bilateral lower extremity edema. He denies claudication. He denies shortness of breath with activity, shortness of breath at rest, orthopnea, or PND. He denies chronic cough. He denies significant, sudden weight gain. He has not had recurrent lightheadedness since ER visit. He denies dizziness, near-syncope, or syncope. He denies blood in urine, blood in stool, or epistaxis. He denies fever with chills. He denies myalgia. He denies fatigue. His exercise level has remained stable. Intake Vital Signs 12/23/22 13:32 07/02/23 02:17 02/21/24 13:20 Height 5 ft 8 in 5 ft 7 in 5 ft 7 in Weight: 131 lb BMI 20.5 BP 144/68 H Blood Pressure Location Lt brachial Position Sitting Respiration 16 Pulse 63 Pulse Source Monitor Intake Visit Reasons: 1 Y FU [employer] Supervisor Required: No Accompanied by: Self Is patient in pain?: No Allergies famotidine (From Pepcid) Allergy (Verified 02/21/24 13:27) Unknown ranitidine Allergy (Verified 02/21/24 13:27) Unknown Medications ???Medication ???Instructions ???Recorded ???Confirmed ???Type aspirin 81 mg tablet,delayed 81 mg PO QDAY 03/30/17 02/21/24 History release (Adult Low Dose Aspirin) multivitamin with folic acid 400 1 tab PO DAILY #90 tabs 02/26/21 02/21/24 Rx mcg tablet ramipril 10 mg capsule 10 mg PO BID 30 days #60 caps 07/08/23 02/21/24 Rx clopidogrel 75 mg tablet 75 mg PO DAILY #90 tabs 12/07/23 02/21/24 Rx atorvastatin 20 mg tablet 20 mg PO QHS #90 TABLETS 02/17/24 02/21/24 Rx carvedilol 12.5 mg tablet 12.5 mg PO BID #60 tabs 02/21/24 02/21/24 Rx doxazosin 2 mg tablet 2 mg PO QDAY #180 tabs 02/21/24 02/21/24 Rx Have you fallen in the past year?: No PFSH Medical History Encounter for long-term current use of high risk medication Hypersomnia, unspecified Hypertension Actinic keratitis GI bleed BPH (benign prostatic hyperplasia) Diverticulitis Hyperlipidemia Atherosclerosis of coronary artery of [place] heart without angina pectoris Surgical History Cataract Hx of appendectomy History of tonsillectomy Hx of CABG ( 03/29/02) S/P coronary artery stent placement (04/05/17) Family History Father CAD (coronary artery disease) Sister CAD (coronary artery disease) Social History Smoking Status: Never smoker alcohol intake: never substance use type: does not use caffeine: Yes Type: coffee and tea what type of physical activity do you participate in: walking, bicycling, weight training and other details: cardiac rehab frequency: daily duration: 30-45 minutes/day seatbelt use: always do you feel safe at home: Yes ROS Const Const: Negative for fatigue, weakness, headache(s), daytime sleepiness or difficulty sleeping ENT ENT: Negative for headache(s), dizziness or Nosebleed/epistaxis Cardio Chest Pain: Yes Frequency: other (infrequently) Character: other (discomfort) Onset: exercise Location: left chest Duration: minutes Exacerbation: activity Relieving: rest Recurrence: exercise Palpitations: No Edema: None Resp Respiratory: Negative for SOB with activity, SOB at rest, SOB orthopnea SOB lying down or Cough GI GI: Positive for heartburn; Negative nausea or vomiting Neuro Neuro: Negative for dizziness, lightheadedness, near syncope, headache(s) or weakness Endo Endo: Negative for fatigue Cardiology Exam Const Appearance: cooperative, healthy appearing, comfortable and no acute distress Nutritional Appearance: average (more content not included)... Normal [facility] Basophil percentageOrdered B y: Aman Barr on 06-26-2023 Basophil percentage 0 SEEN /hpf 0-5 [facility] Chloride [Moles/Vol] 108 mmol/L 98-107 [facility] Glucose [Mass/Vol] 119 mg/dL 74-106 [facility] Comment on above: Fasting Glucose resu lt from 100 to 125 mg/dL suggests IMPAIRED HOMEOSTASIS per A.D.A. criteria. Potassium [Moles/Vol] 4.3 mmol/L 3.5-5.1 [facility] Sodium [Moles/Vol] 139 mmol/L 136-145 [facility] Bilirubin Test strip Ql (U)O rdered By: Aman Barr on 06-26-2023 Bilirubin Ql (U) Negative Negative [facility] Ketones Test strip Ql (U)Ord ered By: Aman Barr on 06-26-2023 Ketones Ql (U) Negative Negative [facility] Laboratory - Chemistry and C hemistry - challengeOrdered By: Aman Barr on 06-26-2023 CO2 [Moles/Vol] 29.0 mmol/L 21.0-32.0 [facility] Urea nitrogen/Creatinine [Mass ratio] 22.3 mg/mg 10-20 [facility] Mucus LM Ql (Urine sed)Order ed By: Aman Barr on 06-26-2023 Mucus Ql (Urine sed) 0 SEEN /hpf [facility] Nitrite Test strip Ql (U)Ord ered By: Aman Barr on 06-26-2023 Nitrite Ql (U) Negative Negative [facility] No Panel InformationOrdered By: Aman Barr on 06-26-2023 Urine RBC 0 SEEN /hpf 0-5 [facility] Estimated Creatinine Clearance Calc 39.29 ml/min [facility] Estimated GFR (MDRD) Amer 88 mL/min >60 [facility] Comment on above: GFR Calc Estimated GFR (MDRD) Non-Af Amer 73 mL/min >60 [facility] Comment on above: Non- GFR Calc Protein Test strip Ql (U)Ord ered By: Aman Barr on 06-26-2023 Protein Ql (U) 30 mg/dl Negative [facility] Serum or plasma calcium daryl urement (mass/volume)Ordered By: Aman Barr on 06-26-2023 Calcium [Mass/Vol] 9.0 mg/dL 8.5-10.1 [facility] Serum or plasma creatinine m easurement (mass/volume)Ordered By: Aman Barr on 06-26-2023 Creatinine [Mass/Vol] 1.03 mg/dL 0.70-1.30 [facility] Comment on above: The validity of the calculated GFR & GFRAA in patients over 70 years has not been determined. Clinical correlation is essential. Serum or plasma urea nitroge n measurement (mass/volume)Ordered By: Aman Barr on 06-26-2023 Urea nitrogen [Mass/Vol] 23 mg/dL 7-18 [facility] Squamous epithelial cells de tection in urine sediment by light microscopyOrdered By: Aman Barr on 06-26-2023 Epithelial cells.squamous LM Ql (Urine sed) 0 SEEN /hpf 0-5 [facility] Thin prep Papanicolaou smear with manual screeningOrdered By: Aman Barr on 06-26-2023 Thin prep Papanicolaou smear with manual screening 2 5-15 [facility] Urine blood detectionOrdered By: Aman Barr on 06-26-2023 RBC Ql (U) Negative Negative [facility] Urine clarityOrdered By: Aman Barr on 06-26-2023 Clarity (U) Clear Clear [facility] Urine color determinationOrd ered By: Aman Barr on 06-26-2023 Color (U) Yellow Yellow [facility] Urine glucose detectionOrder ed By: Aman Barr on 06-26-2023 Glucose Ql (U) Normal mg/dl Normal [facility] Urine leukocyte esterase det ection by dipstickOrdered By: Aman Barr on 06-26-2023 Leukocyte esterase Test strip Ql (U) Negative Negative [facility] Urine pHOrdered By: Aman pruett on 06-26-2023 pH (U) 7.0 [pH] 5.0 - 8.0 [facility] Urine sediment bacteria coun t by microscopy (number/high power field)Ordered By: Aman Barr on 06-26-2023 Bacteria LM.HPF (Urine sed) [#/Area] 0 /[HPF] None Seen [facility] Urine specific gravity measu rementOrdered By: Aman Barr on 06-26-2023 Specific gravity (U) [Rel density] 1.005 1.002-1.030 [facility] Urine urobilinogen measureme ntOrdered By: Aman Barr on 06-26-2023 Urobilinogen Ql (U) Normal mg/dl Normal [facility] Absolute lymphocyte counton 04-27-2022 Lymphocytes Auto (Unsp spec) [#/Vol] 1.65 10*3/uL 0.83-4.51 [facility] Work Phone: [phone] Basophil percentageon 2022 Basophils/100 WBC (Bld) 0.3 % 0-1 [facility] Work Phone: [phone] Bilirubin [Mass/Vol] 0.90 mg/dL 0.20-1.00 [facility] Work Phone: Comment on above: For patients on eltr ombopag therapy, use of Dimension Viola TBIL is not recommended. Chloride [Moles/Vol] 104 mmol/L 98-107 [facility] Work Phone: [phone] Eosinophils/100 WBC (Bld) 1.9 % 0-5 [facility] Work Phone: [phone] Glucose [Mass/Vol] 101 mg/dL 74-106 [facility] Work Phone: [phone] Comment on above: Fasting Glucose resu lt from 100 to 125 mg/dL suggests IMPAIRED HOMEOSTASIS per A.D.A. criteria. Neutrophils (Bld) [#/Vol] 6.6 10*3/uL 2.0-7.7 [facility] Work Phone: [phone] Neutrophils/100 WBC (Bld) 72.0 % 47-70 [facility] Work Phone: [phone] Potassium [Moles/Vol] 4.1 mmol/L 3.5-5.1 [facility] Work Phone: [phone] Protein [Mass/Vol] 7.3 g/dL 6.4-8.2 [facility] Work Phone: Sodium [Moles/Vol] 136 mmol/L 136-145 [facility] Work Phone: WBC (Bld) [#/Vol] 9.2 10*3/uL 4.4-11.0 [facility] Work Phone: Blood erythrocytes count (nu mber/volume)on 04-27-2022 RBC (Bld) [#/Vol] 4.80 10*6/uL 4.6-6.2 [facility] Work Phone: Blood hemoglobin measurement (mass/volume)on 04-27-2022 Hemoglobin (Bld) [Mass/Vol] 15.0 g/dL 13.0-16.5 [facility] Work Phone: Blood lymphocytes/100 leukoc yteson 04-27-2022 Lymphocytes/100 WBC (Bld) 18.0 % 19-41 [facility] Work Phone: Blood monocytes/100 leukocyt eson 04-27-2022 Monocytes/100 WBC (Bld) 7.5 % 0-10 [facility] Work Phone: Blood platelet mean volumeon 04-27-2022 Platelet mean volume (Bld) [Entitic vol] 10.6 fL 6.2-12.0 [facility] Work Phone: [phone] Determination of erythrocyte mean corpuscular volume (MCV)on 04-27-2022 MCV (RBC) [Entitic vol] 94.6 fL 80-94 [facility] Work Phone: Hematocrit Auto (Bld) [Volum e fraction]on 04-27-2022 Hematocrit (Bld) [Volume fraction] 45.4 % 40-54 [facility] Work Phone: [phone] Laboratory - Chemistry and C hemistry - challengeon 04-27-2022 ALP [Catalytic activity/Vol] 55 U/L 45-117 [facility] Work Phone: [phone] ALT [Catalytic activity/Vol] 25 U/L 16-61 [facility] Work Phone: [phone] CO2 [Moles/Vol] 25.0 mmol/L 21.0-32.0 [facility] Work Phone: Globulin (S) [Mass/Vol] 3.7 g/dL 2.2-4.2 [facility] Work Phone: Urea nitrogen/Creatinine [Mass ratio] 23.9 mg/mg 10-20 [facility] Work Phone: Laboratory - Hematology and Cell countson 04-27-2022 Erythrocyte distribution width (RBC) [Entitic vol] 45.5 fL 35.1-43.9 [facility] Work Phone: Erythrocyte distribution width (RBC) [Ratio] 13.1 % 11.6-14.6 [facility] Work Phone: Immature granulocytes/100 WBC (Bld) 0.300 % 0.0-0.9 [facility] Work Phone: Comment on above: IG% - Immature Granu locytes (promyelocytes, myelocytes and metamyelocytes) > 1% indicates that a LEFT SHIFT is Present. MCH (RBC) [Entitic mass] 31.3 pg 27.0-32.0 [facility] Work Phone: Nucleated RBC/100 WBC (Bld) [Ratio] 0 % 0-5 [facility] Work Phone: MCHC Auto (RBC) [Mass/Vol]on 04-27-2022 MCHC (RBC) [Mass/Vol] 33.0 g/dL 32-36 [facility] Work Phone: No Panel Informationon 04-27 Estimated Creatinine Clearance Calc 50.45 ml/min [facility] Work Phone: Estimated GFR (MDRD) Amer 106 mL/min >60 [facility] Work Phone: Comment on above: GFR Calc Estimated GFR (MDRD) Non-Af Amer 87 mL/min >60 [facility] Work Phone: Comment on above: Non- GFR Calc Platelets bldon 04-27-2022 Platelets (Bld) [#/Vol] 183 10*3/uL 150-450 [facility] Work Phone: Serum or plasma albumin daryl urement (mass/volume)on 04-27-2022 Albumin [Mass/Vol] 3.6 g/dL 3.2-5.0 [facility] Work Phone: Serum or plasma albumin/glob ulin mass ratioon 04-27-2022 Albumin/Globulin [Mass ratio] 1.0 {ratio} 0.9-2.4 [facility] Work Phone: Serum or plasma calcium daryl urement (mass/volume)on 04-27-2022 Calcium [Mass/Vol] 9.1 mg/dL 8.5-10.1 [facility] Work Phone: Serum or plasma creatinine m easurement (mass/volume)on 04-27-2022 Creatinine [Mass/Vol] 0.88 mg/dL 0.70-1.30 [facility] Work Phone: Comment on above: The validity of the calculated GFR & GFRAA in patients over 70 years has not been determined. Clinical correlation is essential. Serum or plasma urea nitroge n measurement (mass/volume)on 04-27-2022 Urea nitrogen [Mass/Vol] 21 mg/dL 7-18 [facility] Work Phone: Thin prep Papanicolaou smear with manual screeningon 04-27-2022 Thin prep Papanicolaou smear with manual screening 30 U/L 15-37 [facility] Work Phone: Thin prep Papanicolaou smear with manual screening 7 5-15 [facility] Work Phone: Basophil percentageon 2022 Basophil percentage 0 SEEN /hpf 0-5 [facility] Work Phone: Basophil percentage 3.1 mg/dL 2.5-4.9 [facility] Work Phone: Bilirubin Test strip Ql (U)o n 04-26-2022 Bilirubin Ql (U) Negative Negative [facility] Work Phone: Ketones Test strip Ql (U)on 04-26-2022 Ketones Ql (U) Negative Negative [facility] Work Phone: Laboratory - Chemistry and C hemistry - challengeon 04-26-2022 Magnesium [Mass/Vol] 2.1 mg/dL 1.6-2.6 [facility] Work Phone: Mucus LM Ql (Urine sed)on Mucus Ql (Urine sed) 0 SEEN /hpf [facility] Work Phone: Nitrite Test strip Ql (U)on 04-26-2022 Nitrite Ql (U) Negative Negative [facility] Work Phone: No Panel Informationon 04-26 Thyroid Stimulating Hormone (TSH) 2.00 uIU/mL 0.358-3.74 [facility] Work Phone: Protein Test strip Ql (U)on 04-26-2022 Protein Ql (U) Negative Negative [facility] Work Phone: Squamous epithelial cells de tection in urine sediment by light microscopyon 04-26-2022 Epithelial cells.squamous LM Ql (Urine sed) 0 SEEN /hpf 0-5 [facility] Work Phone: Urine blood detectionon RBC Ql (U) Negative Negative [facility] Work Phone: RBC Ql (U) 0 SEEN /hpf 0-5 [facility] Work Phone: Urine clarityon 04-26-2022 Clarity (U) Clear Clear [facility] Work Phone: Urine color determinationon 04-26-2022 Color (U) Yellow Yellow [facility] Work Phone: Urine glucose detectionon Glucose Ql (U) Normal mg/dl Normal [facility] Work Phone: Urine leukocyte esterase det ection by dipstickon 04-26-2022 Leukocyte esterase Test strip Ql (U) Negative Negative [facility] Work Phone: [phone] Urine pHon 04-26-2022 pH (U) 7.0 [pH] 5.0 - 8.0 [facility] Work Phone: [phone] Urine sediment bacteria coun t by microscopy (number/high power field)on 04-26-2022 Bacteria LM.HPF (Urine sed) [#/Area] 0 /[HPF] None Seen [facility] Work Phone: [phone] Urine specific gravity measu rementon 04-26-2022 Specific gravity (U) [Rel density] 1.010 1.002-1.030 [facility] Work Phone: [phone] Urobilinogen Auto test strip Ql (U)on 04-26-2022 Urobilinogen Ql (U) Normal mg/dl Normal [facility] Work Phone: [phone] Absolute lymphocyte counton 04-25-2022 Lymphocytes Auto (Unsp spec) [#/Vol] 1.66 10*3/uL 0.83-4.51 [facility] Work Phone: Basophil percentageon 2022 Basophils/100 WBC (Bld) 0.5 % 0-1 [facility] Work Phone: [phone] Chloride [Moles/Vol] 106 mmol/L 98-107 [facility] Work Phone: Eosinophils/100 WBC (Bld) 2.9 % 0-5 [facility] Work Phone: [phone] Glucose [Mass/Vol] 132 mg/dL 74-106 [facility] Work Phone: [phone] Comment on above: Fasting Glucose resu lt greater than or equal to 126 mg/dL suggests DIABETES MELLITUS per A.D.A. criteria. Neutrophils (Bld) [#/Vol] 3.9 10*3/uL 2.0-7.7 [facility] Work Phone: [phone] Neutrophils/100 WBC (Bld) 62.7 % 47-70 [facility] Work Phone: [phone] Potassium [Moles/Vol] 4.2 mmol/L 3.5-5.1 [facility] Work Phone: Sodium [Moles/Vol] 139 mmol/L 136-[address] [facility] Work Phone: WBC (Bld) [#/Vol] 6.3 10*3/uL 4.4-11.0 [facility] Work Phone: Blood erythrocytes count (nu mber/volume)on 04-25-2022 RBC (Bld) [#/Vol] 4.29 10*6/uL 4.6-6.2 [facility] Work Phone: [phone] Blood hemoglobin measurement (mass/volume)on 04-25-2022 Hemoglobin (Bld) [Mass/Vol] 13.4 g/dL 13.0-16.5 [facility] Work Phone: Blood lymphocytes/100 leukoc yteson 04-25-2022 Lymphocytes/100 WBC (Bld) 26.5 % 19-41 [facility] Work Phone: Blood monocytes/100 leukocyt eson 04-25-2022 Monocytes/100 WBC (Bld) 7.2 % 0-10 [facility] Work Phone: Blood platelet mean volumeon 04-25-2022 Platelet mean volume (Bld) [Entitic vol] 11.1 fL 6.2-12.0 [facility] Work Phone: [phone] Determination of erythrocyte mean corpuscular volume (MCV)on 04-25-2022 MCV (RBC) [Entitic vol] 94.4 fL 80-94 [facility] Work Phone: Hematocrit Auto (Bld) [Volum e fraction]on 04-25-2022 Hematocrit (Bld) [Volume fraction] 40.5 % 40-54 [facility] Work Phone: [phone] Laboratory - Chemistry and C hemistry - challengeon 04-25-2022 CO2 [Moles/Vol] 27.0 mmol/L 21.0-32.0 [facility] Work Phone: [phone] Urea nitrogen/Creatinine [Mass ratio] 18.6 mg/mg 10-20 [facility] Work Phone: Laboratory - Hematology and Cell countson 04-25-2022 Erythrocyte distribution width (RBC) [Entitic vol] 44.8 fL 35.1-43.9 [facility] Work Phone: Erythrocyte distribution width (RBC) [Ratio] 13.1 % 11.6-14.6 [facility] Work Phone: Immature granulocytes/100 WBC (Bld) 0.200 % 0.0-0.9 [facility] Work Phone: Comment on above: IG% - Immature Granu locytes (promyelocytes, myelocytes and metamyelocytes) > 1% indicates that a LEFT SHIFT is Present. MCH (RBC) [Entitic mass] 31.2 pg 27.0-32.0 [facility] Work Phone: Nucleated RBC/100 WBC (Bld) [Ratio] 0 % 0-5 [facility] Work Phone: MCHC Auto (RBC) [Mass/Vol]on 04-25-2022 MCHC (RBC) [Mass/Vol] 33.1 g/dL 32-36 [facility] Work Phone: No Panel Informationon 04-25 Troponin I High Sensitivity 12 pg/mL 3.0-78.0 [facility] Work Phone: Comment on above: Please Note: New Marilyn t Units and Gender Specific Reference Ranges. For more information see Policy Stat Procedure Viola High Sensitivity Troponin (TNIH) and attachments. Estimated Creatinine Clearance Calc 47.28 ml/min [facility] Work Phone: Estimated GFR (MDRD) Amer 89 mL/min >60 [facility] Work Phone: Comment on above: GFR Calc Estimated GFR (MDRD) Non-Af Amer 74 mL/min >60 [facility] Work Phone: Comment on above: Non- GFR Calc Troponin I High Sensitivity 11 pg/mL 3.0-78.0 [facility] Work Phone: Comment on above: Please Note: New Marilyn t Units and Gender Specific Reference Ranges. For more information see Policy Stat Procedure Viola High Sensitivity Troponin (TNIH) and attachments. Platelets bldon 04-25-2022 Platelets (Bld) [#/Vol] 177 10*3/uL 150-450 [facility] Work Phone: Serum or plasma calcium daryl urement (mass/volume)on 04-25-2022 Calcium [Mass/Vol] 9.4 mg/dL 8.5-10.1 [facility] Work Phone: Serum or plasma creatinine m easurement (mass/volume)on 04-25-2022 Creatinine [Mass/Vol] 1.02 mg/dL 0.70-1.30 [facility] Work Phone: Comment on above: The validity of the calculated GFR & GFRAA in patients over 70 years has not been determined. Clinical correlation is essential. Serum or plasma urea nitroge n measurement (mass/volume)on 04-25-2022 Urea nitrogen [Mass/Vol] 19 mg/dL 7-18 [facility] Work Phone: Thin prep Papanicolaou smear with manual screeningon 04-25-2022 Thin prep Papanicolaou smear with manual screening 6 5-15 [facility] Work Phone: Absolute lymphocyte counton 01-10-2022 Lymphocytes Auto (Unsp spec) [#/Vol] 1.06 10*3/uL 0.83-4.51 [facility] Work Phone: Basophil percentageon 2021 Basophils/100 WBC (Bld) 0.1 % 0-1 [facility] Work Phone: Chloride [Moles/Vol] 104 mmol/L 98-107 [facility] Work Phone: Eosinophils/100 WBC (Bld) 0.9 % 0-5 [facility] Work Phone: Glucose [Mass/Vol] 148 mg/dL 74-106 [facility] Work Phone: Comment on above: Fasting Glucose resu lt greater than or equal to 126 mg/dL suggests DIABETES MELLITUS per A.D.A. criteria. Neutrophils (Bld) [#/Vol] 7.9 10*3/uL 2.0-7.7 [facility] Work Phone: Neutrophils/100 WBC (Bld) 79.8 % 47-70 [facility] Work Phone: Potassium [Moles/Vol] 4.5 mmol/L 3.5-5.1 [facility] Work Phone: Sodium [Moles/Vol] 138 mmol/L 136-145 [facility] Work Phone: WBC (Bld) [#/Vol] 9.9 10*3/uL 4.4-11.0 [facility] Work Phone: Blood erythrocytes count (nu mber/volume)on 01-10-2022 RBC (Bld) [#/Vol] 4.29 10*6/uL 4.6-6.2 [facility] Work Phone: Blood hemoglobin measurement (mass/volume)on 01-10-2022 Hemoglobin (Bld) [Mass/Vol] 13.8 g/dL 13.0-16.5 [facility] Work Phone: Blood lymphocytes/100 leukoc yteson 01-10-2022 Lymphocytes/100 WBC (Bld) 10.7 % 19-41 [facility] Work Phone: Blood monocytes/100 leukocyt eson 01-10-2022 Monocytes/100 WBC (Bld) 8.3 % 0-10 [facility] Work Phone: Blood platelet mean volumeon 01-10-2022 Platelet mean volume (Bld) [Entitic vol] 10.7 fL 6.2-12.0 [facility] Work Phone: Determination of erythrocyte mean corpuscular volume (MCV)on 01-10-2022 MCV (RBC) [Entitic vol] 96.5 fL 80-94 [facility] Work Phone: Hematocrit Auto (Bld) [Volum e fraction]on 01-10-2022 Hematocrit (Bld) [Volume fraction] 41.4 % 40-54 [facility] Work Phone: Laboratory - Chemistry and C hemistry - challengeon 01-10-2022 CO2 [Moles/Vol] 28.0 mmol/L 21.0-32.0 [facility] Work Phone: Urea nitrogen/Creatinine [Mass ratio] 18.3 mg/mg 10-20 [facility] Work Phone: Laboratory - Hematology and Cell countson 01-10-2022 Erythrocyte distribution width (RBC) [Entitic vol] 43.3 fL 35.1-43.9 [facility] Work Phone: Erythrocyte distribution width (RBC) [Ratio] 12.1 % 11.6-14.6 [facility] Work Phone: Immature granulocytes/100 WBC (Bld) 0.200 % 0.0-0.9 [facility] Work Phone: Comment on above: IG% - Immature Granu locytes (promyelocytes, myelocytes and metamyelocytes) > 1% indicates that a LEFT SHIFT is Present. MCH (RBC) [Entitic mass] 32.2 pg 27.0-32.0 [facility] Work Phone: Nucleated RBC/100 WBC (Bld) [Ratio] 0 % 0-5 [facility] Work Phone: MCHC Auto (RBC) [Mass/Vol]on 01-10-2022 MCHC (RBC) [Mass/Vol] 33.3 g/dL 32-36 [facility] Work Phone: No Panel Informationon 01-10 Troponin I High Sensitivity 13 pg/mL 3.0-78.0 [facility] Work Phone: Comment on above: Please Note: New Marilyn t Units and Gender Specific Reference Ranges. For more information see Policy Stat Procedure Viola High Sensitivity Troponin (TNIH) and attachments. Estimated Creatinine Clearance Calc 42.13 ml/min [facility] Work Phone: Estimated GFR (MDRD) Amer 82 mL/min >60 [facility] Work Phone: Comment on above: GFR Calc Estimated GFR (MDRD) Non-Af Amer 68 mL/min >60 [facility] Work Phone: Comment on above: Non- GFR Calc Platelets bldon 01-10-2022 Platelets (Bld) [#/Vol] 148 10*3/uL 150-450 [facility] Work Phone: Serum or plasma calcium daryl urement (mass/volume)on 01-10-2022 Calcium [Mass/Vol] 9.4 mg/dL 8.5-10.1 [facility] Work Phone: Serum or plasma creatinine m easurement (mass/volume)on 01-10-2022 Creatinine [Mass/Vol] 1.09 mg/dL 0.70-1.30 [facility] Work Phone: Comment on above: The validity of the calculated GFR & GFRAA in patients over 70 years has not been determined. Clinical correlation is essential. Serum or plasma urea nitroge n measurement (mass/volume)on 01-10-2022 Urea nitrogen [Mass/Vol] 20 mg/dL 11-09 [facility] Work Phone: Thin prep Papanicolaou smear with manual screeningon 01-10-2022 Thin prep Papanicolaou smear with manual screening 6 5-15 [facility] Work Phone: Office Visiton 03-08-2017 Documentation of current medications (procedure) Done Invalid Interpretation Code [facility] Work Phone: Fall risk assessment No Invalid Interpretation Code [facility] Work Phone: Replaced Document: Lexi LEBLANC Observationson 03-08-2017 EKG QRS axis 58 deg Invalid Interpretation Code [facility] Work Phone: Interpretation Sinus Bradycardia - T-abnormality -Possible lateral ischemia. ABNORMAL Invalid Interpretation Code [facility] Work Phone: P [place] 46 deg Invalid Interpretation Code [facility] Work Phone: [phone] W[place] Interval 166 ms Invalid Interpretation Code [facility] Work Phone: [phone] Pulse (Heart Rate) 57 /min Invalid Interpretation Code [facility] Work Phone: [phone] QRS Duration 104 ms Invalid Interpretation Code [facility] Work Phone: [phone] QT Interval new path ms Invalid Interpretation Code [facility] Work Phone: [phone] QTc [place] 411 ms Invalid Interpretation Code [facility] Work Phone: [phone] T [place] 120 deg Invalid Interpretation Code [facility] Work Phone: [phone] Clinical Lists 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: 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 Left ventricular Ejection fraction 65 % Invalid Interpretation Code [facility] Work Phone: [phone] Tobacco use CPHS Never smoker Invalid Interpretation Code [facility] Work Phone: [phone] Clinical Lists Update: [facility] aerodynamics professor 08-18-2016 Cholesterol 156 mg/dL Invalid Interpretation Code [facility] Work Phone: [phone] HDL Cholesterol 40 mg/dL Invalid Interpretation Code [facility] Work Phone: [phone] LDL Cholesterol 71 mg/dL Invalid Interpretation Code [facility] Work Phone: [phone] Triglyceride 226 mg/dL Invalid Interpretation Code [facility] Work Phone: [phone] Vital Signs Date Time Vital Sign Value [facility]-11-[facility]25 07:44-0400 Body mass index (BMI) [Ratio] 20.3 kg/m2 Dr. Juan Mckeon MD Work Phone: [facility] 02-11-2025 07:44-0400 Body weight 58.[address] Juan Mckeon MD Work Phone: [facility] 02-11-2025 07:44-0400 Diastolic blood pressure 76 mm[Hg] Dr. Juan Mckeon MD Work Phone: [facility] 02-11-2025 07:44-0400 Heart rate 59 /min Dr. Juan Mckeon MD Work Phone: [facility] 02-11-2025 07:44-0400 Respiratory rate 18 /min Dr. Juan Mckeon MD Work Phone: [facility] 02-11-2025 07:44-0400 SaO2% (BldA) [Mass fraction] 99 % Dr. Juan Mckeon MD Work Phone: [facility] 02-11-2025 07:44-0400 Systolic blood pressure 169 mm[Hg] Dr. Juan Mckeon MD Work Phone: [facility] 01-01-2025 13:53-0400 Diastolic blood pressure 70 mm[Hg] Juan Mckeon MD Work Phone: [facility] 01-01-2025 13:53-0400 Systolic blood pressure 132 mm[Hg] Juan Mckeon MD Work Phone: [facility] 01-01-2025 13:35-0400 Body mass index (BMI) [Ratio] 20.66 kg/m2 Juan Mckeon MD Work Phone: [facility] 01-01-2025 13:35-0400 Body weight 58.06 kg Juan Mckeon MD Work Phone: [facility] 01-01-2025 13:35-0400 Heart rate 64 /min Juan Mckeon MD Work Phone: [facility] 01-01-2025 13:35-0400 Respiratory rate 16 /min Juan Mckeon MD Work Phone: [facility] 07-20-2024 13:51-0400 Body height 167.6 cm Juan Mckeon MD Work Phone: [facility] 07-20-2024 13:51-0400 Body mass index (BMI) [Ratio] 21.47 kg/m2 Juan Mckeon MD Work Phone: [facility] 07-20-2024 13:51-0400 Body weight 60.33 kg Juan Mckeon MD Work Phone: [facility] 07-20-2024 13:51-0400 Diastolic blood pressure 74 mm[Hg] Juan Mckeon MD Work Phone: [facility] 07-20-2024 13:51-0400 Heart rate 58 /min Juan Mckeon MD Work Phone: [facility] 07-20-2024 13:51-0400 Respiratory rate 18 /min Juan Mckeon MD Work Phone: [facility] 07-20-2024 13:51-0400 Systolic blood pressure 142 mm[Hg] Juan Mckeon MD Work Phone: [facility] 01-18-2024 13:33-0400 Body mass index (BMI) [Ratio] 20.66 kg/m2 Juan Mckeon MD Work Phone: [facility] 01-18-2024 13:33-0400 Body weight 58.06 kg Juan Mckeon MD Work Phone: [facility] 01-18-2024 13:33-0400 Diastolic blood pressure 82 mm[Hg] Juan Mckeon MD Work Phone: [facility] 01-18-2024 13:33-0400 Heart rate 70 /min Juan Mckeon MD Work Phone: [facility] 01-18-2024 13:33-0400 Respiratory rate 18 /min Juan Mckeon MD Work Phone: [facility] 01-18-2024 13:33-0400 Systolic blood pressure 128 mm[Hg] Juan Mckeon MD Work Phone: [facility] 07-13-2023 13:52-0400 Body height 167.6 cm Jaun Mckeon MD Work Phone: [facility] 07-13-2023 13:52-0400 Body weight 57.15 kg Juan Mckeon MD Work Phone: [facility] 07-13-2023 13:52-0400 Diastolic blood pressure 72 mm[Hg] Juan Mckeon MD Work Phone: [facility] 07-13-2023 13:52-0400 Heart rate 57 /min Juan Mckeon MD Work Phone: [facility] 07-13-2023 13:52-0400 Respiratory rate 18 /min Juan Mckeon MD Work Phone: [facility] 07-13-2023 13:52-0400 SaO2% (BldA) [Mass fraction] 99 % Juan Mckeon MD Work Phone: [facility] 07-13-2023 13:52-0400 Systolic blood pressure 148 mm[Hg] Juan Mckeon MD Work Phone: [facility] 07-02-2023 05:43-0500 Body temperature 98 [degF] Dr. Juan Mckeon Work Phone: [facility] 07-02-2023 05:43-0500 Diastolic blood pressure 71 mm[Hg] Dr. Juan Mckeon Work Phone: [facility] 07-02-2023 05:43-0500 Heart rate 60 /min Dr. Juan Mckeon Work Phone: [facility] 07-02-2023 05:43-0500 Respiratory rate 15 /min Dr. Juan Mckeon Work Phone: [facility] 07-02-2023 05:43-0500 SaO2% (BldA) [Mass fraction] 98 % Dr. Juan Mckeon Work Phone: [facility] 07-02-2023 05:43-0500 Systolic blood pressure 169 mm[Hg] Dr. Juan Mckeon Work Phone: [facility] 07-02-2023 02:17-0500 Body height 170.[address] Juan Mckeon Work Phone: [facility] 07-02-2023 02:17-0500 Body mass index (BMI) [Ratio] 21.7 kg/m2 Dr. Juan Mckeon Work Phone: [facility] 07-02-2023 02:17-0500 Body weight 63.[address] Juan Mckeon Work Phone: [facility] 07-01-2023 10:35-0500 Body mass index (BMI) [Ratio] 20.3 kg/m2 Dr. Juan Mckeon Work Phone: [facility] 07-01-2023 10:35-0500 Body weight 58.[address] Juan Mckeon Work Phone: [facility] 07-01-2023 10:35-0500 Diastolic blood pressure 76 mm[Hg] Dr. Juan Mckeon Work Phone: [facility] 07-01-2023 10:35-0500 Heart rate 56 /min Dr. Juan Mckeon Work Phone: [facility] 07-01-2023 10:35-0500 Respiratory rate 16 /min Dr. Juan Mckeon Work Phone: [facility] 07-01-2023 10:35-0500 Systolic blood pressure 183 mm[Hg] Dr. Juan Mckeon Work Phone: [facility] 06-26-2023 13:23-0500 Body temperature 97.8 [degF] [facility] 06-26-2023 13:23-0500 Diastolic blood pressure 63 mm[Hg] [facility] 06-26-2023 13:23-0500 Heart rate 60 /min [facility] 06-26-2023 13:23-0500 Respiratory rate 15 /min [facility] 06-26-2023 13:23-0500 SaO2% (BldA) [Mass fraction] 96 % [facility] 06-26-2023 13:23-0500 Systolic blood pressure 140 mm[Hg] [facility] 06-26-2023 11:57-0500 Body height 170.18 cm [facility] 06-26-2023 11:57-0500 Body mass index (BMI) [Ratio] 18.9 kg/m2 [facility] 06-26-2023 11:57-0500 Body weight 54.96 kg [facility] 01-06-2023 14:090400 Body weight 57.15 kg Juan Mckeon MD Work Phone: [facility] 01-06-2023 14:09-0400 Diastolic blood pressure 74 mm[Hg] Juan Mckeon MD Work Phone: [facility] 01-06-2023 14:09-0400 Heart rate 58 /min Juan Mckeon MD Work Phone: [facility] 01-06-2023 14:09-0400 Respiratory rate 16 /min Juan Mckeon MD Work Phone: [facility] 01-06-2023 14:09-0400 Systolic blood pressure 138 mm[Hg] Juan Mckeon MD Work Phone: [facility] 07-08-2022 13:14-0400 Diastolic blood pressure 64 mm[Hg] Juan Mckeon MD Work Phone: [facility] 07-08-2022 13:14-0400 Systolic blood pressure 127 mm[Hg] Juan Mckeon MD Work Phone: [facility] 07-08-2022 12:53-0400 Body height 167.6 cm Juan Mckeon MD Work Phone: [facility] 07-08-2022 12:53-0400 Body temperature 96.1 [degF] Juan Mckeon MD Work Phone: [facility] 07-08-2022 12:53-0400 Body weight 58.33 kg Juan Mckeon MD Work Phone: [facility] 07-08-2022 12:53-0400 Heart rate 64 /min Juan Mckeon MD Work Phone: [facility] 07-08-2022 12:53-0400 Respiratory rate 16 /min Juan Mckeon MD Work Phone: [facility] 04-27-2022 11:14-0500 Body temperature 97.9 [degF] Dr. Juan Mckeon Work Phone: [facility] Work Phone: 04-27-2022 11:14-0500 Diastolic blood pressure 68 mm[Hg] Dr. Juan Mckeon Work Phone: [facility] Work Phone: 04-27-2022 11:14-0500 Heart rate 63 /min Dr. Juan Mckeon Work Phone: [facility] Work Phone: 04-27-2022 11:14-0500 Respiratory rate 16 /min Dr. Juan Mckeon Work Phone: [facility] Work Phone: 04-27-2022 11:14-0500 SaO2% (BldA) [Mass fraction] 95 % Dr. Juan Mckeon Work Phone: [facility] Work Phone: 04-27-2022 11:14-0500 Systolic blood pressure 132 mm[Hg] Dr. Juan Mckeon Work Phone: [facility] Work Phone: 04-25-2022 14:19-0500 Body height 172.[address] Juan Mckeon Work Phone: [facility] Work Phone: 04-25-2022 14:19-0500 Body mass index (BMI) [Ratio] 19.8 kg/m2 Dr. Juan Mckeon Work Phone: [facility] Work Phone: 04-25-2022 14:19-0500 Body weight 59.[address] Juan Mckeon Work Phone: [facility] Work Phone: 04-25-2022 13:18-0500 Body temperature 96.9 [degF] [facility] Work Phone: 04-25-2022 13:18-0500 Diastolic blood pressure 62 mm[Hg] [facility] Work Phone: 04-25-2022 13:18-0500 Heart rate 52 /min [facility] Work Phone: 04-25-2022 13:18-0500 Respiratory rate 18 /min [facility] Work Phone: 04-25-2022 13:18-0500 SaO2% (BldA) [Mass fraction] 97 % [facility] Work Phone: 04-25-2022 13:18-0500 Systolic blood pressure 145 mm[Hg] [facility] Work Phone: 04-25-2022 11:52-0500 Body height 172.72 cm [facility] Work Phone: 04-25-2022 11:52-0500 Body mass index (BMI) [Ratio] 21.5 kg/m2 [facility] Work Phone: 04-25-2022 11:52-0500 Body weight 64.3 kg [facility] Work Phone: 01-10-2022 20:08-0400 Diastolic blood pressure 68 mm[Hg] Dr. Juan Mckeon Work Phone: [facility] Work Phone: 01-10-2022 20:08-0400 Systolic blood pressure 162 mm[Hg] Dr. Juan Mckeon Work Phone: [facility] Work Phone: 01-10-2022 19:45-0400 Heart rate 67 /min Dr. Juan Mckeon Work Phone: [facility] Work Phone: 01-10-2022 19:45-0400 Respiratory rate 18 /min Dr. Juan Mckeon Work Phone: [facility] Work Phone: 01-10-2022 19:45-0400 SaO2% (BldA) [Mass fraction] 95 % Dr. Juan Mckeon Work Phone: [facility] Work Phone: 01-10-2022 16:41-0400 Body height 172.[address] Juan Mckeon Work Phone: [facility] Work Phone: 01-10-2022 16:41-0400 Body mass index (BMI) [Ratio] 20.5 kg/m2 Dr. Juan Mckeon Work Phone: [facility] Work Phone: 01-10-2022 16:41-0400 Body temperature 98.7 [degF] Dr. Juan Mckeon Work Phone: [facility] Work Phone: 01-10-2022 16:41-0400 Body weight 61.[address] Juan Mckeon Work Phone: [facility] Work Phone: 01-01-2022 12:41-0400 Diastolic blood pressure 54 mm[Hg] Juan Mckeon MD Work Phone: [facility] 01-01-2022 12:41-0400 Systolic blood pressure 118 mm[Hg] Juan Mckeon MD Work Phone: [facility] 01-01-2022 12:13-0400 Body weight 58.06 kg Juan Mckeon MD Work Phone: [facility] 01-01-2022 12:13-0400 Heart rate 56 /min Juan Mckeon MD Work Phone: [facility] 01-01-2022 12:13-0400 Respiratory rate 14 /min Juan Mckeon MD Work Phone: [facility] 12-16-2021 15:34-0400 Body mass index (BMI) [Ratio] 20.2 kg/m2 Dr. Juan Mckeon Work Phone: [facility] Work Phone: 12-16-2021 15:34-0400 Body weight 60.[address] Juan Mckeon Work Phone: [facility] Work Phone: 12-16-2021 15:34-0400 Diastolic blood pressure 70 mm[Hg] Dr. Juan Mckeon Work Phone: [facility] Work Phone: 12-16-2021 15:34-0400 Heart rate 56 /min Dr. Juan Mckeon Work Phone: [facility] Work Phone: 12-16-2021 15:34-0400 Respiratory rate 16 /min Dr. Juan Mckeon Work Phone: [facility] Work Phone: 12-16-2021 15:34-0400 Systolic blood pressure 160 mm[Hg] Dr. Juan Mckeon Work Phone: [facility] Work Phone: 10-28-2021 15:26-0400 Diastolic blood pressure 70 mm[Hg] Dr. Juan Mckeon Work Phone: [facility] Work Phone: 10-28-2021 15:26-0400 Systolic blood pressure 148 mm[Hg] Dr. Juan Mckeon Work Phone: [facility] Work Phone: 10-28-2021 11:38-0400 Body mass index (BMI) [Ratio] 19.9 kg/m2 Dr. Juan Mckeon Work Phone: [facility] Work Phone: 10-28-2021 11:38-0400 Body weight 59.[address] Juan Mckeon Work Phone: [facility] Work Phone: 10-28-2021 11:38-0400 Heart rate 57 /min Dr. Juan Mckeon Work Phone: [facility] Work Phone: 03-08-2017 12:53-0500 BMI (Body Mass Index) 21.13 kg/m2 Preethi Cardona [facility] Work Phone: 03-08-2017 12:53-0500 BP Diastolic 80 mm[Hg] [facility] Work Phone: 03-08-2017 12:53-0500 BP Systolic 190 mm[Hg] [facility] Work Phone: 03-08-2017 12:53-0500 Height 172.72 cm [facility] Work Phone: 03-08-2017 12:53-0500 Pulse (Heart Rate) 58 /min [facility] Work Phone: 03-08-2017 12:53-0500 Respiratory Rate 16 /min [facility] Work Phone: 03-08-2017 12:53-0500 Weight 63.05 kg [facility] Work Phone: Encounters Encounter Date Encounter Type Care Provider Facility Start: 02-11-2025 End: 02-11-2025 ambulatory Juan Mcke[place] [place]: 02-11-2025 End: 02-11-2025 Patient encounter procedure Srinivasa GOODSON [facility] Work Phone: Start: 01-19-2025 End: 01-19-2025 ambulatory JUAN MCKEON Facility:[facility] Start: 01-01-2025 End: 01-01-2025 Patient encounter procedure Juan Mckeon MD Work Phone: [facility] Comment on above: Essential hypertensi on with goal blood pressure less than 140/90 (Primary Dx); Mixed hyperlipidemia; Elevated fasting blood sugar; GERD without esophagitis; Coronary atherosclerosis due to lipid rich plaque; Hypertensive heart disease without heart failure; Valvular heart disease; Bilateral carotid artery stenosis; Medication management Start: 01-01-2025 End: 01-01-2025 ambulatory JUAN MCKEON Facility:[facility] Start: 12-26-2024 End: 12-26-2024 ambulatory JUAN MCKEON Facility:[facility] Start: 10-17-2024 End: 10-17-2024 ambulatory Geno Garcia RN [employer] Comment on above: Bi-Weekly Outreach ( Recurring) for Chronic Disease Management, Bi-Weekly Outreach (Recurring) for Chronic Disease Management Start: 10-02-2024 End: 10-02-2024 ambulatory Geno Garcia RN [employer] Comment on above: Bi-Weekly Outreach ( Recurring) for Chronic Disease Management Start: 10-02-2024 End: 10-02-2024 Coordination of care plan Leila Cohen RN Work Phone: [employer] Comment on above: Care Coordination ([facility]/) Start: 09-04-2024 End: 09-04-2024 ambulatory Geno Garcia RN [employer] Comment on above: Bi-Weekly Outreach ( Recurring) for Chronic Disease Management Start: 08-30-2024 End: 08-31-2024 Follow-up encounter Juan Mckeon MD Work Phone: [facility] [place] Comment on above: Results Start: 08-29-2024 End: 08-29-2024 ambulatory JUAN MCKEON Facility:[facility] Start: 08-20-2024 End: 08-20-2024 ambulatory Geno Garcia RN [employer] Comment on above: Initial enrollment o jacque for Chronic Disease Management Start: 08-08-2024 End: 08-08-2024 Chart abstracting Juan Mckeon MD Work Phone: [facility] [place] Comment on above: Outside Cardiology Start: 08-08-2024 End: 08-08-2024 ambulatory Juan Mckeon [place] [place]: 07-20-2024 End: 07-20-2024 Patient encounter procedure Juan Mckeon MD Work Phone: [facility] [place] Comment on above: Medicare annual well ness visit, subsequent (Primary Dx); Essential hypertension with goal blood pressure less than 140/90; Mixed hyperlipidemia; Elevated fasting blood sugar; Hypertensive heart disease without heart failure; Coronary atherosclerosis due to lipid rich plaque; Valvular heart disease; Bilateral carotid artery stenosis; GERD without esophagitis; Benign prostatic hyperplasia without lower urinary tract symptoms; Advance directive discussed with patient; Need for vaccination; Screening for depression Start: 07-20-2024 End: 07-20-2024 ambulatory JUAN MCKEON Facility:[facility] Start: 07-13-2024 End: 07-13-2024 ambulatory JUAN MCKEON Facility:[facility] Start: 06-12-2024 End: 06-12-2024 ambulatory Maryanne Flores MA [facility] [place] [facility] Start: 06-12-2024 End: 06-12-2024 Patient encounter procedure Maryanne Flores MA [facility] Comment on above: Population Health Na vigation Outreach ([employer] High Risk Attempt 1) Start: 02-21-2024 End: 02-21-2024 Chart abstracting Juan Mckeon MD Work Phone: [facility] [place] Comment on above: Outside Cardiology Start: 02-21-2024 End: 02-21-2024 ambulatory Britton Marline [place] Start: 02-08-2024 End: 02-08-2024 Patient encounter procedure [facility] [place] Work Phone: [facility] [place] Start: 02-08-2024 End: 02-08-2024 ambulatory Immunization [facility] [place] Work Phone: [facility] [place] Start: 01-18-2024 End: 01-18-2024 Patient encounter procedure Juan Mckeon MD Work Phone: [facility] [place] Comment on above: Essential hypertensi on with goal blood pressure less than 140/90 (Primary Dx); Mixed hyperlipidemia; Hypertensive heart disease without heart failure; Coronary atherosclerosis due to lipid rich plaque; Elevated fasting blood sugar; GERD without esophagitis; Valvular heart disease; Bilateral carotid artery stenosis; Encounter for immunization; Medication management Start: 09-02-2023 Telephone encounter Juan Mckeon MD Work Phone: [facility] [place] Comment on above: Results Start: 08-19-2023 Telephone encounter Juan Mckeon MD Work Phone: [facility] [place] Comment on above: Results Start: 08-15-2023 Telephone encounter Juan Mckeon MD Work Phone: [facility] [place] Comment on above: Results Start: 07-13-2023 End: 07-13-2023 Patient encounter procedure [facility] MD [facility] Comment on above: Medicare annual well ness visit, subsequent (Primary Dx); Essential hypertension with goal blood pressure less than 140/90; Hypertensive heart disease without heart failure; Mixed hyperlipidemia; Elevated fasting blood sugar; 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 Juna [facility]ke[facility]: Start: 07-01-2023 End: 07-01-[address] 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 Start: 02-01-2023 End: 02-01-2023 Nursing evaluation of patient and report Mi Nurse Work Phone: [facility] [place] Comment on above: Need for vaccination (Primary Dx) Start: 01-22-2023 End: 01-22-2023 ambulatory [facility] [place] Work Phone: [facility] [place] Start: 01-06-2023 End: 01-06-2023 Patient encounter procedure Juan Mcke[facility] MD [facility] Comment on above: Essential hypertensi on with goal blood pressure less than 140/90 (Primary Dx); Hypertensive heart disease without heart failure; Mixed hyperlipidemia; Elevated fasting blood sugar; Coronary atherosclerosis due to lipid rich plaque; GERD without esophagitis; Bilateral carotid artery stenosis; Advance directive discussed with patient; Valvular heart disease; Medication management Start: 12-30-2022 Chart abstracting Juan guzman MD Work Phone: [facility] Comment on above: ext results (Cardio OV) Start: 07-08-2022 End: 07-08-2022 Patient encounter procedure Juan Mckeon MD Work Phone: [facility] Comment on above: Medicare annual [facility] visit, subsequent (Primary Dx); Essential hypertension with goal blood pressure less than 140/90; Mixed hyperlipidemia; Elevated fasting blood sugar; GERD without esophagitis; Bilateral carotid artery stenosis; Coronary atherosclerosis due to lipid rich plaque; Hypertensive heart disease without heart failure; Irritable bowel syndrome, unspecified type; Benign prostatic hyperplasia without lower urinary tract symptoms; Advance directive discussed with patient Start: 04-26-2022 Non-patient / Non-visit Dr. Jaime Mckeon Work Phone: [facility] Start: 04-26-2022 Non-patient / Non-visit Dr. Jaime Mckeon Work Phone: [facility] Start: 04-25-2022 Non-patient / Non-visit Dr. Jaime Mckeon Work Phone: [facility] Start: 04-25-2022 End: 04-27-2022 Evaluation and management of inpatient [facility] Care Unit Start: 04-25-2022 End: 04-27-[address] Juan Mckeon Work Phone: [facility] Work Phone: Start: 03-03-2022 End: 03-03-2022 Office outpatient visit 10 minutes Ana Petersen APRN.CNP Work Phone: [facility] Comment on above: COVID-19 (Primary Dx ) Start: 01-22-2022 End: 01-22-2022 ambulatory Mi Nurse Work Phone: [facility] Start: 01-11-2022 ambulatory Juan weiner MD Work Phone: [facility] Comment on above: ER visit on Tuesday S ept 18 Start: 01-10-2022 End: 01-10-2022 Emergency department patient visit Dr. Juan Mckeon Work Phone: [facility] Start: 01-01-2022 End: 01-01-2022 Patient encounter procedure Juan Mckeon MD Work Phone: [facility] Comment on above: Essential hypertensi on with goal blood pressure less than 140/90 (Primary Dx); Mixed hyperlipidemia; Hypertensive heart disease without heart failure; Coronary atherosclerosis due to lipid rich plaque; GERD without esophagitis; Elevated fasting blood sugar; Bilateral carotid artery stenosis; Medication management Start: 12-16-2021 End: 12-16-[address] Juan Mckeon Work Phone: [facility] Start: 10-28-2021 End: 10-28-[address] Juan Mckeon Work Phone: [facility] Start: 06-25-2021 Patient encounter procedure Juan Mckeon MD Work Phone: [facility] Work Phone: Procedures Date Procedure Procedure Detail Performing Clinician Start: 07-20-2024 PFIZER-BIONTECH COVI D-19 VACCINE AGE 12+ YR [facility] Juan Mckeon MD Work Phone: Start: 07-20-2024 Adult depression scr eening assessment Juan Mckeon MD Work Phone: Start: 01-18-2024 PFIZER-BIONTECH COVI D-19 VACCINE AGE 12+ YR ([facility]) Juan Mckeon MD Work Phone: Start: 07-13-2023 PFIZER-BIONTECH COVI D-19 VACCINE () AGE 12+ YR Juan Mckeon MD Work Phone: Start: 02-01-2023 PFIZER-BIONTECH COVI D-19 VACCINE (2023-24 SEASON) AGE 12+ YR Juan Mckeon MD Work Phone: Start: 01-22-2023 INFLUENZA VACCINE, P RSV FREE, AGE 65+ YR, HIGH DOSE, QUADRIVALENT (FLUZONE HIGH-DOSE) Tal Tyler MD Work Phone: Start: 04-25-2022 Plain chest X-ray Start: 04-25-2022 CT of head without contrast Start: 01-22-2022 INFLUENZA SEASONAL QUADRIVALENT HIGH DOSE AGE 65+ Juan Mckeon MD Work Phone: Start: 01-10-2022 Plain chest X-ray Dr. Nilo Mckeon Work Phone: Start: 04-05-2017 History of placement of stent for coronary artery disease S/P coronary artery stent placement Dr. Juan Mckeon Work Phone: Comment on above: 2.5 X 18 mm Promus S ynergy KOLTON to proximal RCA 04/05/[address] Sewell @ [facility] Start: 03-08-2017 End: 03-08-2017 DJN Federico Sewell MD Work Phone: Start: 03-08-2017 End: 03-08-2017 Ecg routine ecg w/least 12 lds w/i&r Federico Sewell MD Work Phone: Start: 03-08-2017 End: 03-24-2017 Echocardiography Federico Sewell MD Work Phone: Start: 03-08-2017 End: 03-08-2017 Follow Up Appt 6 months Federico Sewell MD Work Phone: Start: 07-15-2015 History of coronary artery bypass grafting S/P CABG x 3 Juan Mckeon MD Work Phone: Start: 03-25-2002 History of coronary artery bypass grafting Hx of CABG Dr. Juan Mckeon Work Phone: Comment on above: x3-sequential [place] - LAD and D1, SVG-Lateral CX 03/29/2002 History of appendectomy Hx of appendectom y Dr. Juan Mckeon Work Phone: History of tonsillectomy History of tonsillectomy Dr. uJan Mckeon Work Phone: Plan of Treatment Date Care Activity Detail Author Start: 12-27-2027 Diabetes Screening Diabetes Screenin g [facility] Start: 07-14-2027 Diabetes Screening Diabetes Screenin g [facility] Start: 01-10-2027 Diabetes Screening Diabetes Screenin g [facility] Start: 06-29-2026 Diabetes Screening Diabetes Screenin g [facility] Start: 01-03-2026 Diabetes Screening Diabetes Screenin g [facility] Start: 12-26-2025 Hepatitis B surface antibody level LDL Cholesterol [facility] Start: 10-22-2025 Influenza vaccination Influenza Vacc ine (#1) [facility] Comment on above: Postponed from 12/24 (Currently Scheduled) Start: 07-20-2025 Depression Screening Depression Scre ening [facility] Start: 07-20-2025 RSV Vaccine (1 - 1-d ose 75+ series) RSV Vaccine (1 - 1-dose 75+ series) [facility] Comment on above: Postponed from 09/23 (Insurance Coverage) Start: 07-20-2025 Shingrix Vaccine (1 of 2) Tellez grix Vaccine (1 of 2) [facility] Comment on above: Postponed from 09/23 (Insurance Coverage) Start: 07-20-2025 Urine microalbumin profile DTaP,Tdap,Td Vaccine (1 - Tdap) [facility] Comment on above: Postponed from 09/23 (Insurance Coverage) Start: 07-13-2025 Hepatitis B surface antibody level LDL Cholesterol [facility] Start: 07-05-2025 DIABETES SCREEN DIABETES SCREEN [facility] Start: 07-05-2025 End: 07-05-2025 Patient encounter procedure 07/05/2025 1:00 PM EDT Office Visit [facility] [address] [place] [address] Juan Mckeon MD [address] [place] [id number] Medicare Wellness [facility] [place] Comment on above: Medicare Wellness Start: 06-14-2025 End: 09-13-2025 CBC W Auto Differential panel - Blood COMPLETE BLOOD COUNT AND DIFFERENTIAL Lab Routine Coronary atherosclerosis due to lipid rich plaque Medication management Expected: 06/14/2025, Expires: 09/13/2025 [facility] Comment on above: Expected: 06/14/2025 , Expires: 09/13/2025 Start: 06-14-2025 End: 09-13-2025 Cobalamin (Vitamin B12) [Mass/volume] in Serum or Plasma VITAMIN B12 Lab Routine GERD without esophagitis Medication management Expected: 06/14/2025, Expires: 09/13/2025 [facility] Comment on above: Expected: 06/14/2025 , Expires: 09/13/2025 Start: 06-14-2025 End: 09-13-2025 Comprehensive metabolic 2000 panel - Serum or Plasma COMPREHENSIVE METABOLIC PANEL Lab Routine Essential hypertension with goal blood pressure less than 140/90 Mixed hyperlipidemia Hypertensive heart disease without heart failure Expected: 06/14/2025, Expires: 09/13/2025 [facility] Work Phone: Comment on above: Expected: 06/14/2025 , Expires: 09/13/2025 Start: 06-14-2025 End: 09-13-2025 Hemoglobin A1c in Blood HEMOGLOBIN A1C Lab Routine Elevated fasting blood sugar Expected: 06/14/2025, Expires: 09/13/2025 [facility] Comment on above: Expected: 06/14/2025 , Expires: 09/13/2025 Start: 06-14-2025 End: 09-13-2025 LIPID PANEL, NONFASTING LIPID PANEL, NONFASTING Lab Routine Essential hypertension with goal blood pressure less than 140/90 Mixed hyperlipidemia Coronary atherosclerosis due to lipid rich plaque Hypertensive heart disease without heart failure Bilateral carotid artery stenosis Expected: 06/14/2025, Expires: 09/13/2025 [facility] Comment on above: Expected: 06/14/2025 , Expires: 09/13/2025 Start: 06-14-2025 End: 09-13-2025 Magnesium [Mass/volume] in Serum or Plasma MAGNESIUM Lab Routine GERD without esophagitis Medication management Expected: 06/14/2025, Expires: 09/13/2025 [facility] Comment on above: Expected: 06/14/2025 , Expires: 09/13/2025 Start: 06-14-2025 End: 09-13-2025 Urinalysis complete panel - Urine URINALYSIS, WITH MICROSCOPIC Lab Routine Essential hypertension with goal blood pressure less than 140/90 Mixed hyperlipidemia Expected: 06/14/2025, Expires: 09/13/2025 [facility] Comment on above: Expected: 06/14/2025 , Expires: 09/13/2025 Start: 01-19-2025 End: 01-19-2025 Patient encounter procedure 01/19/2025 10:40 AM EDT Immunization [facility] [address] [place] [address] [place] Nurse [address] [place] [address] get the shot [facility] [place] Comment on above: get the shot Start: 01-17-2025 Anxiety Screening Anxiety Screening [facility] Comment on above: Postponed from 09/23 (Declined at this time) Start: 01-10-2025 Hepatitis B surface antibody level LDL Cholesterol [facility] Start: 01-04-2025 End: 04-05-2025 Hemoglobin A1c in Blood HEMOGLOBIN A1C Lab Routine Elevated fasting blood sugar Expected: 01/04/2025, Expires: 04/05/2025 [facility] Comment on above: Expected: 01/04/2025 , Expires: 04/05/2025 Start: 01-04-2025 End: 04-05-2025 LIPID PANEL, NONFASTING LIPID PANEL, NONFASTING Lab Routine Essential hypertension with goal blood pressure less than 140/90 Mixed hyperlipidemia Hypertensive heart disease without heart failure Coronary atherosclerosis due to lipid rich plaque Expected: 01/04/2025, Expires: 04/05/2025 [facility] Comment on above: Expected: 01/04/2025 , Expires: 04/05/2025 Start: 01-01-2025 End: 01-01-2025 Patient encounter procedure [facility] [place] Comment on above: Six month follow up HM review Start: 12-29-2024 DIABETES SCREEN DIABETES SCREEN [facility] Start: 10-22-2024 Influenza vaccination Influenza Vacc ine (#1) [facility] Comment on above: Postponed from 12/24 (Currently Scheduled) Start: 08-29-2024 End: 08-29-2024 Patient encounter procedure 08/29/2024 2:30 PM EDT Office Visit [facility] [address] [place], [place] [id number] Dx: Bilateral carotid artery stenosis [I65.23] [facility] Comment on above: Dx: Bilateral caroti d artery stenosis [I65.23] Start: 07-20-2024 End: 07-20-2024 Patient encounter procedure 07/20/2024 1:40 PM EDT [facility] [place] [address] [facility] [place] [address] Juan Mckeon MD [address] [place], [place] [id number] medicare wellness [facility] [place] Comment on above: medicare wellness Start: 07-17-2024 Covid-19 Vaccine ( season) Covid-19 Vaccine ( season) [facility] Start: 07-12-2024 RSV Vaccine (1 - 1-d ose 60+ series) RSV Vaccine (1 - 1-dose 60+ series) [facility] Comment on above: Postponed from 09/23 (Insurance Coverage) Start: 07-12-2024 RSV Vaccine (1 - 1-d ose 75+ series) RSV Vaccine (1 - 1-dose 75+ series) [facility] Comment on above: Postponed from 09/23 (Insurance Coverage) Start: 07-12-2024 Shingrix Vaccine (1 of 2) Tellez grix Vaccine (1 of 2) [facility] Comment on above: Postponed from 09/23 (Insurance Coverage) Start: 07-12-2024 Urine microalbumin profile DTaP,Tdap,Td Vaccine (1 - Tdap) [facility] Comment on above: Postponed from 09/23 (Insurance Coverage) Start: 06-29-2024 End: 09-28-2024 CBC W Auto Differential panel - Blood COMPLETE BLOOD COUNT AND DIFFERENTIAL Lab Routine Medication management Expected: 06/29/2024, Expires: 09/28/2024 [facility] Comment on above: Expected: 06/29/2024 , Expires: 09/28/2024 Start: 06-29-2024 End: 09-28-2024 Cobalamin (Vitamin B12) [Mass/volume] in Serum or Plasma VITAMIN B12 Lab Routine GERD without esophagitis Medication management Expected: 06/29/2024, Expires: 09/28/2024 [facility] Work Phone: Comment on above: Expected: 06/29/2024 , Expires: 09/28/2024 Start: 06-29-2024 End: 09-28-2024 Comprehensive metabolic 2000 panel - Serum or Plasma COMPREHENSIVE METABOLIC PANEL Lab Routine Essential hypertension with goal blood pressure less than 140/90 Mixed hyperlipidemia Hypertensive heart disease without heart failure Elevated fasting blood sugar Expected: 06/29/2024, Expires: 09/28/2024 [facility] Comment on above: Expected: 06/29/2024 , Expires: 09/28/2024 Start: 06-29-2024 End: 09-28-2024 Hemoglobin A1c in Blood HEMOGLOBIN A1C Lab Routine Elevated fasting blood sugar Expected: 06/29/2024, Expires: 09/28/2024 [facility] Comment on above: Expected: 06/29/2024 , Expires: 09/28/2024 Start: 06-29-2024 Hepatitis B surface antibody level LDL Cholesterol [facility] Start: 06-29-2024 End: 09-28-2024 LIPID PANEL, NONFASTING LIPID PANEL, NONFASTING Lab Routine Essential hypertension with goal blood pressure less than 140/90 Mixed hyperlipidemia Hypertensive heart disease without heart failure Coronary atherosclerosis due to lipid rich plaque Bilateral carotid artery stenosis Expected: 06/29/2024, Expires: 09/28/2024 [facility] Comment on above: Expected: 06/29/2024 , Expires: 09/28/2024 Start: 06-29-2024 End: 09-28-2024 Magnesium [Mass/volume] in Serum or Plasma MAGNESIUM Lab Routine GERD without esophagitis Medication management Expected: 06/29/2024, Expires: 09/28/2024 [facility] Comment on above: Expected: 06/29/2024 , Expires: 09/28/2024 Start: 06-29-2024 End: 09-28-2024 Urinalysis complete panel - Urine URINALYSIS, WITH MICROSCOPIC Lab Routine Essential hypertension with goal blood pressure less than 140/90 Mixed hyperlipidemia Hypertensive heart disease without heart failure Expected: 06/29/2024, Expires: 09/28/2024 [facility] Comment on above: Expected: 06/29/2024 , Expires: 09/28/2024 Start: 04-25-2024 Advance Directive Discussion Advance Directive Discussion [facility] Start: 01-25-2024 End: 01-25-2024 Patient encounter procedure 01/25/2024 3:00 PM EDT Immunization [facility] [address] [place] [address] [place] Immun[facility] Nurse [address] [place] [address] get flu shot [facility] [place] Comment on above: get flu shot Start: 01-18-2024 Depression Screening Depression Scre ening [facility] Comment on above: Postponed from 09/23 (Declined at this time) Start: 01-18-2024 End: 01-18-2024 Patient encounter procedure 01/18/2024 1:40 PM EDT Office Visit [facility] [place] [address] [place] [address] Juan Mckeon MD [address] [place] [address] 6 month follow up [facility] [place] Comment on above: 6 month follow up Start: 01-04-2024 Hepatitis B surface antibody level LDL Cholesterol [facility] Start: 12-30-2023 End: 03-30-2024 Hemoglobin A1c in Blood HGB A1C Lab Routine Elevated fasting blood sugar Expected: 12/30/2023, Expires: 03/30/2024 [facility] Work Phone: Comment on above: Expected: 12/30/2023 , Expires: 03/30/2024 Start: 12-30-2023 End: 03-30-2024 LIPID PANEL, NONFASTING LIPID PANEL, NONFASTING Lab Routine Hypertensive heart disease without heart failure Mixed hyperlipidemia Coronary atherosclerosis due to lipid rich plaque Bilateral carotid artery stenosis Expected: 12/30/2023, Expires: 03/30/2024 [facility] Work Phone: Comment on above: Expected: 12/30/2023 , Expires: 03/30/2024 Start: 08-29-2023 End: 11-28-2023 CBC W Auto Differential panel - Blood COMPLETE BLOOD COUNT AND DIFFERENTIAL Lab Routine Anemia, unspecified type Expected: 08/29/2023, Expires: 11/28/2023 [facility] Comment on above: Expected: 08/29/2023 , Expires: 11/28/2023 Start: 08-29-2023 End: 11-28-2023 Cobalamin (Vitamin B12) [Mass/volume] in Serum or Plasma VITAMIN B12 Lab Routine Anemia, unspecified type Expected: 08/29/2023, Expires: 11/28/2023 [facility] Work Phone: Comment on above: Expected: 08/29/2023 , Expires: 11/28/2023 Start: 08-29-2023 End: 11-28-2023 Ferritin [Mass/volume] in Serum or Plasma FERRITIN Lab Routine Anemia, unspecified type Expected: 08/29/2023, Expires: 11/28/2023 [facility] Comment on above: Expected: 08/29/2023 , Expires: 11/28/2023 Start: 08-29-2023 End: 11-28-2023 Folate [Mass/volume] in Serum or Plasma FOLATE, SERUM Lab Routine Anemia, unspecified type Expected: 08/29/2023, Expires: 11/28/2023 [facility] Comment on above: Expected: 08/29/2023 , Expires: 11/28/2023 Start: 08-29-2023 End: 11-28-2023 Iron and Iron binding capacity panel - Serum or Plasma IRON AND TIBC Lab Routine Anemia, unspecified type Expected: 08/29/2023, Expires: 11/28/2023 [facility] Comment on above: Expected: 08/29/2023 , Expires: 11/28/2023 Start: 08-18-2023 End: 08-18-2023 Patient encounter procedure 08/18/2023 2:30 PM EDT Office Visit [facility] [address] [place] [address] Bilateral carotid artery stenosis [I65.23] [facility] Comment on above: Bilateral carotid ar freddie stenosis [I65.23] Start: 08-13-2023 End: 11-12-2023 CBC W Auto Differential panel - Blood CBC + DIFF Lab Routine Abnormal platelets (HCC) Expected: 08/13/2023, Expires: 11/12/2023 [facility] Work Phone: Comment on above: Expected: 08/13/2023 , Expires: 11/12/2023 Start: 07-09-2023 SHINGRIX VACCINE (1 of 2) TELLEZ GRIX VACCINE (1 of 2) [facility] Comment on above: Postponed from 09/23 (Insurance Coverage) Start: 07-09-2023 Urine microalbumin profile [facility] Comment on above: Postponed from 09/23 (Insurance Coverage) Start: 07-06-2023 Hepatitis B surface antibody level LDL CHOLESTEROL [facility] Start: 07-02-2023 [facility] Start: 06-26-2023 [facility] Start: 06-24-2023 End: 08-24-2023 CBC W Auto Differential panel - Blood CBC + DIFF Lab Routine Medication management Expected: 06/24/2023, Expires: 08/24/2023 [facility] Work Phone: Comment on above: Expected: 06/24/2023 , Expires: 08/24/2023 Start: 06-24-2023 End: 08-24-2023 Cobalamin (Vitamin B12) [Mass/volume] in Serum or Plasma VITAMIN B12 BLOOD Lab Routine GERD without esophagitis Medication management Expected: 06/24/2023, Expires: 08/24/2023 [facility] Work Phone: Comment on above: Expected: 06/24/2023 , Expires: 08/24/2023 Start: 06-24-2023 End: 08-24-2023 Comprehensive metabolic 2000 panel - Serum or Plasma COMP METABOLIC PANEL Lab Routine Essential hypertension with goal blood pressure less than 140/90 Hypertensive heart disease without heart failure Mixed hyperlipidemia Elevated fasting blood sugar Expected: 06/24/2023, Expires: 08/24/2023 [facility] Work Phone: Comment on above: Expected: 06/24/2023 , Expires: 08/24/2023 Start: 06-24-2023 End: 08-24-2023 Hemoglobin A1c in Blood HGB A1C Lab Routine Elevated fasting blood sugar Expected: 06/24/2023, Expires: 08/24/2023 [facility] Work Phone: Comment on above: Expected: 06/24/2023 , Expires: 08/24/2023 Start: 06-24-2023 End: 08-24-2023 LIPID PANEL, NONFASTING LIPID PANEL, NONFASTING Lab Routine Essential hypertension with goal blood pressure less than 140/90 Hypertensive heart disease without heart failure Mixed hyperlipidemia Coronary atherosclerosis due to lipid rich plaque Bilateral carotid artery stenosis Expected: 06/24/2023, Expires: 08/24/2023 [facility] Work Phone: Comment on above: Expected: 06/24/2023 , Expires: 08/24/2023 Start: 06-24-2023 End: 08-24-2023 Magnesium [Mass/volume] in Serum or Plasma MAGNESIUM BLD Lab Routine GERD without esophagitis Medication management Expected: 06/24/2023, Expires: 08/24/2023 [facility] Work Phone: Comment on above: Expected: 06/24/2023 , Expires: 08/24/2023 Start: 06-24-2023 End: 08-24-2023 Urinalysis complete panel - Urine URINALYSIS, WITH MICROSCOPIC Lab Routine Essential hypertension with goal blood pressure less than 140/90 Hypertensive heart disease without heart failure Mixed hyperlipidemia Expected: 06/24/2023, Expires: 08/24/2023 [facility] Work Phone: Comment on above: Expected: 06/24/2023 , Expires: 08/24/2023 Start: 04-25-2023 Advance Directive Discussion Advance Directive Discussion [facility] Start: 04-25-2023 Behavioral Health Screening Behavioral Health Screening [facility] Start: 04-25-2023 Depression Assessment Depression Ass essment [facility] Start: 12-29-2022 Hepatitis B surface antibody level LDL CHOLESTEROL [facility] Start: 12-24-2022 End: 02-23-2023 Hemoglobin A1c in Blood HGB A1C Lab Routine Elevated fasting blood sugar Expected: 12/24/2022, Expires: 02/23/2023 [facility] Work Phone: Comment on above: Expected: 12/24/2022 , Expires: 02/23/2023 Start: 12-24-2022 Influenza vaccination [facility] Start: 12-24-2022 End: 02-23-2023 LIPID PANEL, NONFASTING LIPID PANEL, NONFASTING Lab Routine Essential hypertension with goal blood pressure less than 140/90 Mixed hyperlipidemia Bilateral carotid artery stenosis Coronary atherosclerosis due to lipid rich plaque Expected: 12/24/2022, Expires: 02/23/2023 [facility] Work Phone: Comment on above: Expected: 12/24/2022 , Expires: 02/23/2023 Start: 06-25-2022 SHINGRIX VACCINE (1 of 2) TELLEZ GRIX VACCINE (1 of 2) [facility] Comment on above: Postponed from 09/23 (Insurance Coverage) Start: 06-25-2022 Urine microalbumin profile DTAP,TDAP,TD (1 - Tdap) [facility] Comment on above: Postponed from 09/23 (Insurance Coverage) Start: 06-18-2022 End: 08-18-2022 CBC W Auto Differential panel - Blood CBC + DIFF Lab Routine Medication management Expected: 06/18/2022, Expires: 08/18/2022 [facility] Work Phone: Comment on above: Expected: 06/18/2022 , Expires: 08/18/2022 Start: 06-18-2022 End: 08-18-2022 Cobalamin (Vitamin B12) [Mass/volume] in Serum or Plasma VITAMIN B12 BLOOD Lab Routine GERD without esophagitis Medication management Expected: 06/18/2022, Expires: 08/18/2022 [facility] Work Phone: Comment on above: Expected: 06/18/2022 , Expires: 08/18/2022 Start: 06-18-2022 End: 08-18-2022 Comprehensive metabolic 2000 panel - Serum or Plasma COMP METABOLIC PANEL Lab Routine Essential hypertension with goal blood pressure less than 140/90 Mixed hyperlipidemia Hypertensive heart disease without heart failure Elevated fasting blood sugar Expected: 06/18/2022, Expires: 08/18/2022 [facility] Work Phone: Comment on above: Expected: 06/18/2022 , Expires: 08/18/2022 Start: 06-18-2022 End: 08-18-2022 Hemoglobin A1c in Blood HGB A1C Lab Routine Elevated fasting blood sugar Expected: 06/18/2022, Expires: 08/18/2022 [facility] Work Phone: Comment on above: Expected: 06/18/2022 , Expires: 08/18/2022 Start: 06-18-2022 End: 08-18-2022 LIPID PANEL, NONFASTING LIPID PANEL, NONFASTING Lab Routine Essential hypertension with goal blood pressure less than 140/90 Mixed hyperlipidemia Coronary atherosclerosis due to lipid rich plaque Expected: 06/18/2022, Expires: 08/18/2022 [facility] Work Phone: Comment on above: Expected: 06/18/2022 , Expires: 08/18/2022 Start: 06-18-2022 End: 08-18-2022 Magnesium [Mass/volume] in Serum or Plasma MAGNESIUM BLD Lab Routine GERD without esophagitis Medication management Expected: 06/18/2022, Expires: 08/18/2022 [facility] Work Phone: Comment on above: Expected: 06/18/2022 , Expires: 08/18/2022 Start: 06-18-2022 End: 08-18-2022 Urinalysis complete panel - Urine URINALYSIS, WITH MICROSCOPIC Lab Routine Essential hypertension with goal blood pressure less than 140/90 Mixed hyperlipidemia Hypertensive heart disease without heart failure Expected: 06/18/2022, Expires: 08/18/2022 [facility] Work Phone: Comment on above: Expected: 06/18/2022 , Expires: 08/18/2022 Start: 06-05-2022 COVID-19 VACCINE (6 - Moderna series) COVID-19 VACCINE (6 - Moderna series) [facility] Start: 04-27-2022 Patient discharge [facility] Work Phone: Start: 04-26-2022 Referral to healthcare account manager [facility] Work Phone: Start: 04-25-2022 Following clinical pathway protocol [facility] Work Phone: Start: 04-25-2022 Transfusion of blood product [facility] Work Phone: Start: 04-25-2022 Assessment of risk o f venous thromboembolism [facility] Work Phone: Start: 04-25-2022 Cardiac monitoring [facility] Work Phone: Start: 04-25-2022 Catheterization of vein [facility] Work Phone: Start: 04-25-2022 Incentive spirometry [facility] Work Phone: Start: 04-25-2022 Insertion of cathete r into peripheral vein [facility] Work Phone: Start: 04-25-2022 Measuring intake and output [facility] Work Phone: Start: 04-25-2022 Oxygen therapy [facility] Work Phone: Start: 04-25-2022 Providing care accor ding to standard [facility] Work Phone: Start: 04-25-2022 Provision of activit y privileges [facility] Work Phone: Start: 04-25-2022 Referral to occupati onal therapist [facility] Work Phone: Start: 04-25-2022 Referral to service [facility] Work Phone: Start: 04-25-2022 [facility] Work Phone: Start: 04-25-2022 Admission procedure [facility] Work Phone: Start: 04-25-2022 End: 04-25-2022 [facility] Work Phone: Start: 01-10-2022 [facility] Work Phone: Start: 12-24-2021 Influenza vaccination INFLUENZA (#1) [facility] Start: 10-02-2021 COVID-19 VACCINE (5 - Booster for Moderna series) COVID-19 VACCINE (5 - Booster for Moderna series) [facility] Start: 04-25-2021 ADVANCE DIRECTIVE DISCUSSION ADVANCE DIRECTIVE DISCUSSION [facility] Start: 04-25-2021 DEPRESSION ASSESSMENT DEPRESSION ASS ESSMENT [facility] Start: 09-22-2017 End: 09-22-2017 Appointment Appointment [facility] Work Phone: Start: 03-08-2017 End: 03-08-2017 DJN DJN [facility] Work Phone: Start: 03-08-2017 End: 03-08-2017 Echocardiography Echocardiogram (complete) [facility] Work Phone: Start: 03-08-2017 End: 03-08-2017 Follow Up Appt 6 months Follow Up Appt 6 months [facility] [employer] Work Phone: Start: 03-08-2017 End: 03-24-2017 Stress Echocardiogram (treadmill) Stress Echocardiogram (treadmill) [facility] Work Phone: Start: 03-08-2017 End: 03-08-2017 Appointment Appointment [facility] Phone: Start: 1995 RSV Vaccine (1 - 1-d ose 60+ series) RSV Vaccine (1 - 1-dose 60+ series) [facility] Start: [birth year]23-1953 Depression Screening Depression Scre ening [facility] Bilirubin measuremen t, urine [facility] Work Phone: Hemoglobin [Presence ] in Urine [facility] Work Phone: Measurement of keton es in urine using dipstick [facility] Work Phone: Microscopic urinalysis [facility] Work Phone: Patient Education [facility] Work Phone: Patient referral [facility] Work Phone: pH of Urine [facility] Work Phone: Specific gravity of Urine [facility] Work Phone: Urinalysis, blood, qualitative [facility] Work Phone: Urine dipstick for glucose [facility] Work Phone: Urine dipstick for leukocyte esterase [facility] Work Phone: Urine dipstick for nitrite [facility] Work Phone: Urine dipstick for protein [facility] Work Phone: Urine examination [facility] Work Phone: Urine microscopy: epithelial cells [facility] Work Phone: Urine Microscopy: wh ite cells [facility] Work Phone: Urobilinogen [Presen ce] in Urine [facility] Work Phone: End: 07-12-2024 US Carotid arteries - bilateral US CAROTID ARTERIES [facility] Lab Routine Bilateral carotid artery stenosis 1 Occurrences starting 07/13/2023 until 07/12/2024 [facility] Work Phone: Comment on above: 1 Occurrences starti ng 07/13/2023 until 07/12/2024 End: 07-20-2025 US Carotid arteries - bilateral US CAROTID ARTERIES [facility] V[facility] Lab Routine Bilateral carotid artery stenosis 1 Occurrences starting 07/20/2024 until 07/20/2025 [facility] Work Phone: Comment on above: 1 Occurrences starti ng 07/20/2024 until 07/20/2025 [facility] Immunizations Immunization Date Immunization Notes Care Provider David carrillo 07-20-2024 COVID-19 vaccine, ag e 12+ yr (UpSpring-BIONTHelloFresh [facility]) Juan Mckeon MD Work Phone: [facility] 02-08-2024 influenza, high dose seasonal, preservative-free Immunization [facility] Work Phone: [facility] 02-08-2024 influenza virus vaccine, unspecified formulation Juan Mckeon MD Work Phone: [facility] 01-18-2024 COVID-19 vaccine, ag e 12+ yr (PFIZER-BIONTECH COMIRNATY) Juan Mckeon MD Work Phone: [facility] 07-13-2023 COVID-19 vaccine, ag e 12+ yr, season (PFIZER-BIONTECH) Juan Mckeon MD Work Phone: [facility] 02-01-2023 COVID-19 vaccine, ag e 12+ yr, season (PFIZER-BIONTECH) [facility] Work Phone: [facility] Work Phone: 01-22-2023 influenza (HD-IIV4) vaccine, age 65+ yr, high dose, quadrivalent, PF (FLUZONE HIGH-DOSE) Immunization [facility] Work Phone: [facility] 01-22-2023 influenza virus vaccine, unspecified formulation Juan Mckeon MD Work Phone: [facility] 01-22-2022 influenza, high-dose , quadrivalent vaccine (FLUZONE HIGH DOSE QUADRIVALENT) [facility] Work Phone: [facility] Work Phone: 01-22-2022 influenza virus vaccine, unspecified formulation Juan Mckeon MD Work Phone: [facility] 08-07-2021 COVID-19 vaccine, booster dose (MODERNA) Juan Mckeon MD Work Phone: [facility] 01-16-2021 influenza, high-dose , quadrivalent vaccine (FLUZONE HIGH DOSE QUADRIVALENT) Juan Mckeon MD Work Phone: [facility] Work Phone: 06-27-2020 Covid (Moderna) Dr. Juan Mckeon Work Phone: [facility] 05-30-2020 COVID-19 vaccine, fu ll dose (MODERNA) Juan Mckeon MD Work Phone: [facility] Work Phone: 01-26-2020 influenza, high-dose , quadrivalent vaccine (FLUZONE HIGH DOSE QUADRIVALENT) Juan Mckeon MD Work Phone: [facility] 01-30-2019 influenza, high dose seasonal, preservative-free Juan Mckeon MD Work Phone: [facility] 01-13-2018 influenza, high dose seasonal, preservative-free Juan Mckeon MD Work Phone: [facility] Work Phone: 01-24-2017 influenza, high dose seasonal, preservative-free Juan Mckeon MD Work Phone: [facility] 01-23-2017 influenza, injectabl e, quadrivalent, preservative free [facility] 01-23-2017 influenza, seasonal, injectable Dr. Juan Mckeon Work Phone: [facility] Work Phone: 01-16-2016 influenza, high dose seasonal, preservative-free Juan Mckeon MD Work Phone: [facility] 08-29-2015 pneumococcal polysaccharide vaccine, 23 valent Juan Mckeon MD Work Phone: [facility] 01-23-2015 influenza, high dose seasonal, preservative-free Juan Mckeon MD Work Phone: [facility] 08-30-2014 pneumococcal conjuga te vaccine, 13 valent Juan Mckeon MD Work Phone: [facility] Work Phone: 01-30-2014 influenza, seasonal, injectable Juan Mckeon MD Work Phone: [facility] 02-03-2013 influenza virus vaccine, unspecified formulation Juan Mckeon MD Work Phone: [facility] 03-04-2012 influenza virus vaccine, unspecified formulation Juan Mckeon MD Work Phone: [facility] 02-02-2011 influenza virus vaccine, unspecified formulation Juan Mckeon MD Work Phone: [facility] Work Phone: 02-13-2010 influenza virus vaccine, unspecified formulation Juan Mckeon MD Work Phone: [facility] Work Phone: 02-15-2008 influenza virus vaccine, unspecified formulation Juan Mckeon MD Work Phone: [facility] Work Phone: 02-21-2006 influenza virus vaccine, unspecified formulation Juan Mckeon MD Work Phone: [facility] Work Phone: 03-25-2002 pneumococcal polysaccharide vaccine, 23 valent Juan Mckeon MD Work Phone: [facility] Work Phone: Payers Date Payer Category Payer Self-pay [id number] 2021 Medicare AETNA MEDICARE A ETNA MEDICARE PPO [id number] 2021-Present [phone] [address] [place] [address] [facility] [id number] 2021 Medicare (Managed Care) [employer] [place] [id number] 2021 Private Health Insurance [facility] [id number] 2000 Medicare [employer] MEDICARE PPO [id number] Medicare MEDICARE PART A B [id number] Unknown [id number] Unknown [id number] Unknown [id number] Social History Date Type Detail Facility Start: 02-16-2011 End: 07-02-2023 Tobacco smoking status NHIS Never smoked tobacco [facility] Work Phone: Start: 02-16-2011 Tobacco use and exposure Smoke less tobacco non-user [facility] Work Phone: Start: 01-01-2022 End: 01-01-2025 Alcohol intake Current drinker of alcohol (finding) [facility] Start: 11-13-2019 End: 03-03-2022 History SDOH Alcohol Frequency 1 [facility] Start: 11-09-2019 End: 11-13-2019 History SDOH Alcohol Std Drinks 98 [facility] Start: 02-05-2010 History SDOH Alcohol Comment rarely [facility] Start: 11-09-2019 End: 03-03-2022 History SDOH Social Connections Phone 4 [facility] Start: 11-09-2019 End: 03-03-2022 History SDOH Social Connections Get Together 2 [facility] Start: 11-09-2019 End: 03-03-2022 History SDOH Social Connections Living 3 [facility] Start: 11-09-2019 End: 03-03-2022 History SDOH Physical Activity DPW 7 [facility] Start: 11-09-2019 End: 03-03-2022 History SDOH Physical Activity MPS 5 [facility] Start: 11-09-2019 Education 17 [facility] Start: 1935 Sex Assigned At Male C [facility] Start: 12-22-2021 End: 01-01-2022 Exposure to SARS-CoV-2 (event) Not sure [facility] Start: 01-10-2022 End: 07-02-2023 Tobacco smoking status NHIS Unknown if ever smoked [facility] Start: 03-03-2022 History SDOH Alcohol Std Drinks 0 [facility] Start: 03-03-2022 History SDOH Physica l Activity MPS 6 [facility] Start: 03-03-2022 End: 01-06-2023 History of Social function [facility] Start: 03-03-2022 End: 01-06-2023 Social connection and isolation panel [facility] Do you belong to any clubs or organizations such as jainism groups, unions, fraternal or athletic groups, or school groups? Yes [facility] Are you now , , , , never or living with a partner? [facility] How often to you hav e a drink containing alcohol? Never [facility] Start: 03-26-[address] inks containing alcohol do you have on a typical day? Patient does not drink [facility] Do you feel stress - tense, restless, nervous, or anxious, or unable to sleep at night because your mind is troubled all the time - these days [OSQ] Only a little [facility] (I/We) worried wheth er (my/our) food would run out before (I/we) got money to buy more. Never true [facility] In the past 12 month s, was there a time when you were not able to pay the mortgage or rent on time? No [facility] Start: 01-24-2020 Gender identity Identifies as male gender (finding) [facility] Start: 01-24-2020 Sexual orientation Choose not to dis close [facility] Functional Status Date Assessment Result Facility 07-20-2024 Total score [AUDIT-C] 0 07/21/19 25 1:43 PM Ester Navas MA [facility] 04-27-2022 Functional status Ambulates [facility] Work Phone: 04-26-2022 Functional status None [facility] Work Phone: 08-30-2014 Are you deaf, or do you have serious difficulty hearing No 08/30/2014 1:17 PM EDT Jaci Padgett LPN No [facility] 08-30-2014 Are you blind, or do you have serious difficulty seeing, even when wearing glasses No 08/30/2014 1:17 PM EDT Jaci Padgett LPN No [facility] 08-30-2014 Do you have serious difficulty walking or climbing stairs No 08/30/2014 1:17 PM EDT Jaci Padgett LPN No [facility] 08-30-2014 Do you have difficul ty dressing or bathing No 08/30/2014 1:17 PM EDT Jaci Padgett LPN No [facility] 08-30-2014 Because of a physica l, mental, or emotional condition, do you have difficulty doing errands alone such as visiting a physician's office or shopping No 08/30/2014 1:17 PM EDT Jaci Padgett LPN No [facility] Mental Status Date Assessment Result Facility 07-02-2023 Cognitive function Level Of Cons ciousness Awake;Alert;Appropriate [facility] Work Phone: 06-26-2023 Cognitive function Level Of Cons ciousness Awake;Alert;Appropriate;Fol lows Commands [facility] Work Phone: 04-27-2022 Cognitive function Voice/Name [facility] Work Phone: 04-25-2022 Cognitive function Level Of Cons ciousness Awake;Alert;Appropriate;Fol lows Commands [facility] Work Phone: 01-10-2022 Cognitive function Level Of Cons ciousness Awake;Alert;Appropriate;Fol lows Commands [facility] Work Phone: 08-30-2014 Because of a physica l, mental, or emotional condition, do you have serious difficulty concentrating, remembering, or making decisions No 08/30/2014 1:17 PM EDT Jaci Padgett LPN [facility] Clinical Notes 05-05-2013 to 02-11-2025 Note Date & Type Note Facility 02-11-2025 Progress note [facility] 02-11-2025 Progress note Note Date/Time February 11, 2025 2:33pm [facility] [address] [place] [address] OFFICE VISIT Date of Service: 02/11/25 MR#: [id number] Acct: [id number] Name: GERMAN TREJO Rep # : [id number] : 1935 Provider: KELLEE El Age/Sex: 89/M Location: [facility] Status: Signed HPI HPI History of Present Illness Details: GERMAN TREJO, is a 89 M who presents to the office today for a cardiovascular follow-up. He has a history of coronary artery disease status post PCI to LAD and diagonal with BMS in 02/2002 and KOLTON to RCA in 03/2017. 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 He also has a history of hypertension, hyperlipidemia, diverticulitis, GI bleed, and BPH. He has had some recent changes to his blood pressure medications but he says that it still uncontrolled. He denies chest, arm, jaw, or neck discomfort. He states a dull sensation intermittent with and without activity. He denies palpitations. He denies bilateral lower extremity edema. He denies claudication. He denies shortness of breath with activity, shortness of breath at rest, orthopnea, or PND. He denies chronic cough. He denies significant, sudden weight gain. He denies lightheadedness, dizziness, near-syncope, or syncope. He denies blood in urine,blood in stool, or epistaxis. He denies fever with chills. He denies myalgia. He denies fatigue. His exercise level has remained stable with regular walking upwards to 1.5 miles. 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 Is patient in pain?: No Allergies famotidine (From Pepcid) Allergy (Verified 02/11/25 12:55) Unknown ranitidine Allergy (Verified 02/11/25 12:55) Unknown Medications ?Medication ?Instructions ?Recorded ?Confirmed ?Type aspirin 81 mg tablet,delayed 81 mg PO QDAY 03/30/17 History release (Adult Low Dose Aspirin) multivitamin with folic acid 400 1 tab PO DAILY #90 ta bs 02/26/21 02/11/25 Rx mcg tablet doxazosin 2 mg tablet 2 mg PO QDAY #180 tabs 02/2002/11/25 Rx ramipril 10 mg capsule 10 mg PO BID 30 days #60 cap s 07/11/24 02/11/25 Rx clopidogrel 75 mg tablet 75 mg PO DAILY #90 tabs 11/2302/11/25 Rx atorvastatin 20 mg tablet 20 mg PO QHS #90 TABLETS 02/11/25 Rx carvedilol 6.25 mg tablet 6.25 mg PO BID #180 tabs 02/11/25 Rx Ejection fraction %: 65 Have you fallen in the past year?: No COUNT INCLUDES THE [facility] Medical History Encounter for long-term current use of high risk medication Hypersomnia, unspecified Hypertension Actinic keratitis GI bleed BPH (benign prostatic hyperplasia) Diverticulitis Hyperlipidemia Atherosclerosis of coronary artery of [place] heart without angina pectoris Surgical History Cataract Hx of appendectomy History of tonsillectomy Hx of CABG (~03/29/02) S/P coronary artery stent placement (04/05/17) Family History Father CAD (coronary artery disease) Sister CAD (coronary artery disease) Social History Smoking Status: Never smoker alcohol intake: never substance use type: does not use caffeine: Yes Type: coffee and tea what type of physical activity do you participate in: walking, bicycling, weight training and other details: cardiac rehab frequency: daily duration: 30-45 minutes/day seatbelt use: always do you feel safe at home: Yes ROS Const Const: Negative for fatigue, weakness, headache(s) or frequent falls Eyes Eyes: Negative for blurry vision ENT ENT: Negative for headache(s), dizziness or Nosebleed/epistaxis Cardio Chest Pain: No Palpitations: No Edema: None Muscle aches with walking: None Resp Respiratory: Negative for SOB with activity, SOB at rest or SOB orthopnea\SOB lying down GI GI: Positive for heartburn; Negative nausea, vomiting, bright, red blood in stools or black,tarry stools : Negative for hematuria Neuro Neuro: Negative for dizziness, lightheadedness, near syncope, syncope, frequent falls, headache(s), weakness or blurry vision Endo Endo: Negative for fatigue Cardiology Exam Const Appearance: cooperative, healthy appearing, comfortable and no acute distress Nutritional Appearance: average body habitus and well nourished Orientation: alert, awake and oriented x3 Head Head: normal to inspection Ears: hearing grossly normal bilaterally Nose: external nose normal Face and Sinus: face symmetric Mouth: moist mucous membranes Eyes General: appearance normal, both eyes and all related structures Eyelids: eyelids normal EOM: EOM intact bilaterally Neck Neck: normal visual inspection and no JVD Carotids: normal carotid upstroke Chest Chest inspection: normal inspection of the chest, symmetric chest movement and normal respiratory effort; Negative cough Auscultation: Bilateral: Clear to Auscultation Cardio Rate: regular rate and bradycardic Rhythm: regular rhythm Heart sounds: S1 normal, S2 normal and murmur; Negative rub or gallop Murmur: Grade 1/6 and JOSE loudest primary aortic area GI GI: normal to inspection Neuro General: patient alert, patient awake, patient oriented x3 and CN's II-XI intactbilaterally Skin Skin: no rashes or lesions noted Extremities Pulses: Normal: Right Posterior Tibial Pulse, Left Posterior Tibial Pulse, RightRadial Pulse and Left Radial Pulse Lower Extremity Edema: +1: Bilateral Psych Psychological: normal affect Supplemental Info Supplemental Information Echocardiogram 04/25/2022: Left ventricular systolic function is normal. The estimated ejection fraction is 65 %. Apical false tendon noted. The left atrium is mildly enlarged. Mild diffuse mitral valve thickening. Mild (1+) mitral valve insufficiency. Moderate (2+) eccentric tricuspid valve insufficiency. Mild diffuse aortic valve thickening. Mild diffuse aortic valve calcification. Right ventricular systolic pressure estimated to be 50 mmHg. Stage 2 diastolic dysfunction. Echocardiogram 01/26/2021: Normal LV size. Left ventricular systolic function is normal. The estimated ejection fraction is 60 %. Stage 1 diastolic dysfunction. Pulmonary artery systolic pressure is 34 mmHg. Stress echocardiogram from 08/15/2018: Interpretation Summary The estimated ejection fraction is 65 %. Normal, adequate, treadmill echocardiogram. Negative for ischemia by EKG and echocardiographic criteria. No anginal symptoms noted. No arrhythmias noted. Average exercise capacity for age. Appropriate blood pressure response to to exercise. Final LVEF of 75%. Test terminated due to attainment of target heart rate and fatigue. No complications. 30-day Event Monitor 05/19/22 This did demonstrate an average heart rate of 68.5 bpm. Maximum heart rate was 99 bpm, minimum heart rate 45 bpm, average heart rate 57 bpm, no pauses greater than 3 seconds. Carotid Duplex 06/11/21 Interpretation Summary Mild (<50%) stenosis right extracranial internal carotid. Stenosis in the left internal carotid artery appears to be approximately 50%. Flow within the vertebral arteries is antegrade bilaterally. Diagnostics: Electrocardiogram Echocardiogram Stress Echocardiogram Chest X-Ray Carotid Duplex Past Visits: Cardiology Visit Today Assessment and Plan Assessment and Plan (1) Atherosclerosis of coronary artery of [place] heart without angina pectoris: Status: Chronic Qualifiers: Coronary Disease-Associated Artery/Lesion type: [place] artery QualifiedCode(s): I25.10 - Atherosclerotic heart disease of [place] coronary artery without angina pectoris; I25.10 - Atherosclerotic heart disease of [place] coronary artery without angina pectoris; I25.10 - Atherosclerotic heart disease of [place] coronary artery without angina pectoris Comment: CABG [place] to LAD and D1, SVG to lateral LCX 03/29/2002; PCI to Prox LAD 01/19/2002; PCI to LAD and D1 03/15/2002, PCI to RCA 03/2017 Plan: Stress echocardiogram in July 2018 was negative for ischemia with baseline blood pressure 142/80. This appears stable. We will continue to monitor and not make any medication regimen changes. We will continue to promote risk factor and lifestyle modification. It is encouraged that he is active on a regular basis. (2) Hypertension: Status: Chronic Qualifiers: Hypertension type: essential hypertension Qualified Code(s): I10 - Essential (primary) hypertension; I10 - Essential (primary) hypertension; I10 - Essential (primary) hypertension Plan: His blood pressure has been a challenge to control. He is continue to have medication adjustments. It remains elevated today, but is on average better controlled at home. Echocardiogram in April 2022 showed LV function 65%, normal LV size, and stage II diastolic dysfunction. He states it tends to be higher when his medications wear off. Will continue to follow home blood pressure readings and adjust as needed. He remains agreeable to this approach today. (3) Hyperlipidemia: Status: Chronic Qualifiers: Hyperlipidemia type: mixed hyperlipidemia Qualified Code(s): E78.2 - Mixed hyperlipidemia; E78.2 - Mixed hyperlipidemia; E78.2 - Mixed hyperlipidemia Plan: PCP manages lipids, he will continue with current dose of statin. The patient was reminded of LDL goal of 70 and below for secondary prevention. (4) Syncope: Status: Resolved Plan: On account of this previously, his carvedilol was reduced and his diuretics werediscontinued. He denies any reoccurring episodes. We will continue to monitor this closely given multiple medication side effects affecting blood pressure andheart rate. Medications: Refilled atorvastatin 20 mg PO QHS 90 TABLETS 3RF carvedilol 6.25 mg PO BID 180 tabs 3RF Plan Details Additional Comments: Thank you for allowing us to participate in the patients plan of care, if you have any questions please do not hesitate to call. Plan was reviewed with patient/family member along with red flag symptoms. Understanding was acknowledged. Questions were answered to apparent satisfaction. This note was generated using a voice recognition system and there may be incorrect words, spelling or punctuation that were not noted when reviewing the office note prior to saving. Portions of this documentation were copied and pasted from previous office visitnotes to provide a cohesive continuity of the history. The note has been reviewed, edited, and updated, as necessary. Follow Up: [facility] (For Continuity of Care) Keep as is (FORM WORKER) Coding Level of Care Code Off vis,est,level 4 Diagnoses Atherosclerosis of [place] coronary artery of [place] heart without angina pectoris I25.10; I25.10; I25.10 Coronary Disease-Associated Artery/Lesion type: [place] artery Essential hypertension I10; I10; I10 Hypertension type: essential hypertension Mixed hyperlipidemia E78.2; E78.2; E78.2 Hyperlipidemia type: mixed hyperlipidemia Syncope R55 Coding Level of Care Code Off vis,est,level 4 Diagnoses Atherosclerosis of [place] coronary artery of [place] heart without angina pectoris I25.10; I25.10; I25.10 Coronary Disease-Associated Artery/Lesion type: [place] artery Essential hypertension I10; I10; I10 Hypertension type: essential hypertension Mixed hyperlipidemia E78.2; E78.2; E78.2 Hyperlipidemia type: mixed hyperlipidemia Syncope R55 Clinical Quality Measures Falls Risk Screening/Assistive Devices Have you fallen in the past year?: No Cardiac Ejection fraction %: 65 02/11/25 1444 <Electronically signed by Srinivasa El N P PRICE ANALYST-C> Date _ Srinivasa El NP PRICE ANALYST-C Cosigner Signature: Date (if applicable) CC: Dr. Juan Mckeon MD ~ [facility] Work Phone: [phone]) 742-248509-09-2025 Instructions* Patient Instructions* Juan Mckeon MD - 01/01/2025 1:56 PM EDT Please get labs and urine test done on or after 06/14/2025 prior to your next visit. We discussed your vaccinations: - You are scheduled to receive your flu shot on January 19. This timing is appropriate, and youmay proceed as planned. - The updated COVID-19 vaccine is expected to be available in January. Once it is released, you canreceive it at a local pharmacy if our office does not have it in stock. We reviewed your recent lab results: - Your cholesterol levels are excellent: - Triglycerides: 74 (well below the target of 150). - HDL (good cholesterol): 43 (above the target of 40 and improved from 39 last time). - LDL (bad cholesterol): 54 (lower than your previous result of 61). - Your A1c, which measures blood sugar control, has improved to 5.7. This is close to the normal range (below 5.6). Continue managing your sugar intake to maintain or further improve this result. We discussed your blood pressure: - Your home blood pressure readings are consistently in the normal range (120-130/75). - Your blood pressure in the office today was 132/70, which is also within an acceptable range. We discussed your general health: - You reported no recent fevers, lumps or swelling in your neck, wheezing, shortness of breath, coughing up blood, chest pain, irregular heartbeats, nausea, vomiting, diarrhea, or significant heartburn. - You noted mild, longstanding swelling in your legs, which has not worsened. - You denied any new changes in your tolerance to heat or cold, increased thirst, frequent headaches, fainting, seizures, or tremors. No medication refills were needed today. Continue monitoring your health and let us know if you experience any new or concerning symptoms. [facility] History of Present illness Narrative* Juan Mckeon MD - 01/01/2025 1:40 PM EDT Chief Complaint Patient presents with: F/U 6 Month HPI German Trejo Jr. is a 89 year old male who presents here today for a routine follow up. Patient with Hx of BPH, CAD, elevated fasting blood sugar, HTN, past Hx of CABG, IBS, hyperlipidemia as well as those reviewed and addressed below and in ROS Patient has been doing ok. No new issues or concerns. German reports no recent fevers, lumps or swelling in the neck, wheezing, dyspnea, hemoptysis, chest pain, or palpitations. He notes chronic, mild lower extremity edema, which has been stable for years. He denies frequent nausea, emesis, or diarrhea, and experiences occasional heartburn, but not more than 2 times per week. He reports no changes in heat or cold tolerance, increased thirst, frequent cephalalgia, syncope, seizures, or tremors. German is scheduled to receive a flu shot on the 27th of this month and is inquiring about the availability of the COVID-19 vaccine. He continues to be followed by the [facility]. Recent labresults show an improvement in lipid profile and HbA1c. Triglycerides are 74 mg/dL (previously 105 mg/dL), HDL is 43 mg/dL (previously 39 mg/dL), LDL is 54 mg/dL (previously 61 mg/dL), and HbA1c is 5.7% (previously 6.0%). He monitors his blood pressure at home, with readings typically ranging from 120-130/75 mmHg. Past medical history, appointments, medications, allergies reviewed. [...] artery 04/07/201703/2017, proximal RCA by Dr. Sewell Valvular heart disease 01/06/2023 Seeing cardio Xerosis cutis 09/07/2009 Previous Surgical History PAST [...] Father age 72 of lung cancer, previous AR age 57 Coronary Artery Disease Father Diabetes Brother age 67 of DM, also history of prostate cancer Heart Sister Alive age 68, history of AR age 66 Patient Allergies ALLERGIES Allergen Reactions Pepcid [Famotidine] Other: See Comments headache Ranitidine Intolerance fatigue Current Medications Current Outpatient Medications on File Prior to Visit Medication Sig carvedilol (COREG) 12.5 mg tablet 6.25 mg AM and 12.5 mg evening Per [facility] omeprazole (PRILOSEC) 20 mg capsule Take 1 capsule by mouth as needed. doxazosin (CARDURA) 2 mg tablet Take 1 tablet by mouth daily at bedtime. Per [facility] ramipril (ALTACE) 10 mg capsule Take 1 capsule by mouth two times a day. Per [facility] clopidogrel (PLAVIX) 75 mg tablet Take 75 mg by mouth once daily. atorvastatin (LIPITOR) 20 mg tablet TAKE ONE TABLET BY MOUTH EVERY DAY MULTIVITAMIN TAB Take one(1) tablet daily. ASPIRIN 81 MG TAB Take one(1) tablet daily. No current facility-administered medications on file prior to visit. Social History SOCIAL HISTORY[1] Review of Symptoms REVIEW OF SYSTEMS GENERAL: No weight loss, malaise or fevers NECK: Negative for lumps, goiter, pain and significant neck swelling RESPIRATORY: Negative for cough, hemoptysis, wheezing, COPD, dyspnea or shortness of breath CARDIOVASCULAR: Negative for chest pain, increased leg swelling, hypertension, CHF or palpitations GI: No nausea, vomiting, or diarrhea and No frequent heartburn or reflux symptoms ENDOCRINE: Negative for cold or heat intolerance, polyuria, polydipsia and goiter NEURO: No history of headaches, syncope, paralysis, seizures or tremors SEE HPI EXAM: BP 132/70 Pulse 64 Resp 16 Wt 58.1 kg (128 lb) BMI 20.66 kg/m BP 132/70 Pulse 64 Resp 16 Wt 58.1 kg (128 lb) BMI 20.66 kg/m Last 5 Encounter Wt Readings: Date: Wt: 01/01/2025 58.1 kg (128 lb) 07/20/2024 60.3 kg (133 lb) 01/18/2024 58.1 kg (128 lb) 07/13/2023 57.2 kg (126 lb) 01/06/2023 57.2 kg (126 lb) General Appearance: Well appearing, alert, in no acute distress, well-hydrated, well nourished.. Neck: Supple, no adenopathy; thyroid symmetric, normal size, no bruits. Lungs: Lungs clear to auscultation. No wheezing, rhonchi, rales.. Heart: RRR without gallop, or rubs. No ectopy. Abdomen: 2/6 JOSE soft.Normal abdominal exam, Abdomen soft, non-tender. Bowel sounds normal. No masses, organomegaly. Extremities: No deformities, edema, skin discoloration, Good capillary refill. . Peripheral Pulses: Normal. Health Maintenance List Anxiety Screening due on 01/17/2025 DTaP,Tdap,Td Vaccine(1 - Tdap) due on 07/20/2025 RSV Vaccine(1 - 1-dose 75+ series) due on 07/20/2025 Shingrix Vaccine(1 of 2) due on 07/20/2025 Influenza Vaccine(1) due on 10/22/2025 Depression Screening due on 07/20/2025 LDL Cholesterol due on 12/26/2025 Diabetes Screening due on 12/27/2027 Advance Directive Discussion Completed Medicare Advantage Annual Wellness Visit Completed Pneumococcal Vaccine: 50+ Completed Data reviewed Latest Ref Rng 01/11/2024 12/26/2024 Total Cholesterol, Nonfasting <200 mg/dL 121 112 Triglycerides, Nonfasting <150 mg/dL 105 74 HDL Cholesterol, Nonfasting >39 mg/dL 39 (L) 43 LDL Cholesterol Calculated, Nonfasting <100 mg/dL 61 54 Non HDL Cholesterol, Nonfasting <130 mg/dL 82 69 VLDL Cholesterol, Nonfasting <30 mg/dL 21 11 Total Chol/HDL Ratio, Nonfasting <5.10 mg/dL 3.10 2.60 LDL/HDL Ratio, Nonfasting <2.54 mg/dL 1.56 1.26 Hemoglobin A1C 4.3 - 5.6 % 5.9 (H) 5.7 (H) Estimated Average Glucose mg/dL 123 117 Legend: (L) Low (H) High Assessment and Plan 1. Essential hypertension with goal blood pressure less than 140/90 (I10) 2. Hypertensive heart disease without heart failure (I11.9) Blood pressure well controlled at home (120-130/75 mmHg); in-office BP 132/70 mmHg. - Continue current management. 3. Mixed hyperlipidemia (E78.2) 4. Coronary atherosclerosis due to lipid rich plaque (I25.83) 5. Valvular heart disease (I38) 6. Bilateral carotid artery stenosis (I65.23) Lipid panel shows improvement: triglycerides 74 mg/dL (previously 105), HDL 43 mg/dL (previously 39), LDL 54 mg/dL (previously 61). - clincially stable - Continue current management with lipitor - Continue follow-up with [facility] for CAD and valvular heart disease. 7. Elevated fasting blood sugar (R73.01) HbA1c improved to 5.7% (previously higher); near normal range. - Continue current management. 8. GERD without esophagitis (K21.9) Occasional heartburn, not frequent. - Continue current management with omeprazole 20 mg daily. F/u in 6 months extensive check CMP, Lipid, UA, A1c, B12 and Mg prior. Juan Mckeon MD Recording using [employer] software for draft documentation of the visit was discussed with the patient/authorized product support sales representative; all questions welcomed and answered. Patient/authorized product support sales representative agreed to proceed [1] Social History Tobacco Use Smoking status: Never Smokeless tobacco: Never Substance Use Topics Alcohol use: Yes Comment: rarely Drug use: Never documented [facility] NoteHNO ID: [id number] Author: JUAN MCKEON MD Service: ? Author Type: Physician Type: Progress Notes Filed: 01/01/2025 15:37 Note Text: Chief Complaint Patient presents with: F/U 6 Month HPI German Trejo Jr. is a 89 year old male who presents here today for a routine follow up. Patient with Hx of BPH, CAD, elevated fasting blood sugar, HTN, past Hx of CABG, IBS, hyperlipidemia as well as those reviewed and addressed below and in ROS Patient has been doing ok. No new issues or concerns. German reports no recent fevers, lumps or swelling in the neck, wheezing, dyspnea, hemoptysis, chest pain, or palpitations. He notes chronic, mild lower extremity edema, which has been stable for years. He denies frequent nausea, emesis, or diarrhea, and experiences occasional heartburn, but not more than 2 times per week. He reports no changes in heat or cold tolerance, increased thirst, frequent cephalalgia, syncope, seizures, or tremors. German is scheduled to receive a flu shot on the of this month and is inquiring about the availability of the COVID-19 vaccine. He continues to be followed by the [facility]. Recent lab results show an improvement in lipid profile and HbA1c. Triglycerides are 74 mg/dL (previously 105 mg/dL), HDL is 43 mg/dL (previously 39 mg/dL), LDL is 54 mg/dL (previously 61 mg/dL), and HbA1c is 5.7% (previously 6.0%). He monitors his blood pressure at home, with readings typically ranging from 120-130/75 mmHg. Past medical history, appointments, medications, allergies reviewed. [...] artery 04/07/201703/2017, proximal RCA by Dr. Sewell Valvular heart disease 01/06/2023 Seeing cardio Xerosis cutis 09/07/2009 Previous Surgical History PAST [...] Father age 72 of lung cancer, previous AR age 57 Coronary Artery Disease Father Diabetes Brother age 67 of DM, also history of prostate cancer Heart Sister Alive age 68, history of AR age 66 Patient Allergies ALLERGIES Allergen Reactions Pepcid [Famotidine] Other: See Comments headache Ranitidine Intolerance fatigue Current Medications Current Outpatient Medications on File Prior to Visit Medication Sig carvedilol (COREG) 12.5 mg tablet 6.25 mg AM and 12.5 mg evening Per [facility] omeprazole (PRILOSEC) 20 mg capsule Take 1 capsule by mouth as needed. doxazosin (CARDURA) 2 mg tablet Take 1 tablet by mouth daily at bedtime. Per [facility] ramipril (ALTACE) 10 mg capsule Take 1 capsule by mouth two times a day. Per [facility] clopidogrel (PLAVIX) 75 mg tablet Take 75 mg by mouth once daily. atorvastatin (LIPITOR) 20 mg tablet TAKE ONE TABLET BY MOUTH IRENA (more content not included)...[facility]06-25-2025 NoteHNO ID: [id number] Author: GENO GARCIA RN Service: ? Author Type: Registered Nurse Type: Progress Notes Filed: 10/17/2024 11:47 Note Text: [facility] Telephonic Outreach Provider Action/FYI Patient identified by Name and Date of . Discussed care with patient. Program Details Chronic Disease Management Status: Graduated Patient Graduated Effective Dates: 08/20/2024 - 10/17/2024 Responsible Staff: Geno Garcia RN Support and Services: None active Program Goals Targets Target Due Completed Completed By Outcome Comprehensive HTN education provided 11/19/2024 10/17/2024 Geno Garcai RN Complete Patient-stated goal addressed (add comment) 11/19/2024 10/17/2024 Geno Garcia RN Complete Keep up with exercise program Annual Medicare Wellness visit addressed 11/19/2024 10/02/2024 Geno Garcia RN Complete/Scheduled Biannual PCP visit addressed 11/19/2024 10/02/2024 Geno Garcia RN Complete/Scheduled HTN lab care gaps addressed 11/19/2024 10/02/2024 Geno Garcia RN Complete/Scheduled General education provided (managing stress, where to go/how to contact, etc.) 09/19/2024 09/04/2024 Geno Garcia RN Complete Intake assessments completed: ADLs, Fall Risk, SDOH 09/19/2024 08/20/2024 Geno Garcia RN Complete Assessments [facility] Assessment Medications: Do you have any questions about taking your medications or which medications you should be taking?: No Do you need any medication refills at this time, including any of the medication you might take only when needed?: No Symptoms: Are you experiencing any new or worsening symptoms that you need to talk about today?: No ADLs No documentation this encounter Fall Risk No documentation this encounter SDOH No documentation this encounter Interventions No episode Disposition Based on assessment services manager, the following disposition is advised: No action needed Geno Garcia RN October 17, 2024 11:43 [facility]06-25-2025 History of Present illness Narrative* Geno Garcia RN - 10/17/2024 11:43 AM EDT Images from the original note were not included. [facility] Care Path Telephonic Outreach Provider Action/FYI Patient identified by Name and Date of . Discussed care with patient. Program Details Chronic Disease Management Status: Graduated Patient Graduated Effective Dates: 08/20/2024 - 10/17/2024 Responsible Staff: Geno Garcia RN Support and Services: None active Program Goals Targets Target Due Completed Completed By Outcome Comprehensive HTN education provided 11/19/2024 10/17/2024 Geno Garcia RN Complete Patient-stated goal addressed (add comment) 11/19/2024 10/17/2024 Geno Garcia RN Complete Keep up with exercise program Annual Medicare Wellness visit addressed 11/19/2024 10/02/2024 Geno Garcia RN Complete/Scheduled Biannual PCP visit addressed 11/19/2024 10/02/2024 Geno Garcia RN Complete/Scheduled HTN lab care gaps addressed 11/19/2024 10/02/2024 Geno Garcia RN Complete/Scheduled General education provided (managing stress, where to go/how to contact, etc.) 09/19/2024 09/04/2024 Geno Garcia RN Complete Intake assessments completed: ADLs, Fall Risk, SDOH 09/19/2024 08/20/2024 Geno Garcia RN Complete Assessments [facility] Assessment Medications: Do you have any questions about taking your medications or which medications you should be taking?:No Do you need any medication refills at this time, including any of the medication you might take only when needed?: No Symptoms: Are you experiencing any new or worsening symptoms that you need to talk about today?: No ADLs No documentation this encounter Fall Risk No documentation this encounter SDOH No documentation this encounter Interventions No episode Disposition Based on assessment services manager, the following disposition is advised: No action needed Geno Garcia RN October 17, 2024 11:43 AM documented in [facility] encounter[facility] NotePatient Outreach ([facility]) GERMAN TREJO JR. ([id number]) 1935 M Date Time Provider Department 10/17/24 GENO GARCIA [facility] visit today, we recorded the following information about you: Geno Garcia RN 10/17/2024 11:47 AM Signed CD Care Path Telephonic Outreach Provider Action/ Patient identified by Name and Date of . Discussed care with patient. Program Details Chronic Disease Management Status: Graduated Patient Graduated Effective Dates: 08/20/2024 - 10/17/2024 Responsible Staff: Geno Garcia RN Support and Services: None active Program Goals Targets Target Due Completed Completed By Outcome Comprehensive HTN education provided 11/19/2024 10/17/2024 Geno Garcia RN Complete Patient-stated goal addressed (add comment) 11/19/2024 10/17/2024 Geno Garcia RN Complete Keep up with exercise program Annual Medicare Wellness visit addressed 11/19/2024 10/02/2024 Geno Garcia RN Complete/Scheduled Biannual PCP visit addressed 11/19/2024 10/02/2024 Geno Garcia RN Complete/Scheduled HTN lab care gaps addressed 11/19/2024 10/02/2024 Geno Garcia RN Complete/Scheduled General education provided (managing stress, where to go/how to contact, etc.) 09/19/2024 09/04/2024 Geno Garcia RN Complete Intake assessments completed: ADLs, Fall Risk, SDOH 09/19/2024 08/20/2024 Geno Garcia RN Complete Assessments CDM Assessment Medications: Do you have any questions about taking your medications or which medications you should be taking?: No Do you need any medication refills at this time, including any of the medication you might take only when needed?: No Symptoms: Are you experiencing any new or worsening symptoms that you need to talk about today?: No ADLs No documentation this encounter Fall Risk No documentation this encounter SDOH No documentation this encounter Interventions No episode Disposition Based on assessment services manager, the following disposition is advised: No action needed Geno Garcia RN October 17, 2024 11:43 AM Allergies As of Date: 10/17/2024 Noted Allergy Reaction PEPCID (FAMOTIDINE) 02/27/2015 14 - Other: See Comments Comments: headache RANITIDINE 12/30/2009 5 - Intolerance Comments: fatigue Date Reviewed: 07/20/2024 Reviewed by: Juan Mckeon MD - Fully Assessed Prescriptions as of 10/17/2024 - carvedilol (COREG) 12.5 mg tablet 6.25 mg AM and 12.5 mg evening Per [facility] - omeprazole (PRILOSEC) 20 mg capsule Take 1 capsule by mouth as needed. - doxazosin (CARDURA) 2 mg tablet Take 1 tablet by mouth daily at bedtime. Per [facility] - ramipril (ALTACE) 10 mg capsule Take 1 capsule by mouth two times a day. Per [facility] - clopidogrel (PLAVIX) 75 mg tablet Take 75 mg by mouth once daily. - atorvastatin (LIPITOR) 20 mg tablet TAKE ONE TABLET BY MOUTH EVERY DAY - MULTIVITAMIN TAB Take one(1) tablet daily. - ASPIRIN 81 MG TAB Take one(1) tablet daily. 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] 07/15/2015 Essential hypertension with goal blood pressure*08/29/2015 Medicare annual wellness visit, subsequent [Z00*08/30/2016 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 Author Type: Registered Nurse Type: Progress Notes Filed: 10/02/2024 10:52 Note Text: Value Based Care Management Inbound Call Provider Action / FYI: Date of Call: 10/02/2024 Time of Call: 10:51 AM Caller Name: German Trejo Caller relationship to the patient: Patient Patient identified by Name and Date of : Yes Reason for Call / Main Concern Returning call to Gun Welder Summary of Callers Concern Returning call to PCC Action Taken / Plan Routed to Patient's Gun Welder Leila Cohen RN October 02, 2024 10:51 [facility]06-10-2025 History of Present illness Narrative* Leila Cohen RN - 10/02/2024 10:51 AM EDT Value Based Care Management Inbound Call Provider Action / FYI: Date of Call: 10/02/2024 Time of Call: 10:51 AM Caller Name: German Trejo Caller relationship to the patient: Patient Patient identified by Name and Date of : Yes Reason for Call / Main Concern Returning call to Gun Welder Summary of Callers Concern Returning call to PCC Action Taken / Plan Routed to Patient's Gun Welder Leila Cohen RN October 02, 2024 10:51 AM [facility] NoteHNO ID: [id number] Author: GENO GARCIA RN Service: ? Author Type: Registered Nurse Type: Progress Notes Filed: 10/02/2024 10:56 Note Text: CDM Care Path Telephonic Outreach Provider Action/FYI Patient identified by Name and Date of . Discussed care with patient. Program Details Chronic Disease Management Status: Enrolled Effective Dates: 08/20/2024 - present Responsible Staff: Geno Garcia RN Support and Services: Hypertension Program Goals Targets Target Due Completed Completed By Outcome Comprehensive HTN education provided 11/19/2024 -- -- -- Patient-stated goal addressed (add comment) 11/19/2024 -- -- -- Annual Medicare Wellness visit addressed 11/19/2024 10/02/2024 Geno Garcia RN Complete/Scheduled Biannual PCP visit addressed 11/19/2024 10/02/2024 Geno Garcia RN Complete/Scheduled HTN lab care gaps addressed 11/19/2024 10/02/2024 Geno Garcia RN Complete/Scheduled General education provided (managing stress, where to go/how to contact, etc.) 09/19/2024 09/04/2024 Geno Garcia RN Complete Intake assessments completed: ADLs, Fall Risk, SDOH 09/19/2024 08/20/2024 Geno Garcia RN Complete Assessments CDM Assessment Medications: Do you have any questions about taking your medications or which medications you should be taking?: No Do you need any medication refills at this time, including any of the medication you might take only when needed?: No Symptoms: Are you experiencing any new or worsening symptoms that you need to talk about today?: No ADLs No documentation this encounter Fall Risk No documentation this encounter SDOH No documentation this encounter Interventions The following were addressed during this visit: - HTN lab care gaps addressed - Month 2: Provide HTN Education: Sodium Controlled Diets - Month 2: Provide HTN Education: High Blood Pressure AND Nutrition - Month 3: Schedule/Order BMP Lab - Biannual PCP visit addressed - Annual Medicare Wellness visit addressed - Bi-Weekly Outreach (Recurring) Geno Garcia RN October 02, 2024 10:50 [facility]06-10-2025 History of Present illness Narrative* Geno Garcia RN - 10/02/2024 10:50 AM EDT Images from the original note were not included. CDM Care Path Telephonic Outreach Provider Action/FYI Patient identified by Name and Date of . Discussed care with patient. Program Details Chronic Disease Management Status: Enrolled Effective Dates: 08/20/2024 - present Responsible Staff: Geno Garcia RN Support and Services: Hypertension Program Goals Targets Target Due Completed Completed By Outcome Comprehensive HTN education provided 11/19/2024 -- -- -- Patient-stated goal addressed (add comment) 11/19/2024 -- -- -- Annual Medicare Wellness visit addressed 11/19/2024 10/02/2024 Geno Garcia RN Complete/Scheduled Biannual PCP visit addressed 11/19/2024 10/02/2024 Geno Garcia RN Complete/Scheduled HTN lab care gaps addressed 11/19/2024 10/02/2024 Geno Garcia RN Complete/Scheduled General education provided (managing stress, where to go/how to contact, etc.) 09/19/2024 09/04/2024 Geno Garcia RN Complete Intake assessments completed: ADLs, Fall Risk, SDOH 09/19/2024 08/20/2024 Geno Garcia RN Complete Assessments CDM Assessment Medications: Do you have any questions about taking your medications or which medications you should be taking?:No Do you need any medication refills at this time, including any of the medication you might take only when needed?: No Symptoms: Are you experiencing any new or worsening symptoms that you need to talk about today?: No ADLs No documentation this encounter Fall Risk No documentation this encounter SDOH No documentation this encounter Interventions The following were addressed during this visit: - HTN lab care gaps addressed - Month 2: Provide HTN Education: Sodium Controlled Diets - Month 2: Provide HTN Education: High Blood Pressure & Nutrition - Month 3: Schedule/Order BMP Lab - Biannual PCP visit addressed - Annual Medicare Wellness visit addressed - Bi-Weekly Outreach (Recurring) Geno Garcia RN October 02, 2024 10:50 AM * Geno Garcia RN - 10/02/2024 10:39 AM EDT Images from the original note were not included. CDM Care Path Telephonic Outreach Provider Action/FYI Patient identified by Name and Date of . Message left for patient x2 Program Details Chronic Disease Management Status: Enrolled Effective Dates: 08/20/2024 - present Responsible Staff: Geno Garcia RN Support and Services: Hypertension Program Goals Targets Target Due Completed Completed By Outcome Annual Medicare Wellness visit addressed 11/19/2024 -- -- -- Biannual PCP visit addressed 11/19/2024 -- -- -- Comprehensive HTN education provided 11/19/2024 -- -- -- HTN lab care gaps addressed 11/19/2024 -- -- -- Patient-stated goal addressed (add comment) 11/19/2024 -- -- -- General education provided (managing stress, where to go/how to contact, etc.) 09/19/2024 09/04/2024 Geno Garcia RN Complete Intake assessments completed: ADLs, Fall Risk, SDOH 09/19/2024 08/20/2024 Geno Garcia RN Complete Assessments No documentation this encounter Interventions No checklist tasks for this episode were completed during this visit, and no tasks for this episodeare pending completion. Geno Garcia RN October 02, 2024 10:39 AM [facility] NoteHNO ID: [id number] Author: GENO GARCIA RN Service: ? Author Type: Registered Nurse Type: Progress Notes Filed: 10/02/2024 10:39 Note Text: CDM Care Path Telephonic Outreach Provider Action/FYI Patient identified by Name and Date of . Message left for patient x2 Program Details Chronic Disease Management Status: Enrolled Effective Dates: 08/20/2024 - present Responsible Staff: Geno Garcia RN Support and Services: Hypertension Program Goals Targets Target Due Completed Completed By Outcome Annual Medicare Wellness visit addressed 11/19/2024 -- -- -- Biannual PCP visit addressed 11/19/2024 -- -- -- Comprehensive HTN education provided 11/19/2024 -- -- -- HTN lab care gaps addressed 11/19/2024 -- -- -- Patient-stated goal addressed (add comment) 11/19/2024 -- -- -- General education provided (managing stress, where to go/how to contact, etc.) 09/19/2024 09/04/2024 Geno Garcia RN Complete Intake assessments completed: ADLs, Fall Risk, SDOH 09/19/2024 08/20/2024 Geno Garcia RN Complete Assessments No documentation this encounter Interventions No checklist tasks for this episode were completed during this visit, and no tasks for this episode are pending completion. Geno Garcia RN October 02, 2024 10:39 [facility]06-10-2025 NotePatient Outreach ([facility]) GERMAN TREJO JR. ([id number]) 1935 M Date Time Provider Department 10/02/24 [place]IL[place] COH[place] [facility] [place] your visit today, we recorded the following information about you: Leila Cohen RN 10/02/2024 10:52 AM Signed Value Based Care Management Inbound Call Provider Action / FYI: Date of Call: 10/02/2024 Time of Call: 10:51 AM Caller Name: German Trejo Caller relationship to the patient: Patient Patient identified by Name and Date of : Yes Reason for Call / Main Concern Returning call to Gun Welder Summary of Callers Concern Returning call to PCC Action Taken / Plan Routed to Patient's Gun Welder Leila Cohen RN October 02, 2024 10:51 AM Allergies As of Date: 10/02/2024 Noted Allergy Reaction PEPCID (FAMOTIDINE) 02/27/2015 14 - Other: See Comments Comments: headache RANITIDINE 12/30/2009 5 - Intolerance Comments: fatigue Date Reviewed: 07/20/2024 Reviewed by: Juan Mckeon MD - Fully Assessed Reason for Visit: Care Coordination [7304] Cmt: Healthy at Home Inbound Call Prescriptions as of 10/02/2024 - carvedilol (COREG) 12.5 mg tablet 6.25 mg AM and 12.5 mg evening Per [facility] - omeprazole (PRILOSEC) 20 mg capsule Take 1 capsule by mouth as needed. - doxazosin (CARDURA) 2 mg tablet Take 1 tablet by mouth daily at bedtime. Per [facility] - ramipril (ALTACE) 10 mg capsule Take 1 capsule by mouth two times a day. Per [facility] - clopidogrel (PLAVIX) 75 mg tablet Take 75 mg by mouth once daily. - atorvastatin (LIPITOR) 20 mg tablet TAKE ONE TABLET BY MOUTH EVERY DAY - MULTIVITAMIN TAB Take one(1) tablet daily. - ASPIRIN 81 MG TAB Take one(1) tablet daily. 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] 07/15/2015 Essential hypertension with goal blood pressure*08/29/2015 Medicare annual wellness visit, subsequent [Z00*08/30/2016 Stented coronary artery [Z95.5] 04/07/2017 Medication management [Z79.899] 05/10/2019 GERD without esophagitis [K21.9] 12/16/2020 Bilateral carotid artery stenosis [I65.23] 06/18/[address] [Z78.9] 06/25/2021 Advance directive discussed with patient [Z71.8*07/08/2022 Valvular heart disease [I38] 01/06/2023 Abnormal platelets (HCC) [D69.1] 07/13/2023 Encounter Status:Closed by [facility] COHEN on [facility]/02/24[facility] NotePatient Outreach ([facility]) GERMAN TREJO JR. ([id number]) 1935 M Date Time Provider Department 10/02/24 GENO GARCIA During your visit today, we recorded the following information about you: Geno Garcia, ARMANDO 10/02/2024 10:39 AM Signed [facility] Care Path Telephonic Outreach Provider Action/ Patient identified by Name and Date of . Message left for patient x2 Program Details Chronic Disease Management Status: Enrolled Effective Dates: 08/20/2024 - present Responsible Staff: Geno Garcia, RN Support and Services: Hypertension Program Goals Targets Target Due Completed Completed By Outcome Annual Medicare Wellness visit addressed 11/19/2024 -- -- -- Biannual PCP visit addressed 11/19/2024 -- -- -- Comprehensive HTN education provided 11/19/2024 -- -- -- HTN lab care gaps addressed 11/19/2024 -- -- -- Patient-stated goal addressed (add comment) 11/19/2024 -- -- -- General education provided (managing stress, where to go/how to contact, etc.) 09/19/2024 09/04/2024 Geno Garcia RN Complete Intake assessments completed: ADLs, Fall Risk, SDOH 09/19/2024 08/20/2024 Geno Garcia RN Complete Assessments No documentation this encounter Interventions No checklist tasks for this episode were completed during this visit, and no tasks for this episode are pending completion. Geno Garcia RN October 02, 2024 10:39 AM Geno Garcia RN 10/02/2024 10:56 AM Signed CDM Care Path Telephonic Outreach Provider Action/FYI Patient identified by Name and Date of . Discussed care with patient. Program Details Chronic Disease Management Status: Enrolled Effective Dates: 08/20/2024 - present Responsible Staff: Geno Garcia RN Support and Services: Hypertension Program Goals Targets Target Due Completed Completed By Outcome Comprehensive HTN education provided 11/19/2024 -- -- -- Patient-stated goal addressed (add comment) 11/19/2024 -- -- -- Annual Medicare Wellness visit addressed 11/19/2024 10/02/2024 Geno Garcia RN Complete/Scheduled Biannual PCP visit addressed 11/19/2024 10/02/2024 Geno Garcia RN Complete/Scheduled HTN lab care gaps addressed 11/19/2024 10/02/2024 Geno Garcia RN Complete/Scheduled General education provided (managing stress, where to go/how to contact, etc.) 09/19/2024 09/04/2024 Geno Garica RN Complete Intake assessments completed: ADLs, Fall Risk, SDOH 09/19/2024 08/20/2024 Geno Garcia RN Complete Assessments CDM Assessment Medications: Do you have any questions about taking your medications or which medications you should be taking?: No Do you need any medication refills at this time, including any of the medication you might take only when needed?: No Symptoms: Are you experiencing any new or worsening symptoms that you need to talk about today?: No ADLs No documentation this encounter Fall Risk No documentation this encounter SDOH No documentation this encounter Interventions The following were addressed during this visit: - HTN lab care gaps addressed - Month 2: Provide HTN Education: Sodium Controlled Diets - Month 2: Provide HTN Education: High Blood Pressure AND Nutrition - Month 3: Schedule/Order BMP Lab - Biannual PCP visit addressed - Annual Medicare Wellness visit addressed - Bi-Weekly Outreach (Recurring) Geno Garcia RN October 02, 2024 10:50 AM Allergies As of Date: 10/02/2024 Noted Allergy Reaction PEPCID (FAMOTIDINE) 02/27/2015 14 - Other: See Comments Comments: headache RANITIDINE 12/30/2009 5 - Intolerance Comments: fatigue Date Reviewed: 07/20/2024 Reviewed by: Juan Mckeon MD - Fully Assessed Prescriptions as of 10/02/2024 - carvedilol (COREG) 12.5 mg tablet 6.25 mg AM and 12.5 mg evening Per [facility] - omeprazole (PRILOSEC) 20 mg capsule Take 1 capsule by mouth as needed. - doxazosin (CARDURA) 2 mg tablet Take 1 tablet by mouth daily at bedtime. Per [facility] - ramipril (ALTACE) 10 mg capsule Take 1 capsule by mouth two times a day. Per [facility] - clopidogrel (PLAVIX) 75 mg tablet Take 75 mg by mouth once daily. - atorvastatin (LIPITOR) 20 mg tablet TAKE ONE TABLET BY MOUTH EVERY DAY - MULTIVITAMIN TAB Take one(1) tablet daily. - ASPIRIN 81 MG TAB Take one(1) tablet daily. 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 Author Type: Registered Nurse Type: Progress Notes Filed: 09/04/2024 12:14 Note Text: CDM Care Path Telephonic Outreach Provider Action/FYI Patient identified by Name and Date of . Discussed care with patient. Program Details Chronic Disease Management Status: Enrolled Effective Dates: 08/20/2024 - present Responsible Staff: Geno Garcia, ARMANDO Support and Services: Hypertension Program Goals Targets Target Due Completed Completed By Outcome Annual Medicare Wellness visit addressed 11/19/2024 -- -- -- Biannual PCP visit addressed 11/19/2024 -- -- -- Comprehensive HTN education provided 11/19/2024 -- -- -- HTN lab care gaps addressed 11/19/2024 -- -- -- Patient-stated goal addressed (add comment) 11/19/2024 -- -- -- General education provided (managing stress, where to go/how to contact, etc.) 09/19/2024 09/04/2024 Geno Garcia RN Complete Intake assessments completed: ADLs, Fall Risk, SDOH 09/19/2024 08/20/2024 Geno Garcia RN Complete Assessments CDM Assessment Medications: Do you have any questions about taking your medications or which medications you should be taking?: No Do you need any medication refills at this time, including any of the medication you might take only when needed?: No Symptoms: Are you experiencing any new or worsening symptoms that you need to talk about today?: Yes ADLs No documentation this encounter Fall Risk No documentation this encounter SDOH No documentation this encounter Interventions The following were addressed during this visit: - Month 1: Review Individual Blood Pressure Target (If established by provider) - Month 1: Provide HTN Education: What is High Blood Pressure - Month 1: Provide HTN Education: When to call your Doctor, When to seek Emergency Care - General education provided (managing stress, where to go/how to contact, etc.) - Month 1: Provide General Education: Smoking Cessation - Month 1: Provide General Education: Managing Stress AND Anxiety - Month 1: Provide General Education: Where to Go for Care - Month 1: Provide General Education: How to Contact Your Physician Team - Bi-Weekly Outreach (Recurring) Disposition Based on assessment services manager, the following disposition is advised: No action needed Geno Garcia RN September 04, 2024 12:08 [facility]05-13-2025 History of Present illness Narrative* Geno Garcia RN - 09/04/2024 12:08 PM EDT Images from the original note were not included. [facility] Care Path Telephonic Outreach Provider Action/FYI Patient identified by Name and Date of . Discussed care with patient. Program Details Chronic Disease Management Status: Enrolled Effective Dates: 08/20/2024 - present Responsible Staff: Geno Garcia RN Support and Services: Hypertension Program Goals Targets Target Due Completed Completed By Outcome Annual Medicare Wellness visit addressed 11/19/2024 -- -- -- Biannual PCP visit addressed 11/19/2024 -- -- -- Comprehensive HTN education provided 11/19/2024 -- -- -- HTN lab care gaps addressed 11/19/2024 -- -- -- Patient-stated goal addressed (add comment) 11/19/2024 -- -- -- General education provided (managing stress, where to go/how to contact, etc.) 09/19/2024 09/04/2024 Geno Garcia RN Complete Intake assessments completed: ADLs, Fall Risk, SDOH 09/19/2024 08/20/2024 Geno Garcia RN Complete Assessments CDM Assessment Medications: Do you have any questions about taking your medications or which medications you should be taking?:No Do you need any medication refills at this time, including any of the medication you might take only when needed?: No Symptoms: Are you experiencing any new or worsening symptoms that you need to talk about today?: Yes ADLs No documentation this encounter Fall Risk No documentation this encounter SDOH No documentation this encounter Interventions The following were addressed during this visit: - Month 1: Review Individual Blood Pressure Target (If established by provider) - Month 1: Provide HTN Education: What is High Blood Pressure - Month 1: Provide HTN Education: When to call your Doctor, When to seek Emergency Care - General education provided (managing stress, where to go/how to contact, etc.) - Month 1: Provide General Education: Smoking Cessation - Month 1: Provide General Education: Managing Stress & Anxiety - Month 1: Provide General Education: Where to Go for Care - Month 1: Provide General Education: How to Contact Your Physician Team - Bi-Weekly Outreach (Recurring) Disposition Based on assessment services manager, the following disposition is advised: No action needed Geno Garcia RN September 04, 2024 12:08 PM [facility] NotePatient Outreach ([facility]) GERMAN TREJO JR. ([id number]) 1935 M Date Time Provider Department 09/04/24 G[place]ARC[place] [facility] [place] your visit today, we recorded the following information about you: Geno Garcia RN 09/04/2024 12:14 PM Signed [facility] Care Path Telephonic Outreach Provider Action/ Patient identified by Name and Date of . Discussed care with patient. Program Details Chronic Disease Management Status: Enrolled Effective Dates: 08/20/2024 - present Responsible Staff: Geno Garcia RN Support and Services: Hypertension Program Goals Targets Target Due Completed Completed By Outcome Annual Medicare Wellness visit addressed 11/19/2024 -- -- -- Biannual PCP visit addressed 11/19/2024 -- -- -- Comprehensive HTN education provided 11/19/2024 -- -- -- HTN lab care gaps addressed 11/19/2024 -- -- -- Patient-stated goal addressed (add comment) 11/19/2024 -- -- -- General education provided (managing stress, where to go/how to contact, etc.) 09/19/2024 09/04/2024 Geno Garcia RN Complete Intake assessments completed: ADLs, Fall Risk, SDOH 09/19/2024 08/20/2024 Geno Garcia RN Complete Assessments CDM Assessment Medications: Do you have any questions about taking your medications or which medications you should be taking?: No Do you need any medication refills at this time, including any of the medication you might take only when needed?: No Symptoms: Are you experiencing any new or worsening symptoms that you need to talk about today?: Yes ADLs No documentation this encounter Fall Risk No documentation this encounter SDOH No documentation this encounter Interventions The following were addressed during this visit: - Month 1: Review Individual Blood Pressure Target (If established by provider) - Month 1: Provide HTN Education: What is High Blood Pressure - Month 1: Provide HTN Education: When to call your Doctor, When to seek Emergency Care - General education provided (managing stress, where to go/how to contact, etc.) - Month 1: Provide General Education: Smoking Cessation - Month 1: Provide General Education: Managing Stress AND Anxiety - Month 1: Provide General Education: Where to Go for Care - Month 1: Provide General Education: How to Contact Your Physician Team - Bi-Weekly Outreach (Recurring) Disposition Based on assessment services manager, the following disposition is advised: No action needed Geno Garcia RN September 04, 2024 12:08 PM Allergies As of Date: 09/04/2024 Noted Allergy Reaction PEPCID (FAMOTIDINE) 02/27/2015 14 - Other: See Comments Comments: headache RANITIDINE 12/30/2009 5 - Intolerance Comments: fatigue Date Reviewed: 07/20/2024 Reviewed by: Juan Mckeon MD - Fully Assessed Prescriptions as of 09/04/2024 - carvedilol (COREG) 12.5 mg tablet 6.25 mg AM and 12.5 mg evening Per [facility] - omeprazole (PRILOSEC) 20 mg capsule Take 1 capsule by mouth as needed. - doxazosin (CARDURA) 2 mg tablet Take 1 tablet by mouth daily at bedtime. Per [facility] - ramipril (ALTACE) 10 mg capsule Take 1 capsule by mouth two times a day. Per [facility] - clopidogrel (PLAVIX) 75 mg tablet Take 75 mg by mouth once daily. - atorvastatin (LIPITOR) 20 mg tablet TAKE ONE TABLET BY MOUTH EVERY DAY - MULTIVITAMIN TAB Take one(1) tablet daily. - ASPIRIN 81 MG TAB Take one(1) tablet daily. 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 Patient verbalizes understanding. Rae Yost RN [facility]05-09-2025 Miscellaneous Notes* Telephone Encounter - Rae Yost RN - 08/31/2024 10:31 AM EDT Patient notified of results. Patient verbalizes understanding. Rae Yost RN * Telephone Encounter - Flor Pham LPN - 08/31/2024 9:29 AM EDT Left message for pt to contact office. Flor Pham LPN * Telephone Encounter - Juan Mckeon MD - 08/30/2024 4:57 PM EDT Let patient know the US of his neck arteries sis stable compared to last one. No increased narrowing. [facility] Tele[facility] encounter Note * Telephone Encounter - Flor Pham LPN - 08/31/2024 9:29 AM EDT Left message for pt to contact office. Flor Pham LPN [facility]05-08-2025 Telephone encounter Note* Telephone Encounter - Juan Mckeon MD - 08/30/2024 4:57 PM EDT Let patient know the US of his neck arteries sis stable compared to last one. No increased narrowing. [facility]04-28-2025 NoteHNO ID: [id number] Author: GENO GARCIA RN Service: ? Author Type: Registered Nurse Type: Progress Notes Filed: 08/20/2024 15:02 Note Text: CDM ENROLLMENT Provider Action / FYI: Patient identified by name and date of . Discussed care with patient. Program Details Chronic Disease Management Status: Enrolled Effective Dates: 08/20/2024 - present Responsible Staff: Geno Garcia RN Support and Services: Hypertension Assessments CDM Assessment Medications: Do you have any questions about taking your medications or which medications you should be taking?: No Do you need any medication refills at this time, including any of the medication you might take only when needed?: No Social: It can be normal to feel anxious or down during a time like this. Would you like to talk to a mental health professional about how you have been feeling?: No Symptoms: Are you experiencing any new or worsening symptoms that you need to talk about today?: No ADLs Patients can perform the following activities without help: Dressing: Yes Bathing: Yes Doing laundry: Yes Climbing a flight of stairs: Yes Walking briskly: Yes Instrumental activities of daily living Do you drive a car?: Yes Do you need help from others to take care of things inside the house, for example: laundry, house cleaning, preparing meals?: No Do you need help from others with errands outside the house, for example: shopping for groceries or clothes, going medical appointments?: No Fall Risk One or more falls in the last year:: No Any near falls in the last year?: No Advised to use a cane or walker to get around safely:: No Feels unsteady when walking:: No Steadies self on furniture while walking at home:: No Worried about falling:: No Needs to push with hands when rising from a chair:: No Has trouble stepping up onto a curb:: No Often has to hook to the toilet:: No Has lost some feeling in feet:: No Takes medicine that makes him/her feel lightheaded or more tired than usual:: No Takes medicine to sleep or improve mood:: No SDOH Financial Resource Strain How hard is it for you to pay for the very basics like food, housing, medical care, and heating?: Not hard at all Housing Stability In the last 12 months, was there a time when you were not able to pay the mortgage or rent on time?: No At any time in the past 12 months, were you homeless or living in a assisted (including now)?: No Transportation Needs In the past 12 months, has lack of transportation kept you from medical appointments or from getting medications?: No In the past 12 months, has lack of transportation kept you from meetings, work, or from getting things needed for daily living?: No Food Insecurity Within the past 12 months, you worried that your food would run out before you got the money to buy more.: Never true Within the past 12 months, the food you bought just didn't last and you didn't have money to get more.: Never true Utilities In the past 12 months has the electric, gas, oil, or water company threatened to shut off services in your home?: No Tobacco Use Patient reports that he has never smoked. He has never used smokeless tobacco. Interventions The following were addressed during this visit: - Initial enrollment outreach - Intake assessments completed: ADLs, Fall Risk, SDOH - Schedule Biannual PCP Appointment - Schedule Annual Wellness Visit Geno Garcia RN August 20, 2024 2:56 [facility]04-28-2025 History of Present illness Narrative* Geno Garcia RN - 08/20/2024 2:56 PM EDT CDM ENROLLMENT Provider Action / FYI: Patient identified by name and date of . Discussed care with patient. Program Details Chronic Disease Management Status: Enrolled Effective Dates: 08/20/2024 - present Responsible Staff: Geno Garcia RN Support and Services: Hypertension Assessments CDM Assessment Medications: Do you have any questions about taking your medications or which medications you should be taking?:No Do you need any medication refills at this time, including any of the medication you might take only when needed?: No Social: It can be normal to feel anxious or down during a time like this. Would you like to talk to a mental health professional about how you have been feeling?: No Symptoms: Are you experiencing any new or worsening symptoms that you need to talk about today?: No ADLs Patients can perform the following activities without help: Dressing: Yes Bathing: Yes Doing laundry: Yes Climbing a flight of stairs: Yes Walking briskly: Yes Instrumental activities of daily living Do you drive a car?: Yes Do you need help from others to take care of things inside the house, for example: laundry, house cleaning, preparing meals?: No Do you need help from others with errands outside the house, for example: shopping for groceries orclothes, going medical appointments?: No Fall Risk One or more falls in the last year:: No Any near falls in the last year?: No Advised to use a cane or walker to get around safely:: No Feels unsteady when walking:: No Steadies self on furniture while walking at home:: No Worried about falling:: No Needs to push with hands when rising from a chair:: No Has trouble stepping up onto a curb:: No Often has to hook to the toilet:: No Has lost some feeling in feet:: No Takes medicine that makes him/her feel lightheaded or more tired than usual:: No Takes medicine to sleep or improve mood:: No SDOH Financial Resource Strain How hard is it for you to pay for the very basics like food, housing, medical care, and heating?: Not hard at all Housing Stability In the last 12 months, was there a time when you were not able to pay the mortgage or rent on time?: No At any time in the past 12 months, were you homeless or living in a assisted (including now)?: No Transportation Needs In the past 12 months, has lack of transportation kept you from medical appointments or from getting medications?: No In the past 12 months, has lack of transportation kept you from meetings, work, or from getting things needed for daily living?: No Food Insecurity Within the past 12 months, you worried that your food would run out before you got the money to buymore.: Never true Within the past 12 months, the food you bought just didn't last and you didn't have money to get more.: Never true Utilities In the past 12 months has the electric, gas, oil, or water [employer] threatened to shut off services in your home?: No Tobacco Use Patient reports that he has never smoked. He has never used smokeless tobacco. Interventions The following were addressed during this visit: - Initial enrollment outreach - Intake assessments completed: ADLs, Fall Risk, SDOH - Schedule Biannual PCP Appointment - Schedule Annual Wellness Visit Geno Garcia RN August 20, 2024 2:56 PM [facility] NotePatient Outreach ([facility]) GERMAN TREJO JR. ([id number]) 1935 M Date Time Provider Department 08/20/24 GENO GARCIA During your visit today, we recorded the following information about you: Geno Garcia RN 08/20/2024 3:02 PM Signed CDM ENROLLMENT Provider Action / FYI: Patient identified by name and date of . Discussed care with patient. Program Details Chronic Disease Management Status: Enrolled Effective Dates: 08/20/2024 - present Responsible Staff: Geno Garcia RN Support and Services: Hypertension Assessments CDM Assessment Medications: Do you have any questions about taking your medications or which medications you should be taking?: No Do you need any medication refills at this time, including any of the medication you might take only when needed?: No Social: It can be normal to feel anxious or down during a time like this. Would you like to talk to a mental health professional about how you have been feeling?: No Symptoms: Are you experiencing any new or worsening symptoms that you need to talk about today?: No ADLs Patients can perform the following activities without help: Dressing: Yes Bathing: Yes Doing laundry: Yes Climbing a flight of stairs: Yes Walking briskly: Yes Instrumental activities of daily living Do you drive a car?: Yes Do you need help from others to take care of things inside the house, for example: laundry, house cleaning, preparing meals?: No Do you need help from others with errands outside the house, for example: shopping for groceries or clothes, going medical appointments?: No Fall Risk One or more falls in the last year:: No Any near falls in the last year?: No Advised to use a cane or walker to get around safely:: No Feels unsteady when walking:: No Steadies self on furniture while walking at home:: No Worried about falling:: No Needs to push with hands when rising from a chair:: No Has trouble stepping up onto a curb:: No Often has to hook to the toilet:: No Has lost some feeling in feet:: No Takes medicine that makes him/her feel lightheaded or more tired than usual:: No Takes medicine to sleep or improve mood:: No SDOH Financial Resource Strain How hard is it for you to pay for the very basics like food, housing, medical care, and heating?: Not hard at all Housing Stability In the last 12 months, was there a time when you were not able to pay the mortgage or rent on time?: No At any time in the past 12 months, were you homeless or living in a assisted (including now)?: No Transportation Needs In the past 12 months, has lack of transportation kept you from medical appointments or from getting medications?: No In the past 12 months, has lack of transportation kept you from meetings, work, or from getting things needed for daily living?: No Food Insecurity Within the past 12 months, you worried that your food would run out before you got the money to buy more.: Never true Within the past 12 months, the food you bought just didn't last and you didn't have money to get more.: Never true Utilities In the past 12 months has the [employer], gas, oil, or water [employer] threatened to shut off services in your home?: No Tobacco Use Patient reports that he has never smoked. He has never used smokeless tobacco. Interventions The following were addressed during this visit: - Initial enrollment outreach - Intake assessments completed: ADLs, Fall Risk, SDOH - Schedule Biannual PCP Appointment - Schedule Annual Wellness Visit Geno Garcia RN August 20, 2024 2:56 PM Allergies As of Date: 08/20/2024 Noted Allergy Reaction PEPCID (FAMOTIDINE) 02/27/2015 14 - Other: See Comments Comments: headache RANITIDINE 12/30/2009 5 - Intolerance Comments: fatigue Date Reviewed: 07/20/2024 Reviewed by: Juan Mckeon MD - Fully Assessed Prescriptions as of 08/20/2024 - carvedilol (COREG) 12.5 mg tablet 6.25 mg AM and 12.5 mg evening Per [facility] - omeprazole (PRILOSEC) 20 mg capsule Take 1 capsule by mouth as needed. - doxazosin (CARDURA) 2 mg tablet Take 1 tablet by mouth daily at bedtime. Per [facility] - ramipril (ALTACE) 10 mg capsule Take 1 capsule by mouth two times a day. Per [facility] - clopidogrel (PLAVIX) 75 mg tablet Take 75 mg by mouth once daily. - atorvastatin (LIPITOR) 20 mg tablet TAKE ONE TABLET BY MOUTH EVERY DAY - MULTIVITAMIN TAB Take one(1) tablet daily. - ASPIRIN 81 MG TAB Take one(1) tablet daily. 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 [facility]04-16-2025 NoteHNO ID: [id number] Author: FLOR PHAM LPN Service: ? Author Type: LICENSED NURSE Type: Progress Notes Filed: 08/08/2024 15:03 Note Text: Scan on 08/08/2024 1:34 PM by ProviderAria PA-C: [facility] History of Present illness Narrative* Flor Pham LPN - 08/08/2024 3:02 PM EDT Scan on 08/08/2024 1:34 PM by ProviderAria PA-C: Consultation - Cardiology documented in [facility]Mer[facility]03[facility] Instructions* Patient Instructions* Juna Mckeon MD - 07/20/2024 1:54 PM EDT Consider getting the shingrix vaccine for the prevention of shingles from a local pharmacy along with with a RSV, and Tdap for tetanus update. Screening schedule The following prevention plan is recommended: Depression Screening Never done DTaP,Tdap,Td Vaccine(1 - Tdap) Never done Shingrix Vaccine(1 of 2) Never done RSV Vaccine(1 - 1-dose 75+ series) Never done Advance Directive Discussion due on 04/25/2024 Covid-19 Vaccine( season) due on 07/17/2024 WHAT YOU CAN DO TO PREVENT FALLS Many falls can be prevented. By making some changes, you can lower your chances of falling. Four things YOU can do to prevent falls for you* and your caregiver 1. Begin a regular exercise program Exercise is one of the most important ways to lower your chances of falling. It makes you stronger and helps you feel better. Exercises that improve balance and coordination (like Orestes Chi) are the most helpful. Lack of exercise leads to weakness and increases your chances of falling. Ask your doctor or health care provider about the best type of exercise program for you. 2. Have your health care provider review your medicines Have your doctor or pharmacist review all the medicines you take, even [id number]-[id number] medicines. As you get older, the way medicines work in your body can change. Some medicines, or combinations of medicines, can make you sleepy or dizzy andcan cause you to fall. 3. Have your vision checked Have your eyes checked by an eye doctor at least once a year. You may be wearing the wrong glasses or have a condition like glaucoma or cataracts that limits your vision. Poor vision can increase your chances of falling. 4. Make your home safer About half of all falls happen at home. To make your home safer: Remove things you can trip over (like papers, books, clothes, and shoes) from stairs and places where you walk. Remove small throw rugs or use double-sided tape to keep the rugs from slipping. Keep items you use often in cabinets you can reach easily without using a step stool. Have grab bars put in next to your toilet and in the tub or shower. Use non-slip mats in the bathtub and on shower floors. Improve the lighting in your home. As you get older, you need brighter lights to see well. Hang light-weight curtains or shades to reduce glare. Have handrails and lights put in on all staircases. Wear shoes both inside and outside the house. Avoid going barefoot or wearing slippers. For more information, contact: Centers for Disease Control and Prevention www.cdc.gov/injury * This information may not apply if you have certain medical conditions. documented in this encounterMer[facility]03-28-2025 NoteHNO ID: [id number] Author: JUAN MCKEON MD Service: ? Author Type: Physician Type: Progress Notes Filed: 07/20/2024 22:34 Note Text: German Trejo Jr. is a 88 year old male here for a Medicare wellness visit. Medicare Health Risk Assessment General Health Very good Exercise: Minutes/Day 50 min Exercise: Days/Week On average, how many days per week do you engage in moderate to strenuous exercise (like a brisk walk)?: 7 days (walking/lifting weight) Alcohol: Daily Use Never Alcohol: Drinks/Day Patient does not drink Alcohol: 6 or more drinks Never Feel off balance No Concerns: Teeth/Dentures No Concerns: Sexual function No Troubled by feelings None of the above Frequency: Eating healthy diet Nearly every day ADLs requiring help None of the above Safety precautions in home/vehicle No Smoke, vape, chews tobacco No Difficulty hearing No Difficulty seeing No Current Providers Specialists: I have reviewed specialist-related care of the patient in the medical record. Current care team: Patient Care Team: Juan Mckeon MD as PCP - General (Family Medicine) Ana Petersen APRN.GERSON as Live In Companion (Family Medicine) Génesis Lazo PA-C as Live In Companion (Family Medicine) [facility]. Optho Medical/Family history review Reviewed and updated problem list, medical/surgical/family/social history, medications, and allergies. Opioid use review Opioid Medications (last 90 days) No data to display Anxiety/Depression screening PHQ-2 Score: 0 (Lower risk for depression) Recommendation: no further intervention at this time Cognitive screening Score: 5 Cognitive screening reviewed and No further action needed (score 3-5). Functional Observation Was the patient's Timed Up AND Go test unsteady or >= 12 seconds? No Advance Care Planning Surrogate decision maker documented and/or advance directives scanned in chart Measurements BP 142/74 Pulse (!) 58 Resp 18 Ht 167.6 cm (5' 6) Wt 60.3 kg (133 lb) BMI 21.47 kg/m? Vision Screening: Follows with optometry/ophthalmology Assessment/Plan Medicare annual wellness visit, subsequent (Z00.00) See below Chief Complaint Patient presents with: Medicare Wellness Exam HPI German Trejo Jr. is a 88 year old male who presents here today for Chronic Medical Conditions. and Medicare Annual Visit. Patient with Hx of BPH, CAD, elevated fasting blood sugar, HTN, past Hx of CABG, IBS, hyperlipidemia as well as those reviewed and addressed below and in ROS Patient has been doing ok. No new issues or concerns. Past medical history, appointments, medications, allergies reviewed. [...] artery 04/07/201703/2017, proximal RCA by Dr. Sewell Valvular heart disease 01/06/2023 Seeing cardio Xerosis cutis 09/07/2009 Previous Surgical History PAST [...] STRESS ECHO 08/15/2018 EF=65%, neg for ischemia TONSILLECTO (more content not included)...[facility]03-28-[facility]25 History of Present illness Narrative* Juan Mckeon MD - 07/20/2024 1:38 PM EDT Images from the original note were not included. German Trejo is a 88 year old male here for a Medicare wellness visit. Medicare Health Risk Assessment General Health Very good Exercise: Minutes/Day 50 min Exercise: Days/Week On average, how many days per week do you engage in moderate to strenuous exercise (like a brisk walk)?: 7 days (walking/lifting weight) Alcohol: Daily Use Never Alcohol: Drinks/Day Patient does not drink Alcohol: 6 or more drinks Never Feel off balance No Concerns: Teeth/Dentures No Concerns: Sexual function No Troubled by feelings None of the above Frequency: Eating healthy diet Nearly every day ADLs requiring help None of the above Safety precautions in home/vehicle No Smoke, vape, chews tobacco No Difficulty hearing No Difficulty seeing No Current Providers Specialists: I have reviewed specialist-related care of the patient in the medical record. Current care team: Patient Care Team: Juan Mckeon MD as PCP - General (Family Medicine) Ana Petersen APRN.GERSON as Live In Companion (Family Medicine) Génesis Lazo PA-C as Live In Companion (Family Medicine) [facility]. Optho Medical/Family history review Reviewed and updated problem list, medical/surgical/family/social history, medications, and allergies. Opioid use review Opioid Medications (last 90 days) No data to display Anxiety/Depression screening PHQ-2 Score: 0 (Lower risk for depression) Recommendation: no further intervention at this time Cognitive screening Score: 5 Cognitive screening reviewed and No further action needed (score 3-5). Functional Observation Was the patient's Timed Up & Go test unsteady or >= 12 seconds? No Advance Care Planning Surrogate decision maker documented and/or advance directives scanned in chart Measurements BP 142/74 Pulse (!) 58 Resp 18 Ht 167.6 cm (5' 6) Wt 60.3 kg (133 lb) BMI 21.47 kg/m Vision Screening: Follows with optometry/ophthalmology Assessment/Plan Medicare annual wellness visit, subsequent (Z00.00) See below Chief Complaint Patient presents with: Medicare Wellness Exam HPI German Trejo Jr. is a 88 year old male who presents here today for Chronic Medical Conditions. and Medicare Annual Visit. Patient with Hx of BPH, CAD, elevated fasting blood sugar, HTN, past Hx of CABG, IBS, hyperlipidemia as well as those reviewed and addressed below and in ROS Patient has been doing ok. No new issues or concerns. Past medical history, appointments, medications, allergies reviewed. 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 Sewell Valvular heart disease 01/06/2023 Seeing cardio Xerosis cutis 09/07/2009 Previous Surgical History PAST [...] Father age 72 of lung cancer, previous AR age 57 Coronary Artery Disease Father Diabetes Brother age 67 of DM, also history of prostate cancer Heart Sister Alive age 68, history of AR age 66 Patient Allergies ALLERGIES Allergen Reactions Pepcid [Famotidine] Other: See Comments headache Ranitidine Intolerance fatigue Current Medications Current Outpatient Medications on File Prior to Visit Medication Sig carvedilol (COREG) 12.5 mg tablet Take 1 tablet by mouth two times a day with meals. Per [facility] doxazosin (CARDURA) 2 mg tablet Take 1 tablet by mouth daily at bedtime. Per [facility] ramipril (ALTACE) 10 mg capsule Take 1 capsule by mouth two times a day. Per [facility] omeprazole (PRILOSEC) 20 mg capsule Take 1 capsule by mouth as needed. clopidogrel (PLAVIX) 75 mg tablet Take 75 mg by mouth once daily. atorvastatin (LIPITOR) 20 mg tablet TAKE ONE TABLET BY MOUTH EVERY DAY MULTIVITAMIN TAB Take one(1) tablet daily. ASPIRIN 81 MG TAB Take one(1) tablet daily. No current facility-administered medications on file prior [...] GI: No nausea, vomiting, or diarrhea, No heartburn or reflux symptoms, and no blood : No history of dysuria, frequency or blood MUSCULOSKELETAL: still having the sciatica on the right side. Is improved but not resolved. SKIN: Negative for lesions, rash, and itching PSYCH: Negative for sleep disturbance, mood disorder and recent psychosocial stressors HEMATOLOGY/LYMPHOLOGY: Negative for prolonged bleeding, bruising easily or swollen nodes ENDOCRINE: Negative for cold or heat intolerance, polyuria, polydipsia and goiter NEURO: No history of headaches, syncope, paralysis, seizures or tremors EXAM: BP 142/74 Pulse (!) 58 Resp 18 Ht 167.6 cm (5' 6) Wt 60.3 kg (133 lb) BMI 21.47 kg/m Last 5 Encounter Wt Readings: Date: Wt: 07/20/2024 60.3 kg (133 lb) 01/18/2024 58.1 kg (128 lb) 07/13/2023 57.2 kg (126 lb) 01/06/2023 57.2 kg (126 lb) 07/08/2022 58.3 kg (128 lb 9.6 oz) General Appearance: Well appearing, alert, in no acute distress, well-hydrated, well nourished. andThin. Skin: Skin color, texture, turgor normal, no suspicious rashes or lesions. Head: Normocephalic, no masses, lesions, tenderness or abnormalities. Eyes: Anicteric sclera. Pupils are equally round and reactive to light. Extraocular movements are intact. . Ears: External ears, TM's normal, canals clear. Nose/Sinuses: Nares normal, septum midline, mucosa normal, no drainage or sinus tenderness. Oropharynx: Lips, mucosa, and tongue normal, teeth and gums normal, oropharynx normal. Neck: Supple, no adenopathy; thyroid symmetric, normal size, no bruits. Lungs: Lungs clear to auscultation. No wheezing, rhonchi, rales.. Heart: RRR without murmur, gallop, or rubs. No ectopy. Abdomen: Normal abdominal exam, Abdomen soft, non-tender. Bowel sounds normal. No masses, organomegaly. Extremities: No deformities, edema, skin discoloration, clubbing or cyanosis. Good capillary refill. . Musculoskeletal: Muscular strength intact, No joint swelling, deformity, or tenderness. Peripheral Pulses: Normal. Neurologic: Gait normal. Reflexes normal and symmetric. Sensation to light touch and crainal nerves2-12 intact.. Health Maintenance List Depression Screening Never done DTaP,Tdap,Td Vaccine(1 - Tdap) Never done Shingrix Vaccine(1 of 2) Never done RSV Vaccine(1 - 1-dose 75+ series) Never done Advance Directive Discussion due on 04/25/2024 Covid-19 Vaccine( season) due on 07/17/2024 Anxiety Screening due on 01/17/2025 LDL Cholesterol due on 07/13/2025 Diabetes Screening due on 07/14/2027 Influenza Vaccine Completed Pneumococcal Vaccine: 50+ Completed Data reviewed Latest Ref Rng 06/30/2023 01/11/2024 07/13/2024 WBC 3.70 - 11.00 k/uL 7.17 6.52 RBC 4.20 - 6.00 m/uL 4.09 (L) 4.16 (L) Hemoglobin 13.0 - 17.0 g/dL 13.0 13.3 Hematocrit 39.0 - 51.0 % 38.6 (L) 39.7 MCV 80.0 - 100.0 fL 94.4 95.4 MCH 26.0 - 34.0 pg 31.8 32.0 MCHC 30.5 - 36.0 g/dL 33.7 33.5 RDW-CV 11.5 - 15.0 % 12.5 13.2 Platelet Count 150 - 400 k/uL 146 (L) 176 MPV 9.0 - 12.7 fL 10.4 9.9 Neut% % 69.4 65.0 Abs Neut (ANC) 1.45 - 7.50 k/uL 4.98 4.24 Lymph% % 17.9 22.4 Abs Lymph 1.00 - 4.00 k/uL 1.28 1.46 [place]% % 8.1 7.8 Abs [place] <0.87 k/uL 0.58 0.51 Eosin% % 4.2 4.0 Abs Eosin <0.46 k/uL 0.30 0.26 Baso% % 0.3 0.5 Abs Baso <0.11 k/uL <0.03 0.03 Immature Gran % % 0.1 0.3 IMMATURE GRANS (ABS) <0.10 k/uL <0.03 <0.03 NRBC /100 WBC 0.0 0.0 Absolute nRBC <0.01 k/uL <0.01 <0.01 DTYPE Auto Auto Color Yellow Yellow Yellow Clarity Clear Clear Clear Glucose, Urine Negative Negative Negative Bilirubin, Urine Negative Negative Negative Ketones, Urine Negative Negative Negative Specific [place], Ur 1.005 - 1.030 1.018 1.016 Hemoglobin/Blood,Ur Negative Negative Negative pH, Urine <8.5 6.0 6.5 Protein, Urine Negative Negative Negative Urobilinogen 0.2-1.0 EU/dL 0.2 EU/dL 0.2 EU/dL Nitrites Negative Negative Negative Leukest Negative Negative Negative WBC, Urine 0-5 /HPF 0-5 /HPF 0-5 /HPF RBC, Urine 0-2 /HPF 0-2 /HPF 0-2 /HPF Bacteria Negative /HPF Negative Negative Epithelial Cells /HPF None Seen None Seen Hyaline Cast 0 /LPF 0 /LPF 0 /LPF Protein, Total 6.3 - 8.0 g/dL 6.9 7.0 Albumin 3.9 - 4.9 g/dL 4.2 4.2 Calcium 8.5 - 10.2 mg/dL 9.6 9.8 Bilirubin, Total 0.2 - 1.3 mg/dL 0.5 0.3 Alkaline Phosphatase 38 - 113 U/L 52 63 AST 14 - 40 U/L 26 24 ALT 10 - 54 U/L 14 16 Glucose 74 - 99 mg/dL 119 (H) 110 (H) BUN 9 - 24 mg/dL 26 (H) 24 Creatinine 0.73 - 1.22 mg/dL 1.06 1.02 Sodium 136 - 144 mmol/L 140 140 Potassium 3.7 - 5.1 mmol/L 4.3 4.4 Chloride 98 - 107 mmol/L 104 103 CO2 22 - 30 mmol/L 29 27 Anion Gap 8 - 15 mmol/L 7 (L) 10 eGFR >=60 mL/min/1.73m 68 71 Total Cholesterol, Nonfasting <200 mg/dL 125 121 134 Triglycerides, Nonfasting <150 mg/dL 73 105 125 HDL Cholesterol, Nonfasting >39 mg/dL 44 39 (L) 42 LDL Cholesterol, Nonfasting <100 mg/dL 66 61 67 Non HDL Cholesterol, Nonfasting <130 mg/dL 81 82 92 VLDL Cholesterol, Nonfasting <30 mg/dL 15 21 25 Total Chol/HDL Ratio, Nonfasting <5.10 mg/dL 2.84 3.10 3.19 LDL/HDL Ratio, Nonfasting <2.54 mg/dL 1.50 1.56 1.60 Hemoglobin A1C 4.3 - 5.6 % 6.1 (H) 5.9 (H) 5.8 (H) Estimated Average Glucose mg/dL 128 123 120 Vitamin B12 232 - 1,245 pg/mL 606 580 Magnesium 1.7 - 2.3 mg/dL 2.1 2.2 A/P ASSESSMENT/PLAN: 1. Medicare annual wellness visit, subsequent - ICD9: V70.0, ICD10: Z00.00 (primary diagnosis) - Counseled on healthy diet and regular exercise - Patient counseled on and acknowledged vaccine benefits/risks/side effects; VIS provided: COVID-19 - Follow up for annual exam in one year 2. Essential hypertension with goal blood pressure less than 140/90 - ICD9: 401.9, ICD10: I10 - Controlled - Continue current medications - Recommend home blood pressure monitoring, to bring results to next visit - Encouraged sodium restriction, DASH or Mediterranean diet - Recommend regular aerobic exercise 3. Mixed hyperlipidemia - ICD9: 272.2, ICD10: E78.2 - Controlled - Continue current medications - Counseled on healthy diet and regular exercise 4. Elevated fasting blood sugar - ICD9: 790.21, ICD10: R73.01 - improved with life style changes. 5. Hypertensive heart disease without heart failure - ICD9: 402.90, ICD10: I11.9 - Controlled - Continue current medications - Recommend home blood pressure monitoring, to bring results to next visit - Encouraged sodium restriction, DASH or Mediterranean diet - Recommend regular aerobic exercise 6. Coronary atherosclerosis due to lipid rich plaque - ICD9: 414.3, ICD10: I25.83 - clinically stable. No changes and cont f/u with cardio. 7. Valvular heart disease - ICD9: 424.90, ICD10: I38 - as per #6 8. Bilateral carotid artery stenosis - ICD9: 433.10, 433.30, ICD10: I65.23 check - US CAROTID ARTERIES [facility] - cont statin. 9. GERD without esophagitis - ICD9: 530.81, ICD10: K21.9 - Continue treatment with Prilosec 20 mg every day prn 10. Benign prostatic hyperplasia without lower urinary tract symptoms - ICD9: 600.00, ICD10: N40.0 - stable clinically. 11. Advance directive discussed with patient - ICD9: V65.49, ICD10: Z71.89 - up to date. 12. Need for vaccination - ICD9: V05.9, ICD10: Z23 - [employer] COVID-19 VACCINE AGE 12+ YR (COMIRNATY): given 13. Screening for depression - ICD9: V79.0, ICD10: Z13.31 - DEPRESSION SCREENING F/u 6 months routine check lipids and A1c prior. I spent a total of 40 minutes on the date of the service which included preparing to see the patient, [id number] patient care, completing clinical documentation, performing a medically appropriate examination, counseling and educating the patient/family/caregiver and ordering medications, tests, or procedures. Juan Mckeon MD documented in this encounterMer[facility]02-18-2025 NoteHNO ID: [id number] Author: MARYANNE FLORES MA Service: ? Author Type: D[employer] Processing Equipment Operator Type: Progress Notes Filed: 06/12/2024 16:17 Note Text: POPULATION HEALTH NAVIGATION OUTREACH Action/FYI June 12, 2024 4:15 PM [employer] High Risk - Attempt 1 ~MARKO with Juan Mckeon MD was January 18, 2024 Follow up . Return in six months for Medicare Wellness ~Patient is scheduled for his Medicare Wellness with Dr Mckeon on July 20, 2024 Health Maintenance Due: Advance Directive Discussion due on 04/25/2024 - Already in [facility] Outcome: Spoke with patient. He has been scheduled for his six month follow up with Juan Mckeon MD on January 01, 2025 Reason for Outreach Care Gap/HCC or Scheduling Wellness Visits Care Gaps due: Follow-up Appointment Patient Contacted: Spoke to patient/parent/or legal guardian Patient identified by name and : Yes Care Gap/HCC/Scheduling Wellness actions taken: Patient scheduled/pended orders: Follow-up Appointment 07/20/2024 in [facility] with JUAN MCKEON - medicare wellness 01/01/2025 in [facility] with JUAN MCKEON - Six month follow up review Navigation Signature: Maryanne Flores MA June 12, 2024 4:15 [facility]02-18-2025 History of Present illness Narrative* Maryanne Flores MA - 06/12/2024 4:15 PM EST POPULATION HEALTH NAVIGATION OUTREACH Action/June 12, 2024 4:15 PM [employer] High Risk - Attempt 1 ~MARKO with Juan Mckeon MD was January 18, 2024 Follow up . Return in six months for Medicare Wellness ~Patient is scheduled for his Medicare Wellness with Dr Mckeon on July 20, 2024 Health Maintenance Due: Advance Directive Discussion due on 04/25/2024 - Already in [facility] Outcome: Spoke with patient. He has been scheduled for his six month follow up with Juan Mckeon MD on January 01, 2025 Reason for Outreach Care Gap/HCC or Scheduling Wellness Visits Care Gaps due: Follow-up Appointment Patient Contacted: Spoke to patient/parent/or legal guardian Patient identified by name and : Yes Care Gap/HCC/Scheduling Wellness actions taken: Patient scheduled/pended orders: Follow-up Appointment 07/20/2024 in [facility] with JUAN MCKEON - medicare wellness 01/01/2025 in [facility] with JUAN MCKEON - Six month follow up review Navigation Signature: Maryanne Flores MA June 12, 2024 4:15 PM documented in this encounterMercy [facility]02-18-2025 NotePatient Outreach (NETNAV) GERMAN TREJO JR. ([id number]) 1935 M Date Time Provider Department 06/12/24 MARYANNE FLORES During your visit today, we recorded the following information about you: Maryanne Flores MA 06/12/2024 4:17 PM Signed POPULATION HEALTH NAVIGATION OUTREACH Action/I June 12, 2024 4:15 PM [employer] High Risk - Attempt 1 ~MARKO with Juan Mckeon MD was January 18, 2024 Follow up . Return in six months for Medicare Wellness ~Patient is scheduled for his Medicare Wellness with Dr Mckeon on July 20, 2024 Health Maintenance Due: Advance Directive Discussion due on 04/25/2024 - Already in [facility] Outcome: Spoke with patient. He has been scheduled for his six month follow up with Juan Mckeon MD on January 01, 2025 Reason for Outreach Care Gap/HCC or Scheduling Wellness Visits Care Gaps due: Follow-up Appointment Patient Contacted: Spoke to patient/parent/or legal guardian Patient identified by name and : Yes Care Gap/HCC/Scheduling Wellness actions taken: Patient scheduled/pended orders: Follow-up Appointment 07/20/2024 in [facility] with JUAN MCKEON - medicare wellness 01/01/2025 in [facility] with JUAN MCKEON - Six month follow up review Navigation Signature: Maryanne Flores MA June 12, 2024 4:15 PM Allergies As of Date: 06/12/2024 Noted Allergy Reaction PEPCID (FAMOTIDINE) 02/27/2015 14 - Other: See Comments Comments: headache RANITIDINE 12/30/2009 5 - Intolerance Comments: fatigue Date Reviewed: 01/18/2024 Reviewed by: Juan Mckeon MD - Fully Assessed Reason for Visit: Population Health Navigation Outreach [3910] Cmt: [employer] High Risk Attempt 1 Prescriptions as of 06/12/2024 - carvedilol (COREG) 12.5 mg tablet Take 1 tablet by mouth two times a day with meals. Per [facility] - doxazosin (CARDURA) 2 mg tablet Take 1 tablet by mouth daily at bedtime. Per [facility] - ramipril (ALTACE) 10 mg capsule Take 1 capsule by mouth two times a day. Per [facility] - omeprazole (PRILOSEC) 20 mg capsule Take 1 capsule by mouth as needed. - clopidogrel (PLAVIX) 75 mg tablet Take 75 mg by mouth once daily. - atorvastatin (LIPITOR) 20 mg tablet TAKE ONE TABLET BY MOUTH EVERY DAY - MULTIVITAMIN TAB Take one(1) tablet daily. - ASPIRIN 81 MG TAB Take one(1) tablet daily. Problem List As Of Date 06/12/2024 Noted Resolved Benign prostatic hyperplasia without lower [...] Hx of SCC skin cancer at [facility] area o*10/30/2013 Mixed hyperlipidemia [E78.2] 08/30/2014 IBS (irritable bowel syndrome) [K58.9] 08/30/2014 Coronary atherosclerosis due to lipid rich plaq*02/27/2015 Diverticulosis of large intestine without hemor*02/27/2015 Failed CABG (coronary artery bypass graft) [T82*03/05/2015 Hypertensive heart disease without heart failur*03/05/2015 Elevated fasting blood sugar [R73.01] 05/23/2015 S/P CABG x 3 [Z95.1] 07/15/2015 Essential hypertension with goal blood pressure*08/29/2015 Medicare annual wellness visit, subsequent [Z00*08/30/2016 Stented coronary artery [Z95.5] 04/07/2017 Medication management [Z79.899] 05/10/2019 GERD without esophagitis [K21.9] 12/16/2020 Bilateral carotid artery stenosis [I65.23] 06/18/[address] [Z78.9] 06/25/2021 Advance directive discussed with patient [Z71.8*07/08/2022 Valvular heart disease [I38] 01/06/2023 Abnormal platelets (HCC) [D69.1] 07/13/2023 Encounter Status:Closed by MARYANNE FLORES on 06/12/24[facility]* Addendum Note - Juan Mckeon MD - 02/21/2024 4:22 PM EDTAddended by: JUAN MCKEON on: 02/21/2024 04:22 PM Modules accepted: Orders [facility]10-29-[facility] Miscellaneous Notes* Addendum Note - Juan Mckeon MD - 02/21/2024 4:22 PM EDTAddended by: JUAN MCKEON on: 02/21/2024 04:22 PM Modules accepted: Orders documented in this encounterMercy [facility]10-29-2024 History of Present illness Narrative* Flor Pham LPN - 02/21/2024 2:35 PM EDT Scan on 02/21/2024 2:08 PM by ProviderAria PA-C: Consultation - Cardiology documented in this encounterMercy [facility]10-29-2024 NoteHNO ID: [id number] Author: FLOR PHAM LPN Service: ? Author Type: LICENSED NURSE Type: Progress Notes Filed: 02/21/2024 14:35 Note Text: Scan on 02/21/2024 2:08 PM by ProviderAria PA-C: [facility] Instructions* Patient Instructions* Juan Mckeon MD - 01/18/2024 1:54 PM EDT Please get labs and urine test done on or after 06/29/2024 prior to your next visit. documented in this encounterMercy [facility]09-25-2024 History of Present illness Narrative* Juan Mckeon MD - 01/18/2024 1:40 PM EDT Chief Complaint Patient presents with: F/U 6 months HPI German Trejo Jr. is a 88 year old male who presents here today for 6 month follow up. Patient with Hx of BPH, CAD, elevated fasting blood sugar, HTN, past Hx of CABG, IBS, hyperlipidemia as well as those reviewed and addressed below and in ROS. Patient had his Clonidine and Imdur stopped per Cardiology. Patient has been doing ok. Finally got his BP under improved control after working with cardio. Past medical history, appointments, medications, allergies reviewed. [...] artery 04/07/201703/2017, proximal RCA by Dr. Sewell Valvular heart disease 01/06/2023 Seeing cardio Xerosis cutis 09/07/2009 Previous Surgical History PAST [...] Father age 72 of lung cancer, previous AR age 57 Coronary Artery Disease Father Diabetes Brother age 67 of DM, also history of prostate cancer Heart Sister Alive age 68, history of AR age 66 Patient Allergies ALLERGIES Allergen Reactions Pepcid [Famotidine] Other: See Comments headache Ranitidine Intolerance fatigue Current Medications Current Outpatient Medications on File Prior to Visit Medication Sig cloNIDine HCl (CATAPRES) 0.1 mg tablet Take 0.1 mg by mouth once daily. Per [facility] ramipril (ALTACE) 10 mg capsule Take 1 capsule by mouth two times a day. Per [facility] isosorbide mononitrate ER (IMDUR) 30 mg 24 hr tablet Take 30 mg by mouth once daily. Take one tablet daily (per [facility]) omeprazole (PRILOSEC) 20 mg capsule Take 1 capsule by mouth as needed. carvedilol (COREG) 6.25 mg tablet Take 6.25 mg by mouth twice daily with meals. clopidogrel (PLAVIX) 75 mg tablet Take 75 mg by mouth once daily. atorvastatin (LIPITOR) 20 mg tablet TAKE ONE TABLET BY MOUTH EVERY DAY MULTIVITAMIN TAB Take one(1) tablet daily. ASPIRIN 81 MG TAB Take one(1) tablet daily. No current facility-administered medications on file prior [...] dyspnea or shortness of breath CARDIOVASCULAR: Negative for, leg swelling, hypertension, CHF or palpitations. Has an occasional chest pain that resolves quickly on it's own. GI: No nausea, vomiting, or diarrhea and No frequent heartburn or reflux symptoms ENDOCRINE: Negative for cold or heat intolerance, polyuria, polydipsia and goiter NEURO: No history of headaches, syncope, paralysis, seizures or tremors EXAM: BP 128/82 (BP Site: Right Arm, BP Position: Sitting, BP Cuff Size: Regular Adult) Pulse 70 Resp18 Wt 58.1 kg (128 lb) BMI 20.66 kg/m Last 5 Encounter Wt Readings: Date: Wt: 01/18/2024 58.1 kg (128 lb) 07/13/2023 57.2 kg (126 lb) 01/06/2023 57.2 kg (126 lb) 07/08/2022 58.3 kg (128 lb 9.6 oz) 01/01/2022 58.1 kg (128 lb) General Appearance: Well appearing, alert, in no acute distress, well-hydrated, well nourished.. Neck: Supple, no adenopathy; thyroid symmetric, normal size, no bruits. Lungs: Lungs clear to auscultation. No wheezing, rhonchi, rales.. Heart: RRR without gallop, or rubs. No ectopy. Soft JOSE. Abdomen: Normal abdominal exam, Abdomen soft, non-tender. Bowel sounds normal. No masses, organomegaly. Extremities: No deformities, edema, skin discoloration, Good capillary refill. . Peripheral Pulses: Normal. Neuro: moving all 4 extremities. Health Maintenance List Depression Screening Never done Anxiety Screening Never done Covid-19 Vaccine( season) due on 12/25/2023 Influenza Vaccine(1) due on 12/25/2023 DTaP,Tdap,Td Vaccine(1 - Tdap) due on 07/12/2024 RSV Vaccine(1 - 1-dose 75+ series) due on 07/12/2024 Shingrix Vaccine(1 of 2) due on 07/12/2024 LDL Cholesterol due on 01/10/2025 Diabetes Screening due on 01/10/2027 Advance Directive Discussion Completed Pneumococcal Vaccine: 65+ Completed Data reviewed Latest Ref Rng 06/30/2023 01/11/2024 WBC 3.70 - 11.00 k/uL 7.17 RBC 4.20 - 6.00 m/uL 4.09 (L) Hemoglobin 13.0 - 17.0 g/dL 13.0 Hematocrit 39.0 - 51.0 % 38.6 (L) MCV 80.0 - 100.0 fL 94.4 MCH 26.0 - 34.0 pg 31.8 MCHC 30.5 - 36.0 g/dL 33.7 RDW-CV 11.5 - 15.0 % 12.5 Platelet Count 150 - 400 k/uL 146 (L) MPV 9.0 - 12.7 fL 10.4 Neut% % 69.4 Abs Neut (ANC) 1.45 - 7.50 k/uL 4.98 Lymph% % 17.9 Abs Lymph 1.00 - 4.00 k/uL 1.28 [place]% % 8.1 Abs [place] <0.87 k/uL 0.58 Eosin% % 4.2 Abs Eosin <0.46 k/uL 0.30 Baso% % 0.3 Abs Baso <0.11 k/uL <0.03 Immature Gran % % 0.1 IMMATURE GRANS (ABS) <0.10 k/uL <0.03 NRBC /100 WBC 0.0 Absolute nRBC <0.01 k/uL <0.01 DTYPE Auto Protein, Total 6.3 - 8.0 g/dL 6.9 Albumin 3.9 - 4.9 g/dL 4.2 Calcium 8.5 - 10.2 mg/dL 9.6 Bilirubin, Total 0.2 - 1.3 mg/dL 0.5 Alkaline Phosphatase 38 - 113 U/L 52 AST 14 - 40 U/L 26 ALT 10 - 54 U/L 14 Glucose 74 - 99 mg/dL 119 (H) BUN 9 - 24 mg/dL 26 (H) Creatinine 0.73 - 1.22 mg/dL 1.06 Sodium 136 - 144 mmol/L 140 Potassium 3.7 - 5.1 mmol/L 4.3 Chloride 97 - 105 mmol/L 104 CO2 22 - 30 mmol/L 29 Anion Gap 9 - 18 mmol/L 7 (L) eGFR >=60 mL/min/1.73m 68 Total Cholesterol, Nonfasting <200 mg/dL 125 121 Triglycerides, Nonfasting <150 mg/dL 73 105 HDL Cholesterol, Nonfasting >39 mg/dL 44 39 (L) LDL Cholesterol, Nonfasting <100 mg/dL 66 61 Non HDL Cholesterol, Nonfasting <130 mg/dL 81 82 VLDL Cholesterol, Nonfasting <30 mg/dL 15 21 Total Chol/HDL Ratio, Nonfasting <5.10 mg/dL 2.84 3.10 LDL/HDL Ratio, Nonfasting <2.54 mg/dL 1.50 1.56 Hemoglobin A1C 4.3 - 5.6 % 6.1 (H) 5.9 (H) Estimated Average Glucose mg/dL 128 123 Legend: (L) Low (H) High A/P ASSESSMENT/PLAN: 1. Essential hypertension with goal blood pressure less than 140/90 - ICD9: 401.9, ICD10: I10 (primary diagnosis) - Controlled - Continue current medications - Recommend home blood pressure monitoring, to bring results to next visit - Encouraged sodium restriction, DASH or Mediterranean diet - Recommend regular aerobic exercise 2. Mixed hyperlipidemia - ICD9: 272.2, ICD10: E78.2 - Controlled - Continue current medications - Counseled on healthy diet and regular exercise 3. Hypertensive heart disease without heart failure - ICD9: 402.90, ICD10: I11.9 - Controlled - Continue current medications - Recommend home blood pressure monitoring, to bring results to next visit - Encouraged sodium restriction, DASH or Mediterranean diet - Recommend regular aerobic exercise - follows with cardio also. 4. Coronary atherosclerosis due to lipid rich plaque - ICD9: 414.3, ICD10: I25.10, I25.83 - clinically stable. Managed per [facility] 5. Elevated fasting blood sugar - ICD9: 790.21, ICD10: R73.01 - Improved A1c. 6. GERD without esophagitis - ICD9: 530.81, ICD10: K21.9 - Continue treatment with Prilosec 20 mg QD 7. Valvular heart disease - ICD9: 424.90, ICD10: I38 - clinically stable no changes and follows with cardio. 8. Bilateral carotid artery stenosis - ICD9: 433.10, 433.30, ICD10: I65.23 - cont current tx. 9. Encounter for immunization - ICD9: V03.89, ICD10: Z23 - [employer] COVID-19 VACCINE AGE 12+ YR ([place]NATY): given F/u 6 months extensive check MP, Lipid, UA, A1c, CBC, B12, Mg prior Juan Mckeon MD documented in this encounterMer[facility]05-10-2024 Telephone encounter Note * Telephone Encounter - Kililan Martinez LPN - 09/02/2023 11:57 AM EDT Pt notified. He verbalized understanding. Killian Martinez LPN [facility]05-10-2024 Miscellaneous Notes* Telephone Encounter - Killian Martinez LPN - 09/02/2023 11:57 AM EDT Pt notified. He verbalized understanding. Killian Martinez LPN * Telephone Encounter - Juan Mckeon MD - 09/02/2023 11:34 AM EDT Let patient know the repeat CBC was ok along with the B12, Folate and iron studies. [facility] Tele[facility] encounter Note * Telephone Encounter - Juan Mckeon MD - 09/02/2023 11:34 AM EDT Let patient know the repeat CBC was ok along with the B12, Folate and iron studies. [facility] Telephone encounter Note* Telephone Encounter - Carol Bullock LPN - 08/19/2023 2:44 PM EDT Patient returned call and went over results, notes from Dr Mckeon with understanding. Reminder to eat before taking the aspirin 81 mg daily. [facility] Miscellaneous Notes* Telephone Encounter - Carol Bullock LPN - 08/19/2023 2:44 PM EDT Patient returned call and went over results, notes from Dr Mckeon with understanding. Reminder to eat before taking the aspirin 81 mg daily. * Telephone Encounter - Ester Kearney MA - 08/19/2023 1:41 PM EDT Left message for patient to contact office. Ester Kearney MA * Telephone Encounter - Juan Mckeon MD - 08/19/2023 1:04 PM EDT Let patient know the US of his neck arteries shows mild narrowing on the right and moderate on the left. The only suggestion at this time would be to take a baby aspirin 81 mg a day if he stopped it. [facility] Telephone encounter Note * Telephone Encounter - Ester Kearney MA - 08/19/2023 1:41 PM EDT Left message for patient to contact office. Ester Kearney MA [facility] Telephone encounter Note* Telephone Encounter - Juan Mckeon MD - 08/19/2023 1:04 PM EDT Let patient know the US of his neck arteries shows mild narrowing on the right and moderate on the left. The only suggestion at this time would be to take a baby aspirin 81 mg a day if he stopped it. [facility]04-[facility] Telephone encounter Note* Telephone Encounter - Aurora Hudson LPN - 08/15/2023 4:16 PM EDT Pt notified of results and provider message. Pt reports he will call back to schedule for labs. Aurora Hudson LPN [facility]04-[facility] Miscellaneous Notes* Telephone Encounter - Aurora Hudson LPN - 08/15/2023 4:16 PM EDT Pt notified of results and provider message. Pt reports he will call back to schedule for labs. Aurora Hudson LPN * Telephone Encounter - Leandra Dowd RN - 08/15/2023 4:12 PM EDT Left vm for patient to return call to nurse for provider's message. * Telephone Encounter - Juan Mckeon MD - 08/15/2023 3:38 PM EDT Let patient know his repeat CBC showed his platelets were ok. However his hemoglobin was slightly low. I placed an order to repeat in two weeks to make sure it's not trending down as well as look at his Iron, B12 and Folate levels. documented in [facility] Telephone encounter Note * Telephone Encounter - Leandra Dowd RN - 08/15/2023 4:12 PM EDT Left vm for patient to return call to nurse for provider's message. [facility] Tele[facility] Note* Telephone Encounter - Juan Mckeon MD - 08/15/2023 3:38 PM EDT Let patient know his repeat CBC showed his platelets were ok. However his hemoglobin was slightly low. I placed an order to repeat in two weeks to make sure it's not trending down as well as look at his Iron, B12 and Folate levels. [facility] History of Present illness Narrative* Juan Mckeon MD - 07/13/2023 2:00 PM EDT Images from the original note were not included. German Trejo is a 87 year old male here for a Medicare wellness visit. Medicare Health Risk Assessment General Health good Exercise: Minutes/Day Daily walking, light weights and exercise bike Exercise: Days/Week 50 min Alcohol: Daily Use No, on a rare occasion Alcohol: Drinks/Day Alcohol: 6 or more drinks Feel off balance no Concerns: Teeth/Dentures Concerns: Sexual function Troubled by feelings none Frequency: Eating healthy diet daily ADLs requiring help none Safety precautions in home/vehicle Wears seat belts, no loose rugs, has grab bars and stair rails. Smoke, vape, chews tobacco never Difficulty hearing no Difficulty seeing Wears glasses Current Providers Specialists: I have reviewed specialist-related care of the patient in the medical record. Current care team: Patient Care Team: Juan Mckeon MD as PCP - General (Family Medicine) [facility] opt Medical/Family history review Reviewed and updated problem list, medical/surgical/family/social history, medications, and allergies. Opioid use review Opioid Medications (last 90 days) No data to display Depression screening Depression Screening PHQ-2 Score 07/13/2023 0 Depression screening tool completed and reviewed. Based on score and interview, patient is not at risk for depression. Screening tool discussed with patient, and I recommended no further interventionat this time. Cognitive screening Score: 5 Cognitive screening reviewed and no further action needed (score 3-5) Functional Observation Was the patient's Timed Up & Go test unsteady or ? 12 seconds? No Advance Care Planning Surrogate decision maker documented and/or advance directives scanned in chart Measurements BP 148/72 Pulse 57 Resp 18 Ht 5' 6 (1.68m) Wt 126 lb (57.2kg) SpO2 99% BMI 20.35 kg/(m^2). Vision Screening: Follows with optometry/ophthalmology Assessment/Plan Medicare annual wellness visit, subsequent (Z00.00) - Counseled on healthy diet and regular exercise - Fall avoidance information provided - Personalized prevention plan provided See Below Chief Complaint Patient presents with: Medicare Wellness Exam HPI German Trejo Jr. is a 87 year old male who presents here today for medicare wellness/chronic issues . Patient with Hx of BPH, CAD, elevated fasting blood sugar, HTN, past Hx of CABG, IBS, hyperlipidemia as well as those reviewed and addressed below and in ROS. Patient indicated that he has been in [facility] 2 times in the last month for his BP. He has been talkingwith [facility] for BP. Patient indicated that his BP was running high. Past medical history, appointments, medications, allergies reviewed. [...] artery 04/07/201703/2017, proximal RCA by Dr. Sewell Valvular heart disease 01/06/2023 Seeing cardio Xerosis cutis 09/07/2009 Previous Surgical History PAST [...] Father age 72 of lung cancer, previous AR age 57 Coronary Artery Disease Father Diabetes Brother age 67 of DM, also history of prostate cancer Heart Sister Alive age 68, history of AR age 66 Patient Allergies ALLERGIES Allergen Reactions [...] one(1) tablet daily. No current facility-administered medications on file prior [...] no blood : No history of dysuria, frequency or blood MUSCULOSKELETAL: Negative for joint pain or swelling, back pain or muscle pain SKIN: Negative for lesions, rash, and itching. Seeing [facility] PSYCH: Negative for sleep disturbance, mood disorder and recent psychosocial stressors HEMATOLOGY/LYMPHOLOGY: Negative for prolonged bleeding, bruising easily or swollen nodes ENDOCRINE: Negative for cold or heat intolerance, polyuria, polydipsia and goiter NEURO: No history of headaches, syncope, paralysis, seizures or tremors EXAM: BP 148/72 (BP Site: Left Arm, BP Position: Sitting, BP Cuff Size: Regular Adult) Pulse (!) 57 Resp 18 Ht 167.6 cm (5' 6) Wt 57.2 kg (126 lb) SpO2 99% BMI 20.34 kg/m Last 5 Encounter BP Readings: Date: BP: 07/13/2023 148/72 01/06/2023 138/74 07/08/2022 127/64 01/01/2022 118/54 06/25/2021 126/80 Last 5 Encounter Wt Readings: Date: Wt: 07/13/2023 57.2 kg (126 lb) 01/06/2023 57.2 kg (126 lb) 07/08/2022 58.3 kg (128 lb 9.6 oz) 01/01/2022 58.1 kg (128 lb) 06/25/2021 61.7 kg (136 lb) General Appearance: Well appearing, alert, in no acute distress, well-hydrated, well nourished.. Skin: Skin color, texture, turgor normal, no suspicious rashes or lesions. Head: Normocephalic, no masses, lesions, tenderness or abnormalities. Eyes: Anicteric sclera. Pupils are equally round and reactive to light. Extraocular movements are intact. . Ears: External ears, TM's normal, canals clear. Nose/Sinuses: Nares normal, septum midline, mucosa normal, no drainage or sinus tenderness. Oropharynx: Lips, mucosa, and tongue normal, teeth and gums normal, oropharynx normal. Neck: Supple, no adenopathy; thyroid symmetric, normal size, no bruits. Lungs: Lungs clear to auscultation. No wheezing, rhonchi, rales.. Heart: RRR without gallop, or rubs. No ectopy. Soft JOSE 2/6 Abdomen: Normal abdominal exam, Abdomen soft, non-tender. Bowel sounds normal. No masses, organomegaly. Extremities: No deformities, edema, skin discoloration, Good capillary refill. . Musculoskeletal: Muscular strength intact, No joint swelling, deformity, or tenderness. Peripheral Pulses: Normal. Neurologic: Gait normal. Reflexes normal and symmetric. Sensation to light touch and crainal nerves2-12 intact.. Genitalia: declined Health Maintenance List DTaP,Tdap,Td Vaccine(1 - Tdap) Never done Shingrix Vaccine(1 of 2) Never done RSV Vaccine(1 - 1-dose 60+ series) Never done Advance Directive Discussion due on 04/25/2023 Depression Assessment due on 04/25/2023 LDL Cholesterol due on 06/29/2024 Diabetes Screening due on 06/29/2026 Influenza Vaccine Completed Covid-19 Vaccine Completed Pneumococcal Vaccine: 65+ Completed Data reviewed Latest Ref Rng 12/29/2021 07/05/2022 01/03/2023 06/30/2023 WBC 3.70 - 11.00 k/uL 7.10 7.17 RBC 4.20 - 6.00 m/uL 4.59 4.09 (L) Hemoglobin 13.0 - 17.0 g/dL 14.6 13.0 Hematocrit 39.0 - 51.0 % 42.6 38.6 (L) MCV 80.0 - 100.0 fL 92.8 94.4 MCH 26.0 - 34.0 pg 31.8 31.8 MCHC 30.5 - 36.0 g/dL 34.3 33.7 RDW-CV 11.5 - 15.0 % 12.6 12.5 Platelet Count 150 - 400 k/uL 161 146 (L) MPV 9.0 - 12.7 fL 9.8 10.4 Neut% % 61.7 69.4 Abs Neut (ANC) 1.45 - 7.50 k/uL 4.38 4.98 Lymph% % 26.5 17.9 Abs Lymph 1.00 - 4.00 k/uL 1.88 1.28 [place]% % 8.2 8.1 Abs [place] <0.87 k/uL 0.58 0.58 Eosin% % 3.2 4.2 Abs Eosin <0.46 k/uL 0.23 0.30 Baso% % 0.3 0.3 Abs Baso <0.11 k/uL <0.03 <0.03 Immature Gran % % 0.1 0.1 IMMATURE GRANS (ABS) <0.10 k/uL <0.03 <0.03 NRBC /100 WBC 0.0 0.0 Absolute nRBC <0.01 k/uL <0.01 <0.01 DTYPE Auto Auto Color Yellow Light Yellow Yellow Clarity Clear Clear Clear Glucose, Urine Negative Negative Negative Bilirubin, Urine Negative Negative Negative Ketones, Urine Negative Negative Negative Specific [place], Ur 1.005 - 1.030 1.012 1.018 Hemoglobin/Blood,Ur Negative Negative Negative pH, Urine <8.5 6.5 6.0 Protein, Urine Negative Trace Negative Urobilinogen 0.2-1.0 EU/dL Negative 0.2 EU/dL Nitrites Negative Negative Negative Leukest Negative Negative Negative WBC, Urine 0-5 /HPF 0-5 /HPF 0-5 /HPF RBC, Urine 0-2 /HPF 0-3 /HPF 0-2 /HPF Bacteria Negative /HPF Negative Epithelial Cells /HPF None Seen Hyaline Cast 0 /LPF 0 /LPF Protein, Total 6.3 - 8.0 g/dL 6.9 6.9 Albumin 3.9 - 4.9 g/dL 4.5 4.2 Calcium 8.5 - 10.2 mg/dL 9.4 9.6 Bilirubin, Total 0.2 - 1.3 mg/dL 0.5 0.5 Alkaline Phosphatase 38 - 113 U/L 51 52 AST 14 - 40 U/L 26 26 ALT 10 - 54 U/L 14 14 Glucose 74 - 99 mg/dL 108 (H) 119 (H) BUN 9 - 24 mg/dL 15 26 (H) Creatinine 0.73 - 1.22 mg/dL 0.99 1.06 Sodium 136 - 144 mmol/L 140 140 Potassium 3.7 - 5.1 mmol/L 4.3 4.3 Chloride 97 - 105 mmol/L 104 104 CO2 22 - 30 mmol/L 27 29 Anion Gap 9 - 18 mmol/L 9 7 (L) eGFR >=60 mL/min/1.73m 74 68 Total Cholesterol, Nonfasting <200 mg/dL 108 134 120 125 Triglycerides, Nonfasting <150 mg/dL 104 135 99 73 HDL Cholesterol, Nonfasting >39 mg/dL 37 (L) 45 38 (L) 44 LDL Cholesterol, Nonfasting <100 mg/dL 50 62 62 66 Non HDL Cholesterol, Nonfasting <130 mg/dL 71 89 82 81 VLDL Cholesterol, Nonfasting <30 mg/dL 21 27 20 15 Total Chol/HDL Ratio, Nonfasting <5.10 mg/dL 2.92 2.98 3.16 2.84 LDL/HDL Ratio, Nonfasting <2.54 mg/dL 1.35 1.38 1.63 1.50 Hemoglobin A1C 4.3 - 5.6 % 5.5 6.0 (H) 6.0 (H) 6.1 (H) Estimated Average Glucose mg/dL 111 126 126 128 Vitamin B12 232 - 1,245 pg/mL 512 606 Magnesium 1.7 - 2.3 mg/dL 2.1 2.1 A/P ASSESSMENT/PLAN: 1. Medicare annual wellness visit, subsequent - ICD9: V70.0, ICD10: Z00.00 (primary diagnosis) - Counseled on healthy diet and regular exercise - Patient was counseled [id number] by myself (the billing provider) for the following immunizations and vaccine components, including side effects: COVID- 19. Patient consents for immunization and understands risks and benefits. A VIS sheet on each immunization was given to the patient. - Follow up for annual exam in one year - advised on shingrix and RSV vaccine. 2. Essential hypertension with goal blood pressure less than 140/90 - ICD9: 401.9, ICD10: I10 - Controlled. Is working with Cardiology to improve BP control. - Continue current medications - Recommend home blood pressure monitoring, to bring results to next visit - Encouraged sodium restriction, DASH or Mediterranean diet - Recommend regular aerobic exercise 3. Hypertensive heart disease without heart failure - ICD9: 402.90, ICD10: I11.9 - Controlled - Continue current medications - Recommend home blood pressure monitoring, to bring results to next visit - Encouraged sodium restriction, DASH or Mediterranean diet - Recommend regular aerobic exercise 4. Mixed hyperlipidemia - ICD9: 272.2, ICD10: E78.2 - Controlled - Continue current medications - Counseled on healthy diet and regular exercise 5. Elevated fasting blood sugar - ICD9: 790.21, ICD10: R73.01 - patient to cont managing with diet. 6. Coronary atherosclerosis due to lipid rich plaque - ICD9: 414.3, ICD10: I25.10, I25.83 - clinically stable. Managed per cardio 7. GERD without esophagitis - ICD9: 530.81, ICD10: K21.9 - Continue treatment with Prilosec 20 mg QD 8. Bilateral carotid artery stenosis - ICD9: 433.10, 433.30, ICD10: I65.23 Check - US CAROTID ARTERIES [facility] 9. Valvular heart disease - ICD9: 424.90, ICD10: I38 - stable seeing cardio 10. Benign prostatic hyperplasia without lower urinary tract symptoms - ICD9: 600.00, ICD10: N40.0 - stable no changes. 11. Advance directive discussed with patient - ICD9: V65.49, ICD10: Z71.89 - up to date 12. Abnormal platelets (HCC) - ICD9: 287.1, ICD10: D69.1 In a month check - CBC + DIFF 13. Need for vaccination - ICD9: V05.9, ICD10: Z23 - [employer] COVID-19 VACCINE ( SEASON) AGE 12+ YR: given Requested Prescriptions Signed Prescriptions Disp Refills ramipril (ALTACE) 10 mg capsule Sig: Take 1 capsule by mouth two times a day. Per [facility] F/u 6 months routine check lipids and A1c I spent a total of 40 minutes on the date of the service which included preparing to see the patient, [id number] patient care, completing clinical documentation, performing a medically appropriate examination, counseling and educating the patient/family/caregiver and ordering medications, tests, or procedures. Juan Mckeon MD documented in [facility] Instructions* Patient Instructions* Juan Mckeon MD - 07/13/2023 2:00 PM EDT Consider getting the shingrix vaccine for the prevention of shingles from a local pharmacy along with the RSV vaccine. Consider getting a Tdap for tetanus update at [facility]. On or after 08/13/2023 come get a repeat blood count to check platelet level. You do not need to fast. Please get labs done on or after 12/30/2023 prior to your next visit. Screening schedule The following prevention plan is recommended: DTaP,Tdap,Td Vaccine(1 - Tdap) Never done Shingrix Vaccine(1 of 2) Never done RSV Vaccine(1 - 1-dose 60+ series) Never done Advance Directive Discussion due on 04/25/2023 Depression Assessment due on 04/25/2023 WHAT YOU CAN DO TO PREVENT FALLS Many falls can be prevented. By making some changes, you can lower your chances of falling. Four things YOU can do to prevent falls for you* and your caregiver 1. Begin a regular exercise program Exercise is one of the most important ways to lower your chances of falling. It makes you stronger and helps you feel better. Exercises that improve balance and coordination (like Orestes Chi) are the most helpful. Lack of exercise leads to weakness and increases your chances of falling. Ask your doctor or health care provider about the best type of exercise program for you. 2. Have your health care provider review your medicines Have your doctor or pharmacist review all the medicines you take, even [id number] medicines. As you get older, the way medicines work in your body can change. Some medicines, or combinations of medicines, can make you sleepy or dizzy andcan cause you to fall. 3. Have your vision checked Have your eyes checked by an eye doctor at least once a year. You may be wearing the wrong glasses or have a condition like glaucoma or cataracts that limits your vision. Poor vision can increase your chances of falling. 4. Make your home safer About half of all falls happen at home. To make your home safer: Remove things you can trip over (like papers, books, clothes, and shoes) from stairs and places where you walk. Remove small throw rugs or use double-sided tape to keep the rugs from slipping. Keep items you use often in cabinets you can reach easily without using a step stool. Have grab bars put in next to your toilet and in the tub or shower. Use non-slip mats in the bathtub and on shower floors. Improve the lighting in your home. As you get older, you need brighter lights to see well. Hang light-weight curtains or shades to reduce glare. Have handrails and lights put in on all staircases. Wear shoes both inside and outside the house. Avoid going barefoot or wearing slippers. For more information, contact: Centers for Disease Control and Prevention www.cdc.gov/injury * This information may not apply if you have certain medical conditions. documented in this [facility]Mer[facility]03-[facility] History of Present illness Narrative* Flor Pham LPN - 07/02/2023 8:12 AM EST Scan on 07/02/2023 3:48 AM by ProviderAria PA-C: Consultation - Emergency Medicine Scan on 07/01/2023 2:35 PM by ProviderAria PA-C: Consultation - Cardiology documented in this encounterMer[facility]03-09-2024 Discharge summary Author Aman Barr [facility] July 02, 2023 3:41am Note Date/Time July 02, 2023 3:32 am [facility] Medical Records Department [address] [place] [address] Emergency Department Summary 07/02/23 MR#: [id number] Acct: [id number] Name: GERMAN TREJO Rep #:[id number] : 1935 87 From: Aman Barr MD PCP: Dr. Juan Mckeon MD Status:REG ER Location: ED HPI History of Present Illness Chief Complaint: Hypertension Detail of Chief Complaint: Elevated blood pressure and not feeling well Informant: patient Onset/Context/Timing Onset: Hours Context: Gradual Onset Timing: Continuous Quality: Not feeling well Location: Cannot specify Current Severity: Mild Maximum Severity: Mild Worsened by: Nothing Relieved by: Nothing Associated Symptoms Associated Symptoms: Nothing Narrative Narrative: Patient is a 87-year-old male. He was seen by me on June 25 for hypertension. He was treated with clonidine and discharged with prescription for clonidine patches. He was seen by nurse practitioner Mookie Hurtado and was instructed to discontinue the clonidine patches and was prescribed clonidine tablets. He is uncertain whether they are long-acting or not. He states he is on 0.1 mg. He took his dose at 8 PM. He states he got up to use restroom. Did not feel his normal self. He checked his blood pressure and it was elevated. He denied headache. I double vision blurred vision loss of vision. Eyes cantu ears decreased hearing. No trouble speech or swallowing. Denies neck pain or neck stiffness. He denies paresthesia, anesthesia or motor weakness. He denies chest discomfort or shortness of breath. Denies orthopnea or PND. He denies black or maroon-colored stool. He denies urologic symptoms. He denies problemswith balance or coordination. Prior similar symptoms: Yes Recent Illness/Hospitalization: Yes [facility] Medical History (Updated 07/02/23 @ 03:[address] Aman Barr MD) Actinic keratitis Atherosclerosis of coronary artery of [place] heart without angina pectoris BPH (benign prostatic hyperplasia) Diverticulitis Encounter for long-term current use of high risk medication GI bleed Hyperlipidemia Hypersomnia, unspecified Hypertension Home Medications aspirin 81 mg tablet,delayed release (Adult Low Dose Aspirin) 81 mg PO QDAY 03/30/17 [History Last Taken Unknown] multivitamin with folic acid 400 mcg tablet 1 tab PO DAILY #90 tabs 02/26/21 [Rx Last Taken Unknown] clopidogrel 75 mg tablet 75 mg PO DAILY #90 tabs 03/02/23 [Rx Last Taken Unknown] ramipril 10 mg capsule 20 mg (2 x 10 mg) PO DAILY 30 days #60 caps 06/17/23 [Rx Last Taken Unknown] atorvastatin 20 mg tablet 20 mg PO QHS 07/01/23 [History Last Taken Unknown] carvedilol 6.25 mg tablet 6.25 mg PO BID 07/01/23 [History Last Taken Unknown] clonidine HCl 0.1 mg tablet 0.1 mg PO QHS #30 tabs 07/01/23 [Rx Last Taken Unknown] isosorbide mononitrate 30 mg tablet,extended release 24 hr 30 mg PO DAILY 07/01/23 [History Last Taken Unknown] Allergy/AdvReac Type Severity Reaction Status Date / Time famotidine [From Pepcid] Allergy Unknown Verified 07/02/23 02:20 ranitidine Allergy Unknown Verified 07/02/23 02:20 Family History Father CAD (coronary artery disease) Sister CAD (coronary artery disease) Surgical History Cataract History of tonsillectomy Hx of appendectomy Hx of CABG (~03/29/02) S/P coronary artery stent placement (04/05/17) Social History Smoking Status: Never smoker alcohol intake: never substance use type: does not use caffeine: Yes Type: coffee and tea what type of physical activity do you participate in: walking, bicycling, weight training and other details: cardiac rehab frequency: daily duration: 30-45 minutes/day seatbelt use: always do you feel safe at home: Yes ROS ROS ED Constitutional Constitutional ED: Denies chills, fever(s), subjective, sweats or weight loss Eyes Eyes: Denies blurry vision, change in vision or diplopia ENT ENT ED: Denies ear pain or rhinorrhea Cardiovascular Cardiovascular: Denies chest pain, orthopnea, palpitations, paroxysmal nocturnaldyspnea or racing heartbeat Respiratory/Chest Respiratory/Chest: Denies cough, dyspnea, dyspnea on exertion, orthopnea or paroxysmal nocturnal dyspnea Gastrointestinal Gastrointestinal: Denies abdominal pain, nausea or vomiting Genitourinary Genitourinary ED: Denies dysuria or hematuria Musculoskeletal Musculoskeletal: Denies back pain or neck pain Integumentary Denies rash Neurologic Neurologic: Reports weakness; Denies headache(s) or paresthesias Endocrine Endocrinology: Denies cold intolerance or heat intolerance EXAM Physical Exam Const Vital Signs: 07/02/23 02:17 07/02/23 02:19 07/02/23 02:39 Temperature 97.8 F Temperature Source Temporal Pulse Rate 72 62 Respiratory Rate 16 14 Respiratory Effort Normal Non-Labored Respiratory Pattern Normal Blood Pressure 200/84 H 191/90 H Blood Pressure Mean 122 123 Pulse Ox 98 97 Oxygen Delivery Method Room Air Room Air 07/02/23 03:16 Temperature Temperature Source Pulse Rate 64 Respiratory Rate 12 Respiratory Effort Respiratory Pattern Blood Pressure 160/90 H Blood Pressure Mean 113 Pulse Ox 100 Oxygen Delivery Method Room Air Positive well nourished and well developed General Appearance ED: well developed, NAD and pallor; Negative for cyanotic or diaphoretic HEENT Reports moist mucous membranes HEENT Narrative: Head is atraumatic and normocephalic. Ears normal. Nares patent. Uvula midline. There is no deviation tongue with protrusion. Eyes PERRL and EOMs intact bilaterally General Eye ED: Negative for pale conjunctiva or scleral icterus Neck no lymphadenopathy, supple and no JVD Chest Wall inspection of chest normal and palpation of chest normal Resp normal respiratory effort and clear to auscultation bilaterally Cardio regular rate, regular rhythm, S1 normal heart sound, S2 normal heart sound and no murmurs GI normal to inspection, nondistended, normoactive bowel sounds, non-tender, non-distended and no masses; Negative for hepatosplenomegaly Auscultation: normoactive bowel sounds Palpation: soft Back/Spine no CVA tenderness Extremity normal to inspection General Extremety ED: Negative for edema or tenderness General Extremity: Negative for edema Neuro oriented x3, CN's II-XII intact bilaterally and no sensory deficits noted Sensorium / Orientation: alert Psych Psych Narrative: Slow psychomotor skills. Mood & Affect: depressed Skin no rashes or lesions noted and no wounds General Skin Exam: pallor; Negative for jaundice MDM MDM MDM Narrative Medical decision making narrative: This patient was seen less than 5 days ago blood work was not repeated. He was treated with clonidine. His blood pressure has improved markedly and had a satisfactory decline. He will need to contact the [facility] on Tuesdayregarding treatment of his blood pressure. When he was seen on the he acknowledged that he has had trouble regulated and has been following with the [facility] to regulate his blood pressure. History & Record Review Additional record(s) reviewed:: Prior ED visit (Seen June 25 for hypertension. Seen by [facility] el follow-up visit to June visit. Was seen April 25, 2022 for syncope.) and Prior labs Lab Data Lab results narrative: Recently performed and were unremarkable and reason they were not repeated. Discharge Plan Triage Chief Complaint: Hypertension ED Provider: Aman Barr Dx/Rx/DC Orders Clinical Impression: Accelerated essential hypertension, History of coronary artery disease, Pulmonary HTN, Hyperlipidemia Instructions: ED High Blood Pressure Hypertension Prescriptions: No Action atorvastatin 20 mg tablet 20 mg PO QHS carvedilol 6.25 mg tablet 6.25 mg PO BID isosorbide mononitrate 30 mg tablet extended release 24 hr 30 mg PO DAILY clonidine HCl 0.1 mg tablet 0.1 mg PO QHS Qty: 30 6RF aspirin [Adult Low Dose Aspirin] 81 mg tablet,delayed release (DR/EC) 81 mg PO QDAY multivitamin with folic acid 400 mcg tablet 1 tab PO DAILY Qty: 90 3RF clopidogrel 75 mg tablet 75 mg PO DAILY Qty: 90 3RF Rx Instructions: Take one tablet once a day ramipril 10 mg capsule 20 mg PO DAILY 30 Days Qty: 60 12RF Primary Care Provider: Juan Mckeon Referrals: Britton Horan MD [Med Staff - Active Staff] - 2 Days Juan Mckeon MD [Primary Care Provider] - Disposition Disposition: Home, Self Care What to do if you have Problems For any increased pain, shortness of breath, bleeding, nausea or vomiting, chestpain, or any unexpected problems, contact your Primary Care Provider. Call [facility] ([phone]) or report to the closest Emergency Room. Call 911 if necessary. 07/02/23 0341 <Electronically signed by Aman Barr MD> Cosigner Signature (if applicable): CC: Dr. Juan Mckeon MD ~ Signed [facility] Work Phone: [phone]) 321-945211-08-2023 History of Present illness Narrative* Preethi Jones RN - 03/02/2023 10:53 AM EST CC [facility] NURSE - CHART REVIEW Provider [facility] Action Chart review 04/25-04/27/2022 ED/ADM chest pain, bradycardia, syncope [facility] identified by name and . Reason for Review: Payor request Patient Attributed To: QAE Payer: CHELSEY Chart Review For: Utilization: ED Admission Total Patient High CostTotal Patient High Cost {HIGH COST:894240) Quality measure review Payor request for assistance Action Taken: No action needed Preethi Jones RN March 02, 2023 10:54 AM documented in [facility]Mer[facility] History of Present illness Narrative* Tereza Talley LPN - 02/01/2023 12:25 PM EDT Patient presents for COVID vaccine. Denies any problems at this time. Tolerated injection well. Tereza Talley LPN documented in this encounterMer[facility]09-14-2023 Instructions* Patient Instructions* Juan Mckeon MD - 01/06/2023 3:00 PM EDT Please get labs and urine test done on or after 06/24/2023 prior to your next visit. documented in this encounterMercy [facility]09-14-2023 History of Present illness Narrative* Juan Mckeon MD - 01/06/2023 2:06 PM EDT Chief Complaint Patient presents with: F/U 6 months HPI German Trejo Jr. is a 87 year old male who presents here today for 6 month follow up. Patient with Hx of BPH, CAD, elevated fasting blood sugar, HTN, past Hx of CABG, IBS, hyperlipidemia as well as those reviewed and addressed below and in ROS. List of current specialists seen: [facility] 12/29/2022 and [facility] [place] A1C 6.0 Home BP's 117/63 52 121/63 [...] Father age 72 of lung cancer, previous AR age 57 Coronary Artery Disease Father Diabetes Brother age 67 of DM, also history of prostate cancer Heart Sister Alive age 68, history of AR age 66 Patient Allergies ALLERGIES Allergen Reactions [...] by mouth twice daily. (Patient not taking: Reportedon 07/08/2022) No current facility-administered medications on file [...] UA, A1c, CBC, B12 and Mg prior. Juan Mckeon MD documented in this encounterMer[facility]09-07-2023 History of Present illness Narrative* Brandi Ng Ma - 12/30/2022 3:35 PM EDT Scan on 12/29/2022 10:31 PM by Provider, External, ALFONZO: Consultation - Cardiology documented in this encounterMercy [facility] Hospital03-16-2023 Instructions* Patient Instructions* Juan Mckeon MD - 07/08/2022 1:10 PM EDT [...] to your next visit. 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 Drew Diverticulosis [...] CABG, three grafts COLONOSCOP W/ OR W/O [facility] SPEC 2012 PAST SURGICAL HISTORY [...] Father age 72 of lung cancer, previous AR age 57 Diabetes Brother age 67 of DM, also history of prostate cancer Heart Sister Alive age 68, history of AR age 66 Breast Cancer Mother age 74 Coronary Artery Disease Father Diabetes Mother SOCIAL HISTORY: Social History Marital status: Spouse name: Mi Years of education: Number of children: 1 Occupational History Occupation Employer [employer] Social History Main Topics Smoking status: Never Smoker Smokeless tobacco: Never Used Alcohol use: Yes Comment: rarely German works out regularly 7 times per week with walking and stationary bicycling. He watches his diet for sodium, low fat and low cholesterol all of the time. List of current specialists seen: [facility] and [facility] Planning discussed including patients advanced directive wishes: Yes I am willing to follow German's advanced directives. Depression screen Depression Screening 11/03/2018 06/03/2020 07/08/2022 07/08/2022 PHQ-2 Score 0 0 0 0 Depression screening tool completed and reviewed. Based on score and interview, patient is not at risk for depression. Screening tool discussed with patient, and I recommended no further interventionat this time. Functional Ability/Safety Screen 1. Was the patient's timed Up and Go test unsteady or longer than 30 seconds? No 2. Does the patient need help with the phone, transportation, shopping,preparing meals, housework, laundry, medications or managing money? No 3. Does your home have rugs in the hallway, lack of grab bars in the bathroom, lack of handrails onthe stairs or have poor lighting? No Hearing Evaluation: normal PHYSICAL EXAM BP 144/88 Pulse 64 Temp (!) 35.6 C (96.1 F) (Left Tympanic) Resp 16 Ht 167.6 cm (5' 6) Wt 58.3 kg (128 lb 9.6 oz) BMI 20.76 kg/m Alert and oriented X 3: YES Body mass index is 20.76 kg/m . seeing optho See below ASSESSMENT/PLAN: 86 year old male The following prevention plan was discussed during the office visit and provided to the patient: See below Juan Mckeon Chief Complaint Patient presents with: Medicare Wellness Exam HPI German Trejo Jr. is a 86 year old male who presents here today for Above Complaints. and Chronic Medical Conditions.. Patient with Hx of BPH, CAD, elevated fasting blood sugar, HTN, past Hx of CABG, IBS, hyperlipidemia as well as those reviewed and addressed below and in ROS. Patient has been doing ok Had a fall on 04/25/2022 at [facility] related to a syncopal episode. He was in the hospital for 3 days with neg w/u and then had a halter monitor placed by cardio and wore for a month and it ws ok. He hasnot had another episode since. Past medical history, [...] Father age 72 of lung cancer, previous AR age 57 Coronary Artery Disease Father Diabetes Brother age 67 of DM, also history of prostate cancer Heart Sister Alive age 68, history of AR age 66 Patient Allergies ALLERGIES Allergen Reactions [...] by mouth twice daily. (Patient not taking: Reportedon 07/08/2022) No current facility-administered medications on file [...] Tympanic) Resp 16 Ht 167.6 cm (5' 6) Wt 58.3 kg (128 lb 9.6 oz) BMI 20.76 kg/m BP 127/64 Pulse 64 Temp (!) 35.6 C (96.1 F) (Left Tympanic) Resp 16 Ht 167.6 cm (5' 6) Wt 58.3 kg (128 lb 9.6 oz) BMI 20.76 kg/m Last 5 Encounter Wt Readings: Date: Wt: 07/08/2022 58.3 kg (128 lb 9.6 oz) 01/01/2022 58.1 kg (128 lb) 06/25/2021 61.7 kg (136 lb) 12/16/2020 58.5 kg (129 lb) 06/05/2020 59.9 kg (132 lb) General Appearance: Well appearing, alert, in no acute distress, well-hydrated, well nourished. andThin. Skin: Skin color, texture, turgor normal, no [...] for age. Muscular strength intact, No joint swelling,deformity, or tenderness. Peripheral Pulses: Normal. Neurologic: Gait normal. Reflexes normal and symmetric. Sensation to light touch and crainal nerves2-21 intact.. Health Maintenance List DTAP,TDAP,TD(1 - Tdap) [...] Lymph 1.00 - 4.00 k/uL 1.54 1.88 [place]% % 8.0 8.2 Abs [place] <0.87 k/uL 0.49 0.58 Eosin% % 3.1 [...] Negative Ketones, Urine Trace, Negative Negative Specific [place], Ur 1.005 - 1.030 1.012 Hemoglobin/Blood,Ur Negative, [...] which included preparing to see the patient, [id number] patient care, completing clinical documentation, performing a medically appropriate examination, counseling and educating the patient/family/caregiver and ordering medications, tests, or procedures. Juan Mckeon MD documented in this encounterMer[facility]11-09-2022 Instructions* Patient Instructions* Ana Petersen, KARDEX CLERK.BOX TOE STITCHER - 03/03/2022 2:09 PM EST Beginning Home Isolation Isolation is used to separate people infected with SARS-CoV-2, the virus that causes COVID-19, frompeople who are not infected. People who are [...] to your local emergency facility: Notify the pneumatic tool operator that you are seeking care for [...] expert at your local health department to determinewhen you can be around others. documented in this encounterMercy [facility] Hospital11-09-2022 History of Present illness Narrative* Ana Petersen APRN.CNP - 03/03/2022 1:49 PM EST VIRTUAL VISIT PROGRESS NOTE This is a virtual visit using MyChart video visit. It required patient-provider interaction for themedical decision making as documented below. Patient could not get sound to work so he was contacted by phone and video was left on in MyChart video. German Trejo Jr. is a 86 year old male seen for Positive covid test at [facility]. Patient reports symptoms started Tuesday night with a cough and congestion and Tuesday patient had diarrhea which has resolved. Patient reports that symptoms have improved and that he generally does not feel ill. Patient went to [facility] 03/02/2022 and initial rapid was negative however [...] Father age 72 of lung cancer, previous AR age 57 Coronary Artery Disease Father Diabetes Brother age 67 of DM, also history of prostate cancer Heart Sister Alive age 68, history of AR age 66 Social History Tobacco Use Smoking [...] options including paxlovid and monoclonal antibodies. Patient hasmultiple medication interactions with paxlovid and does not [...] which included preparing to see the patient, [id number] patient care, completing clinical documentation, counseling and educating the patient/family/caregiver, and care coordination (not separately reported) Ana Petersen APRN.BOX TOE STITCHER documented in this encounterMercy [facility] Hospital09-09-2022 Instructions* Patient Instructions* Juan Mckeon MD - 01/01/2022 12:46 PM EDT Please get labs and urine test done on or after 06/18/2022 prior to your next visit. documented in this encounterMercy [facility] Hospital09-09-2022 History of Present illness Narrative* Juan Mckeon MD - 01/01/2022 12:12 PM EDT Chief Complaint Patient presents with: F/U 6 months HPI German Saiznmilind Bernstein is a 86 year old male who [...] Father age 72 of lung cancer, previous AR age 57 Coronary Artery Disease Father Diabetes Brother age 67 of DM, also history of prostate cancer Heart Sister Alive age 68, history of AR age 66 Patient Allergies ALLERGIES Allergen Reactions [...] UA, A1c, B12, Mg and CBC prior Juan Mckeon MD documented in this encounterMercy [facility] Hospital01-11-2014 History of Past illness Narrative* Problem Noted [...] of this encounter (statuses as of 01/03/2022) [facility] of Past illness Narrative* Problem Noted [...] of this encounter (statuses as of 01/12/2022) [facility] of Past illness Narrative* Problem Noted Date Resolved Date 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 05/05/2013 10/29/2013 Xerosis cutis 09/07/2009 08/30/2014 Neoplasm of Uncertain Behavior (NUB) of Skin of Scalp 03/03/2009 05/03/2013 NEVUS BACK///BENIGN IADA SKIN TRUNK 09/19/2008 05/03/2013 Unspecified disease of sebaceous glands 03/07/20 08 05/03/2013 Benign neoplasm of skin of o ther and unspecified parts of face 03/07/2008 05/03/2013 SOLAR LENTIGINES///DYSCHROMIA OTHER 03/07/2008 05/03/2013 ACTINIC DAMAGE///CHR SOLAR SKIN DAMAGE NOS 03/0705/03/2013 documented as of this encounter (statuses as of 01/22/2022) [facility] Narrative* Problem Noted [...] of this encounter (statuses as of 03/03/2022) [facility] Narrative* Problem Noted [...] of this encounter (statuses as of 07/08/2022) [facility] Narrative* Problem Noted [...] of this encounter (statuses as of 01/02/2023) [facility] Narrative* Problem Noted Date Diagnosed Date Resolved Date 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 05/05/2013 070 10/2013 Xerosis cutis 09/07/2009 08/30/2014 Neoplasm of [...] of this encounter (statuses as of 01/07/2023) [facility] Narrative* Problem Noted [...] of this encounter (statuses as of 01/22/2023) [facility] Narrative* Problem Noted [...] of this encounter (statuses as of 02/01/2023) [facility] Narrative* Problem Noted [...] of this encounter (statuses as of 03/03/2023) [facility] Narrative* Problem Noted [...] as of this encounter (statuses as of 07/02/2023) [facility] Narrative* Problem Noted Date Diagnosed Date Resolved Date 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 05/05/201302/2014 Xerosis cutis 09/07/2009 08/30/2014 Neoplasm of Uncertain [...] as of this encounter (statuses as of 07/14/2023) [facility] HospitalDis[facility] summary Author Aman Barr [facility] June 26, 2023 1:19pm Note Date/Time June 26, 2023 12:4 4pm [facility] Medical Records Department [address] [place] [address] Emergency Department Summary 06/26/23 MR#: [id number] Acct: [id number] Name: GERMAN TREJO Rep #:[id number] : 1935 87 From: Aman Barr MD PCP: Dr. Juan Mckeon MD Status:REG ER Location: ED HPI History of Present Illness Chief Complaint: Hypertension Detail of Chief Complaint: Did not feel normal at [facility] this morning Informant: patient Onset/Context/Timing Onset: Weeks (Elevated blood pressure for the past 2 weeks) Context: Gradual Onset Timing: Continuous Quality: Elevated blood pressure and not feeling normal Location: Cardiovascular and generalized Current Severity: Mild Maximum Severity: Moderate Worsened by: Presumed due to elevated blood pressure Relieved by: Nothing Associated Symptoms Associated Symptoms: No other symptoms Narrative Narrative: Patient is an 87-year-old gentleman who presents because he does not feel well and had an elevated blood pressure. He had problems with his blood pressure last 2 weeks. He states his blood pressure prior to the past 2 weeks would run in the 130 range. He recently was started on amlodipine by the [facility]. He discontinued this on Tuesday. He states he discontinue it because it is not helping. Patient denies headache, double vision, blurred vision or loss of vision. Patient denies ringing in ears or decreased hearing. Patient denies trouble with speech or swallowing. Patient denies numbness or tingling his arms or legs. Patient is not noted any weakness in his arms or legs. Patient states hehad no difficulty walking. He denied chest discomfort of any type. He denies dyspnea, dyspnea on exertion, orthopnea or PND. He denies back pain. He denies abdominal pain. He denies dysuria, urgency or hematuria. He states he may have had slight increase in urination. He denies decreased urination. Prior similar symptoms: Yes Recent Illness/Hospitalization: Yes [facility] Medical History (Updated 06/26/23 @ 13:[address] Aman Barr MD) Actinic keratitis Atherosclerosis of coronary artery of [place] heart without angina pectoris BPH (benign prostatic hyperplasia) Diverticulitis Encounter for long-term current use of high risk medication GI bleed Hyperlipidemia Hypersomnia, unspecified Hypertension Home Medications aspirin 81 mg tablet,delayed release (Adult Low Dose Aspirin) 81 mg PO QDAY 03/30/17 [History Last Taken Unknown] multivitamin with folic acid 400 mcg tablet 1 tab PO DAILY #90 tabs 02/26/21 [Rx Last Taken Unknown] isosorbide mononitrate 30 mg tablet,extended release 24 hr See Rx Instructions .Route .COMPLEX #90 tabs 09/21/22 [Rx Last Taken Unknown] clopidogrel 75 mg tablet 75 mg PO DAILY #90 tabs 03/02/23 [Rx Last Taken Unknown] atorvastatin 20 mg tablet See Rx Instructions .Route .COMPLEX #90 tabs 06/01/23 [Rx Last Taken Unknown] carvedilol 6.25 mg tablet See Rx Instructions .Route .COMPLEX #180 tabs 06/02/23[Rx Last Taken Unknown] amlodipine 2.5 mg tablet 2.5 mg PO QDAY #30 tabs 06/16/23 [Rx Last Taken Unknown] ramipril 10 mg capsule 20 mg (2 x 10 mg) PO DAILY 30 days #60 caps 06/17/23 [Rx Last Taken Unknown] clonidine 0.1 mg/24 hr weekly transdermal patch 1 patch transdermal QWEEK #4 ea 06/26/23 [Rx Last Taken Unknown] Allergy/AdvReac Type Severity Reaction Status Date / Time famotidine [From Pepcid] Allergy Unknown Verified 06/26/23 11:59 ranitidine Allergy Unknown Verified 06/26/23 11:59 Family History Father CAD (coronary artery disease) Sister CAD (coronary artery disease) Surgical History Cataract History of tonsillectomy Hx of appendectomy Hx of CABG (~03/29/02) S/P coronary artery stent placement (04/05/17) Social History Smoking Status: Never smoker alcohol intake: never substance use type: does not use caffeine: Yes Type: coffee and tea what type of physical activity do you participate in: walking, bicycling, weight training and other details: cardiac rehab frequency: daily duration: 30-45 minutes/day seatbelt use: always do you feel safe at home: Yes ROS ROS ED Constitutional Constitutional ED: Denies chills, fever(s), subjective or sweats Eyes Eyes: Denies blurry vision, change in vision or diplopia ENT ENT ED: Reports other Details: And further detailed HPI narrative ; Denies ear pain or sore throat Cardiovascular Cardiovascular: Denies chest pain, orthopnea, palpitations, paroxysmal nocturnaldyspnea or racing heartbeat Respiratory/Chest Respiratory/Chest: Denies cough, dyspnea, dyspnea on exertion, orthopnea or paroxysmal nocturnal dyspnea Gastrointestinal Gastrointestinal: Denies abdominal pain, nausea or vomiting Genitourinary Genitourinary ED: Reports urinary frequency; Denies dysuria or hematuria Musculoskeletal Musculoskeletal: Denies arthralgias, back pain, myalgias or neck pain Integumentary Denies rash Neurologic Neurologic: Denies headache(s), paresthesias or weakness Psychiatric Psychiatric: Denies anxiety Endocrine Endocrinology: Denies cold intolerance or heat intolerance Hematologic/Lymphatic Hematologic/Lymphatic: Reports systems reviewed and no addt'l complaints, exceptas documented EXAM Physical Exam Const Vital Signs: 06/26/23 11:57 06/26/23 12:31 06/26/23 13:12 Temperature 97.2 F L Temperature Source Temporal Pulse Rate 71 56 L Respiratory Rate 14 Blood Pressure 230/88 H 178/73 H 109/65 Blood Pressure Mean 135 108 79 Pulse Ox 99 Oxygen Delivery Method Room Air Positive well nourished and well developed General Appearance ED: well developed and NAD; Negative for cyanotic, diaphoretic or pallor HEENT Reports moist mucous membranes HEENT Narrative: Ears are normal. Nares are patent. Posterior pharynx is normal. Uvula is midline. There is no deviation of the tongue with protrusion. Eyes PERRL and EOMs intact bilaterally Eyes Narrative: There is no nystagmus. Funduscopic exam reveals normal cup-to-disc ratio. There is no papilledema noted. There appears to be AV nicking and copper wiring. Eye pupils were not dilated. General Eye ED: Negative for pale conjunctiva or scleral icterus Neck no lymphadenopathy, supple and no JVD Chest Wall inspection of chest normal and palpation of chest normal Resp normal respiratory effort and clear to auscultation bilaterally Cardio regular rate, regular rhythm, S1 normal heart sound, S2 normal heart sound and no murmurs GI normal to inspection, nondistended, normoactive bowel sounds, non-tender, non-distended and no masses; Negative for hepatosplenomegaly GI Narrative: There is no pulsatile or palpable mass. There is no abdominal bruit. Palpation: soft Back/Spine no CVA tenderness Extremity normal to inspection General Extremety ED: Negative for edema or tenderness General Extremity: Negative for edema Neuro oriented x3, CN's II-XII intact bilaterally and no sensory deficits noted Neuro Narrative: Gait was observed and normal. There is no dysmetria. Sensorium / Orientation: alert Motor Exam: strength 5/5 throughout Psych mental status grossly normal Skin no rashes or lesions noted, no wounds and No skin turgor normal General Skin Exam: Negative for jaundice or pallor MDM MDM MDM Narrative Medical decision making narrative: Patient with hypertension. Suspect this is due to noncompliance since he discontinued his amlodipine. Since he has not had recent blood work BMP and UA was obtained to determine if there are any evidence of endorgan dysfunction witha scar to the kidneys. And she is not having chest pain back pain EKG and cardiac markers were not obtained. Did review office notes from [facility]. Patient was started on amlodipine approximately 1 to 2 weeks ago. Patient was close treated with clonidine 0.1 mg/kg. Goal is a 15 to 20% reduction since he is asymptomatic and if his laboratory studies returned normal. History & Record Review Additional record(s) reviewed:: Prior outpatient record, Prior ED visit and Prior labs Lab Data Attestation: I reviewed the patient's lab results. Lab results narrative: Patient metabolic panel is unremarkable. Urine reveals mild proteinuria. Labs: Laboratory Results - last 24 hr 06/26/23 06/26/23 12:30 12:38 Sodium 139 Potassium 4.3 Chloride 108 H Carbon Dioxide 29.0 Anion Gap 2 L BUN 23 H Creatinine 1.03 Estim Creat Clear Calc 39.29 Est GFR (MDRD) Af Amer 88 Est GFR (MDRD) Non-Af 73 BUN/Creatinine Ratio 22.3 H Glucose 119 H Calcium 9.0 Urine Color Yellow Urine Clarity Clear Urine pH 7.0 Ur Specific [place] 1.005 Urine Protein 30 H Urine Glucose (UA) Normal Urine Ketones Negative Urine Occult Blood Negative Urine Nitrite Negative Urine Bilirubin Negative Urine Urobilinogen Normal Ur Leukocyte Esterase Negative Urine RBC 0 SEEN Urine WBC 0 SEEN Ur Squamous Epith Cells 0 SEEN Urine Bacteria 0 SEEN Urine Mucus 0 SEEN Treatment and Re-Evaluation :: Blood pressure has decreased markedly. Will place on low-dose of clonidine. Heis to call the [facility] for follow-up. He states his next scheduled appointment is January. Discharge Plan Triage Chief Complaint: Hypertension ED Provider: Aman Barr Dx/Rx/DC Orders Clinical Impression: Accelerated essential hypertension, History of coronary artery disease, Hyperlipidemia, Proteinuria Instructions: ED Hypertension, Established Prescriptions: New clonidine 0.1 mg/24 hr patch weekly 1 patch transdermal QWEEK Qty: 4 0RF No Action aspirin [Adult Low Dose Aspirin] 81 mg tablet,delayed release (DR/EC) 81 mg PO QDAY multivitamin with folic acid 400 mcg tablet 1 tab PO DAILY Qty: 90 3RF isosorbide mononitrate 30 mg tablet extended release 24 hr See Rx Instructions .ROUTE .COMPLEX Qty: 90 3RF Dose Instruction: TAKE 1 TABLET BY MOUTH EVERY DAY Rx Instructions: TAKE 1 TABLET BY MOUTH EVERY DAY clopidogrel 75 mg tablet 75 mg PO DAILY Qty: 90 3RF Rx Instructions: Take one tablet once a day atorvastatin 20 mg tablet See Rx Instructions .ROUTE .COMPLEX Qty: 90 3RF Dose Instruction: TAKE 1 TAB BY MOUTH DAILY AT BEDTIME Rx Instructions: TAKE 1 TAB BY MOUTH DAILY AT BEDTIME carvedilol 6.25 mg tablet See Rx Instructions .ROUTE .COMPLEX Qty: 180 3RF Dose Instruction: TAKE ONE TABLET BY MOUTH TWICE A DAY MUST ADMINISTER WITH A MEAL/FOOD Rx Instructions: TAKE ONE TABLET BY MOUTH TWICE A DAY MUST ADMINISTER WITH A MEAL/FOOD amlodipine 2.5 mg tablet 2.5 mg PO QDAY Qty: 30 6RF ramipril 10 mg capsule 20 mg PO DAILY 30 Days Qty: 60 12RF Primary Care Provider: Juan Mckeon Referrals: Britton Horan MD [Med Staff - Active Staff] - 1-2 Weeks (Patient presented because of blood pressure of 238/88. He was treated with clonidine 0.1 mg. He was given a prescription for clonidine.) Juan Mckeon MD [Primary Care Provider] - Disposition Disposition: Home, Self Care What to do if you have Problems For any increased pain, shortness of breath, bleeding, nausea or vomiting, chestpain, or any unexpected problems, contact your Primary Care Provider. Call [facility] ([phone]) or report to the closest Emergency Room. Call 911 if necessary. 06/26/23 1319 <Electronically signed by Aman Barr MD> Cosigner Signature (if applicable): CC: Dr. Juan Mckeon MD ~ Signed [facility] Work Phone: Evaluation note* Diagnosis Essential hypertension with goal blood [...] of other medications [facility] Diagnosis Onset Date Resolution Status Atherosclerosis of coronary artery of [place] heart without angina pectoris chronic Hyperlipidemia chronic Hypertension chronic Atherosclerosis of coronary artery of [place] heart without angina pectoris chronic Hyperlipidemia chronic Hypertension chronic [facility] Work Phone: Evaluation note* Diagnosis COVID-19- [facility] Diagnosis Onset Date Resolution Status Bradycardia acute History of coronary artery disease acute Syncope acute [facility] Work Phone: Evaluation note* Diagnosis Onset Date Resolution Status Bradycardia acute History of coronary artery disease acute Pulmonary HTN acute Syncope acute Atherosclerosis of coronary artery of [place] heart without angina pectoris chronic 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, chronic Hyperlipidemia chronic Hypertension chronic S/P coronary artery stent placement April 05 7 chronic [facility] Work Phone: evaluation note* Diagnosis Medicare annual wellness visit, subsequent- [...] Other specified counseling documented in this encounter [facility] note* Diagnosis Essential hypertension with goal [...] of other medications documented in this encounter [facility] note* Diagnosis Need for vaccination- Primary Need for prophylactic vaccination and inoculation against unspecified single disease documented in this encounter [facility] noteNo assessment information [facility] Work Phone: Evaluation note* Diagnosis Onset Date Resolution Status Atherosclerosis of coronary artery of [place] heart without angina pectoris chronic Hyperlipidemia chronic Hypertension chronic Syncope resolved [facility] Work Phone: Evaluation note* Diagnosis Medicare annual wellness visit, subsequent- Primary Routine general medical examination at a health care facility Essential hypertension with goal blood pressure less than 140/90 Hypertensive heart disease without heart failure Unspecified hypertensive heart disease without heart failure Mixed hyperlipidemia Elevated fasting blood sugar Impaired fasting glucose Coronary atherosclerosis due to lipid rich plaque GERD without esophagitis Esophageal reflux Bilateral carotid artery stenosis Occlusion and stenosis of carotid artery without mention of cerebral infarction Valvular heart disease Endocarditis, valve unspecified, unspecified cause Benign prostatic hyperplasia without lower urinary tract symptoms Advance directive discussed with patient Other specified counseling Abnormal platelets (HCC) Qualitative platelet defects Need for vaccination Need for prophylactic vaccination and inoculation against unspecified single disease [facility] Diagnosis Anemia, unspecified type- Primary [facility] Diagnosis Bilateral carotid artery stenosis Occlusion and stenosis of carotid artery without mention of cerebral infarction [facility] Diagnosis Essential hypertension with goal blood pressure less than 140/90- Primary Mixed hyperlipidemia Hypertensive heart disease without heart failure Unspecified hypertensive heart disease without heart failure Coronary atherosclerosis due to lipid rich plaque Elevated fasting blood sugar Impaired fasting glucose GERD without esophagitis Esophageal reflux Valvular heart disease Endocarditis, valve unspecified, unspecified cause Bilateral carotid artery stenosis Occlusion and stenosis of carotid artery without mention of cerebral infarction Encounter for immunization Need for other specified prophylactic vaccination against single bacterial disease Medication management Encounter for long-term (current) use of other medications [facility] Diagnosis Medicare annual wellness visit, subsequent- Primary Routine general medical examination at a health care facility Essential hypertension with goal blood pressure less than 140/90 Mixed hyperlipidemia Elevated fasting blood sugar Impaired fasting glucose Hypertensive heart disease without heart failure Unspecified hypertensive heart disease without heart failure Coronary atherosclerosis due to lipid rich plaque Valvular heart disease Endocarditis, valve unspecified, unspecified cause Bilateral carotid artery stenosis Occlusion and stenosis of carotid artery without mention of cerebral infarction GERD without esophagitis Esophageal reflux Benign prostatic hyperplasia without lower urinary tract symptoms Advance directive discussed with patient Other specified counseling Need for vaccination Need for prophylactic vaccination and inoculation against unspecified single disease Screening for depression [facility] Diagnosis Bilateral carotid artery stenosis- Primary Occlusion and stenosis of carotid artery without mention of cerebral infarction [facility]* Diagnosis Essential hypertension with goal blood pressure less than 140/90- Primary Mixed hyperlipidemia Elevated fasting blood sugar Impaired fasting glucose GERD without esophagitis Esophageal reflux Coronary atherosclerosis due to lipid rich plaque Hypertensive heart disease without heart failure Unspecified hypertensive heart disease without heart failure Valvular heart disease Endocarditis, valve unspecified, unspecified cause Bilateral carotid artery stenosis Occlusion and stenosis of carotid artery without mention of cerebral infarction Medication management Encounter for long-term (current) use of other medications [facility] Diagnosis Onset Date Resolution Status Admit Date Atherosclerosis of coronary artery of [place] heart without angina pectoris chronic February 11 12:52pm Hyperlipidemia chronic February 112024 12:52pm Hypertension chronic January 12:52pm Syncope resolved February 11, 2025 12:52pm [facility] Work Phone: Hospital Discharge instructions Additional Instructions Today the EKG and blood work looked normal with no signs of heart damage. Since you have a history of acid reflux this may be causing your pain. Continue Nexium. Avoid spicy or tomato-based foods. Follow-up with your primary care doctor this week. If your chest pain becomes worse return to the emergency room.[facility] Work Phone: Reason for referral (narrative)* Outpatient Procedure (Routine) - Authorized Specialty Diagnoses / Procedures Referred By Contac t Referred To [facility] Diagnoses Bilateral carotid artery stenosis Procedures US CAROTID ARTERIES [facility] DUPLEX SCAN EXTRACRANIAL ART COMPL BI STUDY Juan Mckeon MD [address] [place] [address] [facility] [address] [place] [address] Referral ID Status Reason Start Date Expiration Date Visits Requested Visits Authorized [id number] Authorized Auto-Generat ed Referral 07/13/2023 07/12/2024 1 1 [facility] for referral (narrative)No reason for referral information [facility] Work Phone: Chief Complaint and Reason for Visit Chief Complaint 4 M FU 6 wk FU chest pain Reason for Visit Atherosclerosis of c oronary artery of [place] heart without angina pectoris Hyperlipidemia Hypertension Atherosclerosis of coronary artery of [place] heart without angina pectoris Hyperlipidemia Hypertension Chief Complaint chest pain SYNCOPE WITH BRADYCARDIA Reason for Visit Bradycardia History of coronary artery disease Syncope Chief Complaint chest pain SYNCOPE WITH BRADYCARDIA SYNCOPE WITH BRADYCARDIA SYNCOPE WITH BRADYCARDIA Reason for Visit Bradycardia History of coronary artery disease Pulmonary HTN Syncope Atherosclerosis of coronary artery of [place] heart without angina pectoris Hx of CABG Hyperlipidemia Hypertension S/P coronary artery stent placement Chief Complaint HTN Chief Complaint HTN BP/MED REVIEWS htn Reason for Visit Atherosclerosis of c oronary artery of [place] heart without angina pectoris Hyperlipidemia Hypertension Syncope Chief Complaint Admit Date 6 M FU February 11, 2025 1 2:52pm Reason for Visit Admit Date Atherosclerosis of coronary artery of [place] heart without angina pectoris February 11, 2025 12:52pm Hyperlipidemia February 11, 2025 1 2:52pm Hypertension February 11, 2025 1 2:52pm Syncope February 11, 2025 1 2:52pm Family History Relationship Condition Age at Onset Recorded Date/T thea father Coronary artery disease Unknown sister Coronary artery disease Unknown Advance Directives Advance Directive Response Recorded Date/ Time Name of Medical Power of Senior Teradata Developer Masoud milan January 10, 2022 5:15pm Advance Directives Yes March 8:15am Living Will Yes January 10, 2022 5:15pm Power of Senior Teradata Developer Yes December 5:15pm Advance Directive Response Recorded Date/ Time Name of Medical Power of Senior Teradata Developer Masoud milan January 10, 2022 4:15pm Name of Medical Power of Senior Teradata Developer VALERIA MILAN, DAUGHTER April 25, 2022 11:54am Advance Directives Yes March 7:15am Living Will Yes April 25 11:54am Power of Senior Teradata Developer Yes April 25, 023 11:54am Advance Directive Response Recorded Date/ Time Name of Medical Power of Senior Teradata Developer Masoud milan January 10, 2022 4:15pm Name of Medical Power of Senior Teradata Developer Valeria Milan April 25, 2022 2:21pm Advance Directives Yes March 7:15am Living Will Yes April 25 2:21pm Power of Senior Teradata Developer Yes April 25, 023 2:21pm Documents on File Type Date 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 Advance Directive(s) 01/11/2023 10:55 AM Advance Directive Response Recorded Date/ Time Advance Directives Yes March 7:15am Living Will No June 26, 2023 12:26pm Power of Senior Teradata Developer No June 25 12:26pm Advance Directive Response Recorded Date/ Time Name of Medical Power of Senior Teradata Developer VALERIA MILAN July 02, 2023 2:19am Advance Directives Yes March 7:15am Living Will Yes July 02, 2023 2:19am Power of Senior Teradata Developer Yes July 01 2:19am Documents on File Type Date 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 Advance Directive(s) 01/11/2023 10:55 AM Advance Directive Response Recorded Date/ Time Advance Directives Yes March 7:15am Summary Purpose Additional Source Comments Source Comments (unrecognize d section and content) In the event this informatio n is protected by the Federal Confidentiality of Alcohol and Drug Abuse Patient Records regulations: The Federal rules restrict any use of the information to criminally investigate or prosecute any alcohol or drug abuse patient.[facility] the event this information is protected by the Federal Confidentiality of Alcohol and Drug Abuse Patient Records regulations: The Federal rules restrict any use of the information to criminally investigate or prosecute any alcohol or drug abuse patient.[facility] Hospital[facility] the event this information is protected by the Federal Confidentiality of Alcohol and Drug Abuse Patient Records regulations: The Federal rules restrict any use of the information to criminally investigate or prosecute any alcohol or drug abuse patient.[facility] HospitalIn the event this information is protected by the Federal Confidentiality of Alcohol and Drug Abuse Patient Records regulations: The Federal rules restrict any use of the information to criminally investigate or prosecute any alcohol or drug abuse patient.[facility] HospitalIn the event this information is protected by the Federal Confidentiality of Alcohol and Drug Abuse Patient Records regulations: The Federal rules restrict any use of the information to criminally investigate or prosecute any alcohol or drug abuse patient.[facility] Hospital[facility] the event this information is protected by the Federal Confidentiality of Alcohol and Drug Abuse Patient Records regulations: The Federal rules restrict any use of the information to criminally investigate or prosecute any alcohol or drug abuse patient.[facility] HospitalIn the event this information is protected by the Federal Confidentiality of Alcohol and Drug Abuse Patient Records regulations: The Federal rules restrict any use of the information to criminally investigate or prosecute any alcohol or drug abuse patient.[facility] Hospital[facility] the event this information is protected by the Federal Confidentiality of Alcohol and Drug Abuse Patient Records regulations: The Federal rules restrict any use of the information to criminally investigate or prosecute any alcohol or drug abuse patient.[facility] HospitalIn the event this information is protected by the Federal Confidentiality of Alcohol and Drug Abuse Patient Records regulations: The Federal rules restrict any use of the information to criminally investigate or prosecute any alcohol or drug abuse patient.[facility] HospitalIn the event this information is protected by the Federal Confidentiality of Alcohol and Drug Abuse Patient Records regulations: The Federal rules restrict any use of the information to criminally investigate or prosecute any alcohol or drug abuse patient.[facility] HospitalIn the event this information is protected by the Federal Confidentiality of Alcohol and Drug Abuse Patient Records regulations: The Federal rules restrict any use of the information to criminally investigate or prosecute any alcohol or drug abuse patient.[facility] HospitalIn the event this information is protected by the Federal Confidentiality of Alcohol and Drug Abuse Patient Records regulations: The Federal rules restrict any use of the information to criminally investigate or prosecute any alcohol or drug abuse patient.[facility] Hospital[facility] the event this information is protected by the Federal Confidentiality of Alcohol and Drug Abuse Patient Records regulations: The Federal rules restrict any use of the information to criminally investigate or prosecute any alcohol or drug abuse patient.[facility] HospitalIn the event this information is protected by the Federal Confidentiality of Alcohol and Drug Abuse Patient Records regulations: The Federal rules restrict any use of the information to criminally investigate or prosecute any alcohol or drug abuse patient.[facility] HospitalIn the event this information is protected by the Federal Confidentiality of Alcohol and Drug Abuse Patient Records regulations: The Federal rules restrict any use of the information to criminally investigate or prosecute any alcohol or drug abuse patient.[facility] HospitalIn the event this information is protected by the Federal Confidentiality of Alcohol and Drug Abuse Patient Records regulations: The Federal rules restrict any use of the information to criminally investigate or prosecute any alcohol or drug abuse patient.[facility] HospitalIn the event this information is protected by the Federal Confidentiality of Alcohol and Drug Abuse Patient Records regulations: The Federal rules restrict any use of the information to criminally investigate or prosecute any alcohol or drug abuse patient.[facility] HospitalIn the event this information is protected by the Federal Confidentiality of Alcohol and Drug Abuse Patient Records regulations: The Federal rules restrict any use of the information to criminally investigate or prosecute any alcohol or drug abuse patient.[facility] HospitalIn the event this information is protected by the Federal Confidentiality of Alcohol and Drug Abuse Patient Records regulations: The Federal rules restrict any use of the information to criminally investigate or prosecute any alcohol or drug abuse patient.[facility] HospitalIn the event this information is protected by the Federal Confidentiality of Alcohol and Drug Abuse Patient Records regulations: The Federal rules restrict any use of the information to criminally investigate or prosecute any alcohol or drug abuse patient.[facility] HospitalIn the event this information is protected by the Federal Confidentiality of Alcohol and Drug Abuse Patient Records regulations: The Federal rules restrict any use of the information to criminally investigate or prosecute any alcohol or drug abuse patient.[facility] HospitalIn the event this information is protected by the Federal Confidentiality of Alcohol and Drug Abuse Patient Records regulations: The Federal rules restrict any use of the information to criminally investigate or prosecute any alcohol or drug abuse patient.[facility] HospitalIn the event this information is protected by the Federal Confidentiality of Alcohol and Drug Abuse Patient Records regulations: The Federal rules restrict any use of the information to criminally investigate or prosecute any alcohol or drug abuse patient.[facility] HospitalIn the event this information is protected by the Federal Confidentiality of Alcohol and Drug Abuse Patient Records regulations: The Federal rules restrict any use of the information to criminally investigate or prosecute any alcohol or drug abuse patient.[facility] HospitalIn the event this information is protected by the Federal Confidentiality of Alcohol and Drug Abuse Patient Records regulations: The Federal rules restrict any use of the information to criminally investigate or prosecute any alcohol or drug abuse patient.[facility] HospitalIn the event this information is protected by the Federal Confidentiality of Alcohol and Drug Abuse Patient Records regulations: The Federal rules restrict any use of the information to criminally investigate or prosecute any alcohol or drug abuse patient.[facility] HospitalIn the event this information is protected by the Federal Confidentiality of Alcohol and Drug Abuse Patient Records regulations: The Federal rules restrict any use of the information to criminally investigate or prosecute any alcohol or drug abuse patient.[facility] HospitalIn the event this information is protected by the Federal Confidentiality of Alcohol and Drug Abuse Patient Records regulations: The Federal rules restrict any use of the information to criminally investigate or prosecute any alcohol or drug abuse patient.[facility] Reason for Visit (unrecogniz ed section and content) Reason Comments F/U 6 months Reason Comments Cough Reason Comments Medicare Wellness Exam Reason Comments ext results Cardio OV Reason Comments Imm/Inj Reason Comments Outside Cardiology ER Discharge Summary Reason Comments Medicare Wellness Exam Reason Comments Results Reason Comments Outside Cardiology Reason Onset Date Comments Population Health Navigation Outreach 06/12/2024 [employer] High Risk Attempt 1 Reason Onset Date Comments Results 08/30/2024 Reason Onset Date Comments Care Coordination 10/02/2024 [facility] Inbound Call Reason Comments F/U 6 Month Care Teams (unrecognized sec tion and content) Perch Machine Inspector Relationship Specialty Start Date End Date Juan Mckeon MD [address] [place] [address] [phone] PCP - General Family Practice 08/30/14 Perch Machine Inspector Relationship Specialty Start Date End Date Juan Mckeon MD [address] [place] [address] [id number] [phone] PCP - General Family Medicine 08/30/14 Perch Machine Inspector Relationship Specialty Start Date End Date Juan Mckeon MD [address] [place] [address] [phone] PCP - General Family Medicine 08/30/14 Perch Machine Inspector Relationship Specialty Start Date End Date Juan Mckeon MD [address] [place] [address] [phone] PCP - General Family Medicine 08/30/14 Perch Machine Inspector Relationship Specialty Start Date End Date Juan Mckeon MD [address] [place] [address] PCP - General Family Medicine 08/30/14 Perch Machine Inspector Relationship Specialty Start Date End Date Juan Mckeon MD [address] [place] [address] PCP - General Family Medicine 08/30/14 Perch Machine Inspector Relationship Specialty Start Date End Date Juan Mckeon MD [address] [place] [address] PCP - General Family Medicine 08/30/14 Perch Machine Inspector Relationship Specialty Start Date End Date Juan Mckeon MD [address] [place] [address] PCP - General Family Medicine 08/30/14 Perch Machine Inspector Relationship Specialty Start Date End Date Juan Mckeon MD [address] [place] [address] PCP - General Family Medicine 08/30/14 Team Status: Active Member Role Status Dates Dr. Juan Mckeon MD Family Provider Active Dr. Juan Mckeon MD Primary Care Provider Active Team Status: Inactive Member Role Status Dates Dr. Juan Mckeon MD Primary Care Provider Active Dr. Aman Barr MD Emergency Provider Active Team Status: Inactive Member Role Status Dates Dr. Juan Mckeon MD Primary Care Provider, Referri Provider Active Srinivasa El PRICE ANALYST, PRICE ANALYST-C Attending Provider Active Team Status: Inactive Member Role Status Dates Dr. Juan Mckeon MD Primary Care Provider Active Dr. Aman Barr MD Attending Provider, Emergency Provi kasey Active Perch Machine Inspector Relationship Specialty Start Date End Date Juan Mckeon MD [address] [place] [address] PCP - General Family Medicine 08/30/14 Perch Machine Inspector Relationship Specialty Start Date End Date Juan Mckeon MD [address] [place] [address] PCP - General Family Medicine 08/30/14 Perch Machine Inspector Relationship Specialty Start Date End Date Juan Mckeon MD [address] [place] [address] PCP - General Family Medicine 08/30/14 Perch Machine Inspector Relationship Specialty Start Date End Date Juan Mckeon MD [address] [place] [address] PCP - General Family Medicine 08/30/14 Perch Machine Inspector Relationship Specialty Start Date End Date Juan Mckeon MD [address] [place] [address] PCP - General Family Medicine 08/30/14 Perch Machine Inspector Relationship Specialty Start Date End Date Juan Mckeon MD [address] [place] [address] PCP - General Family Medicine 08/30/14 Perch Machine Inspector Relationship Specialty Start Date End Date Juan Mckeon MD [address] [place] [address] PCP - General Family Medicine 08/30/14 Perch Machine Inspector Relationship Specialty Start Date End Date Juan Mckeon MD [address] [place] [address] PCP - General Family Medicine 08/30/14 Perch Machine Inspector Relationship Specialty Start Date End Date Juan Mckeon MD [address] [place] [address] PCP - General Family Medicine 08/30/14 Ana Petersen APRN.BOX TOE STITCHER [address] [place] [address] [facility] 03/31/24 Génesis Lazo PA-C [address] [place] [address] [facility] 03/31/24 Perch Machine Inspector Relationship Specialty Start Date End Date Juan Mckeon MD [address] [place] [address] PCP - General Family Medicine 08/30/14 Ana Petersen APRN.BOX TOE STITCHER [address] [place] [address] [facility] 03/31/24 Génesis Lazo PA-C [address] [place] [address] [facility] 03/31/24 Perch Machine Inspector Relationship Specialty Start Date End Date Juan Mckeon MD [address] [place] [address] PCP - General Family Medicine 08/30/14 Ana Petersen KARDEX CLERK.BOX TOE STITCHER [address] [place] [address] [facility] 03/31/24 Génesis Lazo PA-C [address] [place] [address] [facility] 03/31/24 Perch Machine Inspector Relationship Specialty Start Date End Date Juan Mckeon MD [address] [place] [address] PCP - General Family Medicine 08/30/14 Ana Petersen, NABILA.BOX TOE STITCHER [address] [place] [address] [facility] 03/31/24 Génesis Lazo PA-C [address] [place] [address] [facility] 03/31/24 Geno Garcia, setter automatic spinning latheRace And Sports Book Writer 08/16/24 Perch Machine Inspector Relationship Specialty Start Date End Date Juan Mckeon MD [address] [place] [address] PCP - General Family Medicine 08/30/14 Ana Petersen, NABILA.BOX TOE STITCHER [address] [place] [address] [facility] 03/31/24 Génesis Lazo PA-C [address] [place] [address] [facility] 03/31/24 Geno Garcia, setter automatic spinning latheRace And Sports Book Writer 08/16/24 Perch Machine Inspector Relationship Specialty Start Date End Date Juan Mckeon MD [address] [place] [address] PCP - General Family Medicine 08/30/14 Ana Petersen, NABILA.BOX TOE STITCHER [address] [place] [address] [facility] 03/31/24 Génesis Lazo PA-C [address] [place] [address] [facility] 03/31/24 Geno Garcia, setter automatic spinning latheRace And Sports Book Writer 08/16/24 Perch Machine Inspector Relationship Specialty Start Date End Date Juan Mckeon MD [address] [place] [address] PCP - General Family Medicine 08/30/14 Geno Garcia, setter automatic spinning latheRace And Sports Book Writer 08/16/24 Ana Petersen APRN.BOX TOE STITCHER [address] [place] [address] [facility] 09/24/24 Génesis Lazo PA-C [address] [place] [address] [facility] 09/24/24 Perch Machine Inspector Relationship Specialty Start Date End Date Juan Mckeon MD [address] [place] [address] PCP - General Family Medicine 08/30/14 Geno Garcia, setter automatic spinning latheRace And Sports Book Writer 08/16/24 Ana Petersen APRN.BOX TOE STITCHER [address] [place] [address] [facility] 09/24/24 Génesis Lazo PA-C [address] [place] [address] [facility] 09/24/24 Perch Machine Inspector Relationship Specialty Start Date End Date Juan Mckeon MD [address] [facility] [address] PCP - General Family Medicine 08/30/14 Geno Garcia, setter automatic spinning latheRace And Sports Book Writer 08/16/24 Ana Petersen, NABILA.BOX TOE STITCHER [address] [place], [place] [address] Live In [facility] Family [facility] 09/24/24 Génesis Lazo PA-C [address] [place] [address] [facility] Perch Machine Inspector Relationship Specialty Start Date End Date Juan Mckeon MD [address] [place] [address] PCP - General Family Medicine 08/30/14 Ana Petersen, NABILA.BOX TOE STITCHER [address] [place] [id number] [facility] 09/[facility]24 Génesis Lazo PA-C [address] [place], [place] [address] [facility] Team Status: Active Member Role/Relationship Status Dates Dr. Juan Mckeon MD Primary care physician Active Team Status: Inactive Member Role/Relationship Status Dates Dr. Juan Mckeon MD Primary care physician Active Start: February 11, 2025 End: February 11, 2025 Dr. Juan Mckeon MD Referring Provider Active Start: February 11, 2025 End: February 11, 2025 Srinivasa El PRICE ANALYST, PRICE ANALYST-C Attending physician Active Start: February 11, 2025 End: February 11, 2025 Goals (unrecognized section and content) Goals may be documented in a n alternate sectionGoals may be documented in an alternate sectionGoals may be documented in an alternate sectionGoals may be documented in an alternate sectionGoals may be documented in an alternate sectionGoals may be documented in an alternate section (unrecognized sect ion and content) No Status Records FoundNo Status Records Found INFORMATION SOURCE (unrecogn ized section and content) DATE CREATED AUTHOR 01/26/2025 [facility] DATE CREATED AUTHOR AUTHOR'S VIDYA FRY 02/12/2025 [facility] FOR RECORDS PERTAINING TO PATIENTS WHO ARE [...] BE BASED ON THE PRIMARY CLINICAL RECORDS. [facility] [facility]. provides no warranty or guarantee of the accuracy or completeness of information in this document.
--- NOTE | 2025-03-13 00:41 | EKG12_ITS ---
Test Reason : PALPITATIONS Blood Pressure : */* mmHG Vent. Rate : 67 BPM Atrial Rate : 67 BPM P-R Int : 172 ms QRS Dur : 92 ms QT Int : 404 ms P-R-T Axes : 38 17 83 degrees QTcB Int : 426 ms Sinus rhythm with occasional Premature ventricular complexes and Premature atrial complexes Nonspecific ST abnormality Abnormal ECG Confirmed by ROSA HALL, KARIS ([id number]), rewrite editor LAI MEDINA ([id number]) on 03/13/2025 7:31:29 AM Referred By: SAUL Confirmed By: KARIS LEE MD
[2025-03-13 00:49] LABS: Hematocrit 37.6 % (40-54); Hemoglobin 12.4 g/dL (13.0-16.5); Immature Granulocytes Count 0.020 X10^3/uL (0.0-0.0); Mean Corp Hgb Conc 33.0 g/dL (32-36); Mean Corpuscular Volume 96.9 fL (80-94); Mean Platelet Vol. 11.2 fl (6.2-12.0); NRBC Flagged by Analyzer 0 % (0-5); Platelet Count 172 K/mm3 (150-450); RBC Distribution Width CV 12.4 % (11.6-14.6); RBC Distribution Width SD 44.4 fl (35.1-43.9); Red Blood Count 3.88 M/mm3 (4.6-6.2); White Blood Count 6.5 K/mm3 (4.4-11.0)
--- NOTE | 2025-03-13 00:55 | RAD_ITS ---
PROCEDURE: CHEST PA AND LATERAL 03/13/2025 REASON FOR EXAM: PALPITATIONS TECHNIQUE: Procedure Code: RADCXR Modality: DX Procedure: CHEST PA AND LATERAL COMPARISON: 04/25/2022. FINDINGS: Unremarkable median sternotomy wires. Emphysematous lungs. The lungs are expanded. There is no demonstrated parenchymal abnormality. There is no demonstrated pleural abnormality. Normal heart and pericardium. Normal mediastinum and marybel. Normal visualized pulmonary arteries. Normal visualized aortic arch and descending thoracic aorta. Normal visualized thoracic spine. Normal visualized ribs, clavicles, and shoulders. There is no demonstrated abnormality of the visualized soft tissue structures of the upper abdomen. RAD/Chest PA and Lateral IMPRESSION: No evidence for acute abnormality. [facility]
[2025-03-13 00:58] VITALS: BP 188/64; PULSE 59; RESP 12; O2SAT 96
[2025-03-13 01:00] VITALS: BP 188/64; PULSE 59
[2025-03-13 01:17] LABS: Anion Gap 9 (5-15); BUN 24 mg/dL (4-19); BUN/Creat Ratio 21.8 RATIO (10-20); Calcium,Total 9.6 mg/dL (7.6-11.0); Carbon Dioxide 27.6 mmol/L (21.0-32.0); Chloride 104 mmol/L (98-108); Estimated Creatinine Clearance 38.01 ml/min (50-250); Glucose 140 mg/dL (70-99); Magnesium 2.2 mg/dL (1.5-2.2); Potassium 4.3 mmol/L (3.3-5.1)
[2025-03-13 01:52] VITALS: BP 171/72; PULSE 63; RESP 16; TEMP 36.6; O2SAT 96
--- NOTE | 2025-03-13 01:52 | EX.ED.DYSGE1 ---
HPI History of Present Illness Chief Complaint: Palpitations Informant: patient and EMS Narrative Narrative: Patient is 89-year-old male from home with history of coronary disease hypertension hyperlipidemia. He states he was sitting in his recliner when he fell like his heart started racing and beating abnormally. He states this lasted for a few seconds and then resolved. He then got up out of the recliner and walk to his bed and as he was laying down had a episode of similar palpitations. Secondary to this he did call EMS. He states by the time they arrived his symptoms had resolved. He denies any known history of abnormal heart rhythm. He states he has been no excessive stimulant use or illicit drug use. He denies any recent sick symptoms or changes to his medication. However because of the palpitations happening twice this evening he was concerned and comes in for evaluation [facility] Medical History (Updated 03/13/25 @ 01:[address] Norbert Ghotra, DO) Encounter for long-term current use of high risk medication Hypersomnia, unspecified Hypertension Actinic keratitis GI bleed BPH (benign prostatic hyperplasia) Diverticulitis Hyperlipidemia Atherosclerosis of coronary artery of [place] heart without angina pectoris Home Medications ?Medication ?Instructions ?Recorded ?Last Taken ?Type aspirin 81 mg tablet,delayed 81 mg PO QDAY 03/30/17 Unknown History release (Adult Low Dose Aspirin) multivitamin with folic acid 400 1 tab PO DAILY #90 tabs 02/26/21 Unknown Rx mcg tablet doxazosin 2 mg tablet 2 mg PO QDAY #180 tabs 02/21/24 Unknown Rx ramipril 10 mg capsule 10 mg PO BID 30 days #60 caps 07/11/24 Unknown Rx clopidogrel 75 mg tablet 75 mg PO DAILY #90 tabs 12/04/24 Unknown Rx atorvastatin 20 mg tablet 20 mg PO QHS #90 TABLETS 02/11/25 Unknown Rx carvedilol 6.25 mg tablet 6.25 mg PO BID #180 tabs 02/11/25 Unknown Rx Allergy/AdvReac Type Severity Reaction Status Date / Time famotidine (From Pepcid) Allergy Unknown Verified 03/12/25 23:58 ranitidine Allergy Unknown Verified 03/12/25 23:58 Family History Father CAD (coronary artery disease) Sister CAD (coronary artery disease) Surgical History Cataract Hx of appendectomy History of tonsillectomy Hx of CABG (~03/29/02) S/P coronary artery stent placement (04/05/17) Social History Smoking Status: Never smoker alcohol intake: never substance use type: does not use caffeine: Yes Type: coffee and tea what type of physical activity do you participate in: walking, bicycling, weight training and other details: cardiac rehab frequency: daily duration: 30-45 minutes/day seatbelt use: always do you feel safe at home: Yes ROS ROS ED Constitutional Constitutional ED: Denies chills or fever(s) Eyes Eyes: Denies blurry vision or change in vision ENT ENT ED: Denies sore throat Cardiovascular Cardiovascular: Reports palpitations and racing heartbeat; Denies chest pain Respiratory/Chest Respiratory/Chest: Denies cough or dyspnea Gastrointestinal Gastrointestinal: Denies abdominal pain, diarrhea, nausea or vomiting Musculoskeletal Musculoskeletal: Denies myalgias Integumentary Denies rash Neurologic Neurologic: Denies headache(s) Hematologic/Lymphatic Hematologic/Lymphatic: Denies easy bleeding or easy bruising EXAM Physical Exam Const Vital Signs: 03/12/25 23:59 03/12/25 23:59 03/13/25 00:58 Temperature 98 F Temperature Source Oral Pulse Rate 75 59 L Respiratory Rate 16 12 Respiratory Effort Normal Blood Pressure 196/69 H 188/64 H Blood Pressure Mean 111 105 Pulse Ox 97 96 Oxygen Delivery Method Room Air 03/13/25 01:00 03/13/25 01:52 Temperature 98 F Temperature Source Pulse Rate 59 L 63 Respiratory Rate 16 Respiratory Effort Blood Pressure 188/64 H 171/72 H Blood Pressure Mean 105 105 Pulse Ox 96 Oxygen Delivery Method Positive well nourished and well developed General Appearance ED: well developed; Negative for pallor HEENT HEENT Narrative: Normocephalic atraumatic Eyes PERRL and EOMs intact bilaterally General Eye ED: Negative for scleral icterus Neck supple and no JVD Chest Wall palpation of chest normal Resp normal respiratory effort and clear to auscultation bilaterally Cardio regular rate and regular rhythm Rate: other Other Details: Radial and carotid pulses equal and symmetric Grade 3 out of 6 soft murmur noted GI normal to inspection, nondistended, normoactive bowel sounds, non-tender, non-distended and no masses GI Narrative: No voluntary guarding or rigidity or pulsatile mass No peritoneal signs Auscultation: normoactive bowel sounds Palpation: soft Extremity normal to inspection Extremity Narrative: Negative Homans' sign bilaterally No signs of long bone injury such as bony deformity or joint effusion Neuro oriented x3, CN's II-XII intact bilaterally and no sensory deficits noted Sensorium / Orientation: alert Motor Exam: strength 5/5 throughout Psych mental status grossly normal Skin no rashes or lesions noted General Skin Exam: Negative for jaundice or pallor MDM MDM MDM Narrative Medical decision making narrative: Patient arrived to ER hypertensive but has a past medical history of this and otherwise stable vitals. He reported 2 episodes of palpitations which he described as his heart racing and missing beats lasting for few minutes and then spontaneously resolving. In order to assess for cardiac dysrhythmia such as A-fib a flutter or SVT or simply premature atrial or ventricular contractions an EKG was obtained and he was placed on the manager cardiac. In order to assess for cause such as acute blood loss anemia acute kidney injury thyroid disorder or [place] abnormality basic blood work was obtained. The patient's cardiac monitoring revealed an occasional PVC but no true cardiac dysrhythmia. Lab work revealed no clinically significant finding. The patient was symptom-free upon arrival and remained that way for his entire ER work. Therefore at this time as there has been no true cardiac dysrhythmia noted and laboratory studies are unremarkable and he has not had any further symptoms I do not feel the need for admission or further intervention and he can follow-up with his heart doctor to discuss Holter monitor/event monitor to further diagnose his palpitations History & Record Review Discussion w/independent historian: Patient Lab Data Attestation: I reviewed the patient's lab results. Labs: Laboratory Results - last 24 hr 03/13/25 00:05 WBC 6.5 RBC 3.88 L Hgb 12.4 L Hct 37.6 L MCV 96.9 H MCH 32.0 MCHC 33.0 RDW Std Deviation 44.4 H RDW Coeff of Connie 12.4 Plt Count 172 MPV 11.2 Immature Gran % (Auto) 0.300 Neut % (Auto) 66.5 Lymph % (Auto) 21.6 Green % (Auto) 8.4 Eos % (Auto) 2.9 Baso % (Auto) 0.3 Absolute Neuts (auto) 4.3 Absolute Lymphs (auto) 1.41 Nucleated RBC % 0 Sodium 140 Potassium 4.3 Chloride 104 Carbon Dioxide 27.6 Anion Gap 9 BUN 24 H Creatinine 1.12 Estim Creat Clear Calc 38.01 L Est GFR (MDRD) Non-Af 63 BUN/Creatinine Ratio 21.8 H Glucose 140 H Calcium 9.6 Magnesium 2.2 TSH 2.980 Radiography Diagnostic Testing: Clinical Impression(s) from Imaging Studies Chest X-Ray 03/13/25 00:55 IMPRESSION: No evidence for acute abnormality. Reading Location: [place] [address] Chest x-ray as interpreted by the emergency medicine system reveals no infiltrate pneumothorax pleural effusion or widening of the mediastinum Discharge Plan Triage Chief Complaint: Palpitations ED Provider: Norbert Ghotra Dx/Rx/DC Orders Clinical Impression: Palpitations, PVC (premature ventricular contraction), Hypertension, Hyperlipidemia, CAD (coronary artery disease) Instructions: ED Heart Palpitations Prescriptions: No Action doxazosin 2 mg tablet 2 mg PO QDAY Qty: 180 3RF atorvastatin 20 mg tablet 20 mg PO QHS Qty: 90 3RF carvedilol 6.25 mg tablet 6.25 mg PO BID Qty: 180 3RF aspirin [Adult Low Dose Aspirin] 81 mg tablet,delayed release (DR/EC) 81 mg PO QDAY multivitamin with folic acid 400 mcg tablet 1 tab PO DAILY Qty: 90 3RF ramipril 10 mg capsule 10 mg PO BID 30 Days Qty: 60 12RF clopidogrel 75 mg tablet 75 mg PO DAILY Qty: 90 3RF Rx Instructions: Take one tablet once a day Primary Care Provider: Juan Elias Referrals: Britton Horan MD [Med Staff - Active Staff, Cardiology] Juan Elias MD [Primary Care Provider, Family Practice] Activity Restrictions/Additional Instructions: Your workup today did not reveal any sign of abnormal heart rhythm. Please follow-up with your electrical design engineer for repeat evaluation and to discuss need for potential Holter/event monitor to further assess for this. Return to the ER should you have any further concerns. Continue all of your home medications as directed by your doctor Print Language: Tristanian Disposition Disposition: Home, Self Care Discharge Date/Time: 03/13/25 02:01
== END 2025-03-13 02:01 | disposition home or self-care (01) ==
PROVIDERS: Emergency Provider Emergency Medicine; PCP Family Medicine; Visit Provider Emergency Medicine
DX: R00.2 Palpitations (principal); I25.10 Atherosclerotic heart disease of native coronary artery without angina pectoris; E78.5 Hyperlipidemia, unspecified; I10 Essential (primary) hypertension; I49.3 Ventricular premature depolarization
CPT/HCPCS: 71046; 80048; 83735; 84443; 85025; 93005; 99285; A4216